=== PATIENT | female | born 1945 | race Caucasian/White ===

== ENCOUNTER 2020-01-21 12:53 | Outpatient (CLI) | payer MEDICARE, MEDICAID, SELFPAY ==
--- NOTE | ~2020-01-21 | MM_ITS ---
EXAMINATION: MM screening foster BI w jose l HISTORY: Screening mammogram TECHNIQUE: Craniocaudal and mediolateral oblique 3-D tomosynthesis images were obtained and synthetic 2-D images were generated. CAD analysis was submitted and interpreted. COMPARISON: No prior mammogram is available for comparison at this institution. BREAST PARENCHYMAL COMPOSITION: The breasts are almost entirely fatty. FINDINGS: There is no evidence of suspicious mass, calcification, or architectural distortion to sugg est malignancy in either breast. IMPRESSION: 1. No mammographic evidence of malignancy. 2. Recommend routine screening mammography in one year. BI-RADS Category 1: Negative Reviewed, dictated and finalized at location A. E LINER
== END 2020-01-21 12:54 | disposition home or self-care (01) ==
LOC: CHSIMG 13:00
PROVIDERS: PCP Nurse Practitioner Family; Visit Provider Nurse Practitioner Family
DX: Z12.31 Encounter for screening mammogram for malignant neoplasm of breast (principal)
CPT/HCPCS: 77063; 77067

== ENCOUNTER 2021-02-26 12:17 | Outpatient (NON) | payer MEDICARE, SELFPAY ==
[2021-02-26 12:47] LABS: Basophils Absolute Auto 0.03 K/mm3 (0.00-0.10); Basophils Percent Auto 0.3 % (0.0-1.0); Eosinophils Absolute Auto 0.22 K/mm3 (0.02-0.50); Eosinophils Percent Auto 2.6 % (1.0-6.0); Hematocrit 49.7 % (35.0-42.0); Hemoglobin 15.3 g/dL (11.7-13.8); Immature Granulocyte Absolute 0.03 K/mm3 (0.00-0.00); Immature Granulocyte Percent A 0.3 % (0.0-0.0); Lymphocytes Absolute Auto 2.97 K/mm3 (1.10-4.50); Lymphocytes Percent Auto 34.5 % (18.0-42.0); Mean Corpuscular HGB Conc 30.8 g/dL (32.0-36.0); Mean Corpuscular Hemoglobin 30.4 pg (27.0-31.0); Mean Corpuscular Volume 98.8 fL (78.0-102.0); Mean Platelet Volume 11.9 fl (9.2-11.8); Neutrophils Absolute Auto 4.8 K/mm3 (1.7-7.2); Neutrophils Percent Auto 55.3 % (50.0-70.0); Platelet Count Result 326 K/mm3 (150-420); Red Blood Count 5.03 M/mm3 (4.20-5.40); Red Cell Distribution Width 14.1 % (11.6-14.4); White Blood Count 8.6 K/mm3 (4.8-10.8)
[2021-02-26 12:56] LABS: Hemoglobin A1C 6.9 % (<5.7)
[2021-02-26 13:10] LABS: Alanine Aminotransferase 13 U/L (14-59); Albumin Level 3.2 g/dL (3.4-5.0); Alkaline Phosphatase 64 U/L (46-116); Anion Gap 6 mmol/L (8-16); Aspartate Amino Transferase 17 U/L (15-37); Bilirubin,Total 0.3 mg/dL (0.00-1.00); Blood Urea Nitrogen 15 mg/dL (7-18); Calcium 9.4 mg/dL (8.5-10.1); Carbon Dioxide 31 mmol/L (21-32); Chloride 104 mmol/L (98-108); Cholesterol 175 mg/dL (0-200); Estimated Glomerular Filt Rate > 60; Glucose 115 mg/dL (70-99); HDL Direct 57 mg/dL (40-60); LDL Cholesterol Calculated 81 mg/dL (<130); Osmolality Calculated 293 mOsm/kg (285-295); Sodium 141 mmol/L (136-145); Triglycerides 187 mg/dL (0-150)
== END 2021-02-26 12:18 | disposition home or self-care (01) ==
LOC: CHSHH 12:20
PROVIDERS: Visit Provider Nurse Practitioner Family
DX: S42.222D 2-part displaced fracture of surgical neck of left humerus, subsequent encounter for fracture with routine healing (principal); E11.65 Type 2 diabetes mellitus with hyperglycemia; M89.49 Other hypertrophic osteoarthropathy, multiple sites; E11.59 Type 2 diabetes mellitus with other circulatory complications
CPT/HCPCS: 36415; 80053; 80061; 83036; 85025

== ENCOUNTER 2021-04-09 08:37 | Emergency (ER) | payer MEDICARE, MEDICAID, SELFPAY ==
--- NOTE | ~2021-04-09 | XR_ITS ---
EXAMINATION: XR ankle LT min 3V EXAM DATE: 04/09/2021 09:20 INDICATION: fall, L ankle pain/ slight swelling, pt AMS/ poor historian. TECHNIQUE: Left ankle frontal, lateral and oblique projections obtained and reviewed. There is no pr ior study for comparison. FINDINGS: The left ankle mortise appears intact. Bones appear osteopenic. There are no acute fract ures or dislocations identified. There is no subcutaneous gas. The soft tissue is unremarkable. T here are no radiopaque foreign bodies. IMPRESSION: No acute osseous findings. Reviewed, dictated and finalized at location A. [facility] ADMINISTRATIVE SERVICES OFFICER IMPRESSION: No acute osseous findings.
[2021-04-09 08:37] VITALS: BP 156/65; PULSE 89; RESP 20; TEMP 36.9; O2SAT 89
--- NOTE | 2021-04-09 08:43 | ED.LOWEXIN ---
HPI - Extremity Injury (Lower) General Chief Complaint: Fall Stated Complaint: AMBULANCE Time Seen by Provider: 04/09/21 08:43 Source: patient History of Present Illness HPI Narrative: 76-year-old female with Diabetes mellitus, history of CVA with left-sided weakness fell on left lower extremity and twisted her left ankle as she was attempting to get off the commode. The patient presents with -- left ankle pain. She has a left lower extremity posterior leg brace. She denied any other injury. The patient has been having difficulty with ADLs. Her assists her with her ADLs. the patient tested positive for COVID on March 30, 2021. complaint: ankle injury Onset (ago): hour(s) ( 1 hour ago) Injury: Left: ankle Type of Injury: blunt Place: home Severity: moderate Severity scale (1-10): 4 Relieving factors: nothing Exacerbating factors: nothing Context: fall Other symptoms: none Treatments prior to arrival: cold therapy Related Data Home Medications Medication Instructions Recorded Confirmed Aspir-81 81 mg BYMOUTH DAILY 04/09/21 04/09/21 betamethasone valerate 1 applic TOPICAL BID 04/09/21 04/09/21 buspirone 7.5 mg PO BID 04/09/21 04/09/21 cholecalciferol (vitamin D3) 50 mcg PO DAILY 04/09/21 04/09/21 denosumab 60 mg SUBCUT [id number] 04/09/21 04/09/21 dicyclomine 10 mg PO PRN PRN 04/09/21 04/09/21 dulaglutide [Trulicity] 1.5 mg SUBCUT WEEKLY 04/09/21 04/09/21 duloxetine 60 mg PO DAILY 04/09/21 04/09/21 enalapril maleate 20 mg PO DAILY 04/09/21 04/09/21 hydrocodone-acetaminophen 1 tablet PO TID 04/09/21 04/09/21 insulin asp prt-insulin aspart 54 unit SUBCUT BID 04/09/21 04/09/21 [Novolog Mix 70-30FlexPen U-100] magnesium gluconate 500 mg BYMOUTH DAILY 04/09/21 04/09/21 meloxicam 7.5 mg PO DAILY 04/09/21 04/09/21 metformin 500 mg PO DAILY 04/09/21 04/09/21 omeprazole 40 mg PO DAILY 04/09/21 04/09/21 pravastatin 40 mg PO DAILY 04/09/21 04/09/21 pregabalin 150 mg PO BID 04/09/21 04/09/21 Allergies Allergy/AdvReac Type Severity Reaction Status Date / Time codeine Allergy Intermediate Verified 06/25/13 08:05 Review of Systems Review of Systems: All systems reviewed & are unremarkable except as noted in HPI and below Constitutional: Constitutional: Reports as per HPI and Reports no additional constitutional complaints Eyes: Eyes: Reports as per HPI and Reports no additional eye complaints ENT: Reports system reviewed and no additional complaints, except as documented Cardiovascular: Cardiovascular: Reports as per HPI and Reports no additional cardiovascular complaints Respiratory: Respiratory: Reports as per HPI and Reports no additional respiratory complaints Gastrointestinal: Gastrointestinal: Reports as per HPI and Reports no additional gastrointestinal complaints Genitourinary: Genitourinary: Reports no additional female genitourinary complaints Musculoskeletal: Comments: history of chronic pain Integumentary/Breasts: Comments: bruising of the right wrist. Neurologic: Comments: Flaccid left hemiplegia Psychiatric: Psychiatric: Reports no additional psychiatric complaints Endocrine: Endocrine: Reports no additional endocrine complaints Hematologic/Lymphatic: Hematologic/Lymphatic: Reports no additional hematologic/lymphatic complaints Allergic/Immunologic: Allergic/Immunologic: Reports no additional allergic/immunologic complaints [facility] Past Medical History Medical History (Updated 04/09/21 @ 14:40 by Zack Velasquez MD) Left hemiplegia Social History Social History Smoking status: Current every day smoker Exam Const: General: no acute distress Orientation/consciousness: patient oriented x3 HENMT: Head: normal to inspection and contusion Eyes: Conjunctivae: conjunctivae normal Pupils: Equal, round and reactive pupils present EOM: EOMs intact bilaterally Neck: Neck: normal visual inspection and no lymphad
[2021-04-09 09:14] LABS: Hematocrit 48.4 % (35.0-42.0); Hemoglobin 15.3 g/dL (11.7-13.8); Mean Corpuscular HGB Conc 31.6 g/dL (32.0-36.0); Mean Corpuscular Hemoglobin 29.9 pg (27.0-31.0); Mean Corpuscular Volume 94.5 fL (78.0-102.0); Mean Platelet Volume 11.1 fl (9.2-11.8); Platelet Count Result 336 K/mm3 (150-420); Red Blood Count 5.12 M/mm3 (4.20-5.40); Red Cell Distribution Width 13.7 % (11.6-14.4); White Blood Count 12.3 K/mm3 (4.8-10.8)
[2021-04-09 09:27] LABS: Partial Thromboplastin Time 26.7 SEC (23.90-30.70); Prothrombin Time 10.3 Seconds (9.50-12.10)
[2021-04-09 09:32] LABS: Alanine Aminotransferase 21 U/L (14-59); Albumin Level 2.8 g/dL (3.4-5.0); Alkaline Phosphatase 63 U/L (46-116); Anion Gap 7 mmol/L (8-16); Aspartate Amino Transferase 16 U/L (15-37); Bilirubin,Total 0.3 mg/dL (0.00-1.00); Blood Urea Nitrogen 18 mg/dL (7-18); Calcium 9.9 mg/dL (8.5-10.1); Carbon Dioxide 34 mmol/L (21-32); Chloride 100 mmol/L (98-108); Estimated Glomerular Filt Rate > 60; Glucose 147 mg/dL (70-99); Osmolality Calculated 296 mOsm/kg (285-295); Potassium 3.7 mmol/L (3.5-5.1); Sodium 141 mmol/L (136-145); Total Protein 7.2 g/dL (6.4-8.2)
[2021-04-09 09:33] LABS: Troponin I 23.3 ng/L (0.00-60.4)
[2021-04-09 10:09] LABS: Add Urine Microscopic? YES; Appearance Urine Sl Cloudy (Clear); Bilirubin Urine Negative (Negative); Blood Urine Negative (Negative); Color Urine Light Yellow (Yellow); Glucose Urine UA Negative (Negative); Ketones Urine Trace (Negative); Leukocyte Esterase Ur Trace LEU/UL (Negative); Nitrate Urine Negative (Negative); Protein Urine Negative (Negative); Specific Grav Ur 1.015 (1.010-1.020); Urobilinogen Urine 0.2 mg/dL (0.2-1.0)
[2021-04-09 10:17] LABS: RBC Urine None seen /hpf (0-2); Squamous Epithelial Cell Urine Few /hpf (Few); WBC Urine 0-3 /hpf (0-3)
[2021-04-09 10:18] LABS: Bacteria Urine 3+ /hpf
[2021-04-09 10:59] VITALS: BP 155/64; PULSE 83; RESP 20; TEMP 37.1; O2SAT 93
--- NOTE | 2021-04-09 10:59 | PC.NURSE ---
call placed to [facility] for possible admission criteria.
[2021-04-09] MEDS: LACTATED RINGERS 1,000 ML 999 ML IV CONT (11:08)
[2021-04-09 12:26] LABS: SARS-CoV-2 Ag Positive (Negative)
--- NOTE | 2021-04-09 12:32 | PCCCNOTE ---
Visited the pt Faith and in her ED room. Faith slow to answer questions. answered all questions. reports [facility] . [facility] states [facility] told her [facility] have no beds. Faxed face sheet, ED MD note and [facility]. Pt has had 2 Moderna Covid immunizations in September and October 2020 per her . She tested positive for Covid on 03/30/21 per ED notes. is agreeable to any physician on the [facility] staff to care for his
[2021-04-09 13:46] VITALS: BP 168/83; PULSE 78; RESP 20; TEMP 36.2; O2SAT 93
--- NOTE | 2021-04-09 14:19 | PC.NURSE ---
chart has been faxed to nursing facilities. awaiting response. food tray provided for pt and .
--- NOTE | 2021-04-09 14:40 | PC.NURSE ---
pt placement to [facility]. fadumo has spoken with and he is aware. awaiting bed assignment.
--- NOTE | 2021-04-09 14:43 | PCCCNOTE ---
[facility] Inform and pt. Boris to meet with Santa at shelter in 30-45 min. Santa will let hospital know of room number.
[2021-04-09 14:55] VITALS: BP 122/69; PULSE 73; RESP 20; TEMP 36.3; O2SAT 93
--- NOTE | 2021-04-09 15:43 | PC.NURSE ---
pt resting in cot. repositioned to position of comfort. call delatorre in reach. continue waiting for bed placement
--- NOTE | 2021-04-09 16:22 | PC.NURSE ---
pt to go to room 109 at [facility]. call to [facility] for transport. awaiting arrival. pt stable and alert.
--- NOTE | 2021-04-09 16:34 | PC.NURSE ---
[facility] here and report given. pt loaded to ems cot with no complaints voiced.
== END 2021-04-09 16:36 ==
PROVIDERS: Emergency Provider Internal Medicine Critical Care Medicine; PCP Nurse Practitioner Family
DX: E86.0 Dehydration (principal); M25.572 Pain in left ankle and joints of left foot; W19.XXXA Unspecified fall, initial encounter; F17.200 Nicotine dependence, unspecified, uncomplicated; Z20.822 Contact with and (suspected) exposure to COVID-19
CPT/HCPCS: 36415; 73610; 80053; 81001; 84484; 85027; 85610; 85730; 87426; 99283; 99284; C9803; J7120

== ENCOUNTER 2021-04-23 11:26 | Observation (INO) | payer MEDICARE, MEDICAID, SELFPAY ==
--- NOTE | ~2021-04-23 | US_ITS ---
EXAMINATION: US carotid duplex BI EXAM DATE: 04/23/2021 13:53 INDICATION: right side weakness TECHNIQUE: Grayscale, color and pulsed Doppler images of the cervical carotid arteries were obtained . The degree of vessel stenosis is placed in one of the following categories: normal, <50% stenosis, 50-69% stenosis, >=70% stenosis but less than near-occlusion, near-occlusion, or occlusion. Note that percent stenosis relative to normal distal artery lumen diameter is indirectly measured from velocit y measurements as described by Terry, et al. Radiology 2003; 229:340-346. There is no prior study fo r comparison. FINDINGS: RIGHT SIDE: Right common carotid artery peak systolic velocity (PSV in cm/s): 98 Right bulb/internal carotid artery peak systolic velocity (PSV in cm/s): 102 Right internal carotid artery end diastolic velocity (EDV in cm/s): 70 Right ICA/CCA peak systolic ratio: 1.0 Right external carotid artery peak systolic velocity (PSV in cm/s): 167 Right vertebral artery antegrade flow: yes There is mild carotid bulb plaque. Velocity and Doppler waveforms in the common and internal carotid arteries is normal. LEFT SIDE: Left common carotid artery peak systolic velocity (PSV in cm/s): 132 Left bulb/internal carotid artery peak systolic velocity (PSV in cm/s): 166 Left internal carotid artery end diastolic velocity (EDV in cm/s): 11 Left ICA/CCA peak systolic ratio: 1.3 Left external carotid artery peak systolic velocity (PSV in cm/s): 145 Left vertebral artery antegrade flow: yes Mildly elevated left ICA velocity with visually moderate amount of plaque present. 50-69% stenosis. IMPRESSION: 1. Less than 50 percent stenosis in the right internal carotid artery. 2. 50-69% stenosis left internal carotid artery. Reviewed, dictated and finalized at location B. H [employer]ESSIONAL [employer]LETES
--- NOTE | ~2021-04-23 | MR_ITS ---
EXAMINATION: MR brain/brain stem wo con DATE: 04/24/2021 10:57 INDICATION: Right hemiparesis. TECHNIQUE: Magnetic resonance imaging (MRI) of the brain and brainstem was performed without intraven ous contrast. Sequences included sagittal and axial T1-weighted FSE, axial diffusion-weighted FS EPI, axial T2*-weighted GRE, axial T2-weighted FLAIR Propeller, and axial T2-weighted Propeller. Apparent diffusion coefficient (ADC) maps were created. COMPARISON: Head CT 04/23/2021 FINDINGS: There is a large distribution of chronic encephalomalacia involving the right frontal, temp oral, and parietal lobes, right insula, and right basal ganglia in the expected distribution of right middle cerebral artery. There are old infarcts in the bilateral thalami. There is an old infarct inv olving left temporal parietal region and posterior left insula. There are scattered areas of nonspeci fic increased T2-weighted signal intensity in the cerebral white matter and arash. There is no intracr anial hemorrhage, acute infarction, or abnormal intracranial mass lesion. There is ex vacuo dilatatio n of right lateral ventricle. There are likely changes of ocular lens replacement surgeries. There is mild mucosal thickening in the ethmoid sinuses. IMPRESSION: 1. Old infarcts in the brain. 2. Mild nonspecific cerebral white matter disease and pontine disease, which likely represents chroni c small vessel ischemic disease. Reviewed, dictated and finalized at location E. H DOFFER IMPRESSION: 1. Old infarcts in the brain. 2. Mild nonspecific cerebral white matter disease and pontine disease, which therese ortega represents chronic small vessel ischemic disease.
--- NOTE | ~2021-04-23 | CT_ITS ---
EXAMINATION: CT brain wo con DATE: 04/23/2021 12:28 INDICATION: Right hand shaking with weakness TECHNIQUE: Computed tomography (CT) of the head was performed without intravenous contrast. Sagittal and coronal reconstructions were performed. The mA was adjusted according to patient size. Iterative reconstruction technique was employed. The dose-length product was 756.67 mGy-cm. COMPARISON: None FINDINGS: Large region of encephalomalacia in the right middle cerebral artery vascular distribution consistent with chronic infarct involving portions of the right frontal, parietal and temporal lobes as well as the insula, right thalamus and basal ganglia. Additional significant smaller region of the encephalo malacia consistent with chronic infarct involving the posterior left insula and temporal lobe. No acu te intracranial hemorrhage, acute infarction or abnormal extra axial fluid collection. Mild ex vacuo dilation of the body of the right lateral ventricle. Ventricles are otherwise normal and symmetric. N o mass/mass effect. Symmetric prominence of the sulci and subarachnoid spaces overlying the convexiti es consistent with mild age-appropriate diffuse cerebral volume loss. Changes of bilateral intraocula r lens replacement. The orbits, paranasal sinuses and mastoid air cells are normal. IMPRESSION: 1. No acute intracranial process. 2. Large old infarct involving the majority of the right middle cerebral artery vascular distribution and smaller old infarct at the posterior left temporal lobe and insula. Reviewed, dictated and finalized at location A. BALL HAND SEWER IMPRESSION: 1. No acute intracranial process. 2. Large old infarct involving the majority of the right middle cerebral artery vascular distribution and smaller old infarct at the posterior left temporal l obe and insula.
--- NOTE | 2021-04-23 11:41 | ED.WEAKNESS ---
HPI - Weakness General Chief complaint: Weakness Stated complaint: Ambulance Time Seen by Provider: 04/23/21 11:45 History of Present Illness HPI Narrative: 76-year-old female patient is brought to the ER by a local EMS after she had experienced some weakness. According to the patient she has noticed some shaking of the right hand and states that her was concerned that she might be having a stroke. Patient states that she is unable to hold a cup of coffee or loss of water with the right hand. She is a very poor historian. According to prior medical records it seems that the patient was admitted here with dehydration on April 09 and apparently was discharged to the care home where she stayed up until 2 days ago and went home. She is very dependent on her for her daily ADLs. She has no complaints of headache, chest pain or belly pain at this time. She denies any nausea or vomiting. She denies any falls since she has been discharged home. She does indicate that she has had bermudez in the past but is not sure how long ago. Her old records indicate that she had positive COVID on March 30. Patient also has a known history of old CVA with left hemiplegia. Related Data Home Medications Medication Instructions Recorded Confirmed Aspir-81 81 mg BYMOUTH DAILY 04/09/21 04/23/21 Trulicity 1.5 mg SUBCUT WEEKLY 04/09/21 04/23/21 buspirone 7.5 mg PO BID 04/09/21 04/23/21 cholecalciferol (vitamin D3) 50 mcg PO DAILY 04/09/21 04/23/21 denosumab 60 mg SUBCUT [id number] 04/09/21 04/09/21 dicyclomine 10 mg PO PRN PRN 04/09/21 04/23/21 duloxetine 60 mg PO DAILY 04/09/21 04/23/21 enalapril maleate 20 mg PO DAILY 04/09/21 04/23/21 insulin asp prt-insulin aspart 54 unit SUBCUT BID 04/09/21 04/23/21 [Novolog Mix 70-30FlexPen U-100] magnesium gluconate 500 mg BYMOUTH DAILY 04/09/21 04/09/21 meloxicam 7.5 mg PO DAILY 04/09/21 04/09/21 metformin 500 mg PO DAILY 04/09/21 04/23/21 omeprazole 40 mg PO DAILY 04/09/21 04/09/21 pravastatin 40 mg PO DAILY 04/09/21 04/23/21 Allergies Allergy/AdvReac Type Severity Reaction Status Date / Time codeine Allergy Intermediate Headache Verified 04/23/21 11:39 Review of Systems Review of Systems: As noted in history of present illness All systems reviewed & are unremarkable except as noted in HPI and below PMFSH Past Medical History Medical History Left hemiplegia none Social History Social History Smoking status: Current every day smoker Exam Const: General: no acute distress and alert Nutritional Appearance: obese Orientation/consciousness: patient oriented x3 HENMT: Head: normal to inspection Ears: Abnormal EAC present General nose exam: Normal external nose present and Normal nares present Face and sinus: sinuses nontender Mouth: Yes Normal oral and palatal mucosa present and Yes moist mucous membranes Eyes: Conjunctivae: conjunctivae normal Pupils: Equal, round and reactive pupils present EOM: EOMs intact bilaterally Neck: Neck: normal visual inspection and no lymphadenopathy Chest: Chest palpation & inspection: normal inspection of the chest Resp: Effort & Inspection: normal respiratory effort Auscultation: clear to auscultation bilaterally Cardio: Rate: regular rate Rhythm: regular rhythm GI: GI Palp: Yes Soft to palpation, No Tenderness to palpation present (GI), No Guarding due to palpation present (GI) and No Rebound tenderness present Percussion: Yes normal to percussion Auscultation: normal bowel sounds : General: Yes no CVA tenderness Skin: General skin exam: normal color Neuro: General: patient oriented x3, No moves all extremities, no meningeal signs and CN's II-XI intact bilaterally Cranial nerves: Yes Nystagmus not present Other: patient has obvious left hemiplegia with no spontaneous movement of the left arm or right arm. Her right
[2021-04-23 11:50] VITALS: BP 95/58; PULSE 92; RESP 18; TEMP 35.9; O2SAT 92
--- NOTE | 2021-04-23 12:08 | PC.NURSE ---
Unconfirmed medications were in EMR from previous visits, but not listed on pt's written medication list. Pt unable to verify if unconfirmed medications are currently being taken.
[2021-04-23 12:18] LABS: Basophils Absolute Auto 0.03 K/mm3 (0.00-0.10); Basophils Percent Auto 0.4 % (0.0-1.0); Eosinophils Absolute Auto 0.29 K/mm3 (0.02-0.50); Eosinophils Percent Auto 4.3 % (1.0-6.0); Hematocrit 47.4 % (35.0-42.0); Hemoglobin 14.6 g/dL (11.7-13.8); Immature Granulocyte Absolute 0.02 K/mm3 (0.00-0.00); Immature Granulocyte Percent A 0.3 % (0.0-0.0); Lymphocytes Absolute Auto 2.23 K/mm3 (1.10-4.50); Lymphocytes Percent Auto 32.7 % (18.0-42.0); Mean Corpuscular HGB Conc 30.8 g/dL (32.0-36.0); Mean Corpuscular Hemoglobin 29.6 pg (27.0-31.0); Mean Corpuscular Volume 96.1 fL (78.0-102.0); Monocytes Absolute Auto 0.47 K/mm3 (0.10-0.90); Monocytes Percent Auto 6.9 % (2.0-11.0); Neutrophils Absolute Auto 3.8 K/mm3 (1.7-7.2); Neutrophils Percent Auto 55.4 % (50.0-70.0); Platelet Count Result 289 K/mm3 (150-420); Red Blood Count 4.93 M/mm3 (4.20-5.40); Red Cell Distribution Width 14.2 % (11.6-14.4); White Blood Count 6.8 K/mm3 (4.8-10.8)
[2021-04-23 12:33] LABS: Alanine Aminotransferase 24 U/L (14-59); Albumin Level 3.1 g/dL (3.4-5.0); Alkaline Phosphatase 69 U/L (46-116); Anion Gap 7 mmol/L (8-16); Aspartate Amino Transferase 19 U/L (15-37); Bilirubin,Total 0.3 mg/dL (0.00-1.00); Blood Urea Nitrogen 30 mg/dL (7-18); Calcium 9.7 mg/dL (8.5-10.1); Carbon Dioxide 32 mmol/L (21-32); Chloride 102 mmol/L (98-108); Estimated CRCL calculation 59 ml/min; Estimated Glomerular Filt Rate 53; Glucose 157 mg/dL (70-99); Osmolality Calculated 301 mOsm/kg (285-295); Potassium 3.5 mmol/L (3.5-5.1); Sodium 141 mmol/L (136-145)
--- NOTE | 2021-04-23 12:33 | PC.NURSE ---
Pt's has arrived while she is in [place] and states that pt was discharged from [facility] on Monday because we both wanted to leave. I wasn't happy with what was going on there . states that he has home health come help take care of pt, but today she was unable to stand like she normally does and had to use a bhumika lift to get pt to the restroom. also states that pt was unable to hold her coffee cup. states that he thought pt may be having TIA's again . states that pt's last stroke was in February 1999. ERP present during this conversation and asks what his discharge goals for pt are. states that he would like pt sent to [facility] in [place] and says he has already talked to them and pt's PCP is sending paperwork over today. RN called [facility] to confirm pt's placement and was told by staff that they do not have a bed ready for pt at this time and they have told this multiple times since he first contacted them on 04-08-21. [facility] staff states that they have not received the required paperwork from PCP and have not been able to approve pt's insurance yet. [facility] staff states that it will be next week, at the earliest, before they will be ready to accept pt if insurance is approved.
[2021-04-23 13:00] LABS: Add Urine Microscopic? YES; Appearance Urine Cloudy (Clear); Bilirubin Urine Negative (Negative); Blood Urine Negative (Negative); Color Urine Yellow (Yellow); Glucose Urine UA Negative (Negative); Ketones Urine Negative (Negative); Leukocyte Esterase Ur Negative (Negative); Nitrate Urine Negative (Negative); Protein Urine Negative (Negative); Specific Grav Ur 1.015 (1.010-1.020); Urobilinogen Urine 0.2 mg/dL (0.2-1.0)
[2021-04-23 13:05] VITALS: BP 135/80; PULSE 88; RESP 16; O2SAT 90
[2021-04-23 13:08] LABS: Bacteria Urine 2+ /hpf; RBC Urine None seen /hpf (0-2); Squamous Epithelial Cell Urine Few /hpf (Few); WBC Urine None seen /hpf (0-3)
--- NOTE | 2021-04-23 13:18 | PC.NURSE ---
Two RN's at bedside attempting to stand pt per ERP request. states that pt has not stood in weeks and he has to use a bhumika lift to get her out of bed every day. ERP aware and says to get orthostatic vitals with pt sitting on bed, but not standing.
[2021-04-23 13:21] VITALS: BP 122/56; BP 139/69; PULSE 95; PULSE 99
--- NOTE | 2021-04-23 13:34 | PC.NURSE ---
ERP discussion admission with hospitalist. US of carotids will be obtained. US tech at bedside now.
--- NOTE | 2021-04-23 14:08 | PC.NURSE ---
O2 dropped to 88%. RN to room and finds pt asleep. Pt denies a Hx of sleep apnea. Pt does not appear to be in any distress. 2L O2 applied via NC.
[2021-04-23 14:43] VITALS: BP 119/56; PULSE 87; RESP 116; O2SAT 100
[2021-04-23 15:24] VITALS: BMI 30.2
[2021-04-23 15:40] VITALS: BP 137/72; PULSE 83; RESP 18; TEMP 36.1; O2SAT 100
--- NOTE | 2021-04-23 15:51 | ADMGEN ---
This patient, Faith Jenkins, was admitted to 2nd Floor Room 209-1. Patient/family oriented to hospital policies and general routines including ID bracelet, bed and alarms, visiting hours, pain management, procedures, bathroom and other care routines, personal items, smoking policy, room service/diet, and visiting hours. Information on how to activate the Rapid Response Team has been discussed. Patient/Family are encouraged to report perceived risks to care and to ask questions if they do not understand what they are told or what they should do.
[2021-04-23 16:39] LABS: Glucose Point of Care 46 mg/dl (65-105)
[2021-04-23] MEDS: DOCUSATE SODIUM 100 MG CAPSULE PO (16:44)
[2021-04-23 20:00] VITALS: O2SAT 96
[2021-04-23] MEDS: PREGABALIN (*CRX) 50 MG CAPSULE PO (21:12)
[2021-04-23] MEDS: busPIRone HCL 5 MG TABLET 7.5 MG PO (21:12)
[2021-04-23 21:13] LABS: Glucose Point of Care 62 mg/dl (65-105)
--- NOTE | 2021-04-23 21:21 | PC.NURSE ---
pt given oj and raymundo chauhan for bs of 64, took pills whole without difficulties, call light on lap, rails up
[2021-04-24] VITALS: BP 134/58; PULSE 74; RESP 20; TEMP 36.1; O2SAT 94
--- NOTE | 2021-04-24 00:15 | PC.NURSE ---
Pt resting in bed and watching TV. Pt given ice cream for a snack and pt doesnt voice any other concerns.
--- NOTE | 2021-04-24 02:15 | PC.NURSE ---
Pt incontinent of a large amount of urine; Pt cleaned, changed and repositioned to her side.
--- NOTE | 2021-04-24 04:04 | PC.NURSE ---
Pt turned and repositioned to her side.
[2021-04-24 05:32] LABS: Hematocrit 39.9 % (35.0-42.0); Hemoglobin 12.8 g/dL (11.7-13.8); Mean Corpuscular HGB Conc 32.1 g/dL (32.0-36.0); Mean Corpuscular Hemoglobin 30.5 pg (27.0-31.0); Mean Corpuscular Volume 95.2 fL (78.0-102.0); Mean Platelet Volume 12.1 fl (9.2-11.8); Platelet Count Result 244 K/mm3 (150-420); Red Blood Count 4.19 M/mm3 (4.20-5.40); Red Cell Distribution Width 14.1 % (11.6-14.4); White Blood Count 6.7 K/mm3 (4.8-10.8)
[2021-04-24 06:14] LABS: Alanine Aminotransferase 19 U/L (14-59); Albumin Level 2.5 g/dL (3.4-5.0); Alkaline Phosphatase 68 U/L (46-116); Anion Gap 7 mmol/L (8-16); Aspartate Amino Transferase 21 U/L (15-37); Bilirubin,Total 0.2 mg/dL (0.00-1.00); Blood Urea Nitrogen 16 mg/dL (7-18); Carbon Dioxide 30 mmol/L (21-32); Chloride 106 mmol/L (98-108); Estimated CRCL calculation 67 ml/min; Estimated Glomerular Filt Rate > 60; Glucose 170 mg/dL (70-99); Osmolality Calculated 301 mOsm/kg (285-295); Potassium 3.9 mmol/L (3.5-5.1); Sodium 143 mmol/L (136-145); Total Protein 5.9 g/dL (6.4-8.2)
--- NOTE | 2021-04-24 06:45 | PC.NURSE ---
Pt turned and repositioned to her back; Blood sugar is 110.
[2021-04-24 06:55] LABS: Glucose Point of Care 110 mg/dl (65-105)
[2021-04-24 07:45] VITALS: BP 137/62; PULSE 76; RESP 18; TEMP 36.5; O2SAT 92
[2021-04-24] MEDS: ENALAPRIL MALEATE 5 MG TABLET 20 MG PO (09:41)
[2021-04-24] MEDS: DULoxetine HCL 30 MG CAPSULE.DR 60 MG PO (09:41)
[2021-04-24] MEDS: ASPIRIN 81 MG ENTERIC TABLET PO (09:41)
[2021-04-24] MEDS: PRAVASTATIN SODIUM 20 MG TABLET 40 MG PO (09:42)
[2021-04-24] MEDS: busPIRone HCL 5 MG TABLET 7.5 MG PO (09:43)
[2021-04-24] MEDS: CHOLECALCIFEROL 1,000 UNITS TABLET 2000 UNITS PO (09:43)
[2021-04-24] MEDS: MAGNESIUM OXIDE 400 MG TABLET PO (09:43)
[2021-04-24] MEDS: PREGABALIN (*CRX) 50 MG CAPSULE PO (09:43)
[2021-04-24] MEDS: DOCUSATE SODIUM 100 MG CAPSULE PO (09:43)
[2021-04-24] MEDS: ENOXAPARIN 40 MG/0.4 ML SYRINGE SUB-Q (09:43)
[2021-04-24] MEDS: MELOXICAM 7.5 MG TABLET PO (09:55)
--- NOTE | 2021-04-24 11:33 | PM.SD2 ---
Same Day Admit/Disch: HPI History of Present Illness Chief complaint: Ambulance Narrative: Faith Jenkins is a 76 year old female that presented to our ED with complaints of right side weakness. Patient has a history of left side hemiplegia due to a CVA, diabetes, hypertension, depression and anxiety. Patient is a poor historian all information obtained from medical records .patient able to answer questions with a slow response .apparently patient started having uncontrollable shaking to her right hand afterwards her was concerned about her having a stroke. After last admission patient was discharged to a shelter in which her felt unfit for her stay . He is currently looking for placement. Patient does not appear to be in any distress at this time. The patient denies SOB, CP, palpitation, extremity numbness, lightheadedness, dizziness, constipation, diarrhea, chills, or fever. Carotid indicates Less than 50 percent stenosis in the right internal carotid artery.and 50-69% stenosis left internal carotid artery. WBC 6.8, hemoglobin 14.6, hematocrit 47.4, platelets 289, sodium 141, potassium 3.5, BUN 30, creatinine 1.01, glucose 157,, AST 19, ALT 24, UA negative, CT of the head no acute findings, MRI. According to ED doctor patient and family member do not want any extensive intervention if CVA is found. Patient currently on preventive medication. She will discharge home and is awaiting placement at a shelter. Patient has no obvious distress PMFSH Past Medical History Medical History (Updated 04/24/21 @ 11:41 by RUDDY Skinner) Hypertension Left hemiplegia none Social History Social History Smoking status: Former smoker Tobacco type: cigarettes Second hand tobacco smoke exposure: Yes Alcohol intake: never Substance use: never Substance use type: does not use Spiritual care concerns: No Same Day Admit/Disch: Med Pre-admit Medications Home Medications Medication Instructions Recorded Confirmed Type Aspir-81 81 mg BYMOUTH DAILY 04/09/21 04/23/21 History Trulicity 1.5 mg SUBCUT WEEKLY 04/09/21 04/23/21 History buspirone 7.5 mg PO BID 04/09/21 04/23/21 History cholecalciferol (vitamin D3) 50 mcg PO DAILY 04/09/21 04/23/21 History dicyclomine 10 mg PO PRN PRN 04/09/21 04/23/21 History duloxetine 60 mg PO DAILY 04/09/21 04/23/21 History enalapril maleate 20 mg PO DAILY 04/09/21 04/23/21 History hydrocodone-acetaminophen 1 tablet PO TID #60 tablet 04/09/21 04/23/21 Rx metformin 500 mg PO DAILY 04/09/21 04/23/21 History pravastatin 40 mg PO DAILY 04/09/21 04/23/21 History pregabalin 150 mg PO BID #60 cap 04/09/21 04/23/21 Rx insulin asp prt-insulin aspart 27 unit SUBCUT BID #0 ml 04/24/21 04/23/21 Rx [Novolog Mix 70-30FlexPen U-100] meloxicam [Mobic] 7.5 mg PO DAILY #30 tablet 04/24/21 Rx Exam Narrative: GENERAL: This is a well-nourished, well-developed patient, in no apparent distress. HEAD: normocephalic, atraumatic. EYES: PERRL. Sclera clear/white. Vision is grossly intact. EARS: External ears normal, auditory canals clear and without drainage, TMs normal without perforation. Hearing grossly intact. NOSE: External nose normal with no obvious nasal discharge, nares without redness, no rhinorrhea. THROAT: Mucous membranes moist, posterior pharynx clear. NECK: Neck supple, non-tender without lymphadenopathy, masses or thyromegaly. CARDIOVASCULAR: Regular rate and rhythm without murmurs, gallops, or rubs. RESPIRATORY: Clear to auscultation. Breath sounds equal bilaterally. No wheezes, rales, or rhonchi. GASTROINTESTINAL: Abdomen soft, non-tender, nondistended. Bowel sounds are active. No hepato-splenomegaly, or palpable masses. No guarding. SKIN: warm, intact with no suspicious lesions or rash, good texture and turgor. NEURO: awake, alert, and oriented to person, place and time. There were no obvious focal neurologic abnormalities.
[2021-04-24 12:09] LABS: Glucose Point of Care 114 mg/dl (65-105)
--- NOTE | 2021-04-24 13:15 | PC.NURSE ---
Patients denise notified of patient being discharged today. states there is no was for patient to be transported home safely and she will have to come by ambulance.
--- NOTE | 2021-04-24 16:30 | PC.NURSE ---
IV site removed, tip intact, dressing applied to site. All discharge instructions and education reviewed with patient and sent home with patient. All belongings gathered together and sent home with patient. Report on patient given to EMS, Patient left via stretcher with EMS, left facility via ambulance.
--- NOTE | 2021-04-26 16:12 | PC.NURSE ---
Reclamation Engineer explained discharge instructions to daughter and spouse as they were unable to be present at discharge. Both state they have no questions. Spouse has no comments regarding patients care.
== END 2021-04-24 16:30 | disposition home or self-care (01) ==
LOC: CHSED 13:42 → CHS2ND 14:17
PROVIDERS: Nurse Practitioner; Admitting Provider Emergency Medicine; Emergency Provider Emergency Medicine; PCP Nurse Practitioner Family; Visit Provider Emergency Medicine
DX: M62.81 Muscle weakness (generalized) (principal); I65.23 Occlusion and stenosis of bilateral carotid arteries; I69.354 Hemiplegia and hemiparesis following cerebral infarction affecting left non-dominant side; I10 Essential (primary) hypertension; E11.9 Type 2 diabetes mellitus without complications; F32.A Depression, unspecified; F41.9 Anxiety disorder, unspecified; Z79.82 Long term (current) use of aspirin; Z79.4 Long term (current) use of insulin
CPT/HCPCS: 36415; 70450; 70551; 80053; 81001; 82948; 85025; 85027; 93880; 96372; 97161; 99285; A9270; G0378; J1650; J1815

== ENCOUNTER 2023-11-17 10:14 | Outpatient (CLI) | payer MEDICARE, MEDICAID, SELFPAY ==
--- NOTE | ~2023-11-17 | CT_ITS ---
CT Scan of the Chest without Contrast: Clinical Indication: Lung cancer screening, nicotine dependence Technique: Contiguous sections were acquired throughout the chest without intravenous contrast. Dose reduction technique was used on this scan by utilizing automated exposure control and iterative recon struction technique. The dose-length product (DLP) was 158.97 mGy-cm. Findings: There is no evidence of any significant mediastinal, hilar or axillary lymphadenopathy. There are ext ensive atherosclerotic calcifications of the aorta and coronary arteries. There is no evidence of pleural or pericardial effusion. Small calcified granuloma noted in the right lung. There are minimal dependent atelectatic/hypoventil atory changes. Images through the upper abdomen reveal no abnormalities. Impression: Lung RADS 2: Benign appearance. 12 month follow-up screening CT advised. Reviewed, dictated and finalized at [facility]. Impression: Lung RADS 2: Benign appearance. 12 month follow-up screening CT advised.
== END 2023-11-17 10:15 | disposition home or self-care (01) ==
PROVIDERS: PCP Family Medicine; Visit Provider Family Medicine
DX: Z12.2 Encounter for screening for malignant neoplasm of respiratory organs (principal); Z87.891 Personal history of nicotine dependence
CPT/HCPCS: 71271

== ENCOUNTER 2024-02-19 09:25 | Outpatient (CLI) | payer MEDICARE, MEDICAID, SELFPAY ==
--- NOTE | ~2024-02-19 | MR_ITS ---
MR brain/brain stem wo con Ordering provider: Bertin StrongMD History: 79 years Female with . hemiparesis . Comparison: April 14, 2021 Technique: MRI brain was performed without contrast. FINDINGS: BONES: Normal. CRANIOCERVICAL JUNCTION: normal. PITUITARY: Normal. MAJOR INTRACRANIAL VESSELS: Normal flow void. OPTIC NERVES AND CRANIAL NERVES VII AND VIII COMPLEXES: Grossly normal. BRAIN PARENCHYMA AND CSF SPACES: Mild nonspecific T2 white matter hyperintensities are seen in a adry ateral periventricular and deep white matter distribution which are likely related to chronic ischemi c small vessel disease. Mild diffuse cortical atrophy. 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 The brainstem and cerebellum are normal. No acute or chronic intracranial hemorrhage. No extra axial fluid collections. Diffusion weighted and ADC mapping images reveal no recent ischemi a. No midline shift or mass effect. PARANASAL SINUSES: Bilateral maxillary and ethmoid sinus disease. MASTOIDS: Normal SUPERFICIAL/SURROUNDING SOFT TISSUES: Normal. Lymph nodes are seen in the parotid glands. IMPRESSION: 1. No acute intracranial process. 2. 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 3. Deep white matter ischemic changes with mild brain atrophy. Reviewed, dictated and finalized at location [facility]
== END 2024-02-19 09:26 | disposition home or self-care (01) ==
PROVIDERS: PCP Family Medicine; Visit Provider Family Medicine
DX: I69.359 Hemiplegia and hemiparesis following cerebral infarction affecting unspecified side (principal); R90.82 White matter disease, unspecified; G31.9 Degenerative disease of nervous system, unspecified
CPT/HCPCS: 70551

== ENCOUNTER 2024-03-14 15:51 | Inpatient (IN) | payer MEDICARE, MEDICAID, SELFPAY ==
[2024-03-14] VITALS (22 sets, daily range): BP systolic 116–170; BP diastolic 45–112; PULSE 82–96; RESP 16–41; TEMP 36.7; O2SAT 89–100; BMI 29.7
--- NOTE | ~2024-03-14 | XR_ITS ---
XR chest 1V portable Ordering provider: Lashell Demarco PA-C History: 79 years Female with . unknown > WBC source . Comparison: March 14, 2024 FINDINGS: MEDIASTINUM: The cardiac silhouette is slightly enlarged. LUNGS: No infiltrates, effusions or pneumothorax. OTHER: No free air under the diaphragm. IMPRESSION: No acute cardiopulmonary pathology. Reviewed, dictated and finalized at location A. [employer]
--- NOTE | ~2024-03-14 | CT_ITS ---
EXAMINATION: CT brain wo con DATE: 03/14/2024 16:00 INDICATION: Altered mental status. Right-sided facial droop and hemiparesis. TECHNIQUE: Computed tomography (CT) of the head was performed without intravenous contrast. Sagittal and coronal reconstructions were performed. Automated exposure control and iterative reconstruction t echnique were employed. The dose-length product was 605.33 mGy-cm. COMPARISON: head CT dated 04/23/2021 and brain MR dated 02/29/2024 FINDINGS: Unchanged large region of encephalomalacia involving the right frontal, temporal and parietal lobes, the right insula and basal ganglia consistent with chronic infarct in the vascular distribution of th e right middle cerebral artery. There is asymmetric mild expected dilation of the right lateral ventr icle relative to the left. There is an additional smaller region of encephalomalacia consistent with chronic infarct in the posterior left insula. No acute intracranial hemorrhage, acute infarction or a bnormal extra axial fluid collection. Separate from the chronic infarcts there is additional mild sca ttered white matter hypoattenuation consistent with chronic small vessel ischemic disease. Symmetric prominence of the sulci consistent with moderate age-appropriate diffuse cerebral volume loss. No mas s/mass effect. Changes of bilateral intraocular lens replacement. The orbits, paranasal sinuses and m astoid air cells are normal. IMPRESSION: 1. 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 No acute intracranial process. 2. Age-related changes including moderate diffuse volume loss and mild scattered nonspecific white ma tter hypoattenuation consistent with chronic small vessel ischemic disease. Reviewed, dictated and finalized at location B. ER/WAITRESS BAR IMPRESSION: 1. 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 No acute intracranial process. 2. Age-related changes including moderate diffuse volume loss and mild scattere d nonspecific white matter hypoattenuation consistent with chronic small vessel ischemic disease.
--- NOTE | ~2024-03-14 | XR_ITS ---
CHEST RADIOGRAPH CLINICAL HISTORY: ams, r sided deficit . COMPARISON: None available TECHNIQUE: Single portable view of the chest. FINDINGS The cardiomediastinal silhouette is unremarkable. The lungs are clear. Visualized osseous structures and soft tissues are unremarkable. IMPRESSION: No focal infiltrate or effusion. Reviewed, dictated and finalized at location A. HEALTH CARE CASE MANAGER
--- NOTE | ~2024-03-14 | MR_ITS ---
EXAMINATION: MR brain/brain stem wo/w con DATE: 03/15/2024 12:32 INDICATION: Stroke. Neurological changes. TECHNIQUE: Magnetic resonance imaging (MRI) of the brain and brainstem was performed without and with 17 mL MultiHance intravenous contrast. COMPARISON: Brain MRI 02/20/2024, head CT 03/14/2023 FINDINGS: There is an old infarct involving the right frontotemporal parietal region, right basal iftikhar glia, right internal capsule, and right thalamus with old blood products versus dystrophic calcificat ions at the medial aspect of the infarct. There is an old lacunar infarct in the left thalamus. There are scattered areas of nonspecific increased T2-weighted signal intensity in the cerebral white aaron er, which is within normal limits for the patient's age. There is no acute ischemic infarct or abnorm al mass lesion. There is expected dilatation of right lateral ventricle. The paranasal sinuses are cl ear. There are likely changes of ocular lens replacement surgeries. The mastoid air cells are normal. There is a 1.3 x 0.8 cm mass in the right parotid gland. There is a 4.1 x 2.4 cm mass in the left pa rotid gland. IMPRESSION: 1. Large old infarct in the expected distribution of right middle cerebral artery. 2. Old lacunar infarct in left thalamus. 3. Bilateral parotid masses. The differential diagnosis includes benign mixed tumor, Warthin tumor, a nd less likely stanford metastatic disease or primary malignancy. Reviewed, dictated and finalized at location A. STIC LAUNDRY WORKER IMPRESSION: 1. Large old infarct in the expected distribution of right middle cerebral chao ry. 2. Old lacunar infarct in left thalamus. 3. Bilateral parotid masses. The differential diagnosis includes benign mixed t umor, Warthin tumor, and less likely stanford metastatic disease or primary malign werner.
--- NOTE | ~2024-03-14 | US_ITS ---
EXAMINATION: US FNA w image guidance DATE: 03/19/2024 14:00 INDICATION: Right parotid mass. TECHNIQUE: The patient's provided consent. The neck was prepped and draped in the usual sterile manner. 1% lidocaine was used for local anesthesia. 7 passes were made with a 25G needle into the lesion un conrad ultrasound guidance. There were no immediate complications. FINDINGS: Grayscale ultrasound images demonstrate needles advanced into a 4.1 cm mass in the left parotid gland for biopsy. IMPRESSION: 1. Ultrasound-guided fine needle aspiration of a left parotid mass. 2. The right parotid mass FNA was canceled due to the patient's confusion and noncompliance. Reviewed, dictated and finalized at location A. DENTIAL MANAGER IMPRESSION: 1. Ultrasound-guided fine needle aspiration of a left parotid mass. 2. The right parotid mass FNA was canceled due to the patient's confusion and n oncompliance.
--- NOTE | ~2024-03-14 | CT_ITS ---
EXAMINATION: CTA BRAIN/CAROTID DATE: 03/14/2024 16:09 INDICATION: Mental status. Right-sided facial droop and right hemiparesis. TECHNIQUE: Computed tomographic angiography (CTA) of the head and neck was performed with 100 mL Omni paque-350 intravenous contrast. Multiplanar reconstructions and maximum intensity projection 3D-recon structions of the carotid arteries and of the intracranial arteries were created by the technologist on a separate workstation. Automated exposure control and iterative reconstruction technique were emp loyed.The dose-length product was 1110.65 mGy-cm. COMPARISON: Head CT dated 03/14/2024, carotid ultrasound dated 04/23/2021 FINDINGS: Carotid arteries: Aortic arch is normal in caliber with no hemodynamically significant atherosclerotic calcifications a nd no dissection. There are more prominent atherosclerotic calcification is at the origins of the art eries arising from the aortic arch however assessment is limited by motion artifact at this level. Th ere is also atherosclerotic calcifications at the origins of the codominant vertebral arteries. There is small amount of atherosclerotic plaque with 0% stenosis of the right carotid bulb relative to nor mal distal artery lumen diameter (NASCET criteria). There is 50% stenosis of the left carotid bulb re lative to normal distal artery lumen diameter. Intracranial arteries The left intracranial vertebral artery is mildly dominant. There is mild, <50% stenosis along the int racranial left vertebral artery. There is additional <50% stenosis along the basilar artery. Atherosc lerotic calcifications with <50% stenosis at the bilateral carotid siphons. There are no aneurysms id entified. Both A1 and P1 segments are patent. The left A1 segment is diminutive with likely collater al flow supplied the left anterior cerebral artery via a patent anterior to indicating artery. There is a large region of encephalomalacia involving the right middle cerebral artery vascular distributio n with asymmetric likely secondary diffuse mild attenuation of the arteries in this location relative to the arteries and the contralateral left middle cerebral artery vascular distribution. IMPRESSION: 1. Small amount of atherosclerotic plaque with 0% stenosis of the right carotid bulb relative to norm al distal artery lumen diameter (NASCET criteria). 2. 50% stenosis of the left carotid bulb relative to normal distal artery lumen diameter. 3. Mild <50% stenosis at the left vertebral and basilar arteries and at the bilateral carotid siphons . 4. Large region of encephalomalacia involving the right middle cerebral artery vascular distribution with likely secondary diffuse mild relative attenuation of the arteries in this region relative to th e contralateral left middle cerebral artery vascular distribution. 5. Atherosclerotic calcifications at the origins of the great arteries arising from the aortic arch a nd at the origins of the bilateral vertebral arteries with assessment for degree of stenosis limited by motion artifact. Reviewed, dictated and finalized at location B. LOPMENT EXECUTIVE IMPRESSION: 1. Small amount of atherosclerotic plaque with 0% stenosis of the right carotid bulb relative to normal distal artery lumen diameter (NASCET criteria). 2. 50% stenosis of the left carotid bulb relative to normal distal artery lumen diameter. 3. Mild <50% stenosis at the left vertebral and basilar arteries and at the adry ateral carotid siphons. 4. Large region of encephalomalacia involving the right middle cerebral artery vascular distribution with likely secondary diffuse mild relative attenuation o f the arteries in this region relative to the contralateral left middle cerebra l artery vascular distribution. 5. Atherosclerotic calcifications at the origins of the great arteries arising from the aortic arch and at the origins of the bilateral vertebral arteries wit h assessment for degree of stenosis limited by motion artifact.
--- NOTE | ~2024-03-14 | XR_ITS ---
EXAMINATION: XR barium swallow modified DATE: 03/15/2024 12:02 INDICATION: Dysphagia. TECHNIQUE: The patient was given barium-containing material of multiple consistencies to swallow by t he speech pathologist while I performed fluoroscopy. Fluoroscopy exposure time was 1.2 minutes. The n umber of fluoroscopy images saved to the PACS was 1. Dose-area product was 0.855 Gy-cm^2. FINDINGS: There is no laryngeal penetration or aspiration. IMPRESSION: 1. No laryngeal penetration or aspiration. 2. Please refer to the speech therapy report for recommendations. Reviewed, dictated and finalized at location A. SPRING FABRICATION SUPERVISOR
--- NOTE | 2024-03-14 15:52 | ECG_ITS ---
Test Date: 2024-03-14 16:23:40 Measurements Intervals [place] Rate: 83 P: 24 HI: 154 QRS: 1 QRSD: 93 T: 91 QT: 320 QTc: 378 Interpretive Statements SINUS RHYTHM POSSIBLE INFERIOR MYOCARDIAL INFARCTION , PROBABLY OLD [30 ms Q WAVE IN II/aVF] NONSPECIFIC ST-T WAVE CHANGES No previous ECG available for comparison Electronically Signed On 03-18-2024 14:35:41 [employer]ING [employer]ING [employer]OURER by Abhishek Reddy M.D.
[2024-03-14 16:06] LABS: Basophils Percent Auto 0.2 % (0.2-1.2); Eosinophils Absolute Auto 0.4 K/mm3 (0-0.3); Eosinophils Percent Auto 3.8 % (0-4.4); Hematocrit 38.3 % (37.0-47.0); Hemoglobin 11.8 g/dL (12.0-15.0); Immature Granulocyte Absolute 0.04 K/mm3 (0.00-0.031); Immature Granulocyte Percent A 0.4 % (0-0.5); Lymphocytes Absolute Auto 0.46 K/mm3 (0.9-3.2); Lymphocytes Percent Auto 4.8 % (18.3-44.2); Mean Corpuscular HGB Conc 30.8 g/dl (32-36); Mean Corpuscular Hemoglobin 29.6 pg (26-34); Mean Platelet Volume 12.1 fl (7.4-10.4); Monocytes Absolute Auto 0.7 K/mm3 (0.1-0.6); Monocytes Percent Auto 6.8 % (2.6-8.5); Platelet Count Result 232 k/mm3 (150-375); Red Blood Count 3.99 M/mm3 (4.2-5.4); Red Cell Distribution Width 15.2 % (11.5-14.5); White Blood Count 9.5 K/mm3 (4.5-10.0)
[2024-03-14 16:16] LABS: Alanine Aminotransferase 18 U/L (6-35); Albumin Level 3.1 g/dL (3.5-5.1); Alkaline Phosphatase 70 U/L (38-126); Anion Gap -2 mmol/L (4-12); Aspartate Amino Transferase 27 U/L (14-36); Bilirubin,Total 0.3 mg/dL (0.2-1.3); Blood Urea Nitrogen 16 mg/dL (7-17); Calcium 9.1 mg/dL (8.4-10.2); Carbon Dioxide 35 mmol/L (22-30); Chloride 102 mmol/L (98-107); Estimated Glomerular Filt Rate > 60; Glucose 131 mg/dL (65-110); Potassium 3.8 mmol/L (3.4-5.0); Sodium 135 mmol/L (137-145)
[2024-03-14 16:17] LABS: Estimated Glomerular Filt Rate > 60
[2024-03-14 16:20] LABS: INR 0.9; Prothrombin Time 13.1 Seconds (11.1-14.7)
[2024-03-14 16:22] LABS: Partial Thromboplastin Time 31.1 Seconds (22.3-36.8)
[2024-03-14 16:28] LABS: Troponin I < 0.012 ng/mL (0.000-0.034)
--- NOTE | 2024-03-14 17:11 | ED.NEUROSD ---
HPI - Neuro Symptoms/Deficit General Chief Complaint: Suspected CVA Stated Complaint: code stroke Time Seen by Provider: 03/14/24 15:58 Source: patient, family (later provides history), EMS and RN notes reviewed Mode of arrival: EMS Limitations: physical limitation and clinical condition History of Present Illness HPI Narrative: Patient presents with concern for stroke. Reported last known well initially at 1:30pm today. She has a history of previous stroke which left her with left-sided deficits. She will into the facility in 2021. She recently started Macrobid for urinary tract infection. It is reported that at 1:30 p.m. she was experiencing right-sided weakness and twitching and couldn't find her nose (by EMS report, to which patient states, what do you mean I couldn't find my nose? ) and with abnormal speech although they acknowledge that the speech seems to be improving at this time. Patient is a diabetic per review of [facility] documentation, on NovoLog. Blood glucose was 240 at the facility by report and 163 for EMS. Reportedly on Aspirin. Medication list is reviewed which does not show anticoagulation medicine. Related Data Home Medications ?Medication ?Instructions ?Recorded ?Confirmed ?Last Taken ?Type buspirone 15 mg tablet 15 mg PO .q 12 03/14/24 03/14/24 Unknown History duloxetine 30 mg capsule,delayed 30 mg PO HS 03/14/24 03/14/24 Unknown History release duloxetine 60 mg capsule,delayed 60 mg PO DAILY 03/14/24 03/14/24 Unknown History release enalapril maleate 10 mg tablet 10 mg PO Q24H 03/14/24 03/14/24 Unknown History hydrocodone 5 mg-acetaminophen 325 1 tablet PO PRN PRN pain 03/14/24 03/14/24 Unknown History mg tablet metformin 1,000 mg tablet 1,000 mg PO DAILY 03/14/24 03/14/24 Unknown History metoprolol tartrate 25 mg tablet 25 mg PO Q12H hypertension 03/14/24 03/14/24 Unknown History ondansetron 4 mg disintegrating 4 mg PO Q8H PRN nausea 03/14/24 03/14/24 Unknown History tablet pregabalin 150 mg capsule 150 mg PO Q8H 03/14/24 03/14/24 Unknown History Allergies Allergy/AdvReac Type Severity Reaction Status Date / Time codeine Allergy Intermediate Headache Verified 04/23/21 11:39 [facility] Past Medical History Medical History (Updated 03/14/24 @ 21:35 by Nedra Amato MD) Vitamin D deficiency, unspecified Unspecified fracture of lower end of left humerus, subsequent encounter for fracture with nonunion Primary generalized (osteo)arthritis Muscle weakness (generalized) Hyperlipidemia, unspecified 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 non-dominant side Gastro-esophageal reflux disease without esophagitis Encounter for immunization Constipation, unspecified Cerebral atherosclerosis Vitamin deficiency, unspecified Urinary tract infection, site not specified Type 2 diabetes mellitus without complications Polyneuropathy, unspecified Major depressive disorder, recurrent, mild Generalized anxiety disorder Cerebral infarction, unspecified 1998 Body mass index [BMI] 32.0-32.9, adult Neuropathy Hypertension Left hemiplegia none Social History Social History (Updated 03/14/24 @ 21:27 by Nedra Amato MD) Social History: DNR with comfort focused treatment per POLST signed 04/28/21 Smoking status: Former smoker Tobacco type: cigarettes Second hand tobacco smoke exposure: Yes Alcohol intake: never Substance use: never Substance use type: does not use Living arrangements: [facility] Additional living arrangements comments: [facility] Spiritual care concerns: No Exam Narrative: GENERAL: Well-appearing, well-nourished, and in no acute distress. HEAD: Normocephalic, atraumatic. EYES: Non injected, non icteric ENT: Nares clear, no rhinorrhea or epistaxis. NECK: Supple. CHEST: No respiratory distress. nasal cannula in place HEART: Regular rate and rhythm. ABDOMEN: Soft, nondistended. EXTREMITIES: Brace on left lower extremity/ankle. Left arm in sling. SKIN: Warm, dry, no rash. NEURO: Alert. At 1st somewhat interactive, asking EMS to clarify something they said. Does not know month (states December even when ask again and states not ) or age (states 78yo). Performs tasks/follows commands when possible (not limited by physical limitations). She does appear to have a partial gaze palsy with some unilateral neglect at 1st. Unable to understand directions enough to assess visual conklin. Minor facial palsy with a flat nasolabial fold and smile asymmetry on the left. No movement of left arm or left leg, flaccid. Right arm drift and hits bed. Left leg provide some effort against gravity. Unable to assess ataxia. Sensation intact to painful stimuli bilateral upper extremities. Mild aphasia. Mild dysarthria. Unable to evaluate extinction PSYCH: Congruent mood and affect. Course Vital Signs Vital signs: Vital Signs Temperature 98.1 F 03/14/24 16:40 Pulse Rate 88 03/14/24 16:40 Respiratory Rate 22 H 03/14/24 16:40 Blood Pressure 170/64 H 03/14/24 16:40 Pulse Oximetry 89 L 03/14/24 16:40 Oxygen Delivery Room Air 03/14/24 16:40 Temperature 98.1 F 03/14/24 16:40 Pulse Rate 91 03/14/24 20:30 Respiratory Rate 17 03/14/24 20:30 Blood Pressure 116/98 H 03/14/24 20:30 Pulse Oximetry 96 03/14/24 20:30 Oxygen Delivery Nasal Cannula 03/14/24 19:58 Oxygen Flow Rate 2 03/14/24 19:58 MDM - Neuro Symptoms/Deficit MDM Narrative Medical decision making narrative: This is a 79 year old female who presents to the emergency department with concern for possible stroke. Last known well is initially reported to be this afternoon at 1:30pm but later clarifies that her last known well was 6 p.m. last night as she had been having some symptoms this morning. In fact, he does note that yesterday she seemed to be hallucinating, thought she was petting a dog that didn't exist. The patient is protecting their airway which is patent. Vital signs are notable for hypertension as well as mild tachypnea. She was requiring oxygen for EMS and is trialed off of her she does desaturate to 89% on room air thus placed back on O2 during which her saturations normalized. An IV is established by nursing staff blood work sent to the lab for evaluation. An EKG will be performed. Accu-Chek was reportedly 240 at the facility by staff, 163mg/dL for EMS, and 123 upon arrival in the ED. NIHSS was evaluated per below. The patient was transported immediately to CT scan per stroke protocol for evaluation of acute intracranial bleed. NIHSS Level Of consciousness: 0 Month and age: 2 Follows commands: 0 Gaze palsy: 1 Visual conklin: unable to assess Facial palsy:1 Left arm motor drift: 4 (old) Right arm motor drift: 2 Left leg motor drift: 4 (old) Right leg motor drift: 2 Limb ataxia: unable to assess Sensation: 0 Aphasia: 2 Dysarthria: 1 Extinction: unable to assess Total: 19 CT per stroke protocol shows: old infarct as below. (Discussed with radiologist). It is reported that patient was started on nitrofurantoin/Macrobid yesterday but this is listed as an allergy per review of [facility] documentation, though unknown what reaction/side effect/allergy is. arrives and provides collateral information as follows: He states that she wears oxygen q.h.s. but not throughout the day and sometimes she even brushes the nasal cannula out of her nostrils overnight. He states that her stroke occurred in 1998 and left her with left sided deficits. She did not receive tPA at that time as he recalls a doctor coming into the room at [place] and saying that the patient had had a stroke and then walking out. They took her to [place] and there they asked if she had received a shot but he states it had not been offered at [facility] and by that time it was too late to administer it. He left at approximately 6:00 p.m. last night and other than the hallucinations she seemed relatively normal/at her baseline but then this morning he states the facility told him that she had some abdomen speech and was having difficulty moving her right leg which she normally is able to do to help with transfers. He states she has evidence of urinary tract infection primary care physician started Macrobid yesterday after another urinalysis. Today they then notified him that she was having some abnormal speech some expressive aphasia and she did not want to eat this was then followed by increasing confusion at which point EMS was called. He states in general she has had increased confusion over the past 6 months particularly with her short-term memory but no official diagnosis of dementia. Patient has comorbidities that complexity management. Namely, history of previous stroke with residual left-sided deficits. Labs: BNP only slightly elevated, under not to suggest acute heart failure especially given reference range of the assay. TSH is abnormal however T4 is normal. Her urinalysis does not show evidence of infection. There was concern that patient's blood glucose had initially been 240, lower for EMS, and even lower for us; although not reaching hypoglycemia, we will monitor for the questionable delta, especially since she is on insulin. Given patient is outside of thrombolytics, will initiate aspirin Patient is be NPO until bedside swallow evaluation can be performed. Patient will require admission with workup to possibly include echo, carotid Doppler/duplex and cardiac monitoring. Goal is to maintain normotension/permissive hypertension as well as euglycemia. Discussed patient with Dr. Farias, neurologist who agrees with admission for further stroke workup including MRI. He does clarify that there is no neurology coverage tomorrow but there will be on Monday and Monday for follow up as it results. Did discuss patient with advanced practitioner Jonas Thomson. Given that patient is not requiring any drips and is DNR (which I did confirm with patient's ), will make patient a medical surgical with telemetry rather than IMU, especially given limitations of bed space at present in hospital. Critical Care: 1 or more vital organ systems impaired with a high probability of imminent or life-threatening deterioration in the patient's condition requiring frequent personal assessment and manipulation of the patient's condition. This included time spent evaluating the patient, speaking with EMS pre-hospital personnel and family, reviewing/interpreting laboratory/imaging studies, discussing the case with consultants or admitting teams, retrieving data and reviewing charts, monitoring for decompensation, documenting the visit, and performing bundled procedures exclusive of separately billed procedures. Differential Diagnosis Differential diagnosis: Likely subarachnoid hemorrhage, cerebrovascular accident, multiple sclerosis, transient cerebral ischemia and other (Urinary tract infection, acute viral syndrome, pneumonia, medication side effect) Lab Data Attestation: I reviewed the patient's lab results. 03/14/24 16:01 03/14/24 16:01 Labs: Lab Results 03/14/24 03/14/24 03/14/24 Range/Units 15:59 16:01 17:49 WBC 9.5 (4.5-10.0) K/mm3 RBC 3.99 L (4.2-5.4) M/mm3 Hgb 11.8 L (12.0-15.0) g/dL Hct 38.3 (37.0-47.0) % MCV 96.0 (80-100) fl MCH 29.6 (26-34) pg MCHC 30.8 L (32-36) g/dl RDW 15.2 H (11.5-14.5) % Plt Count 232 (150-375) k/mm3 MPV 12.1 H (7.4-10.4) fl Immature Gran % (Auto) 0.4 (0-0.5) % Neut % (Auto) 84.0 H (45.5-73.1) % Lymph % (Auto) 4.8 L (18.3-44.2) % [place] % (Auto) 6.8 (2.6-8.5) % Eos % (Auto) 3.8 (0-4.4) % Baso % (Auto) 0.2 (0.2-1.2) % Lymph # (Auto) 0.46 L (0.9-3.2) K/mm3 [place] # (Auto) 0.7 H (0.1-0.6) K/mm3 Eos # (Auto) 0.4 H (0-0.3) K/mm3 Baso # (Auto) 0.0 (0.0-0.1) K/mm3 Abs Immat Gran (auto) 0.04 H (0.00-0.031) K/mm3 Absolute Neuts (auto) 8.0 H (1.3-6.7) K/mm3 Absolute Nucleated RBC 0.000 (0.0-0.012) K/mm3 Nucleated RBC % 0.0 (0.0-0.2) % PT 13.1 (11.1-14.7) Seconds INR 0.9 APTT 31.1 (22.3-36.8) Seconds D-Dimer (<0.48) ug/mL Sodium 135 L (137-145) mmol/L Potassium 3.8 (3.4-5.0) mmol/L Chloride 102 (98-107) mmol/L Carbon Dioxide 35 H (22-30) mmol/L Anion Gap -2 L (4-12) mmol/L BUN 16 (7-17) mg/dL Creatinine 0.70 0.50 L (0.7-1.2) mg/dL Estim Creat Clear Calc Not Reportable Not Reportable Estimated GFR > 60 > 60 (59 - ) Glucose 131 H (65-110) mg/dL POC Capillary Glucose (65-105) mg/dl Hemoglobin A1c 8.0 H (<5.7) % Lactic Acid (0.7-2.0) mmol/L Calcium 9.1 (8.4-10.2) mg/dL Total Bilirubin 0.3 (0.2-1.3) mg/dL AST 27 (14-36) U/L ALT 18 (6-35) U/L Alkaline Phosphatase 70 (38-126) U/L Ammonia (9-30) umol/L Total Creatine Kinase 20 L (30-135) U/L Troponin I < 0.012 (0.000-0.034) ng/mL NT-Pro-B Natriuret Pep 418 H (19.9-100) pg/mL Total Protein 6.0 L (6.3-8.2) g/dL Albumin 3.1 L (3.5-5.1) g/dL Triglycerides 172 H (<150) mg/dL Cholesterol 149 (0-200) mg/dL LDL Cholesterol Direct 57 mg/dL HDL Direct 44 mg/dL TSH 0.288 L (0.465-4.680) uIU/mL Free T4 0.97 (0.78-2.19) ng/dL Free T3 pg/mL Urine Color (Yellow) Urine Appearance (Clear) Urine pH (5.0-9.0) Ur Specific S[place]y (1.001-1.035) Urine Protein (Negative) mg/dL Urine Glucose (UA) (Negative) mg/dL Urine Ketones (Negative) mg/dL Ur Blood (Man) (Negative) Urine Nitrate (Negative) Urine Bilirubin (Negative) Urine Urobilinogen (<2.0) mg/dL Leukocyte Esterase Rfl (Negative) HERBERT/UL Urine RBC (0-2) /hpf Urine WBC (0-3) /hpf Ur Squamous Epith Cells (Few) /hpf Urine Bacteria /hpf Urine Casts Salicylates (2-20) mg/dL Urine Opiates Screen (Negative) Urine Methadone Screen (Negative) Acetaminophen (10-30) ug/mL Ur Barbiturates Screen (Negative) Ur Phencyclidine Scrn (Negative) Ur Amphetamine Screen (Negative) U Benzodiazepines Scrn (Negative) Urine Cocaine Screen (Negative) U Cannabinoids Screen (Negative) Ethyl Alcohol (<10) mg/dL Influenza A (RT-PCR) (Negative) Influenza B (RT-PCR) (Negative) RSV (RT-PCR) (Negative) SARS-CoV-2 RNA (RT-PCR) (Negative) 03/14/24 03/14/24 03/14/24 Range/Units 17:54 19:03 19:18 WBC (4.5-10.0) K/mm3 RBC (4.2-5.4) M/mm3 Hgb (12.0-15.0) g/dL Hct (37.0-47.0) % MCV (80-100) fl MCH (26-34) pg MCHC (32-36) g/dl RDW (11.5-14.5) % Plt Count (150-375) k/mm3 MPV (7.4-10.4) fl Immature Gran % (Auto) (0-0.5) % Neut % (Auto) (45.5-73.1) % Lymph % (Auto) (18.3-44.2) % [place] % (Auto) (2.6-8.5) % Eos % (Auto) (0-4.4) % Baso % (Auto) (0.2-1.2) % Lymph # (Auto) (0.9-3.2) K/mm3 [place] # (Auto) (0.1-0.6) K/mm3 Eos # (Auto) (0-0.3) K/mm3 Baso # (Auto) (0.0-0.1) K/mm3 Abs Immat Gran (auto) (0.00-0.031) K/mm3 Absolute Neuts (auto) (1.3-6.7) K/mm3 Absolute Nucleated RBC (0.0-0.012) K/mm3 Nucleated RBC % (0.0-0.2) % PT (11.1-14.7) Seconds INR APTT (22.3-36.8) Seconds D-Dimer 0.44 (<0.48) ug/mL Sodium (137-145) mmol/L Potassium (3.4-5.0) mmol/L Chloride (98-107) mmol/L Carbon Dioxide (22-30) mmol/L Anion Gap (4-12) mmol/L BUN (7-17) mg/dL Creatinine (0.7-1.2) mg/dL Estim Creat Clear Calc Estimated GFR (59 - ) Glucose (65-110) mg/dL POC Capillary Glucose (65-105) mg/dl Hemoglobin A1c (<5.7) % Lactic Acid 1.8 (0.7-2.0) mmol/L Calcium (8.4-10.2) mg/dL Total Bilirubin (0.2-1.3) mg/dL AST (14-36) U/L ALT (6-35) U/L Alkaline Phosphatase (38-126) U/L Ammonia < 9 L (9-30) umol/L Total Creatine Kinase (30-135) U/L Troponin I (0.000-0.034) ng/mL NT-Pro-B Natriuret Pep (19.9-100) pg/mL Total Protein (6.3-8.2) g/dL Albumin (3.5-5.1) g/dL Triglycerides (<150) mg/dL Cholesterol (0-200) mg/dL LDL Cholesterol Direct mg/dL HDL Direct mg/dL TSH (0.465-4.680) uIU/mL Free T4 (0.78-2.19) ng/dL Free T3 pg/mL Pending Urine Color Yellow (Yellow) Urine Appearance Clear (Clear) Urine pH 8.5 (5.0-9.0) Ur Specific S[place]y > 1.045 H (1.001-1.035) Urine Protein Trace (Negative) mg/dL Urine Glucose (UA) Negative (Negative) mg/dL Urine Ketones Negative (Negative) mg/dL Ur Blood (Man) Negative (Negative) Urine Nitrate Negative (Negative) Urine Bilirubin Negative (Negative) Urine Urobilinogen 0.2 (<2.0) mg/dL Leukocyte Esterase Rfl Negative (Negative) HERBERT/UL Urine RBC 0-2 (0-2) /hpf Urine WBC 0-5 (0-3) /hpf Ur Squamous Epith Cells None seen (Few) /hpf Urine Bacteria None seen /hpf Urine Casts 0-2 Salicylates < 1.0 L (2-20) mg/dL Urine Opiates Screen Positive A (Negative) Urine Methadone Screen Negative (Negative) Acetaminophen < 10 L (10-30) ug/mL Ur Barbiturates Screen Negative (Negative) Ur Phencyclidine Scrn Negative (Negative) Ur Amphetamine Screen Negative (Negative) U Benzodiazepines Scrn Negative (Negative) Urine Cocaine Screen Negative (Negative) U Cannabinoids Screen Negative (Negative) Ethyl Alcohol < 10 (<10) mg/dL Influenza A (RT-PCR) Negative (Negative) Influenza B (RT-PCR) Negative (Negative) RSV (RT-PCR) Negative (Negative) SARS-CoV-2 RNA (RT-PCR) Negative (Negative) 03/14/24 Range/Units 20:47 WBC (4.5-10.0) K/mm3 RBC (4.2-5.4) M/mm3 Hgb (12.0-15.0) g/dL Hct (37.0-47.0) % MCV (80-100) fl MCH (26-34) pg MCHC (32-36) g/dl RDW (11.5-14.5) % Plt Count (150-375) k/mm3 MPV (7.4-10.4) fl Immature Gran % (Auto) (0-0.5) % Neut % (Auto) (45.5-73.1) % Lymph % (Auto) (18.3-44.2) % [place] % (Auto) (2.6-8.5) % Eos % (Auto) (0-4.4) % Baso % (Auto) (0.2-1.2) % Lymph # (Auto) (0.9-3.2) K/mm3 [place] # (Auto) (0.1-0.6) K/mm3 Eos # (Auto) (0-0.3) K/mm3 Baso # (Auto) (0.0-0.1) K/mm3 Abs Immat Gran (auto) (0.00-0.031) K/mm3 Absolute Neuts (auto) (1.3-6.7) K/mm3 Absolute Nucleated RBC (0.0-0.012) K/mm3 Nucleated RBC % (0.0-0.2) % PT (11.1-14.7) Seconds INR APTT (22.3-36.8) Seconds D-Dimer (<0.48) ug/mL Sodium (137-145) mmol/L Potassium (3.4-5.0) mmol/L Chloride (98-107) mmol/L Carbon Dioxide (22-30) mmol/L Anion Gap (4-12) mmol/L BUN (7-17) mg/dL Creatinine (0.7-1.2) mg/dL Estim Creat Clear Calc Estimated GFR (59 - ) Glucose (65-110) mg/dL POC Capillary Glucose 95 (65-105) mg/dl Hemoglobin A1c (<5.7) % Lactic Acid (0.7-2.0) mmol/L Calcium (8.4-10.2) mg/dL Total Bilirubin (0.2-1.3) mg/dL AST (14-36) U/L ALT (6-35) U/L Alkaline Phosphatase (38-126) U/L Ammonia (9-30) umol/L Total Creatine Kinase (30-135) U/L Troponin I (0.000-0.034) ng/mL NT-Pro-B Natriuret Pep (19.9-100) pg/mL Total Protein (6.3-8.2) g/dL Albumin (3.5-5.1) g/dL Triglycerides (<150) mg/dL Cholesterol (0-200) mg/dL LDL Cholesterol Direct mg/dL HDL Direct mg/dL TSH (0.465-4.680) uIU/mL Free T4 (0.78-2.19) ng/dL Free T3 pg/mL Urine Color (Yellow) Urine Appearance (Clear) Urine pH (5.0-9.0) Ur Specific [place] (1.001-1.035) Urine Protein (Negative) mg/dL Urine Glucose (UA) (Negative) mg/dL Urine Ketones (Negative) mg/dL Ur Blood (Man) (Negative) Urine Nitrate (Negative) Urine Bilirubin (Negative) Urine Urobilinogen (<2.0) mg/dL Leukocyte Esterase Rfl (Negative) HERBERT/UL Urine RBC (0-2) /hpf Urine WBC (0-3) /hpf Ur Squamous Epith Cells (Few) /hpf Urine Bacteria /hpf Urine Casts Salicylates (2-20) mg/dL Urine Opiates Screen (Negative) Urine Methadone Screen (Negative) Acetaminophen (10-30) ug/mL Ur Barbiturates Screen (Negative) Ur Phencyclidine Scrn (Negative) Ur Amphetamine Screen (Negative) U Benzodiazepines Scrn (Negative) Urine Cocaine Screen (Negative) U Cannabinoids Screen (Negative) Ethyl Alcohol (<10) mg/dL Influenza A (RT-PCR) (Negative) Influenza B (RT-PCR) (Negative) RSV (RT-PCR) (Negative) SARS-CoV-2 RNA (RT-PCR) (Negative) ABG Data ABG results: 03/14/24 17:35 Puncture Site Right radial ABG pH 7.375 ABG pCO2 52.7 H ABG pO2 81.1 ABG PO2/FiO2 Ratio 2.90 ABG HCO3 30.1 H ABG O2 Saturation 95.6 ABG O2 Content 18.2 ABG Base Excess 3.8 A-a Gradient 56.4 Oxyhemoglobin 95.5 Total Hemoglobin 13.5 O2 Delivery Device Nasal cannula O2 Liters/Min 2.0 FiO2 28 Attestation: I personally reviewed and interpreted this ABG as follows: Interpretation: Primary respiratory acidosis, secondary metabolic alkalosis Imaging Data Radiologist's impression: Impressions Head CT 03/14/24 16:01 IMPRESSION: 1. 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 No acute intracranial process. 2. Age-related changes including moderate diffuse volume loss and mild scattered nonspecific white matter hypoattenuation consistent with chronic small vessel ischemic disease. Head/Neck CTA 03/14/24 16:14 IMPRESSION: 1. Small amount of atherosclerotic plaque with 0% stenosis of the right carotid bulb relative to normal distal artery lumen diameter (NASCET criteria). 2. 50% stenosis of the left carotid bulb relative to normal distal artery lumen diameter. 3. Mild <50% stenosis at the left vertebral and basilar arteries and at the bilateral carotid siphons. 4. Large region of encephalomalacia involving the right middle cerebral artery vascular distribution with likely secondary diffuse mild relative attenuation of the arteries in this region relative to the contralateral left middle cerebral artery vascular distribution. 5. Atherosclerotic calcifications at the origins of the great arteries arising from the aortic arch and at the origins of the bilateral vertebral arteries with assessment for degree of stenosis limited by motion artifact. Chest X-Ray 03/14/24 16:38 IMPRESSION: No focal infiltrate or effusion. ECG Data EKG #1: Attestation: I personally reviewed and interpreted this ECG as follows: ECG completion date: 03/14/24 ECG completion time: 16:23 Interpretation: Normal sinus rhythm at a rate of 83 beats per minute. LA interval 154. QRS 93. QT/QTC 320/360. Good R-wave progression across the precordial leads. No T-wave inversions. Critical Care Time Critical Care Time Critical Care Time: Yes Total Critical Care Time: 35 Discharge Plan Discharge Clinical Impression: Hypoalbuminemia, Encephalomalacia, Mental status alteration, Neurological deficit present Patient Disposition: Still a Patient Condition: Serious Patient Language: Maltese Prescriptions: No Action hydrocodone-acetaminophen 5-325 mg tablet 1 tablet PO PRN PRN (Reason: pain) pregabalin 150 mg capsule 150 mg PO Q8H ondansetron 4 mg tablet,disintegrating 4 mg PO Q8H PRN (Reason: nausea) metoprolol tartrate 25 mg tablet 25 mg PO Q12H metformin 1,000 mg tablet 1,000 mg PO DAILY enalapril maleate 10 mg tablet 10 mg PO Q24H Follow-up/Referrals: Tae,Bertin Hernandez MD [Primary Care Provider] -
[2024-03-14 17:39] LABS: Alveolar/Arterial O2 Gradient 56.4 mmHg; Base Excess ABG 3.8 mEq/l (+/-2.0); Device NASAL CANNULA; Fractional Inspired Oxygen 28 %; HCO3 ABG 30.1 mEq/l (22.0-26.0); Modified Allen's Test Pass; Oxygen Content ABG 18.2 %vol (16.0-22.0); Oxygen Saturation ABG 95.6 % (95.0-100.0); Oxyhemoglobin 95.5 % THb (90.0-100.0); PCO2 ABG 52.7 mmHg (35.0-45.0); PO2 ABG 81.1 mmHg (80.0-100.0); Site Drawn RIGHT RADIAL; Total Hemoglobin 13.5 g/dL (12.0-18.0); pH ABG 7.375 (7.350-7.450)
[2024-03-14 18:11] LABS: Creatine Kinase 20 U/L (30-135)
[2024-03-14 18:14] LABS: Acetaminophen < 10 ug/mL (10-30); Ammonia < 9 umol/L (9-30); Ethanol < 10 mg/dL (<10); Lactic Acid Reflex 1.8 mmol/L (0.7-2.0); Salicylate < 1.0 mg/dL (2-20)
[2024-03-14 18:22] LABS: NT Pro B Type Natriuretic Pept 418 pg/mL (19.9-100)
[2024-03-14 18:24] LABS: D Dimer 0.44 ug/mL (<0.48)
--- NOTE | 2024-03-14 18:40 | PC.NURSE ---
Pt had BM. Cleaned up by RN and tech, clean depends applied. Straight cath done, UA sent. Pt tolerated well. Remains on 2L NC. Pt's updated on current results and what is pending. Pt repositioned in bed for comfort. at bedside.
[2024-03-14 18:41] LABS: Influenza A QL RT-PCR Negative (Negative); Influenza B QL RT-PCR Negative (Negative); RSV RNA, RT-PCR Negative (Negative); SARS-CoV-2 RNA PCR Negative (Negative)
[2024-03-14 18:43] LABS: Thyroid Stimulating Hormone 0.288 uIU/mL (0.465-4.680)
[2024-03-14 19:12] LABS: Free T4 Free Thyroxine 0.97 ng/dL (0.78-2.19)
[2024-03-14 19:47] LABS: Add Urine Microscopic? YES; Appearance Urine Clear (Clear); Bacteria Urine None Seen /hpf; Bilirubin Urine Negative (Negative); Blood Urine Negative (Negative); Color Urine Yellow (Yellow); Glucose Urine UA Negative (Negative); Ketones Urine Negative (Negative); Leukocyte Esterase Ur Negative LEU/UL (Negative); Nitrate Urine Negative (Negative); Non Pathogenic Casts 0-2; Protein Urine Trace mg/dL (Negative); RBC Urine 0-2 /hpf (0-2); Specific Grav Ur > 1.045 (1.001-1.035); Squamous Epithelial Cell Urine None Seen /hpf (Few); Urobilinogen Urine 0.2 mg/dL (<2.0); WBC Urine 0-5 /hpf (0-3); pH Urine 8.5 (5.0-9.0)
[2024-03-14 19:50] LABS: Amphetamine Screen Urine Negative (Negative); Barbiturate Screen Urine Negative (Negative); Benzodiazepines Screen Urine Negative (Negative); Cannabinoid Screen Urine Negative (Negative); Cocaine Screen Urine Negative (Negative); Methadone Screen Urine Negative (Negative); Opiate Screen Urine Positive (Negative); Phencyclidine Screen Urine Negative (Negative)
--- NOTE | 2024-03-14 20:01 | PC.NURSE ---
This RN spoke with Angelita YANG from pt's facility for update at 1835 this evening. Angelita reports that pt has been having transient RLE weakness, and that pt has had overall general decline over the past few months with gradually worsening confusion and weakness.
[2024-03-14] MEDS: ASPIRIN 81 MG CHEWABLE TABLET 324 MG PO (20:13)
[2024-03-14 20:34] LABS: Cholesterol 149 mg/dL (0-200); HDL Direct 44 mg/dL; Triglycerides 172 mg/dL (<150)
[2024-03-14 20:45] LABS: LDL Cholesterol Direct 57 mg/dL
[2024-03-14 20:51] LABS: Glucose Point of Care 95 mg/dl (65-105)
[2024-03-14] MEDS: busPIRone HCL 5 MG TABLET 15 MG PO (22:43)
[2024-03-14] MEDS: METOPROLOL TARTRATE 25 MG TABLET PO (22:43)
[2024-03-14] MEDS: HYDROcodone/acetaminophen (*CRX) 5-325 MG TABLET 1 TAB PO (22:43)
[2024-03-14] MEDS: PREGABALIN (*CRX) 75 MG CAPSULE 150 MG PO (22:44)
[2024-03-14] MEDS: DULoxetine HCL 30 MG CAPSULE.DR PO (22:49)
--- NOTE | 2024-03-14 23:13 | ADMGEN ---
This patient, Faith Jenkins, was admitted to Medical Room 243-. Patient/family oriented to hospital policies and general routines including ID bracelet, bed and alarms, visiting hours, pain management, procedures, bathroom and other care routines, personal items, smoking policy, room service/diet, and visiting hours. Information on how to activate the Rapid Response Team has been discussed. Patient/Family are encouraged to report perceived risks to care and to ask questions if they do not understand what they are told or what they should do.
[2024-03-14 23:59] LABS: Glucose Point of Care 114 mg/dl (65-105)
[2024-03-15] VITALS (13 sets, daily range): BP systolic 122–152; BP diastolic 48–67; PULSE 60–98; RESP 16–18; TEMP 35.9–36.9; O2SAT 91–100; BMI 29.7
--- NOTE | 2024-03-15 | ECHO_ITS ---
Patient Info Name: Faith Jenkins Age: 79 years : 1945 Gender: Female Ht: 64 in Wt: 173 lbs BSA: 1.91 m2 HR: 69 bpm BP: 122 / 48 mmHg Heart Rhythm: Sinus Rhythm Technical Quality: Good Exam Date: 03/15/2024 9:42 AM Exam Location: Echo Lab Exam Room: [facility] Patient Status: Inpatient Admit Date: 03/15/2024 Staff Ordering Physician: Gilberto Thomson APRN Urologist: Chayo Saenz RDCS Attending Provider: Edith Macias APRN Referring Physician: Berto JERNIGAN; Exam Type: CA echo doppler w bubble study Summary 1. Left ventricular chamber dimension is normal. 2. Left ventricular systolic function is normal, estimated at 55-60%. 3. There is no increased left ventricular wall thickness. 4. Left ventricular wall motion is normal. 5. The left ventricular diastolic function is normal. 6. Right ventricular chamber dimension is normal. 7. Right ventricular systolic function is normal. 8. There is mild tricuspid valve regurgitation. 9. No pulmonary hypertension, estimated pulmonary arterial systolic pressure is 35 mmHg. 10. No patent ovale evident (PFO) by agitated saline imaging. Left Ventricle Left ventricular chamber dimension is normal. Left ventricular systolic function is normal, estimated at 55-60%. There is no increased left ventricular wall thickness. Left ventricular wall motion is normal. The left ventricular diastolic function is normal. Right Ventricle Right ventricular chamber dimension is normal. Right ventricular systolic function is normal. Left Atria Left atrial chamber dimension is normal. Right Atria Right atrial chamber dimension is normal. Atrial Septum No patent ovale evident (PFO) by agitated saline imaging. Aortic Valve There is mild aortic valve sclerosis. The aortic valve is trileaflet. There is no aortic valve stenosis. There is no aortic valve regurgitation. Pulmonic Valve The pulmonic valve is normal. There is no pulmonic valve stenosis. There is no pulmonic regurgitation. Mitral Valve The mitral valve has normal leaflets. There is no mitral valve stenosis. There is no mitral valve regurgitation. Tricuspid Valve There is mild tricuspid valve regurgitation. The tricuspid valve leaflets are normal. There is no significant tricuspid valve stenosis. No pulmonary hypertension, estimated pulmonary arterial systolic pressure is 35 mmHg. Pericardium/Pleural The pericardium appears normal. There is no pericardial effusion. Inferior Vena Cava Normal inferior vena cava with >50% collapse upon inspiration consistent with normal right atrial pressure, 3 mmHg. Aorta The aortic root size at the sinus of Valsalva is normal. The prox ascending aorta size is normal. Left Ventricular Outflow Tract Name Value Normal LVOT 2D LVOT Diameter 2.1 cm LVOT Doppler LVOT Peak Gradient 3 mmHg LVOT Mean Gradient 2 mmHg LVOT VTI 22 cm LVOT VTI/AV VTI Ratio 0.6 LVOT Stroke Volume 76 ml LVOT CO 4.6 l/min LVOT CI 2.4 l/min/m2 Pulmonic Valve Name Value Normal PV Doppler PV Peak Gradient 2 mmHg PV Regurgitation Doppler SC Peak End Diastolic Velocity 87 cm/s Mitral Valve Name Value Normal MV Doppler MV Peak Gradient 3 mmHg MV Mean Gradient 1 mmHg MV Decel [place] 265 cm/s2 MV PHT 72 ms MV Area (PHT) 3.1 cm2 4.0-5.0 MV Area (Cont Eq VTI) 2.7 cm2 MV Diastolic Function MV E Peak Velocity 66 cm/s MV A Peak Velocity 84 cm/s MV E/A 0.8 MV Decel Time 248 ms MV Annular TDI MV E/e' (Septal) 13.3 <=8.0 MV E/e' (Lateral) 10.2 <=8.0 MV E/e' (Average) 11.8 Tricuspid Valve Name Value Normal TV Regurgitation Doppler TR Peak Velocity 282 cm/s TR Peak Gradient 20 mmHg Estimated PAP/RSVP RA Pressure 3 mmHg <=5 PA Systolic Pressure 35 mmHg <36 RV Systolic Pressure 35 mmHg <36 Aortic Valve Name Value Normal AV Doppler AV Peak Velocity 160 cm/s AV Peak Gradient 8 mmHg AV Mean Gradient 5 mmHg AV VTI 38 cm AV Area (Cont Eq VTI) 2.0 cm2 >=3.0 AV Area (Cont Eq [place]) 1.9 cm2 AV Regurgitation 2D LVOT Area 3.4 cm2 Ventricles Name Value Normal LV Dimensions 2D/MM IVS Diastolic Thickness (2D) 0.9 cm 0.6-1.0 LVID Diastole (2D) 4.8 cm 3.8-5.2 LVIW Diastolic Thickness (2D) 0.9 cm 0.6-0.9 LVID Systole (2D) 3.7 cm 2.2-3.5 LVOT Diameter 2.1 cm LV Mass (2D Cubed) 151.78 g 67.00-162.00 LV Mass Index (2D Cubed) 80 g/m2 43-95 Relative Wall Thickness (2D) 0.38 LV Fractional Shortening/Ejection Fraction 2D/MM LV Fractional Shortening (2D) 21 % 27-45 LV EF (2D Teicholz) 43 % 54-74 LV Diastolic Volume (4C MOD) 76 ml LV EF (4C MOD) 61 % LV Diastolic Length (4C) 6.8 cm LV Systolic Length (4C) 5.7 cm LV Stroke Volume (4C MOD) 46 ml Atria Name Value Normal LA Dimensions LA Volume (4C A-L) 40 ml Report Signatures
--- NOTE | 2024-03-15 04:19 | PM.IMHP ---
H&P: HPI History of Present Illness Date/Time: 03/15/24 04:19 [facility] Past Medical History Medical History (Updated 03/14/24 @ 21:35 by Nedra Amato MD) Vitamin D deficiency, unspecified Unspecified fracture of lower end of left humerus, subsequent encounter for fracture with nonunion Primary generalized (osteo)arthritis Muscle weakness (generalized) Hyperlipidemia, unspecified 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 non-dominant side Gastro-esophageal reflux disease without esophagitis Encounter for immunization Constipation, unspecified Cerebral atherosclerosis Vitamin deficiency, unspecified Urinary tract infection, site not specified Type 2 diabetes mellitus without complications Polyneuropathy, unspecified Major depressive disorder, recurrent, mild Generalized anxiety disorder Cerebral infarction, unspecified 1998 Body mass index [BMI] 32.0-32.9, adult Neuropathy Hypertension Left hemiplegia none Family History Family History (Updated 03/14/24 @ 23:23 by Kierra Perez RN) Mother Breast cancer Diabetes mellitus Father Chronic obstructive pulmonary disease Black lung disease Social History Social History (Updated 03/14/24 @ 21:27 by Nedra Amato MD) Social History: DNR with comfort focused treatment per POLST signed 04/28/21 Smoking status: Former smoker Tobacco type: cigarettes Second hand tobacco smoke exposure: Yes Alcohol intake: never Substance use: never Substance use type: does not use Do You Feel Safe in your Home?: Yes Lack of Transportation: No Lack of Food: Never True Current Housing: I Have Housing Concerned About Future Housing: No Difficulty Paying Gas/Electric Bills: No Difficulty Paying for Meds: No Currently Unemployed: No Education: High School Diploma/GED Difficulty w/ Childcare or Family Care: No Living arrangements: long term Additional living arrangements comments: [facility] Spiritual care concerns: No Meds Home Medications and Allergies Home Medications ?Medication ?Instructions ?Recorded ?Confirmed ?Type buspirone 15 mg tablet 15 mg PO .q 12 03/14/24 03/14/24 History duloxetine 30 mg capsule,delayed 30 mg PO HS 03/14/24 03/14/24 History release duloxetine 60 mg capsule,delayed 60 mg PO DAILY 03/14/24 03/14/24 History release enalapril maleate 10 mg tablet 10 mg PO Q24H 03/14/24 03/14/24 History hydrocodone 5 mg-acetaminophen 325 1 tablet PO PRN PRN pain 03/14/24 03/14/24 History mg tablet metformin 1,000 mg tablet 1,000 mg PO DAILY 03/14/24 03/14/24 History metoprolol tartrate 25 mg tablet 25 mg PO Q12H hypertension 03/14/24 03/14/24 History ondansetron 4 mg disintegrating 4 mg PO Q8H PRN nausea 03/14/24 03/14/24 History tablet pregabalin 150 mg capsule 150 mg PO Q8H 03/14/24 03/14/24 History Allergies Allergy/AdvReac Type Severity Reaction Status Date / Time codeine Allergy Intermediate Headache Verified 04/23/21 11:39 Vital Signs Vital Signs - 24 hr 03/14/24 16:40 03/14/24 17:07 03/14/24 17:09 Temperature 36.7 C Pulse Rate 88 83 88 Respiratory Rate 22 H 21 H 22 H Blood Pressure 170/64 H 170/76 H Pulse Oximetry 89 L 93 100 Oxygen Delivery Room Air Oxygen Flow Rate 2 03/14/24 17:15 03/14/24 17:17 03/14/24 17:30 Temperature Pulse Rate 82 84 83 Respiratory Rate 17 21 H 23 H Blood Pressure 140/109 H Pulse Oximetry 100 100 100 Oxygen Delivery Oxygen Flow Rate 03/14/24 17:45 03/14/24 18:00 03/14/24 18:15 Temperature Pulse Rate 82 84 84 Respiratory Rate 26 H 29 H 41 H Blood Pressure Pulse Oximetry 100 100 100 Oxygen Delivery Oxygen Flow Rate 03/14/24 18:30 03/14/24 18:45 03/14/24 19:00 Temperature Pulse Rate 85 85 89 Respiratory Rate 20 21 H 20 Blood Pressure Pulse Oximetry 97 100 99 Oxygen Delivery Oxygen Flow Rate 03/14/24 19:15 03/14/24 19:23 03/14/24 19:30 Temperature Pulse Rate 86 86 85 Respiratory Rate 22 H 20 19 Blood Pressure 169/112 H Pulse Oximetry 100 100 Oxygen Delivery Oxygen Flow Rate 03/14/24 19:45 03/14/24 19:46 03/14/24 19:58 Temperature Pulse Rate 87 87 Respiratory Rate 22 H 22 H Blood Pressure 144/82 H Pulse Oximetry 100 100 99 Oxygen Delivery Nasal Cannula Oxygen Flow Rate 2 03/14/24 20:30 03/14/24 21:50 03/14/24 22:43 Temperature Pulse Rate 91 96 94 Respiratory Rate 17 16 Blood Pressure 116/98 H 138/60 Pulse Oximetry 96 98 Oxygen Delivery Oxygen Flow Rate 03/14/24 22:58 03/14/24 23:32 03/15/24 00:00 Temperature 36.7 C Pulse Rate 84 70 Respiratory Rate 17 Blood Pressure 120/45 L Pulse Oximetry 98 Oxygen Delivery Room Air Oxygen Flow Rate H&P: Results Labs Labs: Short CBC 03/14/24 Range/Units 16:01 WBC 9.5 (4.5-10.0) K/mm3 Hgb 11.8 L (12.0-15.0) g/dL Hct 38.3 (37.0-47.0) % Plt Count 232 (150-375) k/mm3 BMP 03/14/24 03/14/24 15:59 16:01 Sodium 135 L Potassium 3.8 Chloride 102 Carbon Dioxide 35 H BUN 16 Creatinine 0.70 0.50 L Glucose 131 H Calcium 9.1 Cardiac Enzymes 03/14/24 03/14/24 Range/Units 16:01 17:49 Total Creatine Kinase 20 L (30-135) U/L Troponin I < 0.012 (0.000-0.034) ng/mL Liver Function 03/14/24 Range/Units 16:01 Total Bilirubin 0.3 (0.2-1.3) mg/dL AST 27 (14-36) U/L ALT 18 (6-35) U/L Alkaline Phosphatase 70 (38-126) U/L Albumin 3.1 L (3.5-5.1) g/dL Urine 03/14/24 Range/Units 19:18 Urine Color Yellow (Yellow) Urine Appearance Clear (Clear) Urine pH 8.5 (5.0-9.0) Ur Specific Speed > 1.045 H (1.001-1.035) Urine Protein Trace (Negative) mg/dL Urine Glucose (UA) Negative (Negative) mg/dL
[2024-03-15] MEDS: SODIUM CHLORIDE 0.9% IV 1,000 ML 75 ML IV CONT (05:20)
[2024-03-15 05:36] LABS: Glucose Point of Care 112 mg/dl (65-105)
[2024-03-15 06:47] LABS: Basophils Percent Auto 0.2 % (0.2-1.2); Eosinophils Absolute Auto 0.5 K/mm3 (0-0.3); Eosinophils Percent Auto 6.4 % (0-4.4); Hematocrit 37.7 % (37.0-47.0); Hemoglobin 11.7 g/dL (12.0-15.0); Immature Granulocyte Absolute 0.04 K/mm3 (0.00-0.031); Immature Granulocyte Percent A 0.5 % (0-0.5); Lymphocytes Absolute Auto 1.26 K/mm3 (0.9-3.2); Lymphocytes Percent Auto 15.2 % (18.3-44.2); Mean Corpuscular Hemoglobin 29.7 pg (26-34); Mean Corpuscular Volume 95.7 fl (80-100); Mean Platelet Volume 12.3 fl (7.4-10.4); Monocytes Absolute Auto 1.3 K/mm3 (0.1-0.6); Monocytes Percent Auto 15.9 % (2.6-8.5); Neutrophils Absolute Auto 5.1 K/mm3 (1.3-6.7); Neutrophils Percent Auto 61.8 % (45.5-73.1); Platelet Count Result 213 k/mm3 (150-375); Red Blood Count 3.94 M/mm3 (4.2-5.4); Red Cell Distribution Width 15.5 % (11.5-14.5); White Blood Count 8.3 K/mm3 (4.5-10.0)
[2024-03-15 07:02] LABS: Alanine Aminotransferase 17 U/L (6-35); Albumin Level 2.8 g/dL (3.5-5.1); Alkaline Phosphatase 66 U/L (38-126); Anion Gap -1 mmol/L (4-12); Aspartate Amino Transferase 23 U/L (14-36); Bilirubin,Total 0.3 mg/dL (0.2-1.3); Blood Urea Nitrogen 15 mg/dL (7-17); Calcium 8.8 mg/dL (8.4-10.2); Carbon Dioxide 34 mmol/L (22-30); Chloride 102 mmol/L (98-107); Estimated CRCL calculation 78 ml/min; Estimated Glomerular Filt Rate > 60; Glucose 104 mg/dL (65-110); Magnesium 1.9 mg/dL (1.6-2.3); Sodium 135 mmol/L (137-145)
--- NOTE | 2024-03-15 08:20 | P.HP_ITS ---
H&P: HPI History of Present Illness Date/Time: 03/15/24 08:20 Chief Complaint: Confusion, right arm weakness Narrative: Faith Jenkins is a 79 year old female hx of CVA with left sided deficits, admitted for concern for right sided weakness. Her reports symptoms for about a week, has been lifting her right arm but then dropping it, also seemed more confused, though has confusion at baseline and is wheelchair or bedbound, has been living in a skilled nursing for the last 2 years. She was recently started on macrobid BID for a urinary tract infection 03/13. Per the ED note: Patient presented with concern for stroke. Reported last known well initially at 1:30pm 03/14.. She has a history of previous stroke which left her with left- sided deficits. She will into the facility in 2021. She recently started Macrobid for urinary tract infection. It is reported that at 1:30 p.m. she was experiencing right-sided weakness and twitching and couldn't find her nose (by EMS report, to which patient states, what do you mean I couldn't find my nose? ) and with abnormal speech although they acknowledge that the speech seems to be improving at this time. Patient is a diabetic per review of skilled nursing documentation, on NovoLog. Blood glucose was 240 at the facility by report and 163 for EMS. In the ED, a Head CT showed no acute findings, noted old infarcts. TSH 0.288. UA elevated specific gravity, no evidence of infection. MRI with bilateral parotid masses, spoke with patient's /POA and agreeable to biopsy. Spoke with oncology and US guided biopsy ordered. Her feels her mental status is improved since admission, likely back to baseline 03/[address]: 1. 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 No acute intracranial process. 2. Age-related changes including moderate diffuse volume loss and mild scattered nonspecific white matter hypoattenuation consistent with chronic small vessel ischemic disease. 03/15 CTA showed: 1. Small amount of atherosclerotic plaque with 0% stenosis of the right carotid bulb relative to normal distal artery lumen diameter (NASCET criteria). 2. 50% stenosis of the left carotid bulb relative to normal distal artery lumen diameter. 3. Mild <50% stenosis at the left vertebral and basilar arteries and at the bilateral carotid siphons. 4. Large region of encephalomalacia involving the right middle cerebral artery vascular distribution with likely secondary diffuse mild relative attenuation of the arteries in this region relative to the contralateral left middle cerebral artery vascular distribution. 5. Atherosclerotic calcifications at the origins of the great arteries arising from the aortic arch and at the origins of the bilateral vertebral arteries with assessment for degree of stenosis limited by motion artifact. 03/16 MRI showed: 1. Large old infarct in the expected distribution of right middle cerebral artery. 2. Old lacunar infarct in left thalamus. 3. Bilateral parotid masses. The differential diagnosis includes benign mixed tumor, Warthin tumor, and less likely [place] metastatic disease or primary malignancy. [facility] Past Medical History Medical History Vitamin D deficiency, unspecified Unspecified fracture of lower end of left humerus, subsequent encounter for fracture with nonunion Primary generalized (osteo)arthritis Muscle weakness (generalized) Hyperlipidemia, unspecified 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 non-dominant side Gastro-esophageal reflux disease without esophagitis Encounter for immunization Constipation, unspecified Cerebral atherosclerosis Vitamin deficiency, unspecified Urinary tract infection, site not specified Type 2 diabetes mellitus without complications Polyneuropathy, unspecified Major depressive disorder, recurrent, mild Generalized anxiety disorder Cerebral infarction, unspecified 1998 Body mass index [BMI] 32.0-32.9, adult Neuropathy Hypertension Left hemiplegia none Family History Family History Mother Breast cancer Diabetes mellitus Father Chronic obstructive pulmonary disease Black lung disease Social History Social History Social History: DNR with comfort focused treatment per POLST signed 04/28/21 Smoking status: Former smoker Tobacco type: cigarettes Second hand tobacco smoke exposure: Yes Alcohol intake: never Substance use: never Substance use type: does not use Do You Feel Safe in your Home?: Yes Lack of Transportation: No Lack of Food: Never True Current Housing: I Have Housing Concerned About Future Housing: No Difficulty Paying Gas/Electric Bills: No Difficulty Paying for Meds: No Currently Unemployed: No Education: High School Diploma/GED Difficulty w/ Childcare or Family Care: No Living arrangements: skilled nursing Additional living arrangements comments: [facility] Spiritual care concerns: No Meds Home Medications and Allergies Home Medications ?Medication ?Instructions ?Recorded ?Confirmed ?Type buspirone 15 mg tablet 15 mg PO .q 12 03/14/24 03/14/24 History duloxetine 30 mg capsule,delayed 30 mg PO HS 03/14/24 03/14/24 History release duloxetine 60 mg capsule,delayed 60 mg PO DAILY 03/14/24 03/14/24 History release enalapril maleate 10 mg tablet 10 mg PO Q24H 03/14/24 03/14/24 History hydrocodone 5 mg-acetaminophen 325 1 tablet PO PRN PRN pain 03/14/24 03/14/24 History mg tablet metformin 1,000 mg tablet 1,000 mg PO DAILY 03/14/24 03/14/24 History metoprolol tartrate 25 mg tablet 25 mg PO Q12H hypertension 03/14/24 03/14/24 History ondansetron 4 mg disintegrating 4 mg PO Q8H PRN nausea 03/14/24 03/14/24 History tablet pregabalin 150 mg capsule 150 mg PO Q8H 03/14/24 03/14/24 History Allergies Allergy/AdvReac Type Severity Reaction Status Date / Time codeine Allergy Intermediate Headache Verified 04/23/21 11:39 Vital Signs Vital Signs - 24 hr 03/14/24 16:40 03/14/24 17:07 03/14/24 17:09 Temperature 98.1 F Pulse Rate 88 83 88 Respiratory Rate 22 H 21 H 22 H Blood Pressure 170/64 H 170/76 H Pulse Oximetry 89 L 93 100 Oxygen Delivery Room Air Oxygen Flow Rate 2 03/14/24 17:15 03/14/24 17:17 03/14/24 17:30 Temperature Pulse Rate 82 84 83 Respiratory Rate 17 21 H 23 H Blood Pressure 140/109 H Pulse Oximetry 100 100 100 Oxygen Delivery Oxygen Flow Rate 03/14/24 17:45 03/14/24 18:00 03/14/24 18:15 Temperature Pulse Rate 82 84 84 Respiratory Rate 26 H 29 H 41 H Blood Pressure Pulse Oximetry 100 100 100 Oxygen Delivery Oxygen Flow Rate 03/14/24 18:30 03/14/24 18:45 03/14/24 19:00 Temperature Pulse Rate 85 85 89 Respiratory Rate 20 21 H 20 Blood Pressure Pulse Oximetry 97 100 99 Oxygen Delivery Oxygen Flow Rate 03/14/24 19:15 03/14/24 19:23 03/14/24 19:30 Temperature Pulse Rate 86 86 85 Respiratory Rate 22 H 20 19 Blood Pressure 169/112 H Pulse Oximetry 100 100 Oxygen Delivery Oxygen Flow Rate 03/14/24 19:45 03/14/24 19:46 03/14/24 19:58 Temperature Pulse Rate 87 87 Respiratory Rate 22 H 22 H Blood Pressure 144/82 H Pulse Oximetry 100 100 99 Oxygen Delivery Nasal Cannula Oxygen Flow Rate 2 03/14/24 20:30 03/14/24 21:50 03/14/24 22:43 Temperature Pulse Rate 91 96 94 Respiratory Rate 17 16 Blood Pressure 116/98 H 138/60 Pulse Oximetry 96 98 Oxygen Delivery Oxygen Flow Rate 03/14/24 22:58 03/14/24 23:32 03/15/24 00:00 Temperature 98.1 F Pulse Rate 84 70 Respiratory Rate 17 Blood Pressure 120/45 L Pulse Oximetry 98 Oxygen Delivery Room Air Oxygen Flow Rate 03/15/24 04:00 03/15/24 05:08 Temperature 98.3 F Pulse Rate 68 69 Respiratory Rate 16 Blood Pressure 122/48 L Pulse Oximetry 100 Oxygen Delivery Oxygen Flow Rate Exam Narrative: General - Awake and alert. No acute distress Eyes - PERRLA, EOM intact ENT - No thrush, No erythema Neck - No noticeable or palpable swelling Lymph Nodes - No lymphadenopathy Cardiovascular - RRR no m/r/g, no JVD Lungs: Clear to auscultation, No wheezing, use of accessory muscles, no crackles or wheezes. Skin - Skin warm and dry, no wounds or rashes Abdomen - Normal bowel sounds, abdomen soft and nontender Extremities - No edema, cyanosis or clubbing Musculoskeletal - 5/5 strength, normal range of motion, no swollen or erythematous joints. Neurological ? Alert and oriented x 1, Left side no movement to left arm, contracted left hand, unable to shrug left shoulder. Mild left facial weakness but can raise eyebrows, no dysarthria Psych: Normal mood and affect H&P: Results Labs Labs: Short CBC 03/14/24 03/15/24 Range/Units 16:01 05:28 WBC 9.5 8.3 (4.5-10.0) K/mm3 Hgb 11.8 L 11.7 L (12.0-15.0) g/dL Hct 38.3 37.7 (37.0-47.0) % Plt Count 232 213 (150-375) k/mm3 BMP 03/14/24 03/14/24 03/15/24 15:59 16:01 05:28 Sodium 135 L 135 L Potassium 3.8 4.0 Chloride 102 102 Carbon Dioxide 35 H 34 H BUN 16 15 Creatinine 0.70 0.50 L 0.50 L Glucose 131 H 104 Calcium 9.1 8.8 Cardiac Enzymes 03/14/24 03/14/24 Range/Units 16:01 17:49 Total Creatine Kinase 20 L (30-135) U/L Troponin I < 0.012 (0.000-0.034) ng/mL Liver Function 03/14/24 03/15/24 Range/Units 16:01 05:28 Total Bilirubin 0.3 0.3 (0.2-1.3) mg/dL AST 27 23 (14-36) U/L ALT 18 17 (6-35) U/L Alkaline Phosphatase 70 66 (38-126) U/L Albumin 3.1 L 2.8 L (3.5-5.1) g/dL Urine 03/14/24 Range/Units 19:18 Urine Color Yellow (Yellow) Urine Appearance Clear (Clear) Urine pH 8.5 (5.0-9.0) Ur Specific [place] > 1.045 H (1.001-1.035) Urine Protein Trace (Negative) mg/dL Urine Glucose (UA) Negative (Negative) mg/dL Assessment and Plan Assessment and plan (1) Parotid mass: Code(s): K11.8 - Other diseases of salivary glands Status: Acute Assessment and Plan: Bilateral parotid masses on MRI. Discussed with patient's and he is agreeable to a biopsy. --US guided biopsy scheduled for Monday, will need to hold ASA on Monday and NPO post midnight --Spoke with oncology about results of MRI (biopsy vs follow up imaging and recommended biopsy), formal consult if concern for malignancy (2) Acute right-sided muscle weakness: Code(s): M62.81 - Muscle weakness (generalized) Status: Acute Assessment and Plan: Acute on chronic to right arm, seems resolved --Follow (3) Mental status alteration: Code(s): R41.82 - Altered mental status, unspecified Status: Acute Assessment and Plan: Suspect 2/2 dehydration and recent UTI. No shaking or obvious seizure activity --Continue fluids and follow mental status --Continue nitrofurantoin for UTI, short course since UA nw negative --Neurology was consulted (4) Hypertension: Code(s): I10 - Essential (primary) hypertension Status: Acute Assessment and Plan: Home meds: Enalapril 10mg, Metoprolol 25mg q12, Blood pressure above goal, 176/66 this morning --Continue to monitor (5) CVA (cerebral vascular accident): Code(s): I63.9 - Cerebral infarction, unspecified Status: Acute Assessment and Plan: 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 Wheelchair or bedbound at baseline --Continue ASA, statin --Head CT and MRI no acute findings Quality VTE Prophylaxis VTE prophylaxis: pharmacologic ordered Hospitalist MIPS Advance Care Plan I have confirmed that the patient's Advanced Care Plan is present, code status is documented, or surrogate decision maker is listed in patient medical record.: Yes Medication Reconciliation I have utilized all available resources to obtain, update and review the patients current medications (includes all prescriptions, OTC, herbals, cannabis, and nutritional supplements).: Yes
[2024-03-15] MEDS: ASPIRIN 81 MG CHEWABLE TABLET PO (09:29)
[2024-03-15] MEDS: busPIRone HCL 5 MG TABLET 15 MG PO ×2 (09:31→22:12)
[2024-03-15] MEDS: METOPROLOL TARTRATE 25 MG TABLET PO ×2 (09:31→22:11)
[2024-03-15] MEDS: NITROFURANTOIN MONOHYD MACROCR 100 MG CAP PO ×2 (09:31→22:11)
[2024-03-15] MEDS: DULoxetine HCL 60 MG CAPSULE.DR PO (09:31)
[2024-03-15] MEDS: metFORMIN HCL 500 MG TABLET 1000 MG PO (09:31)
[2024-03-15] MEDS: ENALAPRIL MALEATE 10 MG TABLET PO (09:36)
[2024-03-15] MEDS: PREGABALIN (*CRX) 75 MG CAPSULE 150 MG PO ×2 (09:39→22:12)
--- NOTE | 2024-03-15 11:38 | PC.NURSE ---
pt taken down for MRI and barium swallow study
--- NOTE | 2024-03-15 12:12 | PCSTNOTE ---
Please refer to the Modified Barium Swallow Evaluation in the EMR. The above pt admitted with previous and possible new CVA was seen for a modified barium swallow evaluation. Pt is currently NPO/ice chips only. While she is alert; she does not consistently respond to questions or directions. She was seated for a lateral view and presented with thin liquids, pudding consistency, & solids in controlled amounts and thin liquids in uncontrolled amounts via a cup and a straw. All stages of the swallow were found to be within functional limits; during the oral stage, no pocketing or leakage occurred; and during the pharyngeal stage, no residual, laryngeal penetration or aspiration occurred. Impression: functional swallowing Recommendation: regular diet with regular liquids. No ST for any dysphagia tx; pt may require assist with feeding herself
--- NOTE | 2024-03-15 12:40 | PC.NURSE ---
pt returned to room from radiology
[2024-03-15 13:53] LABS: Glucose Point of Care 166 mg/dl (65-105)
[2024-03-15 17:30] LABS: Glucose Point of Care 119 mg/dl (65-105)
[2024-03-15] MEDS: HYDROcodone/acetaminophen (*CRX) 5-325 MG TABLET 1 TAB PO (22:11)
[2024-03-15] MEDS: DULoxetine HCL 30 MG CAPSULE.DR PO (22:11)
[2024-03-16] VITALS (12 sets, daily range): BP systolic 137–174; BP diastolic 53–66; PULSE 70–96; RESP 16–18; TEMP 36.5–37.4; O2SAT 93–100
[2024-03-16 00:27] LABS: Glucose Point of Care 169 mg/dl (65-105)
[2024-03-16 03:18] LABS: T3 Free 2.4 pg/mL (2.3-4.2)
[2024-03-16 06:07] LABS: Basophils Percent Auto 0.3 % (0.2-1.2); Eosinophils Absolute Auto 0.6 K/mm3 (0-0.3); Eosinophils Percent Auto 4.8 % (0-4.4); Hematocrit 45.8 % (37.0-47.0); Immature Granulocyte Absolute 0.07 K/mm3 (0.00-0.031); Immature Granulocyte Percent A 0.5 % (0-0.5); Lymphocytes Absolute Auto 1.12 K/mm3 (0.9-3.2); Lymphocytes Percent Auto 8.7 % (18.3-44.2); Mean Corpuscular HGB Conc 30.6 g/dl (32-36); Mean Corpuscular Hemoglobin 29.4 pg (26-34); Mean Platelet Volume 11.7 fl (7.4-10.4); Monocytes Absolute Auto 0.9 K/mm3 (0.1-0.6); Monocytes Percent Auto 6.7 % (2.6-8.5); Neutrophils Absolute Auto 10.1 K/mm3 (1.3-6.7); Platelet Count Result 242 k/mm3 (150-375); Red Blood Count 4.77 M/mm3 (4.2-5.4); Red Cell Distribution Width 14.9 % (11.5-14.5); White Blood Count 12.8 K/mm3 (4.5-10.0)
[2024-03-16 06:22] LABS: Alanine Aminotransferase 20 U/L (6-35); Albumin Level 3.3 g/dL (3.5-5.1); Alkaline Phosphatase 85 U/L (38-126); Anion Gap 3 mmol/L (4-12); Aspartate Amino Transferase 29 U/L (14-36); Bilirubin,Total 0.6 mg/dL (0.2-1.3); Blood Urea Nitrogen 12 mg/dL (7-17); Calcium 8.9 mg/dL (8.4-10.2); Carbon Dioxide 28 mmol/L (22-30); Chloride 100 mmol/L (98-107); Estimated CRCL calculation 78 ml/min; Estimated Glomerular Filt Rate > 60; Glucose 163 mg/dL (65-110); Magnesium 1.8 mg/dL (1.6-2.3); Potassium 4.1 mmol/L (3.4-5.0); Sodium 131 mmol/L (137-145)
[2024-03-16 06:44] LABS: Glucose Point of Care 148 mg/dl (65-105)
[2024-03-16 08:40] LABS: Glucose Point of Care 221 mg/dl (65-105)
--- NOTE | 2024-03-16 09:53 | WPDNEURCNPN ---
Assessment and Plan Assessment and plan (1) Neurological deficit present: Code(s): R29.818 - Other symptoms and signs involving the nervous system Status: Acute (2) Seizure disorder: Code(s): G40.909 - Epilepsy, unspecified, not intractable, without status epilepticus Status: Acute Plan 1. Possibility of the unwitnessed seizure is likely with documentation of previous stroke. MRI does reveal a large old infarct in the right middle cerebral artery distribution. At present she is receiving multiple medication Esteban is 150mg q.8 hours which can work as the anticonvulsants but I will prefer to start Keppra 500mg q.12 hours. In addition we can continue aspirin 81mg daily if there is no other contraindication . Consult date: 03/16/24 HPI: Faith Jenkins is a 79 year old female Admitted to the hospital through the emergency room with concern for stroke. Patient reportedly last known well at 1:30 p.m. on the day of visit to the ER. Patient does have a history of previous stroke which left her with a left-sided deficit. At around 1:30 p.m. she was noted to have right-sided weakness and twitching and complained that she could not find her nose in addition to abnormal speech though it improved by the time she came to the ER. She is also reportedly diabetic and her initial blood glucose was 2040. And 163 for EMS patient has not been on any anticoagulation treatment and has been taking multiple medications as outlined which included BuSpar 15mg twice a day, duloxetine 30mg at night and 60mg daily, enalapril 10mg Q 24hours, metformin 1000mg daily, pregabalin 150mg Q 8hours, in addition she has history of multiple medical problem otherwise as outlined particularly major depressive disorder, type 2 diabetes mellitus with neuropathy, his strokes in 1998, is a former smoker, with no history of alcohol intake. Her vital signs were with blood pressure 170/64 and respiration 22 but she was afebrile subsequent investigation included mild leukocytosis with WBC 12.8, blood sugar 221, negative serology for the common viral infections, initial CTA of the head and neck with 50% stenosis of the left carotid bulb less than 50% stenosis at the left vertebral and basilar arteries and site from in addition to large encephalomalacia involving the right middle cerebral artery vascular distribution and atherosclerotic calcification at the origin of the great arteries arising from the aortic arch. Brain MRI documented only large old infarct in the distribution right middle cerebral artery in addition to old lacunar infarct in left thalamus Review of Systems Review of Systems: All systems reviewed & are unremarkable except as noted in HPI and below [facility] Past Medical History Medical History Vitamin D deficiency, unspecified Unspecified fracture of lower end of left humerus, subsequent encounter for fracture with nonunion Primary generalized (osteo)arthritis Muscle weakness (generalized) Hyperlipidemia, unspecified 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 non-dominant side Gastro-esophageal reflux disease without esophagitis Encounter for immunization Constipation, unspecified Cerebral atherosclerosis Vitamin deficiency, unspecified Urinary tract infection, site not specified Type 2 diabetes mellitus without complications Polyneuropathy, unspecified Major depressive disorder, recurrent, mild Generalized anxiety disorder Cerebral infarction, unspecified 1998 Body mass index [BMI] 32.0-32.9, adult Neuropathy Hypertension Left hemiplegia none Family History Family History Mother Breast cancer Diabetes mellitus Father Chronic obstructive pulmonary disease Black lung disease Social History Social History Social History: DNR with comfort focused treatment per POLST signed 04/28/21 Smoking status: Former smoker Tobacco type: cigarettes Second hand tobacco smoke exposure: Yes Alcohol intake: never Substance use: never Substance use type: does not use Do You Feel Safe in your Home?: Yes Lack of Transportation: No Lack of Food: Never True Current Housing: I Have Housing Concerned About Future Housing: No Difficulty Paying Gas/Electric Bills: No Difficulty Paying for Meds: No Currently Unemployed: No Education: High School Diploma/GED Difficulty w/ Childcare or Family Care: No Living arrangements: group home Additional living arrangements comments: [facility] Spiritual care concerns: No Meds Home Medications and Allergies Home Medications ?Medication ?Instructions ?Recorded ?Confirmed ?Type buspirone 15 mg tablet 15 mg PO .q 12 03/14/24 03/14/24 History duloxetine 30 mg capsule,delayed 30 mg PO HS 03/14/24 03/14/24 History release duloxetine 60 mg capsule,delayed 60 mg PO DAILY 03/14/24 03/14/24 History release enalapril maleate 10 mg tablet 10 mg PO Q24H 03/14/24 03/14/24 History hydrocodone 5 mg-acetaminophen 325 1 tablet PO PRN PRN pain 03/14/24 03/14/24 History mg tablet metformin 1,000 mg tablet 1,000 mg PO DAILY 03/14/24 03/14/24 History metoprolol tartrate 25 mg tablet 25 mg PO Q12H hypertension 03/14/24 03/14/24 History ondansetron 4 mg disintegrating 4 mg PO Q8H PRN nausea 03/14/24 03/14/24 History tablet pregabalin 150 mg capsule 150 mg PO Q8H 03/14/24 03/14/24 History Allergies Allergy/AdvReac Type Severity Reaction Status Date / Time codeine Allergy Intermediate Headache Verified 04/23/21 11:39 Vital Signs Vital Signs - 24 hr 03/15/24 12:00 03/15/24 14:00 03/15/24 16:00 Temperature 35.9 C L Pulse Rate 60 77 73 Respiratory Rate 18 Blood Pressure 152/61 H Pulse Oximetry 100 Oxygen Delivery Fraction of Inspired Oxygen 03/15/24 20:00 03/15/24 20:00 03/15/24 20:20 Temperature 36.9 C Pulse Rate 98 90 Respiratory Rate 18 Blood Pressure 133/67 Pulse Oximetry 91 Oxygen Delivery Room Air Fraction of Inspired Oxygen 03/15/24 22:11 03/16/24 00:00 03/16/24 04:00 Temperature Pulse Rate 96 83 84 Respiratory Rate Blood Pressure Pulse Oximetry Oxygen Delivery Fraction of Inspired Oxygen 03/16/24 06:00 03/16/24 09:46 Temperature 37.4 C Pulse Rate 96 Respiratory Rate 18 Blood Pressure 174/66 H Pulse Oximetry 95 93 Oxygen Delivery Room Air Fraction of Inspired Oxygen 21 Exam Narrative: exam today revealed her to be awake alert laying supine in the bed responsive to the physician by nodding not responding to the question appropriately, head normocephalic with no bruit, ear nose throat exam normal, neck is supple with no cervical bruits, heart regular lungs clear abdomen soft neurologically she is awake alert able to respond to the communication with the responses are not appropriate all the time his speech is not dysarthric pupils round regular feels the vision are with left-sided visual field cut extraocular movements are full face mildly asymmetric tongue in the midline motor examination revealed left hemiparesis with hyperreflexia and upgoing plantar response. Results Labs 03/16/24 05:50 03/16/24 05:50 Labs: Short CBC 03/16/24 Range/Units 05:50 WBC 12.8 H (4.5-10.0) K/mm3 Hgb 14.0 (12.0-15.0) g/dL Hct 45.8 (37.0-47.0) % Plt Count 242 (150-375) k/mm3 BMP 03/16/24 05:50 Sodium 131 L Potassium 4.1 Chloride 100 Carbon Dioxide 28 BUN 12 Creatinine 0.50 L Glucose 163 H Calcium 8.9 Liver Function 03/16/24 Range/Units 05:50 Total Bilirubin 0.6 (0.2-1.3) mg/dL AST 29 (14-36) U/L ALT 20 (6-35) U/L Alkaline Phosphatase 85 (38-126) U/L Albumin 3.3 L (3.5-5.1) g/dL
[2024-03-16 10:46] LABS: Glucose Point of Care 237 mg/dl (65-105)
[2024-03-16] MEDS: ENALAPRIL MALEATE 10 MG TABLET PO (10:51)
[2024-03-16] MEDS: NITROFURANTOIN MONOHYD MACROCR 100 MG CAP PO ×2 (10:51→23:04)
[2024-03-16] MEDS: busPIRone HCL 5 MG TABLET 15 MG PO ×2 (10:51→23:05)
[2024-03-16] MEDS: METOPROLOL TARTRATE 25 MG TABLET PO ×2 (10:51→23:04)
[2024-03-16] MEDS: ASPIRIN 81 MG CHEWABLE TABLET PO (10:51)
--- NOTE | 2024-03-16 10:51 | P.PNIM_ITS ---
Progress Note: A&P Assessment and Plan (1) Parotid mass: Code(s): K11.8 - Other diseases of salivary glands Status: Acute Assessment and Plan: Bilateral parotid masses on MRI. Discussed with patient's and he is agreeable to a biopsy. --US guided biopsy scheduled for Monday, will need to hold ASA on Monday and NPO post midnight --Spoke with oncology about results of MRI (biopsy vs follow up imaging and recommended biopsy), formal consult if concern for malignancy (2) Acute right-sided muscle weakness: Code(s): M62.81 - Muscle weakness (generalized) Status: Acute Assessment and Plan: Acute on chronic to right arm, seems resolved --Follow (3) Mental status alteration: Code(s): R41.82 - Altered mental status, unspecified Status: Acute Assessment and Plan: Suspect 2/2 dehydration and recent UTI. No shaking or obvious seizure activity --Continue fluids and follow mental status --Continue nitrofurantoin for UTI, short course since UA nw negative --Neurology was consulted, starting keppra 500mg BID for possible unwitnessed seizure --Passed swallow study with Regular diet and thin liquids (4) Hypertension: Code(s): I10 - Essential (primary) hypertension Status: Acute Assessment and Plan: Home meds: Enalapril 10mg, Metoprolol 25mg q12, Blood pressure above goal, 176/66 this morning --Continue to monitor (5) CVA (cerebral vascular accident): Code(s): I63.9 - Cerebral infarction, unspecified Status: Acute Assessment and Plan: 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 Wheelchair or bedbound at baseline --Continue ASA, statin --Head CT and MRI no acute findings (6) Hyponatremia: Code(s): E87.1 - Hypo-osmolality and hyponatremia Status: Acute Assessment and Plan: Sodium 131, down from 135 --NS@125/hr x1 liter --Follow BMP, serum osmo, Urine sodium and osmo (7) Diabetes mellitus: Code(s): E11.9 - Type 2 diabetes mellitus without complications Status: Acute Assessment and Plan: Home med: Metformin 1000mg daily. --Holding metformin for now --accucheck QID & medium SSI Time Spent With Patient Time: 54 minutes Subjective Date/time seen: 03/16/24 10:51 Interval history: More confused today, but family not at bedside. Sodium low. White count slightly elevated Blood pressure more elevated this morning Exam Narrative: General - Awake and alert. No acute distress Eyes - PERRLA, EOM intact ENT - No thrush, No erythema Neck - No noticeable or palpable swelling Lymph Nodes - No lymphadenopathy Cardiovascular - RRR no m/r/g, no JVD Lungs: Clear to auscultation, No wheezing, use of accessory muscles, no crackles Skin - Skin warm and dry, no wounds or rashes Abdomen - Normal bowel sounds, abdomen soft and nontender Extremities - No edema, cyanosis or clubbing Musculoskeletal - 5/5 strength, normal range of motion, no swollen or erythematous joints. Neurological ? Alert and oriented x 1, Left side no movement to left arm, contracted left hand, unable to shrug left shoulder. Mild left facial weakness but can raise eyebrows, no dysarthria. Raises right leg minimally, able to wiggle toes. Psych: Normal mood, confused Objective Data Vital Signs Vital Signs: Vital Signs - 24 hr 03/15/24 12:00 03/15/24 14:00 03/15/24 16:00 Temperature 96.7 F L Pulse Rate 60 77 73 Respiratory Rate 18 Blood Pressure 152/61 H Pulse Oximetry 100 Oxygen Delivery Fraction of Inspired Oxygen 03/15/24 20:00 03/15/24 20:00 03/15/24 20:20 Temperature 98.4 F Pulse Rate 98 90 Respiratory Rate 18 Blood Pressure 133/67 Pulse Oximetry 91 Oxygen Delivery Room Air Fraction of Inspired Oxygen 03/15/24 22:11 03/16/24 00:00 03/16/24 04:00 Temperature Pulse Rate 96 83 84 Respiratory Rate Blood Pressure Pulse Oximetry Oxygen Delivery Fraction of Inspired Oxygen 03/16/24 06:00 03/16/24 09:46 Temperature 99.3 F Pulse Rate 96 Respiratory Rate 18 Blood Pressure 174/66 H Pulse Oximetry 95 93 Oxygen Delivery Room Air Fraction of Inspired Oxygen 21 Intake/Output Intake/Output: Intake & Output 03/13/24 03/14/24 03/15/24 03/16/24 23:59 23:59 23:59 23:59 Intake Total 887 Output Total 100 100 Balance -100 787 Meds/Results Medications: Active Medications Generic Name Dose Route Start Last Admin Trade Name Freq PRN Reason Stop Dose Admin Acetaminophen 650 mg 03/14/24 20:14 Acetaminophen 650 Mg Suppository RECTAL Q6H PRN Mild Pain (1-3) or Fever Hydrocodone Bitart/Acetaminophen 1 tab 03/14/24 21:55 03/15/24 22:11 Hydrocodone/Acetaminophen (*Crx) 5-325 Mg Tablet PO 1 tab 0900,1500,2100 JELENA Administration Aspirin 81 mg 03/15/24 08:00 03/15/24 09:29 Aspirin 81 Mg Chewable Tablet PO 81 mg DAILY@0800 JELENA Administration Buspirone HCl 15 mg 03/14/24 22:00 03/15/24 22:12 Buspirone Hcl 5 Mg Tablet PO 15 mg Q12HR JELENA Administration Dextrose 12.5 gm 03/14/24 20:14 Dextrose 50% 25 Gm/50 Ml Syringe IV PUSH PRN PRN Hypoglycemia Protocol Duloxetine HCl 30 mg 03/14/24 22:00 03/15/24 22:11 Duloxetine Hcl 30 Mg Capsule. PO 30 mg HS JELENA Administration Duloxetine HCl 60 mg 03/15/24 09:00 03/15/24 09:31 Duloxetine Hcl 60 Mg Capsule. PO 60 mg QAM JELENA Administration Enalapril Maleate 10 mg 03/15/24 09:00 03/15/24 09:36 Enalapril Maleate 10 Mg Tablet PO 10 mg QAM JELENA Administration Glucagon 1 mg 03/14/24 20:14 Glucagon For Inj 1 Mg Vial IM PRN PRN Hypoglycemia Protocol Glucose 15 gm 03/14/24 20:14 Glucose Oral Gel 15 Gm Of Glucse In 37.5 Gm Tube PO PRN PRN Hypoglycemia Protocol Dextrose 1,000 mls @ 100 mls/hr 03/14/24 20:14 Dextrose 5% 1,000 Ml IVPB PRN PRN Hypoglycemia Protocol Insulin Aspart 4 - 8 units 03/15/24 00:00 03/16/24 01:15 Insulin Aspart (*Bkc) 100 Units/Ml SUB-Q Not Given Q6HR JELENA Protocol Metformin HCl 1,000 mg 03/15/24 09:00 03/15/24 09:31 Metformin Hcl 500 Mg Tablet PO 1,000 mg DAILY JELENA Administration Metoprolol Tartrate 25 mg 03/14/24 22:00 03/15/24 22:11 Metoprolol Tartrate 25 Mg Tablet PO 25 mg Q12HR JELENA Administration Nitrofurantoin Macrocrystals 100 mg 03/15/24 09:00 03/15/24 22:11 Nitrofurantoin Monohyd Macrocr 100 Mg Cap PO 100 mg Q12HR JELENA Administration Ondansetron HCl 4 mg 03/14/24 20:14 Ondansetron Inj 4 Mg/2 Ml Vial IV PUSH Q4H PRN Nausea Perflutren Lipid Microsphere 0 ml 03/15/24 01:19 Perflutren Lipid Microspheres 1.5 Ml Vial Diluted To 10 Ml Total Volume IV PUSH 03/18/24 01:19 ONCE PRN adequate visualization Protocol Pregabalin 150 mg 03/14/24 22:00 03/15/24 22:12 Pregabalin (*Crx) 75 Mg Capsule PO 150 mg 0900,1500,2100 JELENA Administration Radiology Results: ITS Impressions Head CT 03/14/24 16:01 IMPRESSION: 1. 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 No acute intracranial process. 2. Age-related changes including moderate diffuse volume loss and mild scattered nonspecific white matter hypoattenuation consistent with chronic small vessel ischemic disease. Head/Neck CTA 03/14/24 16:14 IMPRESSION: 1. Small amount of atherosclerotic plaque with 0% stenosis of the right carotid bulb relative to normal distal artery lumen diameter (NASCET criteria). 2. 50% stenosis of the left carotid bulb relative to normal distal artery lumen diameter. 3. Mild <50% stenosis at the left vertebral and basilar arteries and at the bilateral carotid siphons. 4. Large region of encephalomalacia involving the right middle cerebral artery vascular distribution with likely secondary diffuse mild relative attenuation of the arteries in this region relative to the contralateral left middle cerebral artery vascular distribution. 5. Atherosclerotic calcifications at the origins of the great arteries arising from the aortic arch and at the origins of the bilateral vertebral arteries with assessment for degree of stenosis limited by motion artifact. Chest X-Ray 03/14/24 16:38 IMPRESSION: No focal infiltrate or effusion. Modified Barium Swallow 03/15/24 12:15 IMPRESSION: 1. No laryngeal penetration or aspiration. 2. Please refer to the speech therapy report for recommendations. Brain MRI 03/15/24 13:09 IMPRESSION: 1. Large old infarct in the expected distribution of right middle cerebral ar cadence. 2. Old lacunar infarct in left thalamus. 3. Bilateral parotid masses. The differential diagnosis includes benign mixed tumor, Warthin tumor, and less likely [place] metastatic disease or primary malignancy. Labs Labs: Laboratory Results - last 24 hr 03/14/24 03/15/24 03/15/24 19:03 13:37 17:21 WBC RBC Hgb Hct MCV MCH MCHC RDW Plt Count MPV Immature Gran % (Auto) Neut % (Auto) Lymph % (Auto) [place] % (Auto) Eos % (Auto) Baso % (Auto) Lymph # (Auto) [place] # (Auto) Eos # (Auto) Baso # (Auto) Abs Immat Gran (auto) Absolute Neuts (auto) Absolute Nucleated RBC Nucleated RBC % Sodium Potassium Chloride Carbon Dioxide Anion Gap BUN Creatinine Estim Creat Clear Calc Estimated GFR Glucose POC Capillary Glucose 166 H 119 H Calcium Magnesium Total Bilirubin AST ALT Alkaline Phosphatase Total Protein Albumin Free T3 pg/mL 2.4 03/15/24 03/16/24 03/16/24 23:54 05:50 06:41 WBC 12.8 H RBC 4.77 Hgb 14.0 Hct 45.8 MCV 96.0 MCH 29.4 MCHC 30.6 L RDW 14.9 H Plt Count 242 MPV 11.7 H Immature Gran % (Auto) 0.5 Neut % (Auto) 79.0 H Lymph % (Auto) 8.7 L [place] % (Auto) 6.7 Eos % (Auto) 4.8 H Baso % (Auto) 0.3 Lymph # (Auto) 1.12 [place] # (Auto) 0.9 H Eos # (Auto) 0.6 H Baso # (Auto) 0.0 Abs Immat Gran (auto) 0.07 H Absolute Neuts (auto) 10.1 H Absolute Nucleated RBC 0.000 Nucleated RBC % 0.0 Sodium 131 L Potassium 4.1 Chloride 100 Carbon Dioxide 28 Anion Gap 3 L BUN 12 Creatinine 0.50 L Estim Creat Clear Calc 78 Estimated GFR > 60 Glucose 163 H POC Capillary Glucose 169 H 148 H Calcium 8.9 Magnesium 1.8 Total Bilirubin 0.6 AST 29 ALT 20 Alkaline Phosphatase 85 Total Protein 6.0 L Albumin 3.3 L Free T3 pg/mL 03/16/24 03/16/24 08:15 10:44 WBC RBC Hgb Hct MCV MCH MCHC RDW Plt Count MPV Immature Gran % (Auto) Neut % (Auto) Lymph % (Auto) [place] % (Auto) Eos % (Auto) Baso % (Auto) Lymph # (Auto) [place] # (Auto) Eos # (Auto) Baso # (Auto) Abs Immat Gran (auto) Absolute Neuts (auto) Absolute Nucleated RBC Nucleated RBC % Sodium Potassium Chloride Carbon Dioxide Anion Gap BUN Creatinine Estim Creat Clear Calc Estimated GFR Glucose POC Capillary Glucose 221 H 237 H Calcium Magnesium Total Bilirubin AST ALT Alkaline Phosphatase Total Protein Albumin Free T3 pg/mL Quality VTE Prophylaxis VTE prophylaxis: pharmacologic ordered Hospitalist MIPS Advance Care Plan I have confirmed that the patient's Advanced Care Plan is present, code status is documented, or surrogate decision maker is listed in patient medical record.: Yes Medication Reconciliation I have utilized all available resources to obtain, update and review the patients current medications (includes all prescriptions, OTC, herbals, cannabis, and nutritional supplements).: Yes
[2024-03-16] MEDS: DULoxetine HCL 60 MG CAPSULE.DR PO (10:52)
[2024-03-16] MEDS: PREGABALIN (*CRX) 75 MG CAPSULE 150 MG PO ×2 (10:52→23:08)
[2024-03-16] MEDS: HYDROcodone/acetaminophen (*CRX) 5-325 MG TABLET 1 TAB PO ×2 (10:52→23:09)
[2024-03-16] MEDS: INSULIN ASPART (*BKC) 100 UNITS/ML SUB-Q ×2 (10:52→13:41)
[2024-03-16] MEDS: metFORMIN HCL 500 MG TABLET 1000 MG PO (10:52)
[2024-03-16 12:39] LABS: Glucose Point of Care 239 mg/dl (65-105)
--- NOTE | 2024-03-16 12:57 | PCSTNOTE ---
Communication Evaluation This 79 year old female was admitted on 03/14/24 d/t a possible new CVA. The pt has a history of a CVA from 2 years ago per . A communication/cognitive evaluation was completed this date d/t RN report of pts responses not making sense and ST completing an MBS with the pt noting that she does not consistently respond to directions/questions . The pt was able to accurately answer simple, moderate, and complex yes/no questions this date with wait time provided after each questions (5-10 second latency period). The pt completed 1-step directions with 100% accuracy and could name common objects when provided visuals. The pt demonstrated increased difficulty answering 2-step directions. In addition to auditory comprehension, the pt was able to locate the clock in her room and tell the time. She was able to recall her birthday, but was unable to state why she was in the hospital. When completing tasks for verbal expression, the pt completed automatic cued speech and required encouragement and a model to get started. She was able to complete open ended cued speech tasks with 100% accuracy this date. Given this assessment, it is recommended that the pt receive ST services to improve orientation, direction following, and compensatory strategies to improve word finding abilities. Dr. Macias and CELIA Hess were notified of the results and recommendations of this assessment. Thank you for this referral.
[2024-03-16] MEDS: SODIUM CHLORIDE 0.9% IV 1,000 ML 125 ML IV CONT (13:52)
[2024-03-16 17:20] LABS: Glucose Point of Care 167 mg/dl (65-105)
[2024-03-16 21:08] LABS: Glucose Point of Care 223 mg/dl (65-105)
[2024-03-16] MEDS: levETIRAcetam 500 MG TABLET PO (23:04)
[2024-03-16] MEDS: DULoxetine HCL 30 MG CAPSULE.DR PO (23:05)
[2024-03-16] MEDS: ENOXAPARIN 30 MG/0.3 ML SYRINGE SUB-Q (23:08)
[2024-03-17] VITALS (11 sets, daily range): BP systolic 112–153; BP diastolic 37–67; PULSE 67–93; RESP 16–18; TEMP 36.4–37.1; O2SAT 91–98
[2024-03-17 06:29] LABS: Basophils Percent Auto 0.4 % (0.2-1.2); Eosinophils Absolute Auto 0.8 K/mm3 (0-0.3); Eosinophils Percent Auto 10.1 % (0-4.4); Hematocrit 38.4 % (37.0-47.0); Hemoglobin 12.1 g/dL (12.0-15.0); Immature Granulocyte Absolute 0.04 K/mm3 (0.00-0.031); Immature Granulocyte Percent A 0.5 % (0-0.5); Lymphocytes Absolute Auto 1.78 K/mm3 (0.9-3.2); Lymphocytes Percent Auto 21.8 % (18.3-44.2); Mean Corpuscular HGB Conc 31.5 g/dl (32-36); Mean Corpuscular Hemoglobin 29.2 pg (26-34); Mean Corpuscular Volume 92.5 fl (80-100); Mean Platelet Volume 12.2 fl (7.4-10.4); Monocytes Percent Auto 11.7 % (2.6-8.5); Neutrophils Absolute Auto 4.5 K/mm3 (1.3-6.7); Neutrophils Percent Auto 55.5 % (45.5-73.1); Platelet Count Result 253 k/mm3 (150-375); Red Blood Count 4.15 M/mm3 (4.2-5.4); Red Cell Distribution Width 14.8 % (11.5-14.5); White Blood Count 8.2 K/mm3 (4.5-10.0)
[2024-03-17 06:42] LABS: Alanine Aminotransferase 18 U/L (6-35); Albumin Level 2.8 g/dL (3.5-5.1); Alkaline Phosphatase 76 U/L (38-126); Anion Gap -1 mmol/L (4-12); Aspartate Amino Transferase 26 U/L (14-36); Bilirubin,Total 0.5 mg/dL (0.2-1.3); Blood Urea Nitrogen 11 mg/dL (7-17); Calcium 8.7 mg/dL (8.4-10.2); Carbon Dioxide 32 mmol/L (22-30); Chloride 102 mmol/L (98-107); Estimated CRCL calculation 58 ml/min; Estimated Glomerular Filt Rate > 60; Glucose 170 mg/dL (65-110); Magnesium 1.7 mg/dL (1.6-2.3); Potassium 4.2 mmol/L (3.4-5.0); Sodium 133 mmol/L (137-145)
[2024-03-17 08:04] LABS: Glucose Point of Care 188 mg/dl (65-105)
--- NOTE | 2024-03-17 09:14 | P.PNIM_ITS ---
Progress Note: A&P Assessment and Plan (1) Parotid mass: Code(s): K11.8 - Other diseases of salivary glands Status: Acute Assessment and Plan: Bilateral parotid masses on MRI. Discussed with patient's and he is agreeable to a biopsy. --US guided biopsy scheduled for Monday, will need to hold ASA on Monday and NPO post midnight --Spoke with oncology about results of MRI (biopsy vs follow up imaging and recommended biopsy), formal consult if concern for malignancy (2) Acute right-sided muscle weakness: Code(s): M62.81 - Muscle weakness (generalized) Status: Acute Assessment and Plan: Acute on chronic to right arm, seems resolved --Follow (3) Mental status alteration: Code(s): R41.82 - Altered mental status, unspecified Status: Acute Assessment and Plan: Suspect 2/2 dehydration and recent UTI. No shaking or obvious seizure activity --Continue fluids and follow mental status --Continue nitrofurantoin for UTI, short course since UA nw negative --Neurology was consulted, starting keppra 500mg BID for possible unwitnessed seizure --Passed swallow study with Regular diet and thin liquids -neurology following (4) Hypertension: Code(s): I10 - Essential (primary) hypertension Status: Acute Assessment and Plan: Home meds: Enalapril 10mg, Metoprolol 25mg q12, Blood pressure this morning 129/56 --Continue to monitor (5) CVA (cerebral vascular accident): Code(s): I63.9 - Cerebral infarction, unspecified Status: Acute Assessment and Plan: 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 Wheelchair or bedbound at baseline --Continue ASA, statin --Head CT and MRI no acute findings (6) Hyponatremia: Code(s): E87.1 - Hypo-osmolality and hyponatremia Status: Acute Assessment and Plan: Sodium 133, down from 135 --NS@125/hr x1 liter --Follow BMP, serum osmo, Urine sodium and osmo (7) Diabetes mellitus: Code(s): E11.9 - Type 2 diabetes mellitus without complications Status: Acute Assessment and Plan: Home med: Metformin 1000mg daily. --Holding metformin for now --accucheck QID & medium SSI Time Spent With Patient Time with patient: Greater than 35 minutes Subjective Date/time seen: 03/17/24 09:14 Interval history: Faith Jenkins is a 79 year old female hx of CVA with left sided deficits, admitted for concern for right sided weakness. 1/5 Pt is seen and examined. Pt is drowsy but answers some simple questions. reports abd discomfit but was not able to elaborate on other details. abd exam unremarkable. no nausea Review of Systems Constitutional: Constitutional: Denies chills Cardiovascular: Cardiovascular: Denies chest pain Respiratory: Respiratory: Denies chest congestion Gastrointestinal: Gastrointestinal: Reports abdominal pain Exam Narrative: General - Awake and alert. No acute distress Eyes - PERRLA, EOM intact ENT - No thrush, No erythema Neck - No noticeable or palpable swelling Lymph Nodes - No lymphadenopathy Cardiovascular - RRR no m/r/g, no JVD Lungs: Clear to auscultation, No wheezing, use of accessory muscles, no crackles Skin - Skin warm and dry, no wounds or rashes Abdomen - reportes abd pain but exam is unremakable- Normal bowel sounds, abdomen soft and nontender Extremities - No edema, cyanosis or clubbing Musculoskeletal - 5/5 strength, normal range of motion, no swollen or erythematous joints. Neurological ? Alert and oriented x 1, Left side no movement to left arm, contracted left hand, unable to shrug left shoulder. Mild left facial weakness but can raise eyebrows, no dysarthria. Raises right leg minimally, able to wiggle toes. Psych: Normal mood, confused Objective Data Vital Signs Vital Signs: Vital Signs - 24 hr 03/16/24 09:46 03/16/24 10:40 03/16/24 10:51 Temperature Pulse Rate 70 Respiratory Rate Blood Pressure Pulse Oximetry 93 Oxygen Delivery Room Air Room Air Fraction of Inspired Oxygen 03/16/24 12:00 03/16/24 14:00 03/16/24 16:00 Temperature 97.8 F Pulse Rate 83 71 70 Respiratory Rate 16 Blood Pressure 137/54 L Pulse Oximetry 95 Oxygen Delivery Fraction of Inspired Oxygen 03/16/24 20:00 03/16/24 21:44 03/16/24 22:00 Temperature 97.7 F Pulse Rate 85 83 Respiratory Rate 18 Blood Pressure 151/53 H Pulse Oximetry 100 Oxygen Delivery Room Air Fraction of Inspired Oxygen 03/16/24 23:04 03/17/24 00:00 03/17/24 04:00 Temperature Pulse Rate 88 75 67 Respiratory Rate Blood Pressure Pulse Oximetry Oxygen Delivery Fraction of Inspired Oxygen 03/17/24 06:00 03/17/24 08:37 Temperature 97.6 F Pulse Rate 70 78 Respiratory Rate 18 16 Blood Pressure 115/46 L 129/56 L Pulse Oximetry 93 98 Oxygen Delivery Fraction of Inspired Oxygen Intake/Output Intake/Output: Intake & Output 03/14/24 03/15/24 03/16/24 03/17/24 23:59 23:59 23:59 23:59 Intake Total 887 240 100 Output Total 100 450 600 200 Balance -100 437 -360 -100 Meds/Results Medications: Active Medications Generic Name Dose Route Start Last Admin Trade Name Freq PRN Reason Stop Dose Admin Acetaminophen 650 mg 03/14/24 20:14 Acetaminophen 650 Mg Suppository RECTAL Q6H PRN Mild Pain (1-3) or Fever Hydrocodone Bitart/Acetaminophen 1 tab 03/14/24 21:55 03/16/24 23:09 Hydrocodone/Acetaminophen (*Crx) 5-325 Mg Tablet PO 1 tab 0900,1500,2100 JELENA Administration Aspirin 81 mg 03/15/24 08:00 03/16/24 10:51 Aspirin 81 Mg Chewable Tablet PO 81 mg DAILY@0800 JELENA Administration Buspirone HCl 15 mg 03/14/24 22:00 03/16/24 23:05 Buspirone Hcl 5 Mg Tablet PO 15 mg Q12HR JELENA Administration Dextrose 12.5 gm 03/16/24 11:14 Dextrose 50% 25 Gm/50 Ml Syringe IV PUSH PRN PRN Hypoglycemia Protocol Duloxetine HCl 30 mg 03/14/24 22:00 03/16/24 23:05 Duloxetine Hcl 30 Mg Capsule. PO 30 mg HS JELENA Administration Duloxetine HCl 60 mg 03/15/24 09:00 03/16/24 10:52 Duloxetine Hcl 60 Mg Capsule. PO 60 mg QAM JELENA Administration Enalapril Maleate 10 mg 03/15/24 09:00 03/16/24 10:51 Enalapril Maleate 10 Mg Tablet PO 10 mg QAM JELENA Administration Enoxaparin Sodium 30 mg 03/16/24 21:00 03/16/24 23:08 Enoxaparin 30 Mg/0.3 Ml Syringe SUB-Q 30 mg Q12HR JELENA Administration Glucagon 1 mg 03/16/24 11:14 Glucagon For Inj 1 Mg Vial IM PRN PRN Hypoglycemia Protocol Glucose 15 gm 03/16/24 11:14 Glucose Oral Gel 15 Gm Of Glucse In 37.5 Gm Tube PO PRN PRN Hypoglycemia Protocol Dextrose 1,000 mls @ 100 mls/hr 03/16/24 11:14 Dextrose 5% 1,000 Ml IVPB PRN PRN Hypoglycemia Protocol Insulin Aspart 3 - 6 units 03/16/24 12:00 03/17/24 08:34 Insulin Aspart (*Bkc) 100 Units/Ml SUB-Q Not Given TIDWM JELENA Protocol Levetiracetam 500 mg 03/16/24 21:00 03/16/24 23:04 Levetiracetam 500 Mg Tablet PO 500 mg Q12HR JELENA Administration Metformin HCl 1,000 mg 03/15/24 09:00 03/16/24 10:52 Metformin Hcl 500 Mg Tablet PO 1,000 mg DAILY JELENA Administration Metoprolol Tartrate 25 mg 03/14/24 22:00 03/16/24 23:04 Metoprolol Tartrate 25 Mg Tablet PO 25 mg Q12HR JELENA Administration Nitrofurantoin Macrocrystals 100 mg 03/15/24 09:00 03/16/24 23:04 Nitrofurantoin Monohyd Macrocr 100 Mg Cap PO 100 mg Q12HR JELENA Administration Ondansetron HCl 4 mg 03/14/24 20:14 Ondansetron Inj 4 Mg/2 Ml Vial IV PUSH Q4H PRN Nausea Perflutren Lipid Microsphere 0 ml 03/15/24 01:19 Perflutren Lipid Microspheres 1.5 Ml Vial Diluted To 10 Ml Total Volume IV PUSH 03/18/24 01:19 ONCE PRN adequate visualization Protocol Pregabalin 150 mg 03/14/24 22:00 03/16/24 23:08 Pregabalin (*Crx) 75 Mg Capsule PO 150 mg 0900,1500,2100 JELENA Administration Radiology Results: ITS Impressions Head CT 03/14/24 16:01 IMPRESSION: 1. 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 No acute intracranial process. 2. Age-related changes including moderate diffuse volume loss and mild scattered nonspecific white matter hypoattenuation consistent with chronic small vessel ischemic disease. Head/Neck CTA 03/14/24 16:14 IMPRESSION: 1. Small amount of atherosclerotic plaque with 0% stenosis of the right carotid bulb relative to normal distal artery lumen diameter (NASCET criteria). 2. 50% stenosis of the left carotid bulb relative to normal distal artery lumen diameter. 3. Mild <50% stenosis at the left vertebral and basilar arteries and at the bilateral carotid siphons. 4. Large region of encephalomalacia involving the right middle cerebral artery vascular distribution with likely secondary diffuse mild relative attenuation of the arteries in this region relative to the contralateral left middle cerebral artery vascular distribution. 5. Atherosclerotic calcifications at the origins of the great arteries arising from the aortic arch and at the origins of the bilateral vertebral arteries with assessment for degree of stenosis limited by motion artifact. Chest X-Ray 03/14/24 16:38 IMPRESSION: No focal infiltrate or effusion. Modified Barium Swallow 03/15/24 12:15 IMPRESSION: 1. No laryngeal penetration or aspiration. 2. Please refer to the speech therapy report for recommendations. Brain MRI 03/15/24 13:09 IMPRESSION: 1. Large old infarct in the expected distribution of right middle cerebral artery. 2. Old lacunar infarct in left thalamus. 3. Bilateral parotid masses. The differential diagnosis includes benign mixed tumor, Warthin tumor, and less likely [place] metastatic disease or primary malignancy. Labs Labs: Laboratory Results - last 24 hr 03/16/24 03/16/24 03/16/24 10:44 12:37 17:03 WBC RBC Hgb Hct MCV MCH MCHC RDW Plt Count MPV Immature Gran % (Auto) Neut % (Auto) Lymph % (Auto) [place] % (Auto) Eos % (Auto) Baso % (Auto) Lymph # (Auto) [place] # (Auto) Eos # (Auto) Baso # (Auto) Abs Immat Gran (auto) Absolute Neuts (auto) Absolute Nucleated RBC Nucleated RBC % Sodium Potassium Chloride Carbon Dioxide Anion Gap BUN Creatinine Estim Creat Clear Calc Estimated GFR Glucose POC Capillary Glucose 237 H 239 H 167 H Calcium Magnesium Total Bilirubin AST ALT Alkaline Phosphatase Total Protein Albumin 03/16/24 03/17/24 03/17/24 19:54 05:45 07:52 WBC 8.2 RBC 4.15 L Hgb 12.1 Hct 38.4 MCV 92.5 MCH 29.2 MCHC 31.5 L RDW 14.8 H Plt Count 253 MPV 12.2 H Immature Gran % (Auto) 0.5 Neut % (Auto) 55.5 Lymph % (Auto) 21.8 [place] % (Auto) 11.7 H Eos % (Auto) 10.1 H Baso % (Auto) 0.4 Lymph # (Auto) 1.78 [place] # (Auto) 1.0 H Eos # (Auto) 0.8 H Baso # (Auto) 0.0 Abs Immat Gran (auto) 0.04 H Absolute Neuts (auto) 4.5 Absolute Nucleated RBC 0.000 Nucleated RBC % 0.0 Sodium 133 L Potassium 4.2 Chloride 102 Carbon Dioxide 32 H Anion Gap -1 L BUN 11 Creatinine 0.70 Estim Creat Clear Calc 58 Estimated GFR > 60 Glucose 170 H POC Capillary Glucose 223 H 188 H Calcium 8.7 Magnesium 1.7 Total Bilirubin 0.5 AST 26 ALT 18 Alkaline Phosphatase 76 Total Protein 6.0 L Albumin 2.8 L Quality VTE Prophylaxis VTE prophylaxis: pharmacologic ordered
[2024-03-17] MEDS: busPIRone HCL 5 MG TABLET 15 MG PO (10:05)
[2024-03-17] MEDS: metFORMIN HCL 500 MG TABLET 1000 MG PO (10:05)
[2024-03-17] MEDS: ENOXAPARIN 30 MG/0.3 ML SYRINGE SUB-Q ×2 (10:05→20:46)
[2024-03-17] MEDS: DULoxetine HCL 60 MG CAPSULE.DR PO (10:05)
[2024-03-17] MEDS: METOPROLOL TARTRATE 25 MG TABLET PO (10:05)
[2024-03-17] MEDS: NITROFURANTOIN MONOHYD MACROCR 100 MG CAP PO (10:05)
[2024-03-17] MEDS: levETIRAcetam 500 MG TABLET PO (10:05)
[2024-03-17] MEDS: ENALAPRIL MALEATE 10 MG TABLET PO (10:06)
[2024-03-17 13:01] LABS: Glucose Point of Care 197 mg/dl (65-105)
[2024-03-17 17:20] LABS: Glucose Point of Care 209 mg/dl (65-105)
[2024-03-17] MEDS: INSULIN ASPART (*BKC) 100 UNITS/ML SUB-Q (18:00)
[2024-03-17 21:18] LABS: Glucose Point of Care 283 mg/dl (65-105)
[2024-03-17 21:54] LABS: Glucose Point of Care 235 mg/dl (65-105)
[2024-03-18] VITALS (12 sets, daily range): BP systolic 144–153; BP diastolic 56–85; PULSE 70–95; RESP 14–16; TEMP 36.3–36.9; O2SAT 71–96
--- NOTE | 2024-03-18 08:22 | P.PNIM_ITS ---
Progress Note: A&P Assessment and Plan (1) Parotid mass: Code(s): K11.8 - Other diseases of salivary glands Status: Acute Assessment and Plan: Bilateral parotid masses on MRI. Discussed with patient's and he is agreeable to a biopsy. --Spoke with oncology about results of MRI per previous provider (biopsy vs follow up imaging and recommended biopsy), formal consult if concern for malignancy --US guided biopsy scheduled for today, will need to hold ASA on Monday and NPO post midnight (2) Acute right-sided muscle weakness: Code(s): M62.81 - Muscle weakness (generalized) Status: Acute Assessment and Plan: Acute on chronic to right arm, seems resolved --Follow (3) Mental status alteration: Code(s): R41.82 - Altered mental status, unspecified Status: Acute Assessment and Plan: Suspect 2/2 dehydration and recent UTI. No shaking or obvious seizure activity --Continue fluids and follow mental status --Continue nitrofurantoin for UTI, short course since UA nw negative --Neurology was consulted, starting keppra 500mg BID for possible unwitnessed seizure --Passed swallow study with Regular diet and thin liquids -neurology following (4) Hypertension: Code(s): I10 - Essential (primary) hypertension Status: Acute Assessment and Plan: Home meds: Enalapril 10mg, Metoprolol 25mg q12, Blood pressure reviewed- stable --Continue to monitor (5) CVA (cerebral vascular accident): Code(s): I63.9 - Cerebral infarction, unspecified Status: Acute Assessment and Plan: 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 Wheelchair or bedbound at baseline --Continue ASA, statin --Head CT and MRI no acute findings (6) Hyponatremia: Code(s): E87.1 - Hypo-osmolality and hyponatremia Status: Acute Assessment and Plan: Sodium 133, down from 135 --NS@125/hr x1 liter --Follow BMP, serum osmo, Urine sodium and osmo (7) Diabetes mellitus: Code(s): E11.9 - Type 2 diabetes mellitus without complications Status: Acute Assessment and Plan: Home med: Metformin 1000mg daily. --Holding metformin for now --accucheck QID & medium SSI BS reviewed- had been trending up- will add 10 units of lantus and monitor Time Spent With Patient Time with patient: 25 - 35 minutes Subjective Date/time seen: 03/18/24 08:22 Interval history: Faith Jenkins is a 79 year old female hx of CVA with left sided deficits, admitted for concern for right sided weakness. 1/ Pt is seen and examined. Pt is drowsy but answers some simple questions. reports abd discomfit but was not able to elaborate on other details. abd exam unremarkable. no nausea 03/18- US guided biopsy scheduled today Review of Systems Constitutional: Constitutional: Denies chills Cardiovascular: Cardiovascular: Denies chest pain Respiratory: Respiratory: Denies chest congestion Gastrointestinal: Gastrointestinal: Denies abdominal pain Exam Narrative: General - Awake and alert. No acute distress Eyes - PERRLA, EOM intact ENT - No thrush, No erythema Neck - No noticeable or palpable swelling Lymph Nodes - No lymphadenopathy Cardiovascular - RRR no m/r/g, no JVD Lungs: Clear to auscultation, No wheezing, use of accessory muscles, no crackles Skin - Skin warm and dry, no wounds or rashes Abdomen - reportes abd pain but exam is unremakable- Normal bowel sounds, abdomen soft and nontender Extremities - No edema, cyanosis or clubbing Musculoskeletal - 5/5 strength, normal range of motion, no swollen or erythematous joints. Neurological ? Alert and oriented x 1, Left side no movement to left arm, contracted left hand, unable to shrug left shoulder. Mild left facial weakness but can raise eyebrows, no dysarthria. Raises right leg minimally, able to wiggle toes. Psych: Normal mood, confused Objective Data Vital Signs Vital Signs: Vital Signs - 24 hr 03/17/24 08:37 03/17/24 10:05 03/17/24 10:25 Temperature Pulse Rate 78 78 Respiratory Rate 16 Blood Pressure 129/56 L Pulse Oximetry 98 Oxygen Delivery Room Air 03/17/24 12:00 03/17/24 14:00 03/17/24 16:00 Temperature 98.8 F Pulse Rate 91 93 74 Respiratory Rate 18 Blood Pressure 153/67 H Pulse Oximetry 91 Oxygen Delivery 03/17/24 20:00 03/17/24 20:00 03/17/24 22:00 Temperature 98.6 F Pulse Rate 83 82 Respiratory Rate 16 Blood Pressure 112/37 L Pulse Oximetry 98 Oxygen Delivery Room Air 03/18/24 00:00 03/18/24 00:09 03/18/24 04:00 Temperature Pulse Rate 78 82 81 Respiratory Rate Blood Pressure Pulse Oximetry Oxygen Delivery 03/18/24 06:00 03/18/24 08:00 Temperature 98.4 F Pulse Rate 81 Respiratory Rate 16 Blood Pressure 153/56 H Pulse Oximetry 96 96 Oxygen Delivery Room Air Intake/Output Intake/Output: Intake & Output 03/15/24 03/16/24 03/17/24 03/18/24 23:59 23:59 23:59 23:59 Intake Total 887 240 100 Output Total 450 600 900 475 Balance 437 -360 -800 -475 Meds/Results Medications: Active Medications Generic Name Dose Route Start Last Admin Trade Name Freq PRN Reason Stop Dose Admin Acetaminophen 650 mg 03/14/24 20:14 Acetaminophen 650 Mg Suppository RECTAL Q6H PRN Mild Pain (1-3) or Fever Hydrocodone Bitart/Acetaminophen 1 tab 03/14/24 21:55 03/18/24 00:09 Hydrocodone/Acetaminophen (*Crx) 5-325 Mg Tablet PO Not Given 0900,1500,2100 JELENA Aspirin 81 mg 03/15/24 08:00 03/16/24 10:51 Aspirin 81 Mg Chewable Tablet PO 81 mg DAILY@0800 JELENA Administration Buspirone HCl 15 mg 03/14/24 22:00 03/18/24 00:08 Buspirone Hcl 5 Mg Tablet PO Not Given Q12HR JELENA Dextrose 12.5 gm 03/16/24 11:14 Dextrose 50% 25 Gm/50 Ml Syringe IV PUSH PRN PRN Hypoglycemia Protocol Duloxetine HCl 30 mg 03/14/24 22:00 03/18/24 00:08 Duloxetine Hcl 30 Mg Capsule. PO Not Given HS JELENA Duloxetine HCl 60 mg 03/15/24 09:00 03/17/24 10:05 Duloxetine Hcl 60 Mg Capsule. PO 60 mg QAM JELENA Administration Enalapril Maleate 10 mg 03/15/24 09:00 03/17/24 10:06 Enalapril Maleate 10 Mg Tablet PO 10 mg QAM JELENA Administration Enoxaparin Sodium 30 mg 03/16/24 21:00 03/17/24 20:46 Enoxaparin 30 Mg/0.3 Ml Syringe SUB-Q 30 mg Q12HR JELENA Administration Glucagon 1 mg 03/16/24 11:14 Glucagon For Inj 1 Mg Vial IM PRN PRN Hypoglycemia Protocol Glucose 15 gm 03/16/24 11:14 Glucose Oral Gel 15 Gm Of Glucse In 37.5 Gm Tube PO PRN PRN Hypoglycemia Protocol Dextrose 1,000 mls @ 100 mls/hr 03/16/24 11:14 Dextrose 5% 1,000 Ml IVPB PRN PRN Hypoglycemia Protocol Insulin Aspart 3 - 6 units 03/16/24 12:00 03/17/24 18:00 Insulin Aspart (*Bkc) 100 Units/Ml SUB-Q 3 units TIDWM JELENA Administration Protocol Levetiracetam 500 mg 03/16/24 21:00 03/18/24 00:09 Levetiracetam 500 Mg Tablet PO Not Given Q12HR [facility] Metformin HCl 1,000 mg 03/15/24 09:00 03/17/24 10:05 Metformin Hcl 500 Mg Tablet PO 1,000 mg DAILY [facility] Administration Metoprolol Tartrate 25 mg 03/14/24 22:00 03/18/24 00:09 Metoprolol Tartrate 25 Mg Tablet PO Not Given Q12HR [facility] Nitrofurantoin Macrocrystals 100 mg 03/15/24 09:00 03/18/24 00:09 Nitrofurantoin Monohyd Macrocr 100 Mg Cap PO Not Given Q12HR [facility] Ondansetron HCl 4 mg 03/14/24 20:14 Ondansetron Inj 4 Mg/2 Ml Vial IV PUSH Q4H PRN Nausea Pregabalin 150 mg 03/14/24 22:00 03/18/24 00:09 Pregabalin (*Crx) 75 Mg Capsule PO Not Given 0900,1500,2100 [facility] Radiology Results: ITS Impressions Head CT 03/14/24 16:01 IMPRESSION: 1. 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 No acute intracranial process. 2. Age-related changes including moderate diffuse volume loss and mild scattered nonspecific white matter hypoattenuation consistent with chronic small vessel ischemic disease. Head/Neck CTA 03/14/24 16:14 IMPRESSION: 1. Small amount of atherosclerotic plaque with 0% stenosis of the right carotid bulb relative to normal distal artery lumen diameter (NASCET criteria). 2. 50% stenosis of the left carotid bulb relative to normal distal artery lumen diameter. 3. Mild <50% stenosis at the left vertebral and basilar arteries and at the bilateral carotid siphons. 4. Large region of encephalomalacia involving the right middle cerebral artery vascular distribution with likely secondary diffuse mild relative attenuation of the arteries in this region relative to the contralateral left middle cerebral artery vascular distribution. 5. Atherosclerotic calcifications at the origins of the great arteries arising from the aortic arch and at the origins of the bilateral vertebral arteries with assessment for degree of stenosis limited by motion artifact. Chest X-Ray 03/14/24 16:38 IMPRESSION: No focal infiltrate or effusion. Modified Barium Swallow 03/15/24 12:15 IMPRESSION: 1. No laryngeal penetration or aspiration. 2. Please refer to the speech therapy report for recommendations. Brain MRI 03/15/24 13:09 IMPRESSION: 1. Large old infarct in the expected distribution of right middle cerebral artery. 2. Old lacunar infarct in left thalamus. 3. Bilateral parotid masses. The differential diagnosis includes benign mixed tumor, Warthin tumor, and less likely [place] metastatic disease or primary malignancy. Labs Labs: Laboratory Results - last 24 hr 03/17/24 03/17/24 03/17/24 12:50 17:07 20:23 POC Capillary Glucose 197 H 209 H 235 H 03/17/24 20:53 POC Capillary Glucose 283 H Quality VTE Prophylaxis VTE prophylaxis: pharmacologic ordered
[2024-03-18 08:30] LABS: Glucose Point of Care 220 mg/dl (65-105)
[2024-03-18 10:58] LABS: Basophils Percent Auto 0.5 % (0.2-1.2); Eosinophils Absolute Auto 0.3 K/mm3 (0-0.3); Eosinophils Percent Auto 3.9 % (0-4.4); Hematocrit 37.1 % (37.0-47.0); Hemoglobin 12.1 g/dL (12.0-15.0); Immature Granulocyte Absolute 0.08 K/mm3 (0.00-0.031); Lymphocytes Absolute Auto 2.52 K/mm3 (0.9-3.2); Lymphocytes Percent Auto 32.9 % (18.3-44.2); Mean Corpuscular HGB Conc 32.6 g/dl (32-36); Mean Corpuscular Hemoglobin 29.1 pg (26-34); Mean Corpuscular Volume 89.2 fl (80-100); Mean Platelet Volume 11.5 fl (7.4-10.4); Monocytes Absolute Auto 0.8 K/mm3 (0.1-0.6); Monocytes Percent Auto 9.8 % (2.6-8.5); Neutrophils Percent Auto 51.9 % (45.5-73.1); Platelet Count Result 260 k/mm3 (150-375); Red Blood Count 4.16 M/mm3 (4.2-5.4); Red Cell Distribution Width 14.5 % (11.5-14.5); White Blood Count 7.7 K/mm3 (4.5-10.0)
[2024-03-18 11:33] LABS: Alanine Aminotransferase 17 U/L (6-35); Albumin Level 2.9 g/dL (3.5-5.1); Alkaline Phosphatase 94 U/L (38-126); Anion Gap 7 mmol/L (4-12); Aspartate Amino Transferase 20 U/L (14-36); Bilirubin,Total 0.4 mg/dL (0.2-1.3); Blood Urea Nitrogen 6 mg/dL (7-17); Calcium 8.8 mg/dL (8.4-10.2); Carbon Dioxide 28 mmol/L (22-30); Chloride 99 mmol/L (98-107); Estimated CRCL calculation 80 ml/min; Estimated Glomerular Filt Rate > 60; Glucose 241 mg/dL (65-110); Magnesium 1.2 mg/dL (1.6-2.3); Potassium 3.1 mmol/L (3.4-5.0); Sodium 134 mmol/L (137-145)
[2024-03-18] MEDS: busPIRone HCL 5 MG TABLET 15 MG PO (11:41)
[2024-03-18] MEDS: levETIRAcetam 500 MG TABLET PO (11:42)
[2024-03-18] MEDS: DULoxetine HCL 60 MG CAPSULE.DR PO (11:43)
[2024-03-18] MEDS: PREGABALIN (*CRX) 75 MG CAPSULE 150 MG PO (11:43)
[2024-03-18] MEDS: NITROFURANTOIN MONOHYD MACROCR 100 MG CAP PO (11:44)
[2024-03-18] MEDS: ENALAPRIL MALEATE 10 MG TABLET PO (11:44)
[2024-03-18] MEDS: metFORMIN HCL 500 MG TABLET 1000 MG PO (11:44)
[2024-03-18] MEDS: METOPROLOL TARTRATE 25 MG TABLET PO (11:45)
[2024-03-18] MEDS: HYDROcodone/acetaminophen (*CRX) 5-325 MG TABLET 1 TAB PO (11:49)
[2024-03-18] MEDS: KCL 20 MEQ/SW 100 ML 100 ML 50 MEQ IVPB (11:52)
--- NOTE | 2024-03-18 11:53 | PCNFU ---
Nutrition Follow-Up Complete: Unintended weight loss as related to mental status change as evidenced by 5% (10 ibs) weight loss in 1 month. Goal: Adequate Intake of at least 75% of meals/supplements Patient has limited progress towards goal. We will continue with current goal. Pt current nutrition is NPO. Nutrition recommendation: advancing to regular diet after testing and Add Ensure Compact TID. Last recorded weight is 78.6 kg, no new weight to report. Bowel Motility:+BM reported 03/17 Labs Reviewed: BUN 6, Alb 2.9, Na 134, K 3.1 Meds Noted: Lopressor, Lovenox. Skin: WNL Additional Notes: Patient is NPO for procedure today. Diet order had been a regular diet. Intake pooe,10-50% of meals. Recommending to add diet supplements when NPO order has been discontinued. Agree with diet orders at this time. RD will monitor weight, labs, skin, oral intake, meds every 5 days.
[2024-03-18 12:00] LABS: Glucose Point of Care 231 mg/dl (65-105)
[2024-03-18] MEDS: INSULIN ASPART (*BKC) 100 UNITS/ML SUB-Q ×2 (13:45→17:32)
[2024-03-18 17:06] LABS: Glucose Point of Care 353 mg/dl (65-105)
[2024-03-18 20:10] LABS: Glucose Point of Care 369 mg/dl (65-105)
[2024-03-18] MEDS: INSULIN GLARGINE (*BKC) 100 UNITS/ML 10 UNITS SUB-Q (21:07)
[2024-03-19] VITALS (11 sets, daily range): BP systolic 130–143; BP diastolic 49–62; PULSE 72–93; RESP 16–20; TEMP 36.3–36.7; O2SAT 92–97
[2024-03-19 05:58] LABS: Basophils Absolute Auto 0.1 K/mm3 (0.0-0.1); Basophils Percent Auto 0.5 % (0.2-1.2); Eosinophils Absolute Auto 0.4 K/mm3 (0-0.3); Eosinophils Percent Auto 3.7 % (0-4.4); Hematocrit 37.5 % (37.0-47.0); Hemoglobin 11.9 g/dL (12.0-15.0); Immature Granulocyte Absolute 0.07 K/mm3 (0.00-0.031); Immature Granulocyte Percent A 0.7 % (0-0.5); Lymphocytes Absolute Auto 3.01 K/mm3 (0.9-3.2); Lymphocytes Percent Auto 28.2 % (18.3-44.2); Mean Corpuscular HGB Conc 31.7 g/dl (32-36); Mean Corpuscular Hemoglobin 28.7 pg (26-34); Mean Corpuscular Volume 90.6 fl (80-100); Mean Platelet Volume 11.7 fl (7.4-10.4); Monocytes Absolute Auto 0.9 K/mm3 (0.1-0.6); Monocytes Percent Auto 8.6 % (2.6-8.5); Neutrophils Absolute Auto 6.2 K/mm3 (1.3-6.7); Neutrophils Percent Auto 58.3 % (45.5-73.1); Platelet Count Result 291 k/mm3 (150-375); Red Blood Count 4.14 M/mm3 (4.2-5.4); Red Cell Distribution Width 14.6 % (11.5-14.5); White Blood Count 10.7 K/mm3 (4.5-10.0)
[2024-03-19 06:21] LABS: Alanine Aminotransferase 16 U/L (6-35); Albumin Level 2.7 g/dL (3.5-5.1); Alkaline Phosphatase 92 U/L (38-126); Anion Gap 4 mmol/L (4-12); Aspartate Amino Transferase 16 U/L (14-36); Bilirubin,Total 0.4 mg/dL (0.2-1.3); Blood Urea Nitrogen 7 mg/dL (7-17); Calcium 8.9 mg/dL (8.4-10.2); Carbon Dioxide 31 mmol/L (22-30); Chloride 100 mmol/L (98-107); Estimated CRCL calculation 84 ml/min; Estimated Glomerular Filt Rate > 60; Glucose 264 mg/dL (65-110); Magnesium 1.3 mg/dL (1.6-2.3); Potassium 3.1 mmol/L (3.4-5.0); Sodium 135 mmol/L (137-145)
[2024-03-19 08:20] LABS: Glucose Point of Care 264 mg/dl (65-105)
--- NOTE | 2024-03-19 10:30 | PM.IMPN ---
Progress Note: A&P Assessment and Plan (1) Parotid mass: Code(s): K11.8 - Other diseases of salivary glands Status: Acute Assessment and Plan: Bilateral parotid masses on MRI. Discussed with patient's and he is agreeable to a biopsy. --Spoke with oncology about results of MRI per previous provider (biopsy vs follow up imaging and recommended biopsy), formal consult if concern for malignancy --US guided biopsy scheduled for today, will need to hold ASA on Monday and NPO post midnight (2) Acute right-sided muscle weakness: Code(s): M62.81 - Muscle weakness (generalized) Status: Acute Assessment and Plan: Acute on chronic to right arm, seems resolved --Follow (3) Mental status alteration: Code(s): R41.82 - Altered mental status, unspecified Status: Acute Assessment and Plan: Suspect 2/2 dehydration and recent UTI. No shaking or obvious seizure activity --Continue fluids and follow mental status --Continue nitrofurantoin for UTI, short course since UA nw negative --Neurology was consulted, starting keppra 500mg BID for possible unwitnessed seizure --Passed swallow study with Regular diet and thin liquids -neurology following (4) Hypertension: Code(s): I10 - Essential (primary) hypertension Status: Acute Assessment and Plan: Home meds: Enalapril 10mg, Metoprolol 25mg q12, Blood pressure reviewed- stable --Continue to monitor (5) CVA (cerebral vascular accident): Code(s): I63.9 - Cerebral infarction, unspecified Status: Acute Assessment and Plan: 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 Wheelchair or bedbound at baseline --Continue ASA, statin --Head CT and MRI no acute findings (6) Hyponatremia: Code(s): E87.1 - Hypo-osmolality and hyponatremia Status: Acute Assessment and Plan: Sodium 133, down from 135 --NS@125/hr x1 liter --Follow BMP, serum osmo, Urine sodium and osmo (7) Diabetes mellitus: Code(s): E11.9 - Type 2 diabetes mellitus without complications Status: Acute Assessment and Plan: Home med: Metformin 1000mg daily. --Holding metformin for now --accucheck QID & medium SSI BS reviewed- had been trending up- will add 10 units of lantus and monitor Subjective Date/time seen: 03/19/24 10:30 Interval history: Faith Jenkins is a 79 year old female hx of CVA with left sided deficits, admitted for concern for right sided weakness. 03/17 Pt is seen and examined. Pt is drowsy but answers some simple questions. reports abd discomfit but was not able to elaborate on other details. abd exam unremarkable. no nausea 03/18- US guided biopsy scheduled today 03/19- could not do biopsy yesterday. Today hopefully. Had been NPO since midnight. NO acute events overnight Review of Systems Constitutional: Constitutional: Denies chills Cardiovascular: Cardiovascular: Denies chest pain Respiratory: Respiratory: Denies chest congestion Gastrointestinal: Gastrointestinal: Denies abdominal pain Exam Narrative: General - Awake and alert. No acute distress Eyes - PERRLA, EOM intact ENT - No thrush, No erythema Neck - No noticeable or palpable swelling Lymph Nodes - No lymphadenopathy Cardiovascular - RRR no m/r/g, no JVD Lungs: Clear to auscultation, No wheezing, use of accessory muscles, no crackles Skin - Skin warm and dry, no wounds or rashes Abdomen - reportes abd pain but exam is unremakable- Normal bowel sounds, abdomen soft and nontender Extremities - No edema, cyanosis or clubbing Musculoskeletal - 5/5 strength, normal range of motion, no swollen or erythematous joints. Neurological ? Alert and oriented x 1, Left side no movement to left arm, contracted left hand, unable to shrug left shoulder. Mild left facial weakness but can raise eyebrows, no dysarthria. Raises right leg minimally, able to wiggle toes. Psych: Normal mood, confused Objective Data Vital Signs Vital Signs: Vital Signs - 24 hr 03/18/24 11:45 03/18/24 12:00 03/18/24 14:00 Temperature 97.4 F L Pulse Rate 70 88 71 Respiratory Rate 14 Blood Pressure 144/61 H Pulse Oximetry 71 L Oxygen Delivery 03/18/24 16:00 03/18/24 20:00 03/18/24 20:00 Temperature Pulse Rate 81 93 Respiratory Rate Blood Pressure Pulse Oximetry Oxygen Delivery Room Air 03/18/24 21:25 03/18/24 21:48 03/19/24 00:00 Temperature 98.4 F Pulse Rate 92 95 92 Respiratory Rate 16 Blood Pressure 153/85 H Pulse Oximetry 91 Oxygen Delivery 03/19/24 04:00 03/19/24 05:14 03/19/24 08:00 Temperature 98.0 F Pulse Rate 85 88 88 Respiratory Rate 16 Blood Pressure 130/58 L Pulse Oximetry 97 Oxygen Delivery Intake/Output Intake/Output: Intake & Output 03/16/24 03/17/24 03/18/24 03/19/24 23:59 23:59 23:59 23:59 Intake Total 240 100 840 200 Output Total 600 900 775 200 Balance -360 -800 65 0 Meds/Results Medications: Active Medications Generic Name Dose Route Start Last Admin Trade Name Freq PRN Reason Stop Dose Admin Acetaminophen 650 mg 03/14/24 20:14 Acetaminophen 650 Mg Suppository RECTAL Q6H PRN Mild Pain (1-3) or Fever Hydrocodone Bitart/Acetaminophen 1 tab 03/14/24 21:55 03/19/24 09:56 Hydrocodone/Acetaminophen (*Crx) 5-325 Mg Tablet PO Not Given 0900,1500,2100 [facility] Aspirin 81 mg 03/15/24 08:00 03/18/24 11:37 Aspirin 81 Mg Chewable Tablet PO Not Given DAILY@0800 JELENA Buspirone HCl 15 mg 03/14/24 22:00 03/18/24 21:24 Buspirone Hcl 5 Mg Tablet PO Not Given Q12HR JELENA Dextrose 12.5 gm 03/16/24 11:14 Dextrose 50% 25 Gm/50 Ml Syringe IV PUSH PRN PRN Hypoglycemia Protocol Duloxetine HCl 30 mg 03/14/24 22:00 03/18/24 21:24 Duloxetine Hcl 30 Mg Capsule. PO Not Given HS JELENA Duloxetine HCl 60 mg 03/15/24 09:00 03/18/24 11:43 Duloxetine Hcl 60 Mg Capsule. PO 60 mg QAM JELENA Administration Enalapril Maleate 10 mg 03/15/24 09:00 03/18/24 11:44 Enalapril Maleate 10 Mg Tablet PO 10 mg QAM JELENA Administration Enoxaparin Sodium 30 mg 03/16/24 21:00 03/18/24 11:37 Enoxaparin 30 Mg/0.3 Ml Syringe SUB-Q Not Given Q12HR JELENA Glucagon 1 mg 03/16/24 11:14 Glucagon For Inj 1 Mg Vial IM PRN PRN Hypoglycemia Protocol Glucose 15 gm 03/16/24 11:14 Glucose Oral Gel 15 Gm Of Glucse In 37.5 Gm Tube PO PRN PRN Hypoglycemia Protocol Dextrose 1,000 mls @ 100 mls/hr 03/16/24 11:14 Dextrose 5% 1,000 Ml IVPB PRN PRN Hypoglycemia Protocol Insulin Aspart 3 - 6 units 03/16/24 12:00 03/19/24 09:55 Insulin Aspart (*Bkc) 100 Units/Ml SUB-Q Not Given TIDWM [facility] Protocol Insulin Glargine 10 units 03/18/24 21:00 03/18/24 21:07 Insulin Glargine (*Bkc) 100 Units/Ml SUB-Q 10 units HS [facility] Administration Levetiracetam 500 mg 03/16/24 21:00 03/18/24 21:24 Levetiracetam 500 Mg Tablet PO Not Given Q12HR JELENA Metformin HCl 1,000 mg 03/15/24 09:00 03/18/24 11:44 Metformin Hcl 500 Mg Tablet PO 1,000 mg DAILY [facility] Administration Metoprolol Tartrate 25 mg 03/14/24 22:00 03/18/24 21:25 Metoprolol Tartrate 25 Mg Tablet PO Not Given Q12HR [facility]ELE[facility] Nitrofurantoin Macrocrystals 100 mg 03/15/24 09:00 03/18/24 21:25 Nitrofurantoin Monohyd Macrocr 100 Mg Cap PO Not Given Q12HR [facility] Ondansetron HCl 4 mg 03/14/24 20:14 Ondansetron Inj 4 Mg/2 Ml Vial IV PUSH Q4H PRN Nausea Pregabalin 150 mg 03/14/24 22:00 03/19/24 09:56 Pregabalin (*Crx) 75 Mg Capsule PO Not Given 0900,1500,2100 [facility] Radiology Results: ITS Impressions Head CT 03/14/24 16:01 IMPRESSION: 1. 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 No acute intracranial process. 2. Age-related changes including moderate diffuse volume loss and mild scattered nonspecific white matter hypoattenuation consistent with chronic small vessel ischemic disease. Head/Neck CTA 03/14/24 16:14 IMPRESSION: 1. Small amount of atherosclerotic plaque with 0% stenosis of the right carotid bulb relative to normal distal artery lumen diameter (NASCET criteria). 2. 50% stenosis of the left carotid bulb relative to normal distal artery lumen diameter. 3. Mild <50% stenosis at the left vertebral and basilar arteries and at the bilateral carotid siphons. 4. Large region of encephalomalacia involving the right middle cerebral artery vascular distribution with likely secondary diffuse mild relative attenuation of the arteries in this region relative to the contralateral left middle cerebral artery vascular distribution. 5. Atherosclerotic calcifications at the origins of the great arteries arising from the aortic arch and at the origins of the bilateral vertebral arteries with assessment for degree of stenosis limited by motion artifact. Chest X-Ray 03/14/24 16:38 IMPRESSION: No focal infiltrate or effusion. Modified Barium Swallow 03/15/24 12:15 IMPRESSION: 1. No laryngeal penetration or aspiration. 2. Please refer to the speech therapy report for recommendations. Brain MRI 03/15/24 13:09 IMPRESSION: 1. Large old infarct in the expected distribution of right middle cerebral artery. 2. Old lacunar infarct in left thalamus. 3. Bilateral parotid masses. The differential diagnosis includes benign mixed tumor, Warthin tumor, and less likely [place] metastatic disease or primary malignancy. Labs Labs: Laboratory Results - last 24 hr 03/18/24 03/18/24 03/18/24 10:51 11:47 16:55 WBC 7.7 RBC 4.16 L Hgb 12.1 Hct 37.1 MCV 89.2 MCH 29.1 MCHC 32.6 RDW 14.5 Plt Count 260 MPV 11.5 H Immature Gran % (Auto) 1.0 H Neut % (Auto) 51.9 Lymph % (Auto) 32.9 [place] % (Auto) 9.8 H Eos % (Auto) 3.9 Baso % (Auto) 0.5 Lymph # (Auto) 2.52 [place] # (Auto) 0.8 H Eos # (Auto) 0.3 Baso # (Auto) 0.0 Abs Immat Gran (auto) 0.08 H Absolute Neuts (auto) 4.0 Absolute Nucleated RBC 0.000 Nucleated RBC % 0.0 Sodium 134 L Potassium 3.1 L Chloride 99 Carbon Dioxide 28 Anion Gap 7 BUN 6 L D Creatinine 0.49 L Estim Creat Clear Calc 80 Estimated GFR > 60 Glucose 241 H POC Capillary Glucose 231 H 353 H Calcium 8.8 Magnesium 1.2 L Total Bilirubin 0.4 AST 20 ALT 17 Alkaline Phosphatase 94 Total Protein 6.0 L Albumin 2.9 L 03/18/24 03/19/24 03/19/24 19:24 05:32 08:02 WBC 10.7 H RBC 4.14 L Hgb 11.9 L Hct 37.5 MCV 90.6 MCH 28.7 MCHC 31.7 L RDW 14.6 H Plt Count 291 MPV 11.7 H Immature Gran % (Auto) 0.7 H Neut % (Auto) 58.3 Lymph % (Auto) 28.2 [place] % (Auto) 8.6 H Eos % (Auto) 3.7 Baso % (Auto) 0.5 Lymph # (Auto) 3.01 [place] # (Auto) 0.9 H Eos # (Auto) 0.4 H Baso # (Auto) 0.1 Abs Immat Gran (auto) 0.07 H Absolute Neuts (auto) 6.2 Absolute Nucleated RBC 0.000 Nucleated RBC % 0.0 Sodium 135 L Potassium 3.1 L Chloride 100 Carbon Dioxide 31 H Anion Gap 4 BUN 7 Creatinine 0.46 L Estim Creat Clear Calc 84 Estimated GFR > 60 Glucose 264 H POC Capillary Glucose 369 H 264 H Calcium 8.9 Magnesium 1.3 L Total Bilirubin 0.4 AST 16 ALT 16 Alkaline Phosphatase 92 Total Protein 6.0 L Albumin 2.7 L Quality VTE Prophylaxis VTE prophylaxis: pharmacologic ordered
[2024-03-19 13:11] LABS: Glucose Point of Care 249 mg/dl (65-105)
[2024-03-19] MEDS: DULoxetine HCL 60 MG CAPSULE.DR PO (14:37)
[2024-03-19] MEDS: busPIRone HCL 5 MG TABLET 15 MG PO ×2 (14:37→20:53)
[2024-03-19] MEDS: metFORMIN HCL 500 MG TABLET 1000 MG PO (14:38)
[2024-03-19] MEDS: METOPROLOL TARTRATE 25 MG TABLET PO ×2 (14:38→20:53)
[2024-03-19] MEDS: levETIRAcetam 500 MG TABLET PO ×2 (14:38→20:54)
[2024-03-19] MEDS: ENALAPRIL MALEATE 10 MG TABLET PO (14:38)
[2024-03-19] MEDS: PREGABALIN (*CRX) 75 MG CAPSULE 150 MG PO ×2 (14:39→20:56)
[2024-03-19] MEDS: HYDROcodone/acetaminophen (*CRX) 5-325 MG TABLET 1 TAB PO ×2 (14:39→20:53)
[2024-03-19] MEDS: NITROFURANTOIN MONOHYD MACROCR 100 MG CAP PO ×2 (14:39→20:53)
[2024-03-19 17:34] LABS: Glucose Point of Care 221 mg/dl (65-105)
[2024-03-19] MEDS: INSULIN ASPART (*BKC) 100 UNITS/ML SUB-Q (17:54)
[2024-03-19] MEDS: INSULIN GLARGINE (*BKC) 100 UNITS/ML 10 UNITS SUB-Q (20:47)
[2024-03-19] MEDS: DULoxetine HCL 30 MG CAPSULE.DR PO (20:53)
[2024-03-19 21:35] LABS: Glucose Point of Care 137 mg/dl (65-105)
[2024-03-19 21:45] LABS: Glucose Point of Care 134 mg/dl (65-105)
[2024-03-20] VITALS (11 sets, daily range): BP systolic 105–150; BP diastolic 42–52; PULSE 77–107; RESP 18–20; TEMP 36.5–37.2; O2SAT 90–92
[2024-03-20 06:09] LABS: Basophils Percent Auto 0.3 % (0.2-1.2); Eosinophils Absolute Auto 0.4 K/mm3 (0-0.3); Eosinophils Percent Auto 3.1 % (0-4.4); Hematocrit 39.2 % (37.0-47.0); Hemoglobin 12.4 g/dL (12.0-15.0); Immature Granulocyte Absolute 0.14 K/mm3 (0.00-0.031); Lymphocytes Absolute Auto 1.62 K/mm3 (0.9-3.2); Lymphocytes Percent Auto 12.1 % (18.3-44.2); Mean Corpuscular HGB Conc 31.6 g/dl (32-36); Mean Corpuscular Hemoglobin 28.8 pg (26-34); Monocytes Absolute Auto 0.7 K/mm3 (0.1-0.6); Monocytes Percent Auto 5.5 % (2.6-8.5); Neutrophils Absolute Auto 10.4 K/mm3 (1.3-6.7); Platelet Count Result 328 k/mm3 (150-375); Red Blood Count 4.31 M/mm3 (4.2-5.4); Red Cell Distribution Width 14.7 % (11.5-14.5); White Blood Count 13.4 K/mm3 (4.5-10.0)
[2024-03-20 06:15] LABS: Glucose Point of Care 216 mg/dl (65-105)
[2024-03-20 06:17] LABS: Alanine Aminotransferase 16 U/L (6-35); Albumin Level 2.8 g/dL (3.5-5.1); Alkaline Phosphatase 81 U/L (38-126); Anion Gap 3 mmol/L (4-12); Aspartate Amino Transferase 21 U/L (14-36); Bilirubin,Total 0.4 mg/dL (0.2-1.3); Blood Urea Nitrogen 10 mg/dL (7-17); Calcium 9.1 mg/dL (8.4-10.2); Carbon Dioxide 33 mmol/L (22-30); Chloride 101 mmol/L (98-107); Estimated CRCL calculation 69 ml/min; Estimated Glomerular Filt Rate > 60; Glucose 193 mg/dL (65-110); Magnesium 1.4 mg/dL (1.6-2.3); Potassium 3.4 mmol/L (3.4-5.0); Sodium 137 mmol/L (137-145)
[2024-03-20 07:55] LABS: Glucose Point of Care 200 mg/dl (65-105)
[2024-03-20] MEDS: levETIRAcetam 500 MG TABLET PO ×2 (08:32→20:22)
[2024-03-20] MEDS: HYDROcodone/acetaminophen (*CRX) 5-325 MG TABLET 1 TAB PO ×3 (08:32→20:21)
[2024-03-20] MEDS: ENALAPRIL MALEATE 10 MG TABLET PO (08:32)
[2024-03-20] MEDS: METOPROLOL TARTRATE 25 MG TABLET PO ×2 (08:32→20:22)
[2024-03-20] MEDS: DULoxetine HCL 60 MG CAPSULE.DR PO (08:34)
[2024-03-20] MEDS: NITROFURANTOIN MONOHYD MACROCR 100 MG CAP PO (08:34)
[2024-03-20] MEDS: busPIRone HCL 5 MG TABLET 15 MG PO ×2 (08:34→20:21)
[2024-03-20] MEDS: metFORMIN HCL 500 MG TABLET 1000 MG PO (08:34)
[2024-03-20] MEDS: PREGABALIN (*CRX) 75 MG CAPSULE 150 MG PO ×3 (08:34→20:21)
[2024-03-20 12:17] LABS: Glucose Point of Care 216 mg/dl (65-105)
[2024-03-20 13:14] LABS: Glucose Point of Care 215 mg/dl (65-105)
--- NOTE | 2024-03-20 13:37 | P.PNIM_ITS ---
Progress Note: A&P Assessment and Plan (1) Mental status alteration: Code(s): R41.82 - Altered mental status, unspecified Status: Acute Assessment and Plan: Possibly 2/2 dehydration and recent UTI. Per chart review, patient was recently started on macrobid BID for a urinary tract infection 03/13. No shaking or obvious seizure activity --Continue fluids and follow mental status --Continue nitrofurantoin for UTI, short course since UA nw negative --Neurology was consulted, starting keppra 500mg BID for possible unwitnessed seizure --Passed swallow study with Regular diet and thin liquids -neurology following 03/20 patient will not answer questions at time of assessment, however will answer her stating she knows that I was trying to speak with her. Per RN patient told her to get out of her room this morning and that she did not want to talk to anyone. Vitals stable. BG stable. Discussed patient with ID pharmacy as she has been having increased WBC for the past 2 days. Will start her on rocephin and obtain a new UA and chest xr (2) Acute right-sided muscle weakness: Code(s): M62.81 - Muscle weakness (generalized) Status: Acute Assessment and Plan: Acute on chronic to right arm - Head CT: 1. 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 No acute intracranial process. 2. Age-related changes including moderate diffuse volume loss and mild scattered nonspecific white matter hypoattenuation consistent with chronic small vessel ischemic disease. - Head/neck CTA: 1. Small amount of atherosclerotic plaque with 0% stenosis of the right carotid bulb relative to normal distal artery lumen diameter 2. 50% stenosis of the left carotid bulb relative to normal distal artery lumen diameter. 3. Mild <50% stenosis at the left vertebral and basilar arteries and at the bilateral carotid siphons. 4. Large region of encephalomalacia involving the right middle cerebral artery vascular distribution with likely secondary diffuse mild relative attenuation of the arteries in this region relative to the contralateral left middle cerebral artery vascular distribution. 5. Atherosclerotic calcifications at the origins of the great arteries arising from the aortic arch and at the origins of the bilateral vertebral arteries with assessment for degree of stenosis limited by motion artifact. - Brain MRI: 1. Large old infarct in the expected distribution of right middle cerebral artery. 2. Old lacunar infarct in left thalamus. 3. Bilateral parotid masses. The differential diagnosis includes benign mixed tumor, Warthin tumor, and less likely [place] metastatic disease or primary malignancy. --Follow (3) Parotid mass: Code(s): K11.8 - Other diseases of salivary glands Status: Acute Assessment and Plan: - Brain MRI: Bilateral parotid masses. The differential diagnosis includes benign mixed tumor, Warthin tumor, and less likely [place] metastatic disease or primary malignancy. 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 (5) Hypertension: Code(s): I10 - Essential (primary) hypertension Status: Acute Assessment and Plan: Chronic, continue home medications --Home meds: Enalapril 10mg, Metoprolol 25mg q12 --Continue to monitor (6) Diabetes mellitus: Code(s): E11.9 - Type 2 diabetes mellitus without complications Status: Acute Assessment and Plan: - hypoglycemia protocol - POC blood glucose ACHS - home medication - metformin 1000 mg daily - correct regimen ordered - low dose TIDWM and lantus 10 units - A1C 8 (7) CVA (cerebral vascular accident): Code(s): I63.9 - Cerebral infarction, unspecified Status: Acute Assessment and Plan: 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 Wheelchair or bedbound at baseline --Continue ASA, statin Subjective Date/time seen: 03/20/24 13:37 Interval history: Faith Jenkins is a 79 year old female hx of CVA with left sided deficits, admitted for concern for right sided weakness. Patient is lying in bed with her at bedside. Patient will not answer questions at time of assessment, however will answer her stating she knows that I was trying to speak with her. Per RN patient told her to get out of her room this morning and that she did not want to talk to anyone. Vitals stable. BG stable. Discussed patient with ID pharmacy as she has been having increased WBC for the past 2 days. Will start her on rocephin and obtain a new UA and chest xr. Review of Systems Review of Systems: ROS unobtainable: Yes unobtainable due to mental status Exam Narrative: AF HR 77 RR 20 SPO2 90 BP 143/51 General: female in no acute respiratory distress who is nontoxic appearing, lying semi recumbent in bed. HEENT: Normocephalic. Atraumatic. Pupils equal round reactive to light. Extraocular movement intact. Sclera clear and anicteric. Chest: Lungs are clear to auscultation bilaterally. No wheezes or crackles. CV: Heart was regular rate and rhythm. S1-S2. No murmurs, gallops, or rubs. Abd: Abdomen was soft. Nontender. Nondistended. Positive bowel sounds. No organomegaly or masses. Ext: No clubbing, cyanosis, or edema. 2+ DP pulses bilaterally. Neuro: Patient is alert. Speech is clear. Skin: Warm and dry. No rashes noted. Objective Data Vital Signs Vital Signs: Vital Signs - 24 hr 03/19/24 14:00 03/19/24 14:38 03/19/24 16:00 Temperature 97.8 F Pulse Rate 84 88 72 Respiratory Rate 16 Blood Pressure 132/62 Pulse Oximetry 96 Oxygen Delivery 03/19/24 20:00 03/19/24 20:00 03/19/24 20:10 Temperature 97.4 F L Pulse Rate 87 87 Respiratory Rate 20 Blood Pressure 143/49 H Pulse Oximetry 92 Oxygen Delivery Room Air 03/19/24 20:53 03/20/24 00:00 03/20/24 04:00 Temperature Pulse Rate 87 77 82 Respiratory Rate Blood Pressure Pulse Oximetry Oxygen Delivery 03/20/24 05:58 03/20/24 08:00 03/20/24 08:32 Temperature 97.9 F Pulse Rate 84 96 96 Respiratory Rate 20 Blood Pressure 125/42 L Pulse Oximetry 92 Oxygen Delivery 03/20/24 08:42 03/20/24 12:58 Temperature 98.9 F Pulse Rate 77 Respiratory Rate Blood Pressure 143/51 H Pulse Oximetry 90 Oxygen Delivery Room Air Intake/Output Intake/Output: Intake & Output 03/17/24 03/18/24 03/19/24 03/20/24 23:59 23:59 23:59 23:59 Intake Total 100 840 200 Output Total 900 775 500 200 Balance -800 65 -300 -200 Meds/Results Medications: Active Medications Generic Name Dose Route Start Last Admin Trade Name Freq PRN Reason Stop Dose Admin Acetaminophen 650 mg 03/14/24 20:14 Acetaminophen 650 Mg Suppository RECTAL Q6H PRN Mild Pain (1-3) or Fever Hydrocodone Bitart/Acetaminophen 1 tab 03/14/24 21:55 03/20/24 08:32 Hydrocodone/Acetaminophen (*Crx) 5-325 Mg Tablet PO 1 tab 0900,1500,2100 JELENA Administration Aspirin 81 mg 03/15/24 08:00 03/18/24 11:37 Aspirin 81 Mg Chewable Tablet PO Not Given DAILY@0800 JELENA Buspirone HCl 15 mg 03/14/24 22:00 03/20/24 08:34 Buspirone Hcl 5 Mg Tablet PO 15 mg Q12HR JELENA Administration Dextrose 12.5 gm 03/16/24 11:14 Dextrose 50% 25 Gm/50 Ml Syringe IV PUSH PRN PRN Hypoglycemia Protocol Duloxetine HCl 30 mg 03/14/24 22:00 03/19/24 20:53 Duloxetine Hcl 30 Mg Capsule. PO 30 mg HS JELENA Administration Duloxetine HCl 60 mg 03/15/24 09:00 03/20/24 08:34 Duloxetine Hcl 60 Mg Capsule. PO 60 mg QAM JELENA Administration Enalapril Maleate 10 mg 03/15/24 09:00 03/20/24 08:32 Enalapril Maleate 10 Mg Tablet PO 10 mg QAM JELENA Administration Enoxaparin Sodium 30 mg 03/16/24 21:00 03/18/24 11:37 Enoxaparin 30 Mg/0.3 Ml Syringe SUB-Q Not Given Q12HR JELENA Glucagon 1 mg 03/16/24 11:14 Glucagon For Inj 1 Mg Vial IM PRN PRN Hypoglycemia Protocol Glucose 15 gm 03/16/24 11:14 Glucose Oral Gel 15 Gm Of Glucse In 37.5 Gm Tube PO PRN PRN Hypoglycemia Protocol Dextrose 1,000 mls @ 100 mls/hr 03/16/24 11:14 Dextrose 5% 1,000 Ml IVPB PRN PRN Hypoglycemia Protocol Insulin Aspart 3 - 6 units 03/16/24 12:00 03/20/24 08:31 Insulin Aspart (*Bkc) 100 Units/Ml SUB-Q Not Given TIDWM [facility] Protocol Insulin Glargine 10 units 03/18/24 21:00 03/19/24 20:47 Insulin Glargine (*Bkc) 100 Units/Ml SUB-Q 10 units HS JELENA Administration Levetiracetam 500 mg 03/16/24 21:00 03/20/24 08:32 Levetiracetam 500 Mg Tablet PO 500 mg Q12HR JELENA Administration Metformin HCl 1,000 mg 03/15/24 09:00 03/20/24 08:34 Metformin Hcl 500 Mg Tablet PO 1,000 mg DAILY JELENA Administration Metoprolol Tartrate 25 mg 03/14/24 22:00 03/20/24 08:32 Metoprolol Tartrate 25 Mg Tablet PO 25 mg Q12HR JELENA Administration Nitrofurantoin Macrocrystals 100 mg 03/15/24 09:00 03/20/24 08:34 Nitrofurantoin Monohyd Macrocr 100 Mg Cap PO 100 mg Q12HR JELENA Administration Ondansetron HCl 4 mg 03/14/24 20:14 Ondansetron Inj 4 Mg/2 Ml Vial IV PUSH Q4H PRN Nausea Pregabalin 150 mg 03/14/24 22:00 03/20/24 08:34 Pregabalin (*Crx) 75 Mg Capsule PO 150 mg 0900,1500,2100 JELENA Administration Radiology Results: ITS Impressions Head CT 03/14/24 16:01 IMPRESSION: 1. 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 No acute intracranial process. 2. Age-related changes including moderate diffuse volume loss and mild scattered nonspecific white matter hypoattenuation consistent with chronic small vessel ischemic disease. Head/Neck CTA 03/14/24 16:14 IMPRESSION: 1. Small amount of atherosclerotic plaque with 0% stenosis of the right carotid bulb relative to normal distal artery lumen diameter (NASCET criteria). 2. 50% stenosis of the left carotid bulb relative to normal distal artery lumen diameter. 3. Mild <50% stenosis at the left vertebral and basilar arteries and at the bilateral carotid siphons. 4. Large region of encephalomalacia involving the right middle cerebral artery vascular distribution with likely secondary diffuse mild relative attenuation of the arteries in this region relative to the contralateral left middle cerebral artery vascular distribution. 5. Atherosclerotic calcifications at the origins of the great arteries arising from the aortic arch and at the origins of the bilateral vertebral arteries with assessment for degree of stenosis limited by motion artifact. Chest X-Ray 03/14/24 16:38 IMPRESSION: No focal infiltrate or effusion. Modified Barium Swallow 03/15/24 12:15 IMPRESSION: 1. No laryngeal penetration or aspiration. 2. Please refer to the speech therapy report for recommendations. Brain MRI 03/15/24 13:09 IMPRESSION: 1. Large old infarct in the expected distribution of right middle cerebral artery. 2. Old lacunar infarct in left thalamus. 3. Bilateral parotid masses. The differential diagnosis includes benign mixed tumor, Warthin tumor, and less likely [place] metastatic disease or primary malignancy. Guidance Needle Placement Ultrasound 03/19/24 14:08 IMPRESSION: 1. Ultrasound-guided fine needle aspiration of a left parotid mass. 2. The right parotid mass FNA was canceled due to the patient's confusion and noncompliance. Labs Labs: Laboratory Results - last 24 hr 03/19/24 03/19/24 03/19/24 17:25 20:07 20:47 WBC RBC Hgb Hct MCV MCH MCHC RDW Plt Count MPV Immature Gran % (Auto) Neut % (Auto) Lymph % (Auto) [place] % (Auto) Eos % (Auto) Baso % (Auto) Lymph # (Auto) [place] # (Auto) Eos # (Auto) Baso # (Auto) Abs Immat Gran (auto) Absolute Neuts (auto) Absolute Nucleated RBC Nucleated RBC % Sodium Potassium Chloride Carbon Dioxide Anion Gap BUN Creatinine Estim Creat Clear Calc Estimated GFR Glucose POC Capillary Glucose 221 H 137 H 134 H Calcium Magnesium Total Bilirubin AST ALT Alkaline Phosphatase Total Protein Albumin 03/20/24 03/20/24 03/20/24 05:14 05:15 07:47 WBC 13.4 H RBC 4.31 Hgb 12.4 Hct 39.2 MCV 91.0 MCH 28.8 MCHC 31.6 L RDW 14.7 H Plt Count 328 MPV 12.0 H Immature Gran % (Auto) 1.0 H Neut % (Auto) 78.0 H Lymph % (Auto) 12.1 L [place] % (Auto) 5.5 Eos % (Auto) 3.1 Baso % (Auto) 0.3 Lymph # (Auto) 1.62 [place] # (Auto) 0.7 H Eos # (Auto) 0.4 H Baso # (Auto) 0.0 Abs Immat Gran (auto) 0.14 H Absolute Neuts (auto) 10.4 H Absolute Nucleated RBC 0.000 Nucleated RBC % 0.0 Sodium 137 Potassium 3.4 Chloride 101 Carbon Dioxide 33 H Anion Gap 3 L BUN 10 Creatinine 0.58 L Estim Creat Clear Calc 69 Estimated GFR > 60 Glucose 193 H POC Capillary Glucose 216 H 200 H Calcium 9.1 Magnesium 1.4 L Total Bilirubin 0.4 AST 21 ALT 16 Alkaline Phosphatase 81 Total Protein 6.0 L Albumin 2.8 L 03/20/24 03/20/24 11:57 13:11 WBC RBC Hgb Hct MCV MCH MCHC RDW Plt Count MPV Immature Gran % (Auto) Neut % (Auto) Lymph % (Auto) [place] % (Auto) Eos % (Auto) Baso % (Auto) Lymph # (Auto) [place] # (Auto) Eos # (Auto) Baso # (Auto) Abs Immat Gran (auto) Absolute Neuts (auto) Absolute Nucleated RBC Nucleated RBC % Sodium Potassium Chloride Carbon Dioxide Anion Gap BUN Creatinine Estim Creat Clear Calc Estimated GFR Glucose POC Capillary Glucose 216 H 215 H Calcium Magnesium Total Bilirubin AST ALT Alkaline Phosphatase Total Protein Albumin
[2024-03-20] MEDS: cefTRIAXone 2 GM/NS 100 ML 2 GM/100 ML BAG IVPB (14:56)
[2024-03-20 16:08] LABS: Add Urine Microscopic? YES; Appearance Urine Clear (Clear); Bacteria Urine None Seen /hpf; Bilirubin Urine 1+ (Negative); Blood Urine Negative (Negative); Color Urine Dark Yellow (Yellow); Glucose Urine UA 1+ mg/dL (Negative); Hyaline Casts Urine Present /lpf; Ketones Urine 3+ mg/dL (Negative); Leukocyte Esterase Ur Trace LEU/UL (Negative); Nitrate Urine Positive (Negative); Non Pathogenic Casts 0-2; Protein Urine Trace mg/dL (Negative); RBC Urine 0-2 /hpf (0-2); Specific Grav Ur 1.019 (1.001-1.035); Squamous Epithelial Cell Urine Occasional /hpf (Few); Urobilinogen Urine 0.2 mg/dL (<2.0); pH Urine 5.5 (5.0-9.0)
[2024-03-20 17:11] LABS: Glucose Point of Care 209 mg/dl (65-105)
[2024-03-20] MEDS: INSULIN ASPART (*BKC) 100 UNITS/ML SUB-Q (18:17)
[2024-03-20] MEDS: DULoxetine HCL 30 MG CAPSULE.DR PO (20:21)
[2024-03-20] MEDS: INSULIN GLARGINE (*BKC) 100 UNITS/ML 10 UNITS SUB-Q (20:32)
[2024-03-20 20:39] LABS: Glucose Point of Care 266 mg/dl (65-105)
[2024-03-21] VITALS: PULSE 72
[2024-03-21 04:00] VITALS: PULSE 73
[2024-03-21 06:00] VITALS: BP 93/40; PULSE 77; RESP 18; TEMP 36.8; O2SAT 99
[2024-03-21 06:31] LABS: Basophils Absolute Auto 0.1 K/mm3 (0.0-0.1); Basophils Percent Auto 0.5 % (0.2-1.2); Eosinophils Absolute Auto 0.6 K/mm3 (0-0.3); Eosinophils Percent Auto 4.9 % (0-4.4); Hematocrit 37.5 % (37.0-47.0); Immature Granulocyte Absolute 0.09 K/mm3 (0.00-0.031); Immature Granulocyte Percent A 0.7 % (0-0.5); Lymphocytes Absolute Auto 3.14 K/mm3 (0.9-3.2); Mean Corpuscular Hemoglobin 29.6 pg (26-34); Mean Corpuscular Volume 92.4 fl (80-100); Mean Platelet Volume 11.8 fl (7.4-10.4); Monocytes Absolute Auto 0.8 K/mm3 (0.1-0.6); Monocytes Percent Auto 6.1 % (2.6-8.5); Neutrophils Absolute Auto 7.9 K/mm3 (1.3-6.7); Neutrophils Percent Auto 62.8 % (45.5-73.1); Platelet Count Result 294 k/mm3 (150-375); Red Blood Count 4.06 M/mm3 (4.2-5.4); Red Cell Distribution Width 15.3 % (11.5-14.5); White Blood Count 12.6 K/mm3 (4.5-10.0)
[2024-03-21 06:41] LABS: Alanine Aminotransferase 14 U/L (6-35); Albumin Level 2.6 g/dL (3.5-5.1); Alkaline Phosphatase 73 U/L (38-126); Anion Gap 5 mmol/L (4-12); Aspartate Amino Transferase 22 U/L (14-36); Bilirubin,Total 0.6 mg/dL (0.2-1.3); Blood Urea Nitrogen 21 mg/dL (7-17); Calcium 8.1 mg/dL (8.4-10.2); Carbon Dioxide 30 mmol/L (22-30); Chloride 99 mmol/L (98-107); Estimated CRCL calculation 60 ml/min; Estimated Glomerular Filt Rate > 60; Glucose 135 mg/dL (65-110); Magnesium 1.6 mg/dL (1.6-2.3); Sodium 134 mmol/L (137-145)
[2024-03-21 07:38] LABS: Platelet Estimate Adequate (Adequate)
[2024-03-21 07:39] LABS: Hypochromasia 1+; Smudge Cells FEW
[2024-03-21 07:40] LABS: Anisocytosis 1+; Tear Drop Cells 1+
[2024-03-21 08:00] VITALS: PULSE 73
[2024-03-21 08:17] LABS: Glucose Point of Care 135 mg/dl (65-105)
[2024-03-21 08:27] LABS: Schistocytes None Seen
[2024-03-21] MEDS: cefTRIAXone 2 GM/NS 100 ML 2 GM/100 ML BAG IVPB (09:35)
--- NOTE | 2024-03-21 10:56 | PCNFU ---
Nutrition Follow-Up Complete: Unintended weight loss as related to mental status change as evidenced by 5% (10 ibs) weight loss in 1 month. Goal: Adequate Intake of at least 75% of meals/supplements Patient has limited progress towards goal. We will continue current goal. Pt current nutrition is Regular with Ensure Compact BID. Last recorded weight is 78.6 kg, no new weight to report. Bowel Motility: +BM reported 03/19 Labs Reviewed: Glu 135, NA 134, Alb 2.6, Cr 0.67 Meds Noted:Lopressor, Lovenox Skin: WNL Additional Notes: Patient remains on a regular diet. Diet not eat breakfast today. Oral Intake's have been poor. Diet supplements are providing an additional 220 kcal and 9 gm protein. Agree with diet orders. RD will monitor weight, labs, skin, oral intake, meds every 3 days.
[2024-03-21] MEDS: levETIRAcetam 500 MG TABLET PO (11:32)
[2024-03-21 11:34] VITALS: PULSE 81
[2024-03-21] MEDS: METOPROLOL TARTRATE 25 MG TABLET PO (11:34)
[2024-03-21] MEDS: busPIRone HCL 5 MG TABLET 15 MG PO (11:34)
[2024-03-21] MEDS: DULoxetine HCL 60 MG CAPSULE.DR PO (11:35)
[2024-03-21] MEDS: HYDROcodone/acetaminophen (*CRX) 5-325 MG TABLET 1 TAB PO (11:35)
[2024-03-21] MEDS: PREGABALIN (*CRX) 75 MG CAPSULE 150 MG PO (11:35)
[2024-03-21] MEDS: metFORMIN HCL 500 MG TABLET 1000 MG PO (11:35)
[2024-03-21] MEDS: ENALAPRIL MALEATE 10 MG TABLET PO (11:35)
[2024-03-21 11:59] LABS: Glucose Point of Care 142 mg/dl (65-105)
[2024-03-21 12:00] VITALS: PULSE 77
--- NOTE | 2024-03-21 13:03 | P.DS_ITS ---
DS: Admitting Diagnosis Discharge Date 03/21/2024 Admitting Diagnosis mental status alteration acute right sided muscle weakness Parotid mass hyponatremia hypertension diabetes mellitus cva DS: Discharge Diagnosis Discharge Diagnosis (1) Mental status alteration: Code(s): R41.82 - Altered mental status, unspecified Status: Acute (2) Acute right-sided muscle weakness: Code(s): M62.81 - Muscle weakness (generalized) Status: Acute (3) Parotid mass: Code(s): K11.8 - Other diseases of salivary glands Status: Acute (4) Hyponatremia: Code(s): E87.1 - Hypo-osmolality and hyponatremia Status: Acute (5) Hypertension: Code(s): I10 - Essential (primary) hypertension Status: Acute (6) Diabetes mellitus: Code(s): E11.9 - Type 2 diabetes mellitus without complications Status: Acute (7) CVA (cerebral vascular accident): Code(s): I63.9 - Cerebral infarction, unspecified Status: Acute DS: Summary Hospital Course Reason for hospitalization: mental status alteration acute right sided muscle weakness Parotid mass hyponatremia hypertension diabetes mellitus cva Hospital Course: Faith Jenkins is a 79 year old female hx of CVA with left sided deficits, admitted for concern for right sided weakness. Head CT showed old infarcts in the bilateral middle cerebral artery vascular distributions, small on the left and large on the right. No acute intracranial process and age-related changes including moderate diffuse volume loss and mild scattered nonspecific white matter hypoattenuation consistent with chronic small vessel ischemic disease. Head/neck CTA showed small amount of atherosclerotic plaque with 0% stenosis of the right carotid bulb and 50% stenosis of the left carotid bulb relative to normal distal artery lumen diameter, mild <50% stenosis at the left vertebral and basilar arteries and at the bilateral carotid siphons, a large region of encephalomalacia involving the right middle cerebral artery vascular distribution with likely secondary diffuse mild relative attenuation of the arteries in this region relative to the contralateral left middle cerebral artery vascular distribution, and atherosclerotic calcifications at the origins of the great arteries arising from the aortic arch and at the origins of the bilateral vertebral arteries with assessment for degree of stenosis limited by motion artifact. Brain MRI showed large old infarct in the expected distribution of right middle cerebral artery and the left thalamus as well a bilateral parotid masses. Patient was evaluated by neurology. Patient was to continue her ASA daily and started on keppra for possible unwitnessed seizure. The right sided weakness resolved during admission. Patient still remained slight confused during admission. Chest XR was again negative for acute infection. Urinalysis was non concerning for infection. Patient remained afebrile. Call made to patients facility and per patients RN at [facility] she is typically alert to self, able to communicate with you and attempts to participate in activities at the facility. At time of discharge she had returned to her baseline. On the MRI the patient was diagnosed with bilateral paratid masses. 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 Patient is to follow up with her PCP about this. At time of discharge patient has no complaints denying chest pain, shortness of breath, palpitations, nausea/vomiting and abdominal pain. Patient discharged back to her facility in a stable condition. She is to follow up with her primary care provider in 1 week and Neuro as scheduled. Status at Discharge Functional status at discharge: wheelchair bound Time Spent with Patient Time attestation: Total time spent providing and/or coordinating discharge services: Time spent: Greater than 30 minutes Exam Narrative: AF HR 77 RR 18 SpO2 99 BP 93/40 General: female in no acute respiratory distress who is nontoxic appearing, lying semi recumbent in bed. HEENT: Normocephalic. Atraumatic. Pupils equal round reactive to light. Extraocular movement intact. Sclera clear and anicteric. Chest: Lungs are clear to auscultation bilaterally. No wheezes or crackles. CV: Heart was regular rate and rhythm. S1-S2. No murmurs, gallops, or rubs. Abd: Abdomen was soft. Nontender. Nondistended. Positive bowel sounds. No organomegaly or masses. Ext: No clubbing, cyanosis, or edema. 2+ DP pulses bilaterally. Neuro: Patient is alert talking with her , speaking in sentences. Speech is clear. Skin: Warm and dry. No rashes noted. DS: Data Data Completed and Pending Completed studies during hospitalization: chest x-ray needle guided ultrasound brain MRI modified barium swallow chest x-ray head CT head neck CTA Pending studies at discharge: Pending at discharge 03/19/24 13:33 Cytology [PTH] Routine Labs on day of discharge: Labs from last 24 hours 03/21/24 03/21/24 03/21/24 11:55 08:12 05:57 WBC 12.6 H RBC 4.06 L Hgb 12.0 Hct 37.5 MCV 92.4 MCH 29.6 MCHC 32.0 RDW 15.3 H Plt Count 294 MPV 11.8 H Immature Gran % (Auto) 0.7 H Neut % (Auto) 62.8 Lymph % (Auto) 25.0 Concho % (Auto) 6.1 Eos % (Auto) 4.9 H Baso % (Auto) 0.5 Lymph # (Auto) 3.14 [place]cho # (Auto) 0.8 H Eos # (Auto) 0.6 H Baso # (Auto) 0.1 Abs Immat Gran (auto) 0.09 H Absolute Neuts (auto) 7.9 H Absolute Nucleated RBC 0.000 Nucleated RBC % 0.0 Smudge Cells Few Platelet Estimate Adequate Hypochromasia 1+ Anisocytosis 1+ Tear Drop Cells 1+ Schistocytes None seen Sodium 134 L Potassium 4.0 Chloride 99 Carbon Dioxide 30 Anion Gap 5 BUN 21 H D Creatinine 0.67 L Estim Creat Clear Calc 60 Estimated GFR > 60 Glucose 135 H POC Capillary Glucose 142 H 135 H Calcium 8.1 L Magnesium 1.6 Total Bilirubin 0.6 AST 22 ALT 14 Alkaline Phosphatase 73 Total Protein 5.0 L Albumin 2.6 L Urine Color Urine Appearance Urine pH Ur Specific Champion Urine Protein Urine Glucose (UA) Urine Ketones Ur Blood (Man) Urine Nitrate Urine Bilirubin Urine Urobilinogen Ur Leukocyte Esterase Urine RBC Urine WBC Ur Squamous Epith Cells Urine Bacteria Urine Casts Hyaline Casts 03/20/24 03/20/24 03/20/24 20:11 16:57 15:47 WBC RBC Hgb Hct MCV MCH MCHC RDW Plt Count MPV Immature Gran % (Auto) Neut % (Auto) Lymph % (Auto) Concho % (Auto) Eos % (Auto) Baso % (Auto) Lymph # (Auto) Concho # (Auto) Eos # (Auto) Baso # (Auto) Abs Immat Gran (auto) Absolute Neuts (auto) Absolute Nucleated RBC Nucleated RBC % Smudge Cells Platelet Estimate Hypochromasia Anisocytosis Tear Drop Cells Schistocytes Sodium Potassium Chloride Carbon Dioxide Anion Gap BUN Creatinine Estim Creat Clear Calc Estimated GFR Glucose POC Capillary Glucose 266 H 209 H Calcium Magnesium Total Bilirubin AST ALT Alkaline Phosphatase Total Protein Albumin Urine Color Dark yellow Urine Appearance Clear Urine pH 5.5 Ur Specific Champion 1.019 Urine Protein Trace Urine Glucose (UA) 1+ H Urine Ketones 3+ H Ur Blood (Man) Negative Urine Nitrate Positive Urine Bilirubin 1+ H Urine Urobilinogen 0.2 Ur Leukocyte Esterase Trace H Urine RBC 0-2 Urine WBC 6-10 H Ur Squamous Epith Cells Occasional Urine Bacteria None seen Urine Casts 0-2 Hyaline Casts Present 03/20/24 13:11 WBC RBC Hgb Hct MCV MCH MCHC RDW Plt Count MPV Immature Gran % (Auto) Neut % (Auto) Lymph % (Auto) Concho % (Auto) Eos % (Auto) Baso % (Auto) Lymph # (Auto) Concho # (Auto) Eos # (Auto) Baso # (Auto) Abs Immat Gran (auto) Absolute Neuts (auto) Absolute Nucleated RBC Nucleated RBC % Smudge Cells Platelet Estimate Hypochromasia Anisocytosis Tear Drop Cells Schistocytes Sodium Potassium Chloride Carbon Dioxide Anion Gap BUN Creatinine Estim Creat Clear Calc Estimated GFR Glucose POC Capillary Glucose 215 H Calcium Magnesium Total Bilirubin AST ALT Alkaline Phosphatase Total Protein Albumin Urine Color Urine Appearance Urine pH Ur Specific Champion Urine Protein Urine Glucose (UA) Urine Ketones Ur Blood (Man) Urine Nitrate Urine Bilirubin Urine Urobilinogen Ur Leukocyte Esterase Urine RBC Urine WBC Ur Squamous Epith Cells Urine Bacteria Urine Casts Hyaline Casts Discharge Plan Discharge Attending physician on discharge: Naomi Wilson Consulting providers: Joel Glez Discharging Clinician: Lashell Demarco Anticipated Discharge Date/Time: 03/21/24 12:49 Patient Disposition: PA [facility]/Asst Living Activity: as tolerated Diet: as tolerated, heart healthy and diabetic Discharge Instructions: Discharge disposition: Patient admitted to the hospital for altered mental status with right sided muscle weakness Imaging was negative for acute stroke Neurology was consulted Patient was started on a new medication for possible seizure activity Take medications as prescribed Keppra 500 mg twice a day, attached is information on this medication Aspirin daily, attached is information on this medication Follow up with neurology, call for appointment Patients mental status returned to baseline and the right sided weakness resolved prior to discharge Obtain a blood draw in 1 week to reassess white blood cell count No signs of infection noted during admission Patient was noted to have a parotid mass on imaging Underwent an US biopsy on 03/19 with pathology showing a benign Warthin tumor Follow up with your primary care provider Monitor blood pressures Take caution while standing, rising, or moving Change positions slowly taking a break between each position change If you changing positions and feel dizzy sit back down and take a break Prior to admission patient was diagnosed with a urinary tract infection Completed antibiotic course during admission Eat well balanced meals and stay hydrated Keep active to remain strong Avoid use of diapers or pads Good kolton Care every 2 hours Trend urine output Encouraged to continue with yearly vaccinations Return to the emergency department if he developed sudden shortness of breath, chest pain, nausea, vomiting, upset stomach or intractable diarrhea Return to the emergency department if you develop fever greater than 101.5 Follow-up with the primary care physician within 1-2 weeks Thank you for choosing [facility] for your healthcare needs Patient Instructions: Antibiotic Form, Aspirin (By mouth), Levetiracetam (By mouth), Dehydration (DC), Ischemic Stroke (DC) Patient Language: Azeri Stand Alone Forms: General Discharge Information Follow-up/Referrals: Tae,Bertin Hernandez MD [Primary Care Provider] - 1 Week Joel Glez MD [Physician] - Call for Appointment Discharge Medications: New levetiracetam [Keppra] 500 mg Tablet 500 mg PO Q12HR Qty: 60 0RF aspirin [Children's Aspirin] 81 mg Tablet,Chewable 81 mg PO DAILY@0800 Qty: 30 0RF Continued ondansetron 4 mg tablet,disintegrating 4 mg PO Q8H PRN (Reason: nausea) metoprolol tartrate 25 mg tablet 25 mg PO Q12H metformin 1,000 mg tablet 1,000 mg PO DAILY enalapril maleate 10 mg tablet 10 mg PO Q24H buspirone 15 mg tablet 15 mg PO .q 12 duloxetine 30 mg capsule,delayed release(DR/EC) 30 mg PO HS duloxetine 60 mg capsule,delayed release(DR/EC) 60 mg PO DAILY hydrocodone-acetaminophen 5-325 mg tablet 1 tablet PO PRN PRN (Reason: pain) Qty: 1 0RF pregabalin 150 mg capsule 150 mg PO Q8H Qty: 1 0RF Date of admission: 03/15/24 07:59 Primary Care Provider: TaeBertin Admitting Provider: Alexei Baum Attending physician on admission: Lashell Demarco Condition: Stable Hospitalist MIPS Heart Failure (Exclusion) Patient has history of Heart Transplant or Left Ventricular Assistive Device?: No IF YES, STOP HERE Heart Failure (Qualifier) Patient has current or prior documentation of LVEF less than or equal to 40%, or mod/servere depressed LVSF?: No IF NO, STOP HERE
[2024-03-21 14:02] LABS: SARS-CoV-2 RNA PCR Negative (Negative)
== END 2024-03-21 15:24 | DRG 71 ==
LOC: ANHED 21:35 → ANH2MED 22:54
PROVIDERS: Nurse Practitioner; Nurse Practitioner Acute Care; Admitting Provider General Practice; Emergency Provider Student in an Organized Health Care Education/Training Program; PCP Family Medicine; Visit Provider Student in an Organized Health Care Education/Training Program
DX: G93.41 Metabolic encephalopathy (principal); E87.1 Hypo-osmolality and hyponatremia; I69.354 Hemiplegia and hemiparesis following cerebral infarction affecting left non-dominant side; E86.0 Dehydration; M62.81 Muscle weakness (generalized); R41.82 Altered mental status, unspecified; R29.818 Other symptoms and signs involving the nervous system; I10 Essential (primary) hypertension; I67.2 Cerebral atherosclerosis; D11.0 Benign neoplasm of parotid gland; E11.42 Type 2 diabetes mellitus with diabetic polyneuropathy; E55.9 Vitamin D deficiency, unspecified; E78.5 Hyperlipidemia, unspecified; K11.8 Other diseases of salivary glands; K21.9 Gastro-esophageal reflux disease without esophagitis; M15.9 Polyosteoarthritis, unspecified; R29.719 NIHSS score 19; F41.1 Generalized anxiety disorder; F32.9 Major depressive disorder, single episode, unspecified; Z20.822 Contact with and (suspected) exposure to COVID-19; Z11.52 Encounter for screening for COVID-19; Z99.3 Dependence on wheelchair
CPT/HCPCS: 10005; 36415; 36600; 70450; 70496; 70498; 70553; 71045; 80053; 80061; 80143; 80179; 80307; 81001; 82077; 82140; 82550; 82805; 82948; 83036; 83605; 83735; 83880; 84439; 84443; 84480; 84484; 85018; 85025; 85380; 85610; 85730; 87635; 87637; 88108; 88305; 92507; 92523; 92611; 93005; 93306; 96374; 96375; 99285; A9270; A9577; G0378; J0696; J1650; J1815; J3480; J7030; Q9967

== ENCOUNTER 2024-04-06 15:36 | HOS | payer OTHER, MEDICARE, MEDICAID, SELFPAY ==
--- OUTSIDE RECORDS SUMMARY | 2024-04-06 15:52 | XMS_ITS | Referral Summary ---
Author Organization [facility] Address [address] [place] [address] Care Team Providers Care Dry Mixer Name Role Phone Unavailable Primary Care Provider Unavailabl e Source Comments [facility],non-owned Affiliates and Associated Physician Practices is amultiple site organization consisting of ambulatory clinics and hospital sitesin [place], [place], [place] and [place]. This disclosure is being madepursuant to the Care Everywhere program and may not contain all information available regarding this patient. Last updated 17.[facility] [employer] Social History Tobacco Use Types Packs/Day Years Used Date Smoking Tobacco: Never Assessed Sex and Gender Information Value Date Recorded Sex Assigned at Not on file Gender Identity Not on file Sexual Orientation Not on file Plan of Treatment Not on file Faith Jenkins Personal/Family Self 1945
--- OUTSIDE RECORDS SUMMARY | 2024-04-06 15:52 | XMS_ITS | Clinical Summary ---
Author Organization [facility] Address [address] [place] [address] Care Team Providers Care Smoke Control Supervisor Name Role Phone Unavailable Primary Care Provider Unavailabl e Source Comments [facility],non-owned Affiliates and Associated Physician Practices is amultiple site organization consisting of ambulatory clinics and hospital sitesin [place], [place], [place] and [place]. This disclosure is being madepursuant to the Care Everywhere program and may not contain all information available regarding this patient. Last updated 17.[facility] [employer] Social History Tobacco Use Types Packs/Day Years Used Date Smoking Tobacco: Never Assessed Sex and Gender Information Value Date Recorded Sex Assigned at Not on file Gender Identity Not on file Sexual Orientation Not on file Plan of Treatment Health Maintenance Due Date Last Done Comments BONE DENSITY TESTING 1945 MEDICARE AWV ? 12 MONTHS 1945 HEPATITIS C SCREENING 12/29/1963 DTAP/TDAP/TD VACCINES (1 - Tdap) 1965 PNEUMOCOCCAL VACCINE 50+ (1 of 1 - PCV) 01/03/1996 ZOSTER VACCINE (1 of 2) 01/03/1996 Respiratory Syncytial Virus (RSV) Vaccine Pt: or over 60 yrs (1 - 1-dose 75+ series) 2021 COVID-19 VACCINE ( - 2023-2 5 season) 2023 INFLUENZA VACCINE (#1) 2023 DEPRESSION SCREENING 03/13/2024 HEPATITIS B VACCINE Aged Out No longe r eligible based on patient's age to complete this topic HIB VACCINE Aged Out No longer eligi ble based on patient's age to complete this topic HPV VACCINE Aged Out No longer eligi ble based on patient's age to complete this topic MENINGOCOCCAL (Group B) VACCINE Aged Out No longer eligible based on patient's age to complete this topic MENINGOCOCCAL VACCINE Aged Out No ольга radha eligible based on patient's age to complete this topic Faith Jenkins Personal/Family Self 1945
--- OUTSIDE RECORDS SUMMARY | 2024-04-06 15:52 | XMS_ITS | Clinical Summary ---
Author Organization [facility] Address [address] [place] [address] Phone Care Team Providers Care Trommel Tender Name Role Phone Lamar Barrientos APRN, NEON SIGN WORKER Primary Care Provider Social History Tobacco Use Types Packs/Day Years Used Date Smoking Tobacco: Never Assessed Comments Unknown Sex and Gender Information Value Date Recorded Sex Assigned at Not on file Legal Sex Female 1:12 PM CDT Gender Identity Not on file Sexual Orientation Not on file Plan of Treatment Health Maintenance Due Date Last Done Comments DEXA Bone Density 1945 Hepatitis C Virus (HCV) Screening 1945 Zoster Immunization (2 of 3) 02/08/2012 12/14/2011 Respiratory Syncytial Virus (RSV) Immunization (Adult) (1 - 1-dose 75+ series) 2021 Influenza Immunization (#1) 2023 10/0 03/2020, 01/01/2020, 12/14/2018, Additional history exists SARS-COV-2 Immunization ( season) 2023 06/16/2021, 06/12/2020, 05/15/2020 DTaP/Tdap/Td Immunization Discontinued 12/14/2011 TdaP Immunization Completed 12/14/2011 Pneumococcal Immunization (50+ years) Completed 04/13/2017, 06/11/2015 Hepatitis B Immunization Aged Out No longer eligible based on patient's age to complete this topic Meningococcal Immunization (ACWY) Aged Out No longer eligible based on patient's age to complete this topic Rotavirus Immunization Aged Out No lo nger eligible based on patient's age to complete this topic Insurance MEDICARE [place]ICAID [place] Care Teams Trommel Tender Relationship Specialty Start Date End Date Lamar Barrientos, INSPECTOR PACKER GLASS CONTAINER, NEON SIGN WORKER [address] [place] [address] [address] [place] [id number] PCP - General Advanced Practice Nurse 08/30/21
--- OUTSIDE RECORDS SUMMARY | 2024-04-06 15:53 | XMS_ITS | Clinical Summary ---
Author Organization [facility] Address [address] [place] [address] Care Team Providers Care Pr Intern Name Role Phone Idalmis Wright RN Unavailable Unavailab Desi Connell PT Unavailable Unavailable Nico Hinson MD Unavailable Param Penaloza MD Unavailable [phone] Robert Vazquez OD Unavailable Bertin Strong MD Primary Care Provider Allergies Active Allergy Reactions Criticality Noted Date Comments Codeine Other (See comments) Reaction: Headache, , Nitrofurantoin Stomach upset Low 02/19/2019 Medications aspirin 81 mg tabletIndications :prevention of thrombosis Take 1 tablet (81 mg total) by mouth daily Active magnesium gluconate (MAGONATE) 500 mg (27 mg elemental) tabletIndications :hypomagnesemia Acti ve cholecalciferol (VITAMIN D-3) 2000 unit tablet Act aristeo blood glucose diagnostic (True Metrix Glucose Test Strip) strip USE FOR TESTING TWICE A DAY DX E11.65, Z79.4 200 each 3 021 Active polyethylene glycol (MIRALAX) 17 gram packetIndications :constipation Take 1 packet (17 g total) by mouth daily for 10 days 10 packet 022 Active pen needle, diabetic (TRUEplus Pen Needle) 31 gauge x 5/16 needleIndications :Type 2 diabetes mellitus with hyperglycemia, with long-term current use of insulin (HCC) Use with insulin 2x daily DX E11.65. Z79.4 200 each [address] (CYMBALTA) 30 mg capsuleIndication s:major depressive disorder Daily with morning medication 90 capsule 3 023 Active melatonin tabletIndications :Insomnia due to other mental disorder Take 1 tablet (3 mg total) by mouth nightly 100 tablet 1 023 Active omeprazole (PriLOSEC) 40 mg capsule TAKE ONE CAPSULE BY MOUTH DAILY 90 capsule 3 023 Active Additional Information Patient not taking.Reported on 02/12/2024 denosumab (PROLIA) 60 mg/mL syringeIndication s:postmenopausal osteoporosis and high fracture risk Inject 1 mL (60 mg total) under the skin once for 1 dose 1 mL 1 023 Active pravastatin (PRAVACHOL) 40 mg tabletIndications :Other hyperlipidemia Take 1 tablet (40 mg total) by mouth daily 90 tablet 3 023 Active Additional Information Patient not taking.Reported on 02/12/2024 naloxone (NARCAN) 4 mg/actuation spray,non-aerosol Indications:Opiat e-Induced Respiratory Depression,Opioid Toxicity Administer 1 spray into affected nostril(s) as needed for opioid reversal or respiratory depression 1 each [address] (CYMBALTA) 60 mg capsule TAKE ONE CAPSULE BY MOUTH EVERY EVENING WITH EVENING MEDICATION 90 capsule 3 024 Active docusate sodium (COLACE) 100 mg capsuleIndication s:constipation Take 1 capsule (100 mg total) by mouth 2 (two) times a day Active acetaminophen (TYLENOL) 325 mg tablet Take 2 tablets (650 mg total) by mouth every 6 (six) hours as needed for pain Active ipratropium-albut Luiz (DUO-NEB) 0.5-2.5 mg/3 mL nebulizer solution Inhale 3 mL every 4 (four) hours as needed Active insulin NPH-insulin regular 70/30 (HumuLIN 70/30,NovoLIN 70/30) 100 unit/mL vial for injection Inject 32 Units under the skin 2 times daily Active enalapril (VASOTEC) 10 mg tablet Take 1 tablet (10 mg total) by mouth daily 024 Active budesonide-glycop yr-formoterol (BREZTRI) 160-9-4.8 mcg/actuation inhalerIndication s:Bronchospasm Prevention with COPD Inhale 2 puffs 2 (two) times a day 5.9 g 2 Active magnesium oxide (MAG-OX) 400 mg (241.3 mg elemental magnesium) tabletIndications :hypomagnesemia Take 1 tablet (400 mg total) by mouth 2 (two) times a day Active HYDROcodone-aceta minophen (NORCO) 5-325 mg per tabletIndications :Pain Take 1 tablet by mouth 3 (three) times a day as needed for pain 90 tablet Active metoprolol tartrate (LOPRESSOR) 25 mg immediate release tablet TAKE ONE TABLET BY MOUTH TWICE A DAY 60 tablet 1 Active nystatin powder Apply topically every 8 (eight) hours as needed Active phenylephrine-elmer taminophen-GG 10-650-400 mg/20 mL liquid Take 0.5 fluid ounces by mouth every 12 (twelve) hours as needed Active phenoL (CHLORASEPTIC) 1.4 % aerosol,spray 1 mL (1 spray total) every 4 (four) hours as needed Active pregabalin (LYRICA) 150 mg capsuleIndication s:Meralgia paresthetica, unspecified laterality TAKE ONE CAPSULE BY MOUTH THREE TIMES A DAY NEEDED 90 capsule 1 Active metFORMIN XR (GLUCOPHAGE XR) 500 mg 24 hr tabletIndications :Type 2 diabetes mellitus with hyperglycemia, with long-term current use of insulin (HCC) Take 1 tablet (500 mg total) by mouth daily 90 tablet 1 Active ondansetron ODT (ZOFRAN-ODT) 4 mg disintegrating tablet Take 1 tablet (4 mg total) by mouth every 8 (eight) hours as needed for nausea or vomiting 20 tablet Active HYDROcodone-aceta minophen (NORCO) 5-325 mg per tabletIndications :Pain Take 1 tablet by mouth 3 (three) times a day as needed for pain 90 tablet 025 2024 Active busPIRone (BUSPAR) 15 mg tablet TAKE ONE TABLET BY MOUTH TWICE A DAY 200 tablet 1 Active tirzepatide (Mounjaro) 5 mg/0.5 mL pen injector injection Inject 0.25 mL (2.5 mg total) under the skin once a week 025 Active insulin aspart protamine-insulin aspart 70/30 (NovoLOG 70/30 100 unit/mL) 100 unit/mL pen for injectionIndicati ons:Type 2 diabetes mellitus with hyperglycemia, with long-term current use of insulin ([facility]) INJECT 56 UNITS EVERY MORNING AND 52 UNITS EVERY EVENING 105 mL 1 025 Active dulaglutide (Trulicity) 1.5 mg/0.5 mL pen injectorIndicatio ns:Type 2 diabetes mellitus with hyperglycemia, with long-term current use of insulin ([facility]) INJECT ONCE WEEKLY DIRECTED 6 mL 3 023 2024 Discontinued(A lternate therapy) metFORMIN XR (GLUCOPHAGE XR) 500 mg 24 hr tabletIndications :Type 2 diabetes mellitus with hyperglycemia, with long-term current use of insulin ([facility]) TAKE ONE TABLET BY MOUTH DAILY 90 tablet 1 023 2023 Discontinued(R eorder) insulin aspart protamine-insulin aspart 70/30 (NovoLOG 70/30 100 unit/mL) 100 unit/mL pen for injectionIndicati ons:Type 2 diabetes mellitus with hyperglycemia, with long-term current use of insulin ([facility]) INJECT 56 UNITS EVERY MORNING AND 52 UNITS EVERY EVENING 105 mL 1 024 2024 Discontinued HYDROcodone-aceta minophen (NORCO) 5-325 mg per tabletIndications :Pain Take 1 tablet by mouth 3 (three) times a day as needed for pain 90 tablet 024 2024 Discontinued(R eorder) busPIRone (BUSPAR) 15 mg tablet TAKE ONE TABLET BY MOUTH TWICE A DAY 60 tablet 1 024 2024 Discontinued nitrofurantoin monohydrate (MACROBID) 100 mg capsule Take 1 capsule (100 mg total) by mouth 2 (two) times a day for 10 days 20 capsule 024 2024 tirzepatide (Mounjaro) 5 mg/0.5 mL pen injector Inject 2.5 mg under the skin once a week 2 mL 025 2024 Discontinued Active Problems Problem Noted Date Diagnosed Date ESBL E. 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 Encouraged supportive care from family memebers. Hearing impaired person, left 02/05/2023 Assessment & Plan (02/05/2023 10:55 AM RADIOLOGY INTERVENTIONAL PHYSICIAN): Consider having hearing testing done and get fitted for hearing aids if needed. Acute pain of right knee 12/21/2022 Heel callus 10/26/2022 Assessment & Plan (10/26/2022 12:42 PM CDT): This is a new problem. We this is caused by leaving her foot brace on every night. Orders to remove her foot brace at night and put back on during the day.Order for lotion and skin checks every night, leg brace off at night Insomnia due to other mental disorder 07/26/2022 Assessment & Plan (07/26/2022 10:32 AM CDT): Will try melatonin first, as she has taken this in the past when she lived at home with some benefit. Will write rx for group home use. If no benefit, will consider trazodone or low dose maoi such as nortriptyline. Lives in group home 05/10/2021 Assessment & Plan (05/16/2023 2:19 PM RADIOLOGY INTERVENTIONAL PHYSICIAN): Medication list reconciled with medication list in epic. Assessment & Plan (05/10/2021 8:39 PM RADIOLOGY INTERVENTIONAL PHYSICIAN): Currently living [place]. Right now they have an AWV scheduled in August. is not sure what he is going to do at this time, whether he is going to let house doctor take over her care or continue to see me. States it is a lot of transportation to get her here. Said I understood. He is going to think about it. We will leave August appointment and see how things are at that time. 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 Lumbar radiculopathy 07/17/2019 Insomnia secondary to chronic pain 07/17/2019 Drug-induced constipation 07/04/2019 Assessment & Plan (07/04/2019 11:05 AM CDT): She was having cramping with diarrhea. I had placed her on Bentyl and she continues to take this. I talked her about how to use the Bentyl as needed and for now she can discontinue the Bentyl and then use it p.r.n. [facility] (current) use of opiate analgesic 01/11 Essential tremor 11/16/2018 Assessment & Plan (01/03/2019 1:23 PM CDT): Will refer to neurology for evaluation and treatment of tremor. Tremor of right hand is bothering her more as she cannot hold her books or a pen. Assessment & Plan (11/16/2018 10:20 AM CDT): I discussed use of medications. I would like them to monitor her blood pressure and pulse over the next month before we trial any medication. Also discussed sending her to neurology for evaluation/ treatment. Will rediscuss next month at f/u visit Chronic bilateral low back pain with left-sided sciatica 07/27/2018 Generalized anxiety disorder 03/01/2018 Assessment & Plan (05/16/2023 2:18 PM RADIOLOGY INTERVENTIONAL PHYSICIAN): Clinically improved, continue current prescription medications, duloxetine, lorazepam, BuSpar. Assessment & Plan (02/05/2023 10:53 AM RADIOLOGY INTERVENTIONAL PHYSICIAN): Waxing and waning, continue Cymbalta, buspirone. Assessment & Plan (04/26/2022 1:15 PM RADIOLOGY INTERVENTIONAL PHYSICIAN): Stable. Cont. Current prescription medications, buspirone. Assessment & Plan (12/17/2021 4:53 PM CDT): Clinically improved, continue current prescription medications. Assessment & Plan (05/07/2020 2:25 PM RADIOLOGY INTERVENTIONAL PHYSICIAN): Stable on current medication. Continue Cymbalta and BuSpar as ordered. May follow up in 6 months Assessment & Plan (10/28/2019 1:28 PM CDT): states she gets more anxious when she has company and asking about increasing her anxiety medication. Since she is doing well otherwise, will try adding buspar prn for those times. Discussed with pt and who voiced understanding and agreement. Assessment & Plan (03/01/2018 3:56 PM RADIOLOGY INTERVENTIONAL PHYSICIAN): Psychological condition is worsening. Medication changes per orders. Psychological condition will be reassessed at the next regular appointment. Increased paroxetine 20mg po qd to 30 mg qd. Moderate episode of recurrent major depressive d isorder 03/01/2018 Assessment & Plan (05/16/2023 2:18 PM RADIOLOGY INTERVENTIONAL PHYSICIAN): Stable. Cont. Current prescription medications, duloxetine. Assessment & Plan (02/05/2023 10:54 AM RADIOLOGY INTERVENTIONAL PHYSICIAN): Stable. Cont. Current prescription medications, Cymbalta. Assessment & Plan (10/26/2022 12:39 PM CDT): Stable on current medication. Continue Cymbalta and BuSpar as ordered. May follow up in 6 months Assessment & Plan (07/26/2022 10:31 AM CDT): Will increase cymbalta to 30mg in am and 60mg in pm . If insurance will not pay for increase, then will consider adding low dose ssri on top of 60mg cymbalta. She will have f/u in [address] Alonso Assessment & Plan (04/26/2022 1:15 PM RADIOLOGY INTERVENTIONAL PHYSICIAN): Stable. Cont. Current prescription medications, duloxetine. Assessment & Plan (12/17/2021 4:53 PM CDT): Stable. Cont. Current prescription medications. Assessment & Plan (03/02/2021 2:23 PM RADIOLOGY INTERVENTIONAL PHYSICIAN): Stable on current medication. Continue cymbalta as ordered. May follow up in 6 months Assessment & Plan (09/02/2020 2:08 PM CDT): Stable. However her pain management recommendation who she saw recently, asking to increase to 60 mg once daily. Will increase from 30 mg to 60 mg once daily. Call with any problems or concerns with increase in medications. She will follow-up in 6 months or as needed Assessment & Plan (05/07/2020 2:25 PM RADIOLOGY INTERVENTIONAL PHYSICIAN): Continues on Cymbalta Assessment & Plan (07/04/2019 11:04 AM CDT): Continue duloxetine Assessment & Plan (01/03/2019 1:23 PM CDT): Will increase cymbalta to 60mg daily. F/u 3 months Assessment & Plan (11/16/2018 10:12 AM CDT): Decrease paxil to 1/2 tablet x 7 days. Start cymbalta 30mg daily. F/u 1 month for recheck Assessment & Plan (03/01/2018 4:06 PM RADIOLOGY INTERVENTIONAL PHYSICIAN): Psychological condition is worsening. Medication changes per orders. Psychological condition will be reassessed at the next regular appointment. Increased paroxetine 20mg po qd to 30 mg qd. Obstructive sleep apnea 10/12/2017 Overview (10/12/2017): Managed by Dr. 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 Continue current pain medications, morphine, hydrocodone, meloxicam, Lyrica, duloxetine. Gastroesophageal reflux disease without esophagi tis 10/12/2017 Assessment & Plan (12/17/2021 4:53 PM CDT): Asymptomatic. Stable. Continue current prescription medications. Assessment & Plan (03/02/2021 2:26 PM RADIOLOGY INTERVENTIONAL PHYSICIAN): Stable on prilosec. Continue current medications. Assessment & Plan (09/02/2020 2:11 PM CDT): Stable on current medication. Continue omeprazole as ordered. May follow up in 6 months BMI 29.0-29.9,adult 10/12/2017 Assessment & Plan (10/12/2017 1:35 PM CDT): Obesity is unchanged. Discussed the patient's BMI. The BMI is above average; BMI management plan is completed. Diet interventions: diet diary indefinitely. Debility 05/17/2017 Assessment & Plan (02/05/2023 11:02 AM RADIOLOGY INTERVENTIONAL PHYSICIAN): Deconditioned, generalized weakness, secondary to stroke and hemiparesis. Osteoporosis, postmenopausal 04/21/2017 Assessment & Plan (10/26/2022 12:38 PM CDT): Stable at this time. Will continue on Prolia every 6 months Assessment & Plan (04/26/2022 1:07 PM RADIOLOGY INTERVENTIONAL PHYSICIAN): Prolia was discontinued by mistake, patient's first stated that he was no longer taking her to get infusions, but later corrected himself. Rx re-ordered. Assessment & Plan (04/11/2019 2:41 PM RADIOLOGY INTERVENTIONAL PHYSICIAN): Patient had repeat Prolia injection today. Ordered DEXA scan. Patient aware and will complete DEXA scan soon Irritable bowel syndrome with diarrhea 7 Assessment & Plan (05/17/2018 11:44 AM RADIOLOGY INTERVENTIONAL PHYSICIAN): Discussed options for prn medication prior to meals, especially going out. Try bentyl. Discussed medication, usage. Pt and voiced understanding. Mixed hyperlipidemia due to type 2 diabetes mellitus ([facility]) 11/14/2013 Overview (06/17/2016): Hyperlipidemia Assessment & Plan (05/16/2023 2:16 PM RADIOLOGY INTERVENTIONAL PHYSICIAN): LDL at goal of less than 100, continue current prescription medications, pravastatin. Assessment & Plan (04/26/2022 1:09 PM RADIOLOGY INTERVENTIONAL PHYSICIAN): LDL at goal of less than 100, continue current prescription medications, pravastatin. Assessment & Plan (12/17/2021 4:53 PM CDT): LDL at goal of less than 100, continue current prescription medications. Assessment & Plan (10/24/2021 6:39 PM CDT): Labs reviewed. Continue current statin medication. F/u [address] Alonso Assessment & Plan (10/10/2021 12:32 PM CDT): Overdue for labs. [facility] says they can order them at their facility.Continue pravastatin 40mg daily. Assessment & Plan (03/02/2021 2:22 PM RADIOLOGY INTERVENTIONAL PHYSICIAN): Lipid abnormalities are stable. reviewed Pharmacotherapy as ordered. Lipids will be reassessed in 6 months. Assessment & Plan (09/02/2020 2:10 PM CDT): Lipid panel done in May by endocrinology. Reviewed. Stable. Continue current statin therapy Assessment & Plan (05/07/2020 2:28 PM RADIOLOGY INTERVENTIONAL PHYSICIAN): Cholesterol was just checked by endocrinology on 05/04 in office. Lipids were reviewed. Continue pravastatin 40 mg once daily. Assessment & Plan (10/28/2019 1:22 PM CDT): Lipid abnormalities are stable. Pharmacotherapy as ordered. Lipids will be reassessed in 6 months. Assessment & Plan (04/11/2019 2:33 PM RADIOLOGY INTERVENTIONAL PHYSICIAN): Lipid abnormalities are unchanged. Pharmacotherapy as ordered. Lipids will be reassessed in 6 months. Assessment & Plan (05/17/2018 11:43 AM RADIOLOGY INTERVENTIONAL PHYSICIAN): Lipid abnormalities are improving with treatment. Pharmacotherapy as ordered. Lipids will be reassessed in 6 months Lipid panel done recently and reviewed and was normal. Hemiparesis following cerebr ovascular accident (CVA) ([facility]) 11/14/2013 Overview (06/17/2016): CVA, old, hemiparesis Assessment & Plan (05/16/2023 2:17 PM RADIOLOGY INTERVENTIONAL PHYSICIAN): Wheelchair-bound. Patient currently on daily aspirin, pravastatin. Assessment & Plan (02/05/2023 10:53 AM RADIOLOGY INTERVENTIONAL PHYSICIAN): In wheelchair, requires assistance from her spouse and daughter. 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 Has brace for left foot. Currently resides in intermediate school teacher care Recently group home has been putting on foot brace and leaving it on at nighttime as well. This has caused a stage 1 pressure ulcer with callus to her left heel. Order written for her to have the foot brace removed at night. Leg is to be propped, lotion applied and skin check done nightly. Assessment & Plan (10/24/2021 6:32 PM CDT): [facility] sequela. 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 Has brace for left foot. Currently resides in intermediate school teacher care Assessment & Plan (05/10/2021 8:36 PM RADIOLOGY INTERVENTIONAL PHYSICIAN): Will refer to cardiology, but since there is no change is carotid artery stenosis, will leave it up to her if they want to go through with referral. Assessment & Plan (11/16/2018 10:10 AM CDT): Wheelchair bound. Left sided paralysis. Has short leg brace on left foot covering back of leg and foot. It's over 10 years old and she could use an updated leg brace with new velcro one that fits better. Will write order. Assessment & Plan (03/01/2018 4:06 PM RADIOLOGY INTERVENTIONAL PHYSICIAN): Patient is non-ambulatory and is unable to transfer on her own. Her , whom is her primary primary care provider, has been lifting her from the bed to the wheelchair for years. He finds it more difficult now that he's older. She was evaluated extensively by PT on 10/26/2017, whom notes her difficulties with mobility. She has not ambulated since 1998. Please see EMR for details. Patient would benefit from a lift to help transfer her from a bed to her wheelchair, otherwise, she would be confined to the bed. Meralgia paresthetica 11/14/2013 Overview (06/17/2016): Meralgia paresthetica Assessment & Plan (04/26/2022 1:08 PM RADIOLOGY INTERVENTIONAL PHYSICIAN): Stable. Cont. Current prescription medications, Lyrica. Meralgia paresthetica 11/14/2013 Overview (02/12/2024): Meralgia paresthetica Last Assessment & Plan: Stable. Cont. Current prescription medications, Lyrica. Meralgia paresthetica Type 2 diabetes mellitus wit h hyperglycemia, with long-term current use of insulin 07/27/2013 Overview (06/16/2016): DMII WO CMP NT ST UNCNTR Assessment & Plan (05/16/2023 2:16 PM RADIOLOGY INTERVENTIONAL PHYSICIAN): A1c previously above goal of less than 8.0. Labs ordered. Diabetes mellitus type 2 has been followed by her music professor in the past. Encouraged continued follow-up with endocrinology. Continue Trulicity, enalapril, NovoLog 70 30, metformin XR, pravastatin. Assessment & Plan (12/23/2022 11:32 AM CDT): Diagnosed in 1993, and started insulin in 1999. With history of CVA causing left hemiparesis. Control : above target, but stable A1c 8.6% on 12/23/22 A1c 8.2% on 06/23/22 A1c 8.6% on 12/15/21 A1c 7.6% on 09/04/20 A1c 7.8% on 05/04/20 Kidney: normal GFR > 90 on 06/21/22 Plan: Continue diet plan- obtain copy of recent accuchecks. Continue insulin 56 units in am and 50 units in pm. Continue metformin 500 mg once /day Qam. Continue Trulicity once /week. Monitor sugars 2 x per day and bring records. Hypoglycemia symptoms and treatment reviewed with patient. Call if having low sugars. Ophthalmology exam on regular basis. Assessment & Plan (07/26/2022 1:41 PM CDT): Reordered urine albumin creatinine ratio. I gave lab order to her to give to the group home. I have ordered this before and I have received a urinalysis back instead of the UACR. Hopefully with the lab order will get back to kidney health labs. Assessment & Plan (06/23/2022 11:50 AM CDT): Diagnosed in 1993, and started insulin in 1999. With history of CVA causing left hemiparesis. ?? Control : improved control A1c 8.2% on 06/23/22 A1c 8.6% on 12/15/21 A1c 7.6% on 09/04/20 A1c 7.8% on 05/04/20 Kidney: normal GFR > 90 on 06/21/22 ?? Plan: ?? Continue diet plan Continue insulin ??56 units in am and 50 units in pm. Continue metformin 500 mg once /day Qam. Continue Trulicity once /week. Monitor sugars 2 x per day and bring records. Hypoglycemia symptoms and treatment reviewed with patient. Call if having low sugars. Ophthalmology exam on regular basis. Assessment & Plan (04/26/2022 1:17 PM RADIOLOGY INTERVENTIONAL PHYSICIAN): A1c above goal of < 8.0. Managed by Endocrinology. Cont current Rx meds, Trulicity, enalapril, Insulin 70/30, metformin xr. Assessment & Plan (12/23/2021 12:06 PM CDT): Diagnosed in 1993, and started insulin in 1999. With history of CVA causing left hemiparesis. ?? Control : above target affected by diet at [place] A1c 8.6% on 12/15/21 A1c 7.6% on 09/04/20 A1c 7.8% on 05/04/20 Kidney: normal GFR 98 on 12/15/21 ?? Plan: ?? Continue diet plan Continue insulin ??56 units in am and 50 units in pm. Continue metformin 500 mg once /day Qam. Continue Trulicity once /week. Monitor sugars 2 x per day and bring records. Hypoglycemia symptoms and treatment reviewed with patient. Call if having low sugars. Ophthalmology exam on regular basis. Assessment & Plan (12/17/2021 4:54 PM CDT): A1c not at goal of < 8.0. Please keep david appt with Endocrinology. Lower your sugar/carbohydrate intake. Cont current Rx meds. Assessment & Plan (10/24/2021 6:41 PM CDT): Lab Results Component Value Date HGBA1C 7.6 09/04/2020 They have not been back to see endocrinology. A1c is up to 8% on 10/08/21. Encouraged to f/u with endocrinology. Also will see Dr. Alonso at next office visit in 2 months Assessment & Plan (10/10/2021 12:33 PM CDT): Has been seeing Dr. Penaloza, endocrinology. Will order labs. Assessment & Plan (09/04/2020 1:15 PM CDT): Diagnosed in 1993, and started insulin in 1999. With history of CVA causing left hemiparesis. ?? Control : not at target A1c 7.6% on 09/04/20 A1c 7.8% on 05/04/20 A1c 7.4% on 12/16/19. A1c 8.2% on 03/11/19. Kidney: normal GFR 87 on 06/22/20 ?? Plan: ?? Watch diet and cut down on carbs. Continue insulin ??56 units in am and decrease to 50 units in pm. Continue metformin 500 mg once /day Qam. Continue Trulicity once /week. Monitor sugars 2 x per day and bring records. Hypoglycemia symptoms and treatment reviewed with patient. Call if having low sugars. Ophthalmology exam on regular basis. Assessment & Plan (05/07/2020 2:25 PM RADIOLOGY INTERVENTIONAL PHYSICIAN): Managed by endocrinology Assessment & Plan (05/04/2020 1:50 PM RADIOLOGY INTERVENTIONAL PHYSICIAN): Diagnosed in 1993, and started insulin in 1999. With history of CVA causing left hemiparesis. ?? Control : stable control without hypoglycemia A1c 7.8% on 05/04/20 A1c 7.4% on 12/16/19. A1c 8.2% on 03/11/19. A1c 8.1% on 12/07/18. A1c 8.3% on 09/06/18 A1c 7.8% on 04/27/18 A1c was 9.1%, in May 2017 Kidney: normal GFR 90 on 10/28/19 ?? Plan: ?? Watch diet and cut down on carbs. Continue insulin 56 units in am and decrease to 50 units in pm. Continue metformin 500 mg once /day Qam. Continue Trulicity once /week. Monitor sugars 2 x per day and bring records. Hypoglycemia symptoms and treatment reviewed with patient. Call if having low sugars. Ophthalmology exam on regular basis. Assessment & Plan (12/16/2019 1:59 PM CDT): Diagnosed in 1993, and started insulin in 1999. With history of CVA causing left hemiparesis. Control : improved control Mild hypoglycemia before breakfast A1c 7.4% on 12/16/19. A1c 8.2% on 03/11/19. A1c 8.1% on 12/07/18. A1c 8.3% on 09/06/18 A1c 7.8% on 04/27/18 A1c stable at 8.1% A1c was 8.1% in August 2017 A1c was 9.1%, in May 2017 Kidney: normal GFR 90 on 10/28/19 Plan: Watch diet and cut down on carbs. Continue insulin 56 units in am and decrease to 50 units in pm. Continue metformin 500 mg once /day Qam. Continue Trulicity once /week. Monitor sugars 2 x per day and bring records. Hypoglycemia symptoms and treatment reviewed with patient. Call if having low sugars. Ophthalmology exam on regular basis. Hypertension associated with diabetes 07/27/2013 Overview (06/16/2016): BENIGN HYPERTENSION Assessment & Plan (05/16/2023 2:16 PM RADIOLOGY INTERVENTIONAL PHYSICIAN): Blood pressure is at goal of less than 140/90, continue current prescription medications, enalapril. Assessment & Plan (12/23/2022 11:32 AM CDT): Controlled with medication Continue treatment plan per PCP Assessment & Plan (10/26/2022 12:38 PM CDT): Currently controlled. Will continue current medications which includes enalapril. Follow-up in [address] Alonso Assessment & Plan (06/23/2022 11:51 AM CDT): Controlled with medication Hyperkalemia detected on 06/21/22 She is having the lab repeated to day - follow up with PCP Assessment & Plan (04/26/2022 1:16 PM RADIOLOGY INTERVENTIONAL PHYSICIAN): Blood pressure at goal less than 140/90, continue current prescription medications, enalapril. Assessment & Plan (12/17/2021 4:53 PM CDT): Clinically improved, continue current prescription medications. Assessment & Plan (10/10/2021 12:33 PM CDT): Do not have blood pressure readings from today. Nurse states blood pressure was normal during episode. Continue current medication. Labs as ordered. Will have her scheduled in office for AWV soon Assessment & Plan (05/10/2021 8:36 PM RADIOLOGY INTERVENTIONAL PHYSICIAN): Stable/ Improved. Blood pressure is adequately controlled on current medication. We will not make any medication changes today. Will have her follow-up in 6 months for continued monitoring and management Assessment & Plan (03/02/2021 2:22 PM RADIOLOGY INTERVENTIONAL PHYSICIAN): Stable/ Improved. Blood pressure is adequately controlled on current medication. We will not make any medication changes today. Will have her follow-up in 6 months for continued monitoring and management Assessment & Plan (09/04/2020 1:16 PM CDT): Controlled with medication - low salt diet - continue medication per PCP Assessment & Plan (09/02/2020 2:12 PM CDT): Stable/ Improved. Blood pressure is adequately controlled on current medication. We will not make any medication changes today. Will have her follow-up in 6 months for continued monitoring and management Assessment & Plan (05/07/2020 2:24 PM RADIOLOGY INTERVENTIONAL PHYSICIAN): Stable/ Improved. Blood pressure is adequately controlled on current medication. We will not make any medication changes today. Will have her follow-up in 6 months for continued monitoring and management Assessment & Plan (05/04/2020 1:51 PM RADIOLOGY INTERVENTIONAL PHYSICIAN): Controlled with medication - low salt diet - continue medication per PCP Assessment & Plan (12/16/2019 2:00 PM CDT): Controlled with medication - low salt diet - continue medication per PCP Assessment & Plan (10/28/2019 1:19 PM CDT): Hypertension is improving with treatment. Continue current treatment regimen. Blood pressure will be reassessed 6 months. Assessment & Plan (04/11/2019 2:30 PM RADIOLOGY INTERVENTIONAL PHYSICIAN): Blood pressure is adequately controlled on current medication. We will not make any medication changes today. Will have her follow-up in 6 months for continued monitoring and management Assessment & Plan (05/17/2018 11:46 AM RADIOLOGY INTERVENTIONAL PHYSICIAN): Hypertension is improving with treatment. Continue current treatment regimen. Blood pressure will be reassessed at the next regular appointment. Vitamin D deficiency 07/27/2013 Overview (06/16/2016): VITAMIN D DEFICIENCY NOS Polyp of colon 05/30/2013 Overview (06/16/2016): Colon polyposis Primary osteoarthritis involving multiple joints 08/16/2011 Overview (06/16/2016): DJD (degenerative joint disease) of knee Assessment & Plan (01/03/2019 2:12 PM CDT): Recommended adding an NSAID like Aleve 220 mg [id number] twice daily. Take with food. Discussed possible referral to box gluer. Fiber Artist would either be in [place] or [facility]. She has no history of rheumatoid arthritis. I told him it would be up to them if they wanted to see if her box gluer would have anything to offer her. They are going to try the Aleve 1st and also possibly talk to her pain management doctor. Resolved Problems Problem Noted Date Diagnosed Date Resolved Date Respiratory failure ([facility]) 10/11/2023 11/10/2023 Dry throat 07/26/2022 10/26/2022 Assessment & Plan (07/26/2022 1:42 PM CDT): [facility] is very dry that she lives in. Exam was negative. She does keep water bedside and tries to drink frequently. Bronchitis 02/25/2022 02/01/2023 Assessment & Plan (10/26/2022 12:42 PM CDT): HPI: This is a new problem. Slight rattle With breathing, does clear some with deep cough. Denies fever. Complains of fatigue but otherwise feels okay. Plan: Will treat with doxycycline at this time. I asked her Boris to message me if condition worsens or deeper cough develops or she develops fever. Consideration will be given to getting her a nebulizer. Assessment & Plan (02/25/2022 9:26 PM RADIOLOGY INTERVENTIONAL PHYSICIAN): She has been tested for covid several times at her facility. Cough has been ongoing over the last couple of weeks. Will obtain cbc, cmp and cxr. Start doxycyline to treat for brondhitis. Confusion 10/10/2021 07/26/2022 Assessment & Plan (10/24/2021 6:37 PM CDT): Slums score 16, however, I discussed with pt and her that I do not believe it's alzheimer's but the longterm cognitive changes from her CVA and now she is being awaken to be changed at odd hours with staff Coming in and out of her room and it's causing some confusion when she wakes. Assessment & Plan (10/10/2021 12:35 PM CDT): Will check lab work including urine. She is well as current. differential includes TIA, cva, uti, fatigue Hypoxemia 03/30/2021 10/24/2021 Closed 2-part displaced frac ture of surgical neck of left humerus 01/27/2021 10/24/2021 Assessment & Plan (01/27/2021 12:55 PM RADIOLOGY INTERVENTIONAL PHYSICIAN): Will order Home health physical therapy for strengthening while recovering from left shoulder fracture. Pressure injury of right buttock, stage 2 11/11/2019 09/02/2020 Assessment & Plan (11/11/2019 8:53 PM CDT): Recommended staying off buttock as much as possible. Nystatin ointment to rash and then cover with barrier cream. duoderm to pressure ulcer. Change weekly and prn. Sinusitis, acute 04/11/2019 07/04/2019 Assessment & Plan (04/11/2019 2:37 PM RADIOLOGY INTERVENTIONAL PHYSICIAN): Take doxycycline 100 mg b.i.d. for 10 days. Nasal saline rinses as needed for congestion. Follow-up in 5-7 days - if symptoms worsen or persist Medicare annual wellness visit, subsequent 05/17/2018 02/05/2023 Assessment & Plan (09/02/2020 2:07 PM CDT): -Recommended: Healthy diet. Avoiding junk food/fast food. -30 minutes of exercise most days of the week. Increase to 45 minutes for weight loss. Immunizations: Up to date lose weight, follow low fat diet, continue present plan, routine labs ordered, call if any problems Follow-up in 6 months. Assessment & Plan (07/04/2019 11:04 AM CDT): Stable. Doing well at home with caregiver and . Medications reviewed and updated. She has refills she needs. No problems with groceries/ needs/ social needs. Will have her f/u as scheduled. Assessment & Plan (05/17/2018 11:43 AM RADIOLOGY INTERVENTIONAL PHYSICIAN): Reviewed screenings, immunizations and pt updated. Discussed care at home and she is getting adequate care for conditions at home with and [facility]. Screen for colon cancer 05/07/201807/2018 Overview (05/07/2018): Added automatically from request for surgery [id number] Chronic rhinitis 04/27/2018 05/17/2018 Assessment & Plan (04/27/2018 3:45 PM RADIOLOGY INTERVENTIONAL PHYSICIAN): Continue head of bed elevation Start Atrovent nasal spray twice daily, 2 sprays into each nostril while looking down over the sink, do not sniff in or blow nose after use Abnormality of gait followin g cerebrovascular accident (CVA) 03/01/2018 09/02/2020 Assessment & Plan (03/01/2018 3:56 PM RADIOLOGY INTERVENTIONAL PHYSICIAN): Non-ambulatory since 1998. Colicky RUQ abdominal pain 03/01/2018 0 11/15/2018 Assessment & Plan (03/01/2018 4:07 PM RADIOLOGY INTERVENTIONAL PHYSICIAN): Patient believes it's related to her IBS, would like to f/u with GI. Referral given. Hypersomnia 06/29/2017 09/02/2020 Healthcare maintenance 11/02/201609/02 Medication management 11/02/20162018 Age related osteoporosis 12/31/2014 Overview (06/17/2016): Age related osteoporosis Pain in pelvis 03/29/2012 09/02/2020 Arthralgia of hip 03/29/2012 09/02/2020 COVID 10/24/2021 Assessment & Plan (04/04/2021 7:33 PM RADIOLOGY INTERVENTIONAL PHYSICIAN): Stable. Finish decadron. Was given 4 days in hospital. Has 1 day left. May take otc cough syrup such as dextromethaphan short term. Recommended hot liquids such as tea. Call with any problems/concerns. Encounters Date Type Department Care Team Description 04/05/2024 Telephone [facility] at [address] [phone] Bertin Strong MD Medical Question/Miscellaneous 04/02/2024 Telephone [facility] at [address] [phone] Bertin Strong MD Test Results 04/02/2024 Telephone [facility] at [address] [phone] Bertin Strong MD Med Refill 04/01/2024 Telephone [facility] at [address] [phone] Bertin Strong MD Medical Question/Miscellaneous 03/28/2024 10:45 AM RADIOLOGY INTERVENTIONAL PHYSICIAN Lab [facility] at [address] [phone] 03/28/2024 8:00 AM RADIOLOGY INTERVENTIONAL PHYSICIAN - 03/28/2024 11:59 PM RADIOLOGY INTERVENTIONAL PHYSICIAN Hospital Encounter [address] [address] Urinary tract infection without hematuria, site unspecified; Altered mental status, unspecified altered mental status type Discharge Disposition: Discharge to home or self care 03/28/2024 Telephone [facility] at [address] [phone] Bertin Strong MD Biopsy results 03/26/2024 Telephone [facility] at [address] [phone] Bertin Strong MD Test Results 03/26/2024 Orders Only [facility] [address] [place] [address] [address] [place] [address] Kevin Martinez MD Lumbar radiculopathy; Meralgia paresthetica, unspecified laterality 03/22/2024 Telephone [facility] at [address] [phone] Bertin Strong MD Medical Question/Miscellaneous 03/14/2024 Telephone [facility] at [address] [phone] Tara Brooks MA 03/11/2024 Telephone [facility] at [address] [phone] Bertin Strong MD Medication Request 03/11/2024 Orders Only [facility] [address] [phone] Vivian Sánchez NP Recurrent UTI (Primary Dx); ESBL (extended spectrum beta-lactamase) producing bacteria infection 03/08/2024 2:00 PM RADIOLOGY INTERVENTIONAL PHYSICIAN Lab [facility] at [address] [phone] 03/08/2024 1:20 PM RADIOLOGY INTERVENTIONAL PHYSICIAN - 03/08/2024 11:59 PM RADIOLOGY INTERVENTIONAL PHYSICIAN Hospital Encounter [address] [address] Acute cystitis without hematuria Discharge Disposition: Discharge to home or self care 03/01/2024 Telephone [facility] at [address] [phone] Bertin Strong MD Test Results 02/19/2024 Telephone [facility] at [address] [phone] Bertin Strong MD Medication Request 02/19/2024 Telephone [facility] at [address] [phone] Bertin Strong MD Medical Records Request 02/19/2024 Orders Only [facility] at [address] [phone] Bertin Strong MD Acute cystitis without hematuria (Primary Dx); Hemiparesis following cerebrovascular accident (CVA) (CMS/HCC) (HCC) 02/14/2024 11:51 AM RADIOLOGY INTERVENTIONAL PHYSICIAN - 02/14/2024 11:59 PM RADIOLOGY INTERVENTIONAL PHYSICIAN Hospital Encounter [address] [address] Recurrent UTI Discharge Disposition: Discharge to home or self care 02/14/2024 Telephone [facility] at [address] [phone] Bertin Strong MD Urine Culture 02/14/2024 Documentation [facility] [address] [phone] Aleena Khanna 02/12/2024 5:54 PM RADIOLOGY INTERVENTIONAL PHYSICIAN - 02/12/2024 11:59 PM RADIOLOGY INTERVENTIONAL PHYSICIAN Hospital Encounter [address] [address] Vitamin D deficiency; Hypertension associated with diabetes (HCC) Discharge Disposition: Discharge to home or self care 02/12/2024 11:00 AM RADIOLOGY INTERVENTIONAL PHYSICIAN Lab [facility] at [address] [phone] Hypertension associated with diabetes (HCC) (Primary Dx); Type 2 diabetes mellitus with diabetic neuropathy, unspecified (HCC) 02/12/2024 10:30 AM RADIOLOGY INTERVENTIONAL PHYSICIAN Office Visit [facility] at [address] [phone] Bertin Strong MD Hypertension associated with diabetes (HCC) (Primary Dx); Vitamin D deficiency; Type 2 diabetes mellitus with hyperglycemia, with long-term current use of insulin (HCC) 01/31/2024 Telephone [facility] at [address] [phone] Bertin Strong MD Medical Question/Miscellaneous 01/23/2024 9:11 AM RADIOLOGY INTERVENTIONAL PHYSICIAN - 01/23/2024 11:59 PM RADIOLOGY INTERVENTIONAL PHYSICIAN Hospital Encounter [facility] [address] [place] [address] Kevin Martinez MD Central pain syndrome; Chronic bilateral low back pain with left-sided sciatica; Lumbar radiculopathy Discharge Disposition: Discharge to home or self care 01/18/2024 Telephone [facility] at [address] [phone] Bertin Strong MD Medical Question/Miscellaneous 01/11/2024 Orders Only [facility] at [address] [phone] Bertin Strong MD Central pain syndrome; Chronic bilateral low back pain with left-sided sciatica; Lumbar radiculopathy from Last 3 Months Immunizations Name Administration Dates Next Due Flucelvax Influenza Quad 01/01/2020 Influenza, Quadrivalent, Rebecca l Culture-based MDCK, Preservative Free, Antibiotic Free, Intramuscular 01/01/2020 Influenza, Quadrivalent, Hig h Dose, Preservative Free, Intrr 11/14/2022,11/19/2021 Influenza, Quadrivalent, Spl it, Preservative Free, Intramuscular 01/05/2014 Influenza, Split 11/11/2009,11/11/2008 Influenza, Trivalent, High D ose, Split, Preservative Free, Intramuscular 12/14/2015,12/31/2014 Influenza, Trivalent, IM (MDV) 12/01/2011 Influenza, Trivalent, Preser vative Free, Intramuscular 12/31/2023 Influenza, Unspecified 02/01/2023(Deferr ed: Patient Refused),12/11/2020,12/14/2018, 018,12/11/2016 Moderna SARS-CoV-2 Monovalen t Vaccination (12+ YRS) 10/25/2022,06/12/2020,05/15/2020 Moderna Sars-cov-2 Bivalent Vaccine 50 Mcg/0.5 mL (12+ YRS)-Blue/Castañeda 11/19/2021 PPD TEST 04/19/2021,04/09/2021 Pneumococcal Conjugate PCV 13 06/11/2015 Pneumococcal Polysaccharide PPV23 04/13/2017 Tdap 12/14/2011 ZOSTER LIVE 12/14/2011 ZOSTER Recombinant 07/13/2022 Surgical History Surgery Date Site/Laterality Comments TOTAL ABDOMINAL HYSTERECTOMY W/ BILATERAL SALPINGOOPHORECTOMY Hysterectomy, total abdominal, BSO APPENDECTOMY Appendectomy SECTION section KNEE ARTHROSCOPY Right Arthroscopy knee BREAST BIOPSY CATARACT EXTRACTION 03/13/2014 - 03/12/2015 L eye cataract extraction HIP ARTHROSCOPY Arthroscopy hip BUNIONECTOMY COLONOSCOPY 05/11/2013 Medical History Medical History Date Comments Cerebrovascular accident (CVA) (HCC) Stroke Hx Other Medical colonic polypos is '03, '06 Hx Other Medical OAB Diabetes mellitus (HCC) Diabetes Hx Other Medical bleeding tenden cies Osteoarthritis Osteoarthritis Peptic ulcer Peptic ulcer dis ease Anemia Anemia Hx Other Medical vein stripping tight Depression Depression Migraine Hypertension Hypertension, tr eated by PCP Pneumonia 2017 Pneumonia Gastric bypass status for obesity gastric bypass Low back pain Covid Family History Medical History Relation Name Comments Liver cancer Brother 1 Cancer -liver; Diabetes Brother 2 Diabetes mellit us; Heart disease Brother 3 Heart disease; Hypertension Brother 4 Hypertension; Hypertension Father Hypertension; Breast cancer Mother Cancer -breast ; Diabetes Mother Diabetes mellit us; Stroke Mother Stroke; Cancer Other 1 Family history of Cancer; Diabetes Other 2 Family history of Diabetes mellitus; Heart disease Other 3 Family history of Heart disease; COPD Other 4 Family history of COPD; Relation Name Status Comments Brother 1 Brother 2 Brother 3 Brother 4 Father Mother Other 1 Other 2 Other 3 Other 4 Social History Tobacco Use Types Packs/Day Years Used Date Smoking Tobacco: Former Cigarettes 1 56 0 03/13/1960 - 03/12/2016 Smokeless Tobacco: Never Tobacco Cessation:Counseling Given: Not Answered Alcohol Use Standard Drinks/Week Comments No 0 (1 standard drink = 0.6 oz pur e alcohol) PHQ-2 Answer Date Recorded PHQ-2 Total Score (If total score is 3 or more points, staff should administer the PHQ-9) 0 02/12/2024 Comments No Sex and Gender Information Value Date Recorded Sex Assigned at Not on file Legal Sex Female 11:52 PM RADIOLOGY INTERVENTIONAL PHYSICIAN Gender Identity Not on file Sexual Orientation Not on file Obstetrics History Para Term AB IAB SAB Ectopic Multiple Livin g Live Births 2 2 2 Date Outcome GA Total Labor Labor/2nd/3rd Weight Sex Type Anes PTL Yolanda A1 A5 Name Clin Term Term Last Filed Vital Signs Vital Sign Reading Time Taken Comments Blood Pressure 110/60 02/12/2024 10:30 AM RADIOLOGY INTERVENTIONAL PHYSICIAN Pulse 66 02/12/2024 10:30 AM RADIOLOGY INTERVENTIONAL PHYSICIAN Temperature 36 ??C (96.8 ??F) 02/12/2024 10:30 AM RADIOLOGY INTERVENTIONAL PHYSICIAN Respiratory Rate 18 02/12/2024 10:30 AM RADIOLOGY INTERVENTIONAL PHYSICIAN Oxygen Saturation 93% 02/12/2024 10:30 AM RADIOLOGY INTERVENTIONAL PHYSICIAN Inhaled Oxygen Concentration - - Weight 83.5 kg (184 lb) 11/10/2023 10:51 AM CDT Height 167.6 cm (5' 6 ) 11/10/2023 10:51 AM CDT Body Mass Index 29.7 11/10/2023 10:51 AM CDT Plan of Treatment Health Maintenance Due Date Last Done Comments Hepatitis B Screening 01/03/1963 Lung Cancer Screening 01/03/1996 Dilated Eye Exam 12/29/2022 12/29/2020, , 11/27/2017, Additional history exists Foot Exam 10/27/2023 10/26/2022, 04/14, 05/04/2020, Additional history exists Covid-19 Vaccine ( season) 2023 10/25/2022, 10/25/2022, 11/19/2021, Additional history exists Osteoporosis Screening-Bone Density Scan 02/02/2024 02/01/2022, 05/17/2019, 04/18/2017, Additional history exists Well Visit 65+ 02/02/2024 02/01/2023, 10/11, 09/02/2020, Additional history exists Hemoglobin A1C 08/12/2024 02/12/2024, 10/13, 05/16/2023, Additional history exists Fall Risk Assessment 11/09/2024 11/10/2023, 02/01/2023, 10/26/2022, Additional history exists Albumin Creatinine Ratio, Urine 11/13/2024 11/14/2023, 06/29/2022, 01/25/2017 Zoster Vaccine (3 of 3) 12/17/2024 07/13/2022, 12/13 Postponed from 09/07/2022 (Insurance / Financial) Depression Screening 02/11/2025 02/12/2024, 01/23/2024, 01/23/2024, Additional history exists Lipid Panel 02/11/2025 02/12/2024, 11/12, 11/10/2023, Additional history exists DTaP/Tdap/Td Vaccine (2 - Td or Tdap) 03/12/2025 12/14/2011 Postponed from 12/13/2021 (Insurance / Financial) eGFR 03/28/2025 03/28/2024, 1204/2023, 11/10/2023, Additional history exists Hepatitis C Screening Completed 05/31/1999 Pneumococcal vaccine 65+ Completed 04/13/2017, 05/13 Colon Cancer Screening-CT Colonography Discontinued 06/08/2018, 02/27/2013, 02/27/2013, Additional history exists Colon Cancer Screening-Colonoscopy Discontinued 06/08/2018, 02/27/2013, 02/27/2013, Additional history exists Colon Cancer Screening-DNA Stool Discontinued 06/08/2018, 02/27/2013, 02/27/2013, Additional history exists Colon Cancer Screening-FIT Discontinued 06/08, 02/27/2013, 02/27/2013, Additional history exists Colon Cancer Screening-FOBT Discontinued 06/08/2018, 02/27/2013, 02/27/2013, Additional history exists Colon Cancer Screening-Sigmoidoscopy Discontinued 06/08/2018, 02/27/2013, 02/27/2013, Additional history exists Colorectal Cancer Screening Discontinued Breast Cancer Screening-Mammogram Discontinued 01/21/2020, 12/14/2018, 10/30/2017, Additional history exists Influenza Vaccine Completed 12/31/2023, , 11/19/2021, Additional history exists Goals Goal Patient Goal Type Associated Problems Recent Progress Patient-Stated? Author [facility] On track( 019 1:34 PM RADIOLOGY INTERVENTIONAL PHYSICIAN) No Cass Villegas, RN Note: Patient will establish a comfort-function goal and identify the pain level that will allow the patient to perform desired activities and achieve an acceptable quality of life. Procedures Procedure Name Priority Date/Time Associated Diagnosis Comments EGFR Routine 03/28/2024 8:00 AM RADIOLOGY INTERVENTIONAL PHYSICIAN Urinary tract infection without hematuria, site unspecified Altered mental status, unspecified altered mental status type DIFFERENTIAL AUTO Routine 03/28/2024 8:0 0 AM RADIOLOGY INTERVENTIONAL PHYSICIAN Urinary tract infection without hematuria, site unspecified Altered mental status, unspecified altered mental status type CBC WITH AUTO DIFFERENTIAL Routine 03/28/2024 8:00 AM RADIOLOGY INTERVENTIONAL PHYSICIAN Urinary tract infection without hematuria, site unspecified Altered mental status, unspecified altered mental status type COMPREHENSIVE METABOLIC PANEL Routine 03/28/2024 8:00 AM RADIOLOGY INTERVENTIONAL PHYSICIAN Urinary tract infection without hematuria, site unspecified Altered mental status, unspecified altered mental status type URINALYSIS AND REFLEX TO MICROSCOPIC AND CULTURE Routine 03/28/2024 8:00 AM RADIOLOGY INTERVENTIONAL PHYSICIAN Urinary tract infection without hematuria, site unspecified Altered mental status, unspecified altered mental status type PATHOLOGY REPORT Routine 03/19/2024 URINALYSIS, MICROSCOPIC ONLY Routine 03/08/2024 2:02 PM RADIOLOGY INTERVENTIONAL PHYSICIAN Acute cystitis without hematuria URINE CULTURE Routine 03/08/2024 2:02 PM RADIOLOGY INTERVENTIONAL PHYSICIAN URINALYSIS AND REFLEX TO MICROSCOPIC AND CULTURE Routine 03/08/2024 2:02 PM RADIOLOGY INTERVENTIONAL PHYSICIAN Acute cystitis without hematuria URINE CULTURE Routine 02/14/2024 11:51 AM RADIOLOGY INTERVENTIONAL PHYSICIAN Recurrent UTI EGFR Routine 02/12/2024 10:00 AM RADIOLOGY INTERVENTIONAL PHYSICIAN Hypertension associated with diabetes (HCC) DIFFERENTIAL AUTO Routine 02/12/2024 10: 00 AM RADIOLOGY INTERVENTIONAL PHYSICIAN Hypertension associated with diabetes (HCC) CBC WITH AUTO DIFFERENTIAL Routine 02/12/2024 10:00 AM RADIOLOGY INTERVENTIONAL PHYSICIAN Hypertension associated with diabetes (HCC) COMPREHENSIVE METABOLIC PANEL Routine 02/12/2024 10:00 AM RADIOLOGY INTERVENTIONAL PHYSICIAN Hypertension associated with diabetes (HCC) HEMOGLOBIN A1C Routine 02/12/2024 10:00 AM RADIOLOGY INTERVENTIONAL PHYSICIAN Hypertension associated with diabetes (HCC) LIPID PANEL Routine 02/12/2024 10:00 AM RADIOLOGY INTERVENTIONAL PHYSICIAN Hypertension associated with diabetes (HCC) VITAMIN D 25 HYDROXY Routine 02/12/2024 10:00 AM RADIOLOGY INTERVENTIONAL PHYSICIAN Vitamin D deficiency ALBUMIN CREATININE RATIO, URINE Routine 11/14/2023 2:12 PM CDT Type 2 diabetes mellitus with hyperglycemia, with long-term current use of insulin (HCC) DEXA AXIAL SKELETON BONE DENSITY 1 OR MORE SITES Schedule Routine, Read Routine (OP Routine) 02/01/2022 11:09 AM RADIOLOGY INTERVENTIONAL PHYSICIAN Screening for osteoporosis Postmenopausal DIABETIC EYE EXAM Routine 12/29/2020 SCREENING MAMMOGRAM 2D BILATERAL Schedule Routine, Read Routine (OP Routine) 01/21/2020 DIABETES FOOT EXAM Routine 01/09/2019 COLONOSCOPY 06/08/2018 9:46 AM CDT HEPATITIS C SCREENING Routine 05/31/1999 from Last 3 Months or Most Recently Relevant to Health Maintenance Results * eGFR (03/28/2024 8:00 AM RADIOLOGY INTERVENTIONAL PHYSICIAN) eGFR >90 >=60 mL/min/1. 73 m2 Comment: Interpretive Data Reference Interval Normal ?>/= 90 mL/min/1.73m2 Mildly decreased* ? 60 - 89 mL/min/1.73m2 Mildly to moderately decreased ?45 - 59 mL/min/1.73m2 Moderately to severely decreased ??30 - 44 mL/min/1.73m2 Severely decreased ?15 - 29 mL/min/1.73m2 Kidney Failure ?< 15 ??mL/min/1.73m2 *Relative to young adult level Estimated glomerular filtration rate is determined by the 2020 CKD-EPI equation recommended by the National Kidney Foundation (A Unifying Approach to GFR Estimation: Recommendations of the NKF-ASK Task Force on Reassessing the Inclusion of Race in Diagnosing Kidney Disease, JASN 2020). The CKD-EPI equation should not be used for patients with unstable renal function and has not been validated in children and those over 70. Current interpretive data was last reviewed 2021. Blood 03/28/2024 8:00 AM RADIOLOGY INTERVENTIONAL PHYSICIAN 03/28/2024 4:06 PM RADIOLOGY INTERVENTIONAL PHYSICIAN us Bertin Strong MD LAB BLOOD ORDERABLES Final Result [facility] [id number] Department [place] [address] * (ABNORMAL) Differential, auto (03/28/2024 8:00 AM RADIOLOGY INTERVENTIONAL PHYSICIAN) Neutrophil abs 4.0 1.5 - 6.5 K/cumm Imm gran abs 0.0 0.0 - 0.1 K/cumm [facility] Lymphocyte abs 4.0(H) 0.8 - 3.3 K/cumm [facility] Monocyte abs 0.8 0.2 - 0.8 K/cumm [facility] Eosinophil abs 0.3 0.0 - 0.5 K/cumm [facility] Basophil abs 0.1 0.0 - 0.1 K/cumm [facility] Neutrophil pct 43.7 % [facility] Comment: Interpretive Data Percent cell count reference ranges are not reported, since discordance with absolute values may lead to misinterpretation of CBC data. Current Interpretive Data was last revised on 2017. Imm gran pct 0.4 % [facility] Comment: Interpretive Data Percent cell count reference ranges are not reported, since discordance with absolute values may lead to misinterpretation of CBC data. Current Interpretive Data was last revised on 2017. Lymphocyte pct 43.6 % [facility] Comment: Interpretive Data Percent cell count reference ranges are not reported, since discordance with absolute values may lead to misinterpretation of CBC data. Current Interpretive Data was last revised on 2017. Monocyte pct 8.3 % [facility] Comment: Interpretive Data Percent cell count reference ranges are not reported, since discordance with absolute values may lead to misinterpretation of CBC data. Current Interpretive Data was last revised on 2017. Eosinophil pct 3.2 % [facility] Comment: Interpretive Data Percent cell count reference ranges are not reported, since discordance with absolute values may lead to misinterpretation of CBC data. Current Interpretive Data was last revised on 2017. Basophil pct 0.8 % [facility] Comment: Interpretive Data Percent cell count reference ranges are not reported, since discordance with absolute values may lead to misinterpretation of CBC data. Current Interpretive Data was last revised on 2017. Blood 03/28/2024 8:00 AM RADIOLOGY INTERVENTIONAL PHYSICIAN 03/28/2024 4:06 PM RADIOLOGY INTERVENTIONAL PHYSICIAN us Bertin Strong MD LAB BLOOD ORDERABLES Final Result [facility] [id number] Department [place] [address] * Urinalysis reflex to microscopic and culture Urine, clean voided (03/28/2024 8:00 AM RADIOLOGY INTERVENTIONAL PHYSICIAN) Color, ur Yellow Yellow Clarity, ur Clear Clear [facility] Specific gravity, ur 1.024 1.003 - 1.030 [facility] CH pH, urine 6.0 [facility] Comment: Interpretive Data ? Urine pH is affected by diet, medications, systemic acid-base disturbances, and renal tubular function. ??pH may affect urinary stone formation. ??For example, urine pH below 6.0 may help reduce the tendency for calcium phosphate stones and pH greater than 6.0 may reduce the tendency for uric acid stone formation. Source: [facility] [employer] Current Interpretive Data was last revised on 2017 Protein, ur ql Negative Negative [facility] CH Glucose, ur ql Negative Negative [facility] Ketones, ur Negative Negative [facility] Bilirubin, ur Negative Negative [facility] Blood, ur Negative Negative [facility] Urobilinogen, ur <2.0 <2.0 mg/dL [facility] Nitrite, ur Negative Negative [facility] Leukocyte esterase, ur Negative Negative [facility] UA reflex comment Reflex conditions for microscopic UA and culture not met. [facility] Urine, clean voided 03/28/2024 8:00 AM RADIOLOGY INTERVENTIONAL PHYSICIAN 03/28/2024 4:06 PM RADIOLOGY INTERVENTIONAL PHYSICIAN Bertin Strong MD LAB MICROBIOLOGY - GENERAL ORDERABLES Final Result [facility] [id number] Department [place] [address] * (ABNORMAL) CBC with auto differential (03/28/2024 8:00 AM RADIOLOGY INTERVENTIONAL PHYSICIAN) WBC 9.3 3.8 - 9.9 K/cumm Hgb 11.0(L) 11.9 - 15.5 g/dL [facility] Hct 36.7 35.6 - 45.5 % [facility] Plt 461(H) 150 - 400 K/cumm [facility] MPV 12.0 9.1 - 12.3 fL [facility] RBC 3.85(L) 3.90 - 5.20 M/cumm [facility] MCV 95.3 81.3 - 96.4 fL [facility] MCH 28.6 27.1 - 33.3 pg [facility] MCHC 30.0(L) 32.3 - 35.7 g/dL [facility] RDW CV 15.7(H) 11.1 - 14.9 % [facility] RDW SD 55.1(H) 35.7 - 48.1 fL [facility] NRBC abs 0.00 0.00 - 0.01 K/cumm [facility] Blood 03/28/2024 8:00 AM RADIOLOGY INTERVENTIONAL PHYSICIAN 03/28/2024 4:06 PM RADIOLOGY INTERVENTIONAL PHYSICIAN us Bertin Strong MD LAB BLOOD ORDERABLES Final Result [facility] [id number] Department [place] [address] * (ABNORMAL) Comprehensive metabolic panel (03/28/2024 8:00 AM RADIOLOGY INTERVENTIONAL PHYSICIAN) Sodium 143 135 - 145 mmol/L Potassium, pl 4.4 3.3 - 4.9 mmol/L [facility] Chloride 102 97 - 110 mmol/L [facility] CO2 30 22 - 32 mmol/L [facility] Anion gap 11 2 - 15 mmol/L [facility] BUN 18 6 - 25 mg/dL [facility] Creatinine 0.51(L) 0.60 - 1.10 mg/dL [facility] Glucose 144 70 - 199 mg/dL [facility] Comment: Interpretive Data Fasting glucose >/= 126 mg/dl is diagnostic for diabetes. ?? Fasting is defined as no caloric intake for at least 8 hours. Fasting glucose between 100 mg/dl to 125 mg/dl is diagnostic of prediabetes. In a patient with classic symptoms of hyperglycemia or hyperglycemic crisis, a random glucose >/= 200 mg/dl is diagnostic for diabetes. In the absence of unequivocal hyperglycemia, results should be confirmed by repeat testing. The classification and Diagnosis of Diabetes Diabetes Care 2021; 46: S19-S40. Current interpretive data was last revised 2022. Calcium 9.2 8.5 - 10.3 mg/dL [facility] Bilirubin, total 0.2 0.1 - 1.2 mg/dL [facility] Protein, pl 5.3(L) 6.5 - 8.5 g/dL [facility] Albumin 3.0(L) 3.5 - 5.0 g/dL [facility] Alk phos 72 40 - 130 Units/L [facility] ALT 8 7 - 45 Units/L [facility] AST 16 10 - 45 Units/L [facility] Blood 03/28/2024 8:00 AM RADIOLOGY INTERVENTIONAL PHYSICIAN 03/28/2024 4:06 PM RADIOLOGY INTERVENTIONAL PHYSICIAN Bertin Strong MD LAB BLOOD ORDERABLES Final Result [facility] [id number] Department [place] [address] * Pathology Report (03/19/2024) Historical Provider LAB BLOOD ORDERABLES Leda l Result Performing Organization Address City/[facility]/ZIP Co de Phone Number EXTERNAL LAB * (ABNORMAL) Urinalysis reflex to microscopic and culture Urine (03/08/2024 2:02 PM RADIOLOGY INTERVENTIONAL PHYSICIAN) Color, ur Yellow Yellow Clarity, ur Turbid(A) Clear [facility] Specific gravity, ur 1.020 1.003 - 1.030 [facility] CH pH, urine 6.0 [facility] Comment: Interpretive Data ? Urine pH is affected by diet, medications, systemic acid-base disturbances, and renal tubular function. ??pH may affect urinary stone formation. ??For example, urine pH below 6.0 may help reduce the tendency for calcium phosphate stones and pH greater than 6.0 may reduce the tendency for uric acid stone formation. Source: [facility] Current Interpretive Data was last revised on 2017 Protein, ur ql Trace Negative [facility] Glucose, ur ql Negative Negative [facility] Ketones, ur Trace Negative [facility] Bilirubin, ur Negative Negative [facility] Blood, ur Negative Negative [facility] Urobilinogen, ur <2.0 <2.0 mg/dL [facility] Nitrite, ur Negative Negative [facility] Leukocyte esterase, ur 4+(A) Negative [facility] UA reflex comment Reflex to microscopic UA will be performed. [facility] Urine 03/08/2024 2:02 PM RADIOLOGY INTERVENTIONAL PHYSICIAN 03/08/2024 9:05 PM RADIOLOGY INTERVENTIONAL PHYSICIAN Bertin Strong MD LAB MICROBIOLOGY - GENERAL ORDERABLES Final Result Performing Organization Address [facility] Phone Number ALFRED CARRINGTON [phone] [facility] [employer] [place], [place] [id number] * (ABNORMAL) Urinalysis, microscopic only (03/08/2024 2:02 PM RADIOLOGY INTERVENTIONAL PHYSICIAN) WBC, ur >50(A) 0 - 5 /HPF RBC, ur 3-5(A) 0 - 2 /HPF [facility] Epithelial cells, squamous, ur 1-5 0 - 5 /HPF [facility] Bacteria, ur 1+(A) [facility] Mucous, ur Present(A) [facility] Calcium oxalate crystals, ur 3+(A) [facility] CH Culture Reflex Comment Reflex to urine culture will be performed. [facility] Urine 03/08/2024 2:02 PM RADIOLOGY INTERVENTIONAL PHYSICIAN 03/08/2024 9:05 PM RADIOLOGY INTERVENTIONAL PHYSICIAN Bertin Strong MD LAB URINE ORDERABLES Final Result Performing Organization Address [facility] Phone Number ALFRED CARRINGTON [id number] [facility] [place] [place] [address] * (ABNORMAL) Urine culture Urine (03/08/2024 2:02 PM RADIOLOGY INTERVENTIONAL PHYSICIAN) Report Final Report: Greater than or equal to 100,000 colonies/mL of Escherichia coli The susceptibility pattern of this Escherichia coli indicates the possible production of an extended spectrum beta lactamase (ESBL). ??Patients infected with ESBL-producing organisms require contact isolation precautions. ??For therapeutic options for this organism, please contact infectious diseases. Greater than or equal to 100,000 colonies/mL of Escherichia coli #2 The susceptibility pattern of this Escherichia coli indicates the possible production of an extended spectrum beta lactamase (ESBL). ??Patients infected with ESBL-producing organisms require contact isolation precautions. ??For therapeutic options for this organism, please contact infectious diseases. (.) Comment:Testing performed by : [facility], [address] [place]., [address] Organism ESCHERICHIA COLI ALFRED Organism ESCHERICHIA COLI ALFRED Urine 03/08/2024 2:02 PM RADIOLOGY INTERVENTIONAL PHYSICIAN 03/09/2024 12:38 AM RADIOLOGY INTERVENTIONAL PHYSICIAN Narrative ALFRED - 03/12/2024 7:40 AM RADIOLOGY INTERVENTIONAL PHYSICIAN Urine culture reflexed based upon urinalysis results. Testing performed by [facility] Laboratory ([phone]) Organism Antibiotic Method Susceptibility Escherichia coli Ampicillin INTERPRETATION Resistant Escherichia coli Cefazolin INTERPRETATION Resistant Escherichia coli Nitrofurantoin INTERPRETATION Susceptible Escherichia coli Gentamicin INTERPRETATION Susceptible Escherichia coli Trimethoprim with Sulfamethoxazole INTERPRETATION Resistant Escherichia coli Meropenem INTERPRETATION Susceptible Escherichia coli Cefepime INTERPRETATION Susceptible Dose-dependent Escherichia coli Ciprofloxacin INTERPRETATION Susceptible Escherichia coli Ceftazidime INTERPRETATION Resistant Escherichia coli Ceftriaxone INTERPRETATION Resistant Escherichia coli Cephalexin INTERPRETATION Resistant Escherichia coli Cefuroxime-axetil INTERPRETATION Resistant Escherichia coli Cefdinir INTERPRETATION Resistant Escherichia coli Amikacin INTERPRETATION Susceptible Escherichia coli Aztreonam INTERPRETATION Resistant Escherichia coli Imipenem INTERPRETATION Susceptible Escherichia coli Ertapenem INTERPRETATION Susceptible Escherichia coli Minocycline INTERPRETATION Resistant Escherichia coli Tobramycin INTERPRETATION Susceptible Escherichia coli Levofloxacin INTERPRETATION Susceptible Escherichia coli Doxycycline INTERPRETATION Resistant Escherichia coli Ampicillin with Sulbactam INTERPRETAT ION Resistant Escherichia coli Fosfomycin INTERPRETATION Susceptible Escherichia coli Ampicillin INTERPRETATION Resistant Escherichia coli Cefazolin INTERPRETATION Resistant Escherichia coli Nitrofurantoin INTERPRETATION Susceptible Escherichia coli Gentamicin INTERPRETATION Susceptible Escherichia coli Trimethoprim with Sulfamethoxazole INTERPRETATION Resistant Escherichia coli Meropenem INTERPRETATION Susceptible Escherichia coli Cefepime INTERPRETATION Resistant Escherichia coli Ciprofloxacin INTERPRETATION Resistant Escherichia coli Ceftazidime INTERPRETATION Resistant Escherichia coli Ceftriaxone INTERPRETATION Resistant Escherichia coli Cephalexin INTERPRETATION Resistant Escherichia coli Cefuroxime-axetil INTERPRETATION Resistant Escherichia coli Cefdinir INTERPRETATION Resistant Escherichia coli Amikacin INTERPRETATION Susceptible Escherichia coli Aztreonam INTERPRETATION Resistant Escherichia coli Imipenem INTERPRETATION Susceptible Escherichia coli Ertapenem INTERPRETATION Susceptible Escherichia coli Minocycline INTERPRETATION Resistant Escherichia coli Tobramycin INTERPRETATION Susceptible Escherichia coli Levofloxacin INTERPRETATION Susceptible Escherichia coli Doxycycline INTERPRETATION Resistant Escherichia coli Ampicillin with Sulbactam INTERPRETAT ION Resistant Escherichia coli Fosfomycin INTERPRETATION Susceptible us Bertin Strong MD LAB MICROBIOLOGY - GENERAL ORDERABLES Final Result ALFRED CARR[place] [address] Department [place] [address] * (ABNORMAL) Urine culture Urine, clean voided (02/14/2024 11:51 AM RADIOLOGY INTERVENTIONAL PHYSICIAN) Report Final Report: Greater than or equal to 100,000 colonies/mL of Escherichia coli The susceptibility pattern of this Escherichia coli indicates the possible production of an extended spectrum beta lactamase (ESBL). ??Patients infected with ESBL-producing organisms require contact isolation precautions. ??For therapeutic options for this organism, please contact infectious diseases. (.) Comment:Testing performed by : [facility], [address] [place]., [address] Organism ESCHERICHIA COLI ALFRED Urine, clean voided 02/14/2024 11:51 AM RADIOLOGY INTERVENTIONAL PHYSICIAN 02/15/2024 12:20 AM RADIOLOGY INTERVENTIONAL PHYSICIAN Narrative ALFRED CARRINGTON - 02/18/2024 7:31 AM RADIOLOGY INTERVENTIONAL PHYSICIAN Testing performed by [facility] ([phone]) Organism Antibiotic Method Susceptibility Escherichia coli Ampicillin INTERPRETATION Resistant Escherichia coli Cefazolin INTERPRETATION Resistant Escherichia coli Nitrofurantoin INTERPRETATION Resistant Escherichia coli Gentamicin INTERPRETATION Susceptible Escherichia coli Trimethoprim with Sulfamethoxazole IN TERPRETATION Susceptible Escherichia coli Meropenem INTERPRETATION Susceptible Escherichia coli Cefepime INTERPRETATION Resistant Escherichia coli Ciprofloxacin INTERPRETATION Resistant Escherichia coli Ceftazidime INTERPRETATION Resistant Escherichia coli Ceftriaxone INTERPRETATION Resistant Escherichia coli Cephalexin INTERPRETATION Resistant Escherichia coli Cefuroxime-axetil INTERPRETATION Resistant Escherichia coli Cefdinir INTERPRETATION Resistant Escherichia coli Amikacin INTERPRETATION Susceptible Escherichia coli Aztreonam INTERPRETATION Resistant Escherichia coli Imipenem INTERPRETATION Susceptible Escherichia coli Ertapenem INTERPRETATION Susceptible Escherichia coli Minocycline INTERPRETATION Susceptible Escherichia coli Tobramycin INTERPRETATION Susceptible Escherichia coli Levofloxacin INTERPRETATION Resistant Escherichia coli Doxycycline INTERPRETATION Susceptible Escherichia coli Ampicillin with Sulbactam INTERPRETAT ION Intermediate Escherichia coli Fosfomycin INTERPRETATION Susceptible us Bertin Strong MD LAB MICROBIOLOGY - GENERAL ORDERABLES Final Result [facility] [address] Department [place] [address] * eGFR (02/12/2024 10:00 AM RADIOLOGY INTERVENTIONAL PHYSICIAN) eGFR 90 >=60 mL/min/1. 73 m2 Comment: Interpretive Data Reference Interval Normal ?>/= 90 mL/min/1.73m2 Mildly decreased* ? 60 - 89 mL/min/1.73m2 Mildly to moderately decreased ?45 - 59 mL/min/1.73m2 Moderately to severely decreased ??30 - 44 mL/min/1.73m2 Severely decreased ?15 - 29 mL/min/1.73m2 Kidney Failure ?< 15 ??mL/min/1.73m2 *Relative to young adult level Estimated glomerular filtration rate is determined by the 2020 CKD-EPI equation recommended by the National Kidney Foundation (A Unifying Approach to GFR Estimation: Recommendations of the NKF-ASK Task Force on Reassessing the Inclusion of Race in Diagnosing Kidney Disease, JASN 2020). The CKD-EPI equation should not be used for patients with unstable renal function and has not been validated in children and those over 70. Current interpretive data was last reviewed 2021. Blood 02/12/2024 10:0 0 AM RADIOLOGY INTERVENTIONAL PHYSICIAN 02/12/2024 6:49 PM RADIOLOGY INTERVENTIONAL PHYSICIAN us Bertin Strong MD LAB BLOOD ORDERABLES Final Result Performing Organization Address City/State/[facility] Co md Phone Number ALFRED [phone] Department [place] [address] * Differential, auto (02/12/2024 10:00 AM RADIOLOGY INTERVENTIONAL PHYSICIAN) Neutrophil abs 5.2 1.5 - 6.5 K/cumm Imm gran abs 0.0 0.0 - 0.1 K/cumm [facility] Lymphocyte abs 2.8 0.8 - 3.3 K/cumm [facility] Monocyte abs 0.7 0.2 - 0.8 K/cumm [facility] Eosinophil abs 0.1 0.0 - 0.5 K/cumm [facility] CH Basophil abs 0.0 0.0 - 0.1 K/cumm [facility] Neutrophil pct 58.8 % [facility] Comment: Interpretive Data Percent cell count reference ranges are not reported, since discordance with absolute values may lead to misinterpretation of CBC data. Current Interpretive Data was last revised on 2017. Imm gran pct 0.2 % [facility] Comment: Interpretive Data Percent cell count reference ranges are not reported, since discordance with absolute values may lead to misinterpretation of CBC data. Current Interpretive Data was last revised on 2017. Lymphocyte pct 31.4 % [facility] Comment: Interpretive Data Percent cell count reference ranges are not reported, since discordance with absolute values may lead to misinterpretation of CBC data. Current Interpretive Data was last revised on 2017. Monocyte pct 8.2 % [facility] Comment: Interpretive Data Percent cell count reference ranges are not reported, since discordance with absolute values may lead to misinterpretation of CBC data. Current Interpretive Data was last revised on 2017. Eosinophil pct 1.1 % [facility] Comment: Interpretive Data Percent cell count reference ranges are not reported, since discordance with absolute values may lead to misinterpretation of CBC data. Current Interpretive Data was last revised on 2017. Basophil pct 0.3 % [facility] Comment: Interpretive Data Percent cell count reference ranges are not reported, since discordance with absolute values may lead to misinterpretation of CBC data. Current Interpretive Data was last revised on 2017. Blood 02/12/2024 10:0 0 AM RADIOLOGY INTERVENTIONAL PHYSICIAN 02/12/2024 6:39 PM RADIOLOGY INTERVENTIONAL PHYSICIAN us Bertin Strong MD LAB BLOOD ORDERABLES Final Result [facility] [id number] Department [place] [address] * (ABNORMAL) CBC with auto differential (02/12/2024 10:00 AM RADIOLOGY INTERVENTIONAL PHYSICIAN) WBC 8.9 3.8 - 9.9 K/cumm Hgb 12.6 11.9 - 15.5 g/dL [facility] Hct 42.1 35.6 - 45.5 % [facility] Plt 318 150 - 400 K/cumm [facility] MPV 12.2 9.1 - 12.3 fL [facility] RBC 4.35 3.90 - 5.20 M/cumm [facility] MCV 96.8(H) 81.3 - 96.4 fL [facility] MCH 29.0 27.1 - 33.3 pg [facility] MCHC 29.9(L) 32.3 - 35.7 g/dL [facility] RDW CV 15.2(H) 11.1 - 14.9 % [facility] RDW SD 54.6(H) 35.7 - 48.1 fL [facility] NRBC abs 0.00 0.00 - 0.01 K/cumm [facility] Blood 02/12/2024 10:0 0 AM RADIOLOGY INTERVENTIONAL PHYSICIAN 02/12/2024 6:39 PM RADIOLOGY INTERVENTIONAL PHYSICIAN Bertin Strong MD LAB BLOOD ORDERABLES Final Result Performing Organization Address [facility] de Phone Number [facility] [phone] [employer] [place], [place] [id number] * Vitamin D 25 hydroxy (02/12/2024 10:00 AM RADIOLOGY INTERVENTIONAL PHYSICIAN) Pathologist [facility] Vitamin D 25-OH 35 30 - 80 ng/mL Blood 02/12/2024 10:0 0 AM RADIOLOGY INTERVENTIONAL PHYSICIAN 02/12/2024 6:39 PM RADIOLOGY INTERVENTIONAL PHYSICIAN Bertin Strong MD LAB BLOOD ORDERABLES Final Result Performing Organization Address [facility] Co de Phone Number [facility] [phone] Department [place] [place] [address] * (ABNORMAL) Hemoglobin A1c (02/12/2024 10:00 AM RADIOLOGY INTERVENTIONAL PHYSICIAN) Pathologist [facility] Hgb A1C 8.2(H) 4.0 - 5.6 % Estimated Average Glucose 189 mg/dL [facility] Comment: The ADA recommends reporting an estimated Average Glucose (eAG) with all Hemoglobin A1c results using the equation derived from a study of 507 normal and diabetic adults. ??Minority populations were underrepresented and children were not included. ?? (Diabetes Care 31:8714-3755, 2008). ??The eAG is not equivalent to a fasting glucose. Blood 02/12/2024 10:0 0 AM RADIOLOGY INTERVENTIONAL PHYSICIAN 02/12/2024 6:39 PM RADIOLOGY INTERVENTIONAL PHYSICIAN us Bertin Strong MD LAB BLOOD ORDERABLES Final Result [facility] [id number] Department [place] [address] * (ABNORMAL) Lipid panel (02/12/2024 10:00 AM RADIOLOGY INTERVENTIONAL PHYSICIAN) Cholesterol 187 30 - 199 mg/dL Comment: Interpretive Data Ages < or = 19 years ??Acceptable: ? <170 mg/dL ??Borderline high: ??170-199 mg/dL ??High: ? >or= 200 mg/dL Ages > or = 20 years ??Desirable: ?<200 mg/dL ??Borderline high: ??200-239 mg/dL ??High: ? >or= 240 mg/dL Literature References: 1. Expert Panel on Integrated Guidelines for Cardiovascular Health and Risk Reduction in Children and Adolescents. Pediatrics 2011;128:S213 2. NCEP Expert Panel. Circulation 2004;110:227 Current Interpretive Data was last revised on 2017. Triglycerides 162(H) <=149 mg/dL ALFRED CARRINGTON Comment: Interpretive Data Ages < or = 9 years ??Acceptable: ? <75 mg/dL ??Borderline high: ??75-99 mg/dL ??High: ? >or= 100 mg/dL Ages 10 to 20 years ??Acceptable: ? <90 mg/dL ??Borderline high: ??90-129 mg/dL ??High: ? >or= 130 mg/dL Ages > or = 20 years ??Desirable: ?<150 mg/dL ??Borderline high: ??150-199 mg/dL ??High: ? 200-499 mg/dL ?Very high: ?? >or= 499 mg/dL Literature References: 1. Expert Panel on Integrated Guidelines for Cardiovascular Health and Risk Reduction in Children and Adolescents. Pediatrics 2011;128:S213 2. NCEP Expert Panel. Circulation 2004;110:227 Current Interpretive Data was last revised on 2017. HDL 47 >=40 mg/dL ALFRED Comment: Interpretive Data Ages < or = 19 years ??Acceptable: ? >45 mg/dL ??Borderline low: ?? 40-45 mg/dL ??Low: ? <40 mg/dL Ages > or = 20 years ??Desirable: ?>or= 60 mg/dL ??Low: ? <40 mg/dL Literature References: 1. Expert Panel on Integrated Guidelines for Cardiovascular Health and Risk Reduction in Children and Adolescents. Pediatrics 2011;128:S213 2. NCEP Expert Panel. Circulation 2004;110:227 Current Interpretive Data was last revised on 2017. LDL, calculated 112 <=129 mg/dL ALFRED Comment: Interpretive Data Ages < or = 19 years ??Acceptable: ? <110 mg/dL ??Borderline high: ??110-129 mg/dL ??High: ?>or= 130 mg/dL Ages > or = 20 years ??Optimal: ? <100 mg/dL ??Near optimal: ?100-129 mg/dL ??Borderline high: ?? 130-159 mg/dL ??High: ?>160 mg/dL Calculated using the Wilson LDL-C estimating equation. This equation was implemented on 2023. Prior to this date LDL-C was estimated using the Friedewald equation. Literature References: 1. Expert Panel on Integrated Guidelines for Cardiovascular Health and Risk Reduction in Children and Adolescents. Pediatrics 2011;128:S213 2. NCEP Expert Panel. Circulation 2004;110:227 3. Steve M et al. ALIZA Cardiol. 2020 July 11;5(5):540-548. doi: 10.1001/jamacardio.2020.0013 Current Interpretive Data was last revised on 2023. Non-HDL Cholesterol 140 mg/dL CERNER CH Comment: Interpretive Data Ages < or = 19 years ??Acceptable: ?<120 mg/dL ??Borderline high: ??120-144 mg/dL ??High: ?>145 mg/dL Ages > or = 20 years ??When triglycerides are >200 mg/dL, Non-HDL cholesterol is a secondary target of ? therapy with treatment goals that are 30 mg/dL greater than the LDL cholesterol target. ? Literature References: 1. Expert Panel on Integrated Guidelines for Cardiovascular Health and Risk Reduction in Children and Adolescents. Pediatrics 2011;128:S213 2. NCEP Expert Panel. Circulation 2004;110:227 Current Interpretive Data was last revised on 2017. Chol/HDL ratio 4 CERNER CH Blood 02/12/2024 10:0 0 AM RADIOLOGY INTERVENTIONAL PHYSICIAN 02/12/2024 6:39 PM RADIOLOGY INTERVENTIONAL PHYSICIAN us Bertin Strong MD LAB BLOOD ORDERABLES Final Result [facility] [address] Department [place] [address] * (ABNORMAL) Comprehensive metabolic panel (02/12/2024 10:00 AM RADIOLOGY INTERVENTIONAL PHYSICIAN) Sodium 140 135 - 145 mmol/L Potassium, pl 4.5 3.3 - 4.9 mmol/L CERN[facility] CH Chloride 102 97 - 110 mmol/L [facility] CO2 29 22 - 32 mmol/L [facility] Anion gap 9 2 - 15 mmol/L [facility] CH BUN 13 6 - 25 mg/dL [facility]ERN[facility] Creatinine 0.64 0.60 - 1.10 mg/dL C[facility] CH Glucose 162 70 - 199 mg/dL [facility]ERN[facility] CH Comment: Interpretive Data Fasting glucose >/= 126 mg/dl is diagnostic for diabetes. ?? Fasting is defined as no caloric intake for at least 8 hours. Fasting glucose between 100 mg/dl to 125 mg/dl is diagnostic of prediabetes. In a patient with classic symptoms of hyperglycemia or hyperglycemic crisis, a random glucose >/= 200 mg/dl is diagnostic for diabetes. In the absence of unequivocal hyperglycemia, results should be confirmed by repeat testing. The classification and Diagnosis of Diabetes Diabetes Care 2021; 46: S19-S40. Current interpretive data was last revised 2022. Calcium 10.0 8.5 - 10.3 mg/dL CERNER CH Bilirubin, total 0.2 0.1 - 1.2 mg/dL [facility] Protein, pl 6.5 6.5 - 8.5 g/dL [facility] Albumin 3.4(L) 3.5 - 5.0 g/dL [facility] Alk phos 69 40 - 130 Units/L [facility] ALT 10 7 - 45 Units/L [facility] AST 24 10 - 45 Units/L [facility] Blood 02/12/2024 10:0 0 AM RADIOLOGY INTERVENTIONAL PHYSICIAN 02/12/2024 6:39 PM RADIOLOGY INTERVENTIONAL PHYSICIAN Bertin Strong MD LAB BLOOD ORDERABLES Final Result ALFRED [address] Department [place] [address] * Albumin Creatinine Ratio, Urine (11/14/2023 2:12 PM CDT) Albumin Ur <12.0 mg/L Comment: Interpretive Data No reference range established. Current interpretive data was last revised 2018. Creatinine Ur 46.7 mg/dL [facility] Comment: Interpretive Data No reference range established. Current interpretive data was last revised 2018. Albumin Creatinine Ratio, Ur <26 1 - 29 mg[facility] Urine 11/14/2023 2:12 PM CDT 11/14/2023 9:29 PM CDT Bertin Strong MD LAB URINE ORDERABLES Final Result ALFRED CARRINGTON [address] Department [place] [address] * Dexa Axial Skeleton Bone Density 1 or 2 Site (02/01/2022 11:09 AM RADIOLOGY INTERVENTIONAL PHYSICIAN) Anatomical Region Laterality Modality Body N/A Other 02/01/2022 10:1 7 PM RADIOLOGY INTERVENTIONAL PHYSICIAN Narrative 02/01/2022 10:18 PM RADIOLOGY INTERVENTIONAL PHYSICIAN EXAM DESCRIPTION: ?? DEXA AXIAL SKELETON BONE DENSITY 1 OR MORE SITES REASON FOR STUDY: ?77 y/o ?? year old ?? F ??with given history of screening. ?? Postmenopausal Wire Tinner/Model: ?? [employer]ul[employer] SL (S/N [id number]) CLINICAL INFORMATION: Current height: ?? 66 ??inches ? Maximum height: 66 inches ? Weight: 179 pounds Risk factors: Adult fracture, postmenopausal COMPARISON: None available. FINDINGS: Left forearm 33% radius BMD is 0.482 g/cm2 T-score is -3.5 FRAX: FRAX not reported due to T-scores of hip, femoral neck and/or spine being at or below -2.5 (Osteoporosis). IMPRESSION: ??Based on the ??left forearm ??bone mineral density (T-score ??-3.5 ) the patient has ??osteoporosis . REFERENCE: Bone mineral density: ? Normal (T-score above or = -1.0) ? Low bone mass ??(T-score between -1.0 and -2.5) replaces the previously used term osteopenia ? Osteoporosis (T-score = or below -2.5) Medical evaluation for secondary causes of low bone mineral density may be appropriate. FRAX is a World Health Organization validated fracture risk assessment tool that calculates a person's 10 year probability of a major osteoporosis related fracture and hip fracture. ??According to the National Osteoporosis Foundation guidelines, postmenopausal women and men age 50 or older with low bone mass and a 10 year probability of a major osteoporosis related fracture = or greater than 20% or a 10 year probability of a hip fracture = or greater than 3% should be considered for treatment. For further information, including treatment recommendations, please refer to the 2013 ISCD Official Positions (http://www.iscd.org) and the NOF's Clinician's Guide to Prevention and Treatment of Osteoporosis (http://www.nof.org/professionals/clinical-guidelines) THIS IS AN ELECTRONICALLY VERIFIED FINAL REPORT 02/01/2022 10:18 PM - Electronically signed by ??Beni Stanley M.D. MF: [email or web address] D: ??02/01/2022 10:18 PM T: ??02/01/2022 10:18 PM Report ID: [id number] Reading Location: ??[id number] Procedure Note Beni Stanley MD - 02/01/2022 EXAM DESCRIPTION: DEXA AXIAL SKELETON BONE DENSITY 1 OR MORE SITES REASON FOR STUDY: 77 y/o year old F with given history ofscreening. 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 FINDINGS: Left forearm 33% radius BMD is 0.482 g/cm2 T-score is -3.5 FRAX: FRAX not reported due to T-scores of hip, femoral neck and/or spine beingat or below -2.5 (Osteoporosis). IMPRESSION: Based on the left forearm bone mineral density (T-score -3.5 ) the patient has osteoporosis . REFERENCE: Bone mineral density: Normal (T-score above or = -1.0) Low bone mass (T-score between -1.0 and -2.5) replaces thepreviously used term osteopenia Osteoporosis (T-score = or below -2.5) Medical evaluation for secondary causes of low bone mineral density may be appropriate. FRAX is a World Health Organization validated fracture risk assessmenttool that calculates a person's 10 year probability of a major osteoporosisrelated fracture and hip fracture. According to the National OsteoporosisFoundation guidelines, postmenopausal women and men age 50 or older with low bonemass and a 10 year probability of a major osteoporosis related fracture = or greater than 20% or a 10 year probability of a hip fracture = or greaterthan 3% should be considered for treatment. For further information, including treatment recommendations, please referto the 2013 ISCD Official Positions (http://www.iscd.org) and the NOF's Clinician's Guide to Prevention and Treatment of Osteoporosis (http://www.nof.org/professionals/clinical-guidelines) THIS IS AN ELECTRONICALLY VERIFIED FINAL REPORT 02/01/2022 10:18 PM - Electronically signed by Beni Stanley M.D. MF: [id number] Report ID: [id number] Reading Location: [place] [address] [address] Alonso DO IMG DXA PROCEDURES Final R esult * Diabetic Eye Exam (12/29/2020) Historical Provider HEALTH MAINTENANCE Final Result * Screening Mammogram 2D Bilateral (01/21/2020) SCRIBED BI-RADS 0 Anatomical Region Laterality Modality Breast Bilateral Mammography Lamar Barrientos RISK CONTROL CONSULTANT IMG MAMMO PROCEDURES Final Resul t * HM DIABETES FOOT EXAM (01/09/2019) Diabetic Foot Exam Unknown Param Penaloza MD HEALTH MAINTENANCE Final Resul t * COLONOSCOPY (06/08/2018 9:46 AM CDT) Anatomical Region Laterality Modality Other Narrative Procedure Note Ashley Urias MD - 06/08/2018 9:46 AM CDT [facility] Patient Name: Faith Jenkins Procedure Date: 06/08/2018 9:46 AM Date of : 1945 Admit Type: Outpatient Age: 73 Gender: Female Attending MD: Ashley Urias M.D. Room: [facility] ENDOSCOPY ROOM 1 Note Status: Finalized Patient Profile: 73 WF, h/o adenoma polyps, her grandfather and 2unvles had colon cancer. Procedure: Colonoscopy Indications: Colon cancer screening in patient at increased risk: Family history of colorectal cancer in multiple 2nd degree relatives, High risk colon cancersurveillance: Personal history of colonic polyps, Lastcolonoscopy: May 2013 Referring MD: Deepali De Los SantosNChris Providers: Ashley Urias M.D. Impression: - External Hemorrhoids found on perianal exam. - Five 3 to 5 mm polyps in the descending colon, removed with a jumbo cold forceps. Resected and retrieved. - Diverticulosis in the sigmoid colon and in the descending colon. - Internal hemorrhoids. Recommendation: - Await pathology results. - Continue present medications. - Repeat colonoscopy in 3 years for screeningpurposes. Medicines: Monitored Anesthesia Care Complications: No immediate complications. Estimated Blood Loss: Estimated blood loss: none. Procedure: Pre-Anesthesia Assessment: - Prior to the procedure, a History and Physical was performed, and patient medications and allergieswere reviewed. The patient's tolerance of previous anesthesia was also reviewed. The risks and benefitsof the procedure and the sedation options and riskswere discussed with the patient. All questions were answered, and informed consent was obtained. Prior Anticoagulants: The patient has taken no previous anticoagulant or antiplatelet agents. ASA Grade Assessment: III - A patient with severe systemic disease. After reviewing the risks and benefits, the patient was deemed in satisfactory condition toundergo the procedure. The benefits, risks and alternatives of theprocedure and sedation were discussed and informed consent was obtained. All questions were answered. Please referto the signed informed consent document in the medical record. The scope was passed under direct vision.The Pediatric Colonoscope PCF-[id number] was introduced through the anus and advanced to the the cecum, identified by appendiceal orifice andileocecal valve. The colonoscopy was performed without difficulty. The patient tolerated the procedurewell. The quality of the bowel preparation wasexcellent. Findings: Large external hemorrhoids were found on perianal exam. The cecum appeared normal. Five sessile polyps were found in the descending colon. The polypswere 3 to 5 mm in size. These polyps were removed with a jumbo coldforceps. Resection and retrieval were complete. A few small-mouthed diverticula were found in the sigmoid colon and descending colon. Internal hemorrhoids were found during retroflexion. The hemorrhoids were medium-sized. Electronically signed by Ashley Urias M.D. Ashley Urias M.D. 06/08/2018 10:39:32 AM Number of Addenda: 0 Note Initiated On: 06/08/2018 9:46 AM Procedure Code(s): --- Professional --- 57291, Colonoscopy, flexible; with biopsy, single or multiple Diagnosis Code(s): --- Professional --- Z80.0, Family history of malignant neoplasm of digestive organs Z86.010, Personal history of colonic polyps K64.8, Other hemorrhoids D12.4, Benign neoplasm of descending colon K57.30, Diverticulosis of large intestine without perforation orabscess without bleeding CPT copyright 2017 [employer] [place] [employer]. All rights reserved. The codes documented in this report are preliminary and upon statistical methods professor reviewmay be revised to meet current compliance requirements. Recognized by the [employer] [place] [employer] for promoting quality in endoscopy us Ashley Urias MD ENDOSCOPY PROCEDURES Final Result * HEPATITIS C SCREENING (05/31/1999) HEP C Normal Comment:Negative Historical Provider HEALTH MAINTENANCE Final Result from Last 3 Months or Most Recently Relevant to Health Maintenance Additional Health Concerns Infection Onset Date Last Indicated MDR gram neg/ESBL Comment:ESBL E.coli urine 02/14/2024, 03/08/2024 02/14/20242023 Insurance MEDICARE [facility] MEDICARE [facility] Address: [address] [address] [place] [address] IDPA IDPA MEDICARE Advance Directives For more information, please contact: [phone] * Full Code (Latest Code Status on File) Date Activated Date Inactivated Comments 03/30/2021 9:43 PM 03/31/2021 4:59 PM * Full Code Date Activated Date Inactivated Comments 06/08/2018 8:38 AM 06/08/2018 4:01 PM * Full Code Date Activated Date Inactivated Comments 06/08/2018 8:38 AM 06/08/2018 8:38 AM Care Teams Pr Intern Relationship Specialty Start Date End Date Bertin Strong MD [address] [address] PCP - General Family Medicine 11/10/23 Idalmis Wright, CELIA Registered Nurse Pain Management 07/04/17 Desi Mayfield, CHAPIN Physical Therapist Physical Therapy 10/13/17 Nico Hinson MD Anesthesiologist Anesthesiology 09/02/20 Param Penaloza MD [address] [place] [address] DR MTZ [address] [place] [address] Consulting Physician Endocrinology 09/02/20 Robert Vazquez OD [address] [place] [address] Optometry 11/10/23
--- OUTSIDE RECORDS SUMMARY | 2024-04-06 15:53 | XMS_ITS | Encounter Summary ---
Author Organization [facility] Healthcare Address [address] [place] [address] Care Team Providers Care Naturopathic Doctor Name Role Phone Idalmis Wright RN Unavailable Unavailab Desi Connell PT Unavailable Unavailable Nico Hinson MD Unavailable Param Penaloza MD Unavailable [phone] Robert Vazquez OD Unavailable Bertin Strong MD Primary Care Provider [phone] Reason for Visit * Reason Onset Date Comments Medical Question/Miscellaneous 04/05/2024 Encounter Details Date Type Department Care Team (Late st Contact Info) Description 04/05/2024 Telephone [facility] Medical Group Primary Care at [address] [address] Bertin Strong MD [address] [place] [address] [address] [place] [address] Medical Question/Miscellaneous Social History Tobacco Use Types Packs/Day Years Used Date Smoking Tobacco: Former Cigarettes 1 56 0 03/13/1960 - 03/12/2016 Smokeless Tobacco: Never Alcohol Use Standard Drinks/Week Comments No 0 (1 standard drink = 0.6 oz pur e alcohol) PHQ-2 Answer Date Recorded PHQ-2 Total Score (If total score is 3 or more points, staff should administer the PHQ-9) 0 02/12/2024 Comments No Sex and Gender Information Value Date Recorded Sex Assigned at Not on file Legal Sex Female 11:52 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 Strong has not had a change to review it yet. RONMENTAL AIDE * Telephone Encounter - Belle Stone - 04/05/2024 12:57 PM CST Medical Question/Miscellaneous Caller???s Concern: Sarah Nurse @ [facility] calling as she faxed information this morning for Dr Strong to review regarding pt's health and wanting to confirm if we received as she had not heard back from anyone Please call Sarah Does message need to be routed? Yes-Action Needed RONMENTAL AIDE documented in this encounter Plan of Treatment Not on file documented as of this encounter Goals Goal Patient Goal Type Associated Problems Recent Progress Patient-Stated? Author [facility] On track( 019 1:34 PM ENVIRONMENTAL AIDE) Cass Leiva, RN Note: Patient will establish a comfort-function goal and identify the pain level that will allow the patient to perform desired activities and achieve an acceptable quality of life. documented as of this encounter Visit Diagnoses Not on filedocumented in this encounter Additional Health Concerns Infection Onset Date Last Indicated Resolved Time MDR gram neg/ESBL Comment:ESBL E.coli urine 02/14/2024, 03/08/2024 02/14/2024 03/08/2024 documented as of this encounter Care Teams Naturopathic Doctor Relationship Specialty Start Date End Date Bertin Strong MD [address] [facility] [address] [place] [address] PCP - General Family Medicine 11/10/23 Idalmis Wright, RN Registered Nurse Pain Management 07/04/17 Desi Mayfield, PT Physical Therapist Physical Therapy 10/13/17 Nico Hinson MD Anesthesiologist Anesthesiology 09/02/20 Param ePnaloza MD [address] [place] [address] DR MTZ [address] [place] [address] Consulting Physician Endocrinology 09/02/20 Robert Vazquez OD [address] [place] [address] Optometry 11/10/23 documented as of this encounter
--- OUTSIDE RECORDS SUMMARY | 2024-04-06 15:53 | XMS_ITS | Patient Health Summary ---
Author Organization [facility] Address [address] [place] [address] Care Team Providers Care [employer] Name Role Phone Unavailable Primary Care Provider Unavailabl e Note from [facility],non-owned Affiliates and Associated Physician Practices is amultiple site organization consisting of ambulatory clinics and hospital sitesin [place], [place] and [place]. This disclosure is being madepursuant to the Care Everywhere program and may not contain all information available regarding this patient. Last updated 17.[facility] Social History Tobacco Use Types Packs/Day Years Used Date Smoking Tobacco: Never Assessed Sex and Gender Information Value Date Recorded Sex Assigned at Not on file Gender Identity Not on file Sexual Orientation Not on file Procedures * DERMATOPATHOLOGY(Performed 08/06/2020) Results * DERMATOPATHOLOGY (08/06/2020 3:33 AM CDT) Case Report Dermatopathology Report ? Case: [id number] ? Authorizing Provider: ??José Miguel Mohan Jr., MD ??Collected: ? 08/06/2020 03:33 AM ? Ordering Location: ? [facility] DermPath Lab ?Received: ?08/11/2020 07:07 AM ? Pathologist: ? Joanna Chase, ? MD ? Specimen: ?Skin, right axillary vault ? 5:20 PM CDT DERMATOPATHOLOGY LABORATORY Final Diagnosis Specimen A. SKIN, right axillary vault: EPIDERMOID CYST (L72.0) NOT PRESENT AT SAMPLED MARGIN (see microscopic description) 5:20 PM CDT DERMATOPATHOLOGY LABORATORY Clinical History Cyst. Check margins. . 5:20 PM CDT DERMATOPATHOLOGY LABORATORY Gross Description Specimen A: Received is one formalin filled container labeled with the patient's name and designated right axillary vault. The specimen consists of a non-oriented ellipse of skin measuring [id number], bisected.The margin is inked green. Jar 0. 5:20 PM CDT DERMATOPATHOLOGY LABORATORY Microscopic Description Specimen A. SKIN, right axillary vault: Within the dermis, there is a space lined by epithelium that resembles normal epidermis and the infundibular portion of the hair follicle. While the cyst is not present at the sampled margin of the specimen, there is fibrosis that extends to the edge of the specimen. 5:20 PM CDT DERMATOPATHOLOGY LABORATORY Disclaimer An external and internal positive and negative controls are appropriate for the histochemical, immunohistochemical and immunofluorescence stain(s) in this case (if any), except where stated explicitly. The performance characteristics of the stain(s) cited in this report were developed and its performance characteristic determined by the Dermatopathology Laboratory at [facility], directed by Dr. Jamal Dean. These tests need not be, and therefore are not, approved by the [place] Food and Drug Administration. The tests are used for clinical purposes. Billing Codes Specimen Charges Stain Charges 19984 1 1 5:20 PM CDT DERMATOPATHOLOGY LABORATORY Embedded Images 1 5:20 PM CDT DERMATOPATHOLOGY LABORATORY Pathology/Cytolo gy TISSUE SPECIMEN FROM SKIN / Unknown 08/06/2020 3:33 AM CDT 08/11/2020 7:07 AM CDT José Miguel Mohan Jr., MD LAB - PATHOLOGY /CYTOLOGY ORDERABLES DERMATOPATHOLOGY LABORATORY [facility] - Department of Dermatology [facility] Medicine [address] [place] [address], [address] Floor [address] [phone]
--- OUTSIDE RECORDS SUMMARY | 2024-04-06 15:53 | XMS_ITS | Encounter Summary ---
Author Organization [facility] Healthcare Address [address] [place] [id number] Care Team Providers Care Area Supervisor Name Role Phone Idalmis Wright RN Unavailable Unavailab Desi Connell PT Unavailable Unavailable Nico Hinson MD Unavailable Param Penaloza MD Unavailable [phone] Robert Vazquez OD Unavailable Bertin Strong MD Primary Care Provider [phone] Reason for Visit * Reason Onset Date Comments Medical Question/Miscellaneous 03/22/2024 Encounter Details Date Type Department Care Team (Late st Contact Info) Description 03/22/2024 Telephone [facility] Medical Group Primary Care at [address] [address] Bertin Strong MD [address] [place] [address] [address] [place] [address] Medical Question/Miscellaneous Social History Tobacco [...] on file Legal Sex Female 11:52 PM [employer] Gender Identity Not on file Sexual Orientation Not on file documented as of this encounter Miscellaneous Notes * Telephone Encounter - Petra Weaver - 03/22/2024 1:30 PM CST Medical Question/Miscellaneous Caller???s Concern: Sarah Nurse @[facility] called to get contact information for the underlay stitcher. Does message need to be routed? 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 Author [facility] On track( 019 1:34 PM AQUACULTURE FARM MANAGER) No Cass Villegas RN Note: Patient will establish a comfort-function [...] documented as of this encounter Care Teams Area Supervisor Relationship Specialty Start Date End Date Bertin Strong MD [address] [address] PCP - General Family Medicine 11/10/23 Idalmis Wright, CELIA Registered Nurse Pain Management 07/04/17 Desi Mayfield, CHAPIN Physical Therapist Physical Therapy 10/13/17 Nico Hinson MD Anesthesiologist Anesthesiology 09/02/20 Param Penaloza MD [address] [place] [address] DR MTZ [address] [place] [id number] Consulting Physician Endocrinology 09/02/20 Robert Vazquez OD [address] [place] [address] Optometry 11/10/23 documented as of this encounter
--- OUTSIDE RECORDS SUMMARY | 2024-04-06 15:53 | XMS_ITS | Clinical Summary ---
Author Organization [facility] Address Formerly [facility]. 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 polyethylene glycol (GLYCOLAX) packet Take 240 mLs (17 g total) by mouth daily. Dissolve powder in 240 mL water Active docusate sodium (COLACE) 100 MG capsule Take 1 capsule (100 mg total) by mouth 2 (two) times daily. Active acetaminophen (TYLENOL) 325 MG tablet Take 2 tablets (650 mg total) by mouth every 6 (six) hours as needed for Pain. Active melatonin 3 MG tablet Take 1 tablet (3 mg total) by mouth nightly at bedtime. Active dulaglutide (TRULICITY) 1.5 MG/0.5ML injectionIndica tions:Diabetes Mellitus,does on tuesdays Inject 1.5 mg into the skin once a week. Indications: Diabetes, does on tuesdays Active pregabalin (LYRICA) 150 MG capsuleIndicati ons:NEURALGIA Take 1 capsule (150 mg total) by mouth 3 (three) times daily. Indications: NEURALGIA Active busPIRone (BUSPAR) 15 MG tabletIndicatio ns:ANXIETY Take 1 tablet (15 mg total) by mouth 2 (two) times daily. Indications: ANXIETY Active DULoxetine (CYMBALTA) 60 MG capsuleIndicati ons:DEPRESSION Take 1 capsule (60 mg total) by mouth daily. Indications: DEPRESSION Active DULoxetine (CYMBALTA) 30 MG capsuleIndicati ons:DEPRESSION Take 1 capsule (30 mg total) by mouth daily. Indications: DEPRESSION 1 ORDER FOR 30 MG AND 1 ORDER FOR 60 MG A TOTAL OF 90 MG DAILY Active ipratropium-alb uterol (DUONEB) 0.5-2.5 (3) MG/3ML SolutionIndicat ions:DYSPNEA Take 3 mLs by nebulization every 4 (four) hours as needed. Indications: DYSPNEA NEEDED FOR SOB Active dicyclomine (BENTYL) 10 MG capsuleIndicati ons:ABDOMINAL PAIN Take 1 capsule (10 mg total) by mouth every 6 (six) hours as needed ( NEEDED FOR ABDOMINAL PAIN). Indications: ABDOMINAL PAIN Active enalapril (VASOTEC) 10 MG tabletIndicatio ns:HYPERTENSION Take 1 tablet (10 mg total) by mouth daily. Indications: HYPERTENSION Active insulin NPH-insulin regular (NOVOLIN/HUMULI N 70/30) (70-30) 100 UNIT/ML injectionIndica tions:DIABETES MELLITUS Inject 32 Units into the skin 2 (two) times daily before meals. Indications: DIABETES MELLITUS SUB Q IN THE MORNING AND THE EVENING FOR CONTROLLING BLOOD SUGARS HOLD IF BLOOD SUGAR BELOW [address] GARCIA Active magnesium oxide (MAG-OX) 400 (240 Mg) MG tablet Take 1 tablet (400 mg total) by mouth 2 (two) times daily. 60 tablet 3 4 Active aspirin 81 MG chewable tablet Chew 1 tablet (81 mg total) by mouth daily. Active budesonide-glyc opyrrolate-form oterol (BREZTRI AEROSPHERE) 160-9-4.8 MCG/ACT inhaler Inhale 2 puffs into the lungs 2 (two) times daily. Active Phenylephrine-A PAP-guaiFENesin (MUCINEX FAST-MAX) 10-650-400 MG/20ML Liquid Take 0.5 fluid ounces by mouth every 12 (twelve) hours as needed (for prophylaxis related to cough). Give 1 TBSP Q12H PRN Active nystatin (MYCOSTATIN) powder Apply topically every 8 (eight) hours as needed (rash related to dermatitis). Apply under breast as needed Active phenol (CHLORASEPTIC) 1.4 % Liquid Use as directed 1 spray in the mouth or throat every 4 (four) hours as needed (sore throat). Active metFORMIN (GLUCOPHAGE) 1000 MG tablet Take 1 tablet (1,000 mg total) by mouth daily. Active HYDROcodone-elmer taminophen (NORCO) 5-325 MG tablet Take 1 tablet by mouth nightly as needed for Pain. PRN throughout the night for breakthrough pain Active HYDROcodone-elmer taminophen (NORCO) 5-325 MG tablet Take 1 tablet by mouth 3 (three) times daily. Active dicyclomine (BENTYL) 10 MG capsule Take 1 capsule (10 mg total) by mouth daily. Active metoprolol tartrate (LOPRESSOR) 25 MG tablet Take 1 tablet (25 mg total) by mouth 2 (two) times daily. 60 tablet 4 Active ertapenem 280 mg/mL in lidocaine (PF) Inject 3.57 mLs (1,000 mg total) into the muscle daily. 1 Syringe 4 Active Active Problems Problem Noted Date Diagnosed Date UTI (urinary tract infection) 12/24/2023 Acute metabolic encephalopathy 12/05/2023 Respiratory failure ([facility]) 10/11/2023 Sepsis ([facility]) 10/11/2023 Hearing impaired person, left 02/05/2023 Overview (12/06/2023): Last Assessment & Plan: Consider having hearing testing done and get fitted for hearing aids if needed. Memory changes 02/05/2023 Overview (12/06/2023): Last Assessment & Plan: Worsening, patient currently resides in prison. Encouraged supportive care from family memebers. Acute pain of right knee 12/21/2022 Heel callus 10/26/2022 Overview (12/06/2023): Last Assessment & Plan: This is a new problem. We this is caused by leaving her foot brace on every night. Orders to remove her foot brace at night and put back on during the day.Order for lotion and skin checks every night, leg brace off at night Lives in prison 05/10/2021 Overview (12/06/2023): Last Assessment & Plan: Medication list reconciled with medication list in epic. Depression, unspecified 04/09/2021 Flaccid hemiplegia affecting left dominant side ([facility]) 04/09/2021 Hyperlipidemia, unspecified 04/09/2021 Muscle weakness (generalized) 04/09/2021 Pain in left ankle and joints of left foot 04/09 Personal history of COVID-19 04/09/2021 Personal history of other diseases of the digest aristeo system 04/09/2021 Sprain of unspecified ligame nt of left ankle, subsequent encounter 04/09/2021 Type 2 diabetes mellitus wit h diabetic neuropathy, unspecified ([facility]) 04/09/2021 Unspecified fall, subsequent encounter Unsteadiness on feet 04/09/2021 Eczema 09/02/2020 Overview (12/06/2023): Betamethasone to spots on arms for itching p.r.n. Insomnia, unspecified 07/17/2019 Overview (12/06/2023): Last Assessment & Plan: Will try melatonin first, as she has taken this in the past when she lived at home with some benefit. Will write rx for prison use. If no benefit, will consider trazodone or low dose maoi such as nortriptyline. Lumbar radiculopathy 07/17/2019 Drug-induced constipation 07/04/2019 Overview (12/06/2023): Last Assessment & Plan: She was having cramping with diarrhea. I had placed her on Bentyl and she continues to take this. I talked her about how to use the Bentyl as needed and for now she can discontinue the Bentyl and then use it p.r.n. senior living (current) use of opiate analgesic 01/11 Essential tremor 11/16/2018 Overview (12/06/2023): Last Assessment & Plan: Will refer to neurology for evaluation and treatment of tremor. Tremor of right hand is bothering her more as she cannot hold her books or a pen. Chronic bilateral low back pain with left-sided sciatica 07/27/2018 Generalized anxiety disorder 03/01/2018 Overview (12/06/2023): Last Assessment & Plan: Clinically improved, continue current prescription medications, duloxetine, lorazepam, BuSpar. Moderate episode of recurren t major depressive disorder ([facility]) 03/01/2018 Overview (12/06/2023): Last Assessment & Plan: Stable. Cont. Current prescription medications, duloxetine. 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 Continue current pain medications, morphine, hydrocodone, meloxicam, Lyrica, duloxetine. Gastroesophageal reflux disease without esophagi tis 10/12/2017 Overview (12/06/2023): Last Assessment & Plan: Asymptomatic. Stable. Continue current prescription medications. Obstructive sleep apnea 10/12/2017 Overview (12/06/2023): Managed by Dr. Orlando Montejo 05/17/2017 Overview (12/06/2023): Last Assessment & Plan: Deconditioned, generalized weakness, secondary to stroke and hemiparesis. Osteoporosis, postmenopausal 04/21/2017 Overview (12/06/2023): Last Assessment & Plan: Stable at this time. Will continue on Prolia every 6 months Irritable bowel syndrome with diarrhea 7 Overview (12/06/2023): Last Assessment & Plan: Discussed options for prn medication prior to meals, especially going out. Try bentyl. Discussed medication, usage. Pt and voiced understanding. 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 Patient currently on daily aspirin, pravastatin. CVA, old, hemiparesis Meralgia paresthetica 11/14/2013 Overview (12/24/2023): Meralgia paresthetica Last Assessment & Plan: Stable. Cont. Current prescription medications, Lyrica. Meralgia paresthetica Hypertension associated with diabetes ([facility]) 07/27/2013 Overview (12/24/2023): BENIGN HYPERTENSION Last Assessment & Plan: Blood pressure is at goal of less than 140/90, continue current prescription medications, enalapril. BENIGN HYPERTENSION Type 2 diabetes mellitus wit h hyperglycemia, with long-term current use of insulin ([facility]) 07/27/2013 Overview (12/24/2023): Hyperlipidemia Last Assessment & Plan: LDL at goal of less than 100, continue current prescription medications, pravastatin. DMII WO [facility] Last Assessment & Plan: A1c previously above goal of less than 8.0. Labs ordered. Diabetes mellitus type 2 has been followed by her vice president fixed income in the past. Encouraged continued follow-up with endocrinology. Continue Trulicity, enalapril, NovoLog 70 30, metformin XR, pravastatin. Hyperlipidemia DMII WO [facility] Vitamin D deficiency 07/27/2013 Overview (12/06/2023): VITAMIN D DEFICIENCY NOS Polyp of colon 05/30/2013 Overview (12/06/2023): Colon polyposis Primary osteoarthritis involving multiple joints 08/16/2011 Overview (12/24/2023): DJD (degenerative joint disease) of knee Last Assessment & Plan: Recommended adding an NSAID like Aleve 220 mg [id number] twice daily. Take with food. Discussed possible referral to computational physicist. Interchange Agent would either be in [place] or [facility]. She has no history of rheumatoid arthritis. I told him it would be up to them if they wanted to see if her computational physicist would have anything to offer her. They are going to try the Aleve 1st and also possibly talk to her pain management doctor. DJD (degenerative joint disease) of knee Encounters Date Type Department Care Team Description 01/04/2024 11:10 PM CDT - 01/05/2024 3:38 AM CDT Emergency [facility] Emergency Room [address] [place] [address] Jeffery Garcia MD Medical Problem Discharge Disposition: Retirement Care from Last 3 Months Immunizations Name Administration Dates Next Due Fluzone (IIV3, Trivalent, 0.5 ML Prefilled Syrin ge) 12/31/2023 Social History Tobacco Use Types Packs/Day Years Used Date Smoking Tobacco: Former Cigarettes Passive Smoke Exposure: Past Smokeless Tobacco: Never Tobacco Cessation:Counseling Given: No Alcohol Use Standard Drinks/Week Comments Not Currently 0 (1 standard drink = 0.6 oz pur e alcohol) B1300 Health Literacy Answer Date Recor ded How often do you need to hav e someone help you when you read instructions, pamphlets, or other written material from your doctor or pharmacy? Always 12/24/2023 [facility] Utilities Answer Date Recorded In the past 12 months has e Box Jump, gas, oil, or water [employer] threatened to shut off services in your home? No 12/24/2023 Humiliation, Afraid, Rape, a nd Kick questionnaire Answer Date Recorded Within the last year, have y ou been afraid of your partner or ex-partner? Patient unable to answer 12/24/2023 Within the last year, have y ou been humiliated or emotionally abused in other ways by your partner or ex-partner? Patient unable to answer 12/24/2023 Within the last year, have y ou been kicked, hit, slapped, or otherwise physically hurt by your partner or ex-partner? Patient unable to answer 12/24/2023 Within the last year, have y ou been raped or forced to have any kind of sexual activity by your partner or ex-partner? Patient unable to answer 12/24/2023 Social Connection and Isolat ion Panel [NHANES] Answer Date Recorded In a typical week, how many times do you talk on the phone with family, friends, or neighbors? Three times a week 12/24/2023 How often do you get togethe r with friends or relatives? Three times a week 12/24/2023 How often do you attend [facility] or anabaptist services? More than 4 times per year 12/24/2023 Do you belong to any clubs o r organizations such as episcopalian groups, unions, fraternal or athletic groups, or school groups? Patient unable to answer 12/24/2023 How often do you attend meet ings of the clubs or organizations you belong to? Patient unable to answer 12/24/2023 Are you , , di vorced, , never , or living with a partner? 12/24/2023 AUDIT-C Answer Date Recorded Q1: How often do you have a drink containing alcohol? Never 12/24/2023 Q2: How many drinks containi ng alcohol do you have on a typical day when you are drinking? Patient does not drink Q3: How often do you have si x or more drinks on one occasion? Never 12/24/2023 Overall Financial Resource Strain (CARDIA) Answe r Date Recorded How hard is it for you to pa y for the very basics like food, housing, medical care, and heating? Not hard at all 12/24/2023 [facility] - Occupational Stress Questionnaire Answer Date Recorded Do you feel stress - tense, restless, nervous, or anxious, or unable to sleep at night because your mind is troubled all the time - these days? To some extent 12/24/2023 Exercise Vital Sign Answer Date Recorde d On average, how many days pe r week do you engage in moderate to strenuous exercise (like a brisk walk)? 0 days 12/24/2023 On average, how many minutes do you engage in exercise at this level? 0 min 12/24/2023 Hunger Vital Sign Answer Date Recorded Within the past 12 months, y ou worried that your food would run out before you got the money to buy more. Never true 12/24/19 24 Within the past 12 months, t he food you bought just didn't last and you didn't have money to get more. Never true 12/24/2023 PRAPARE - Transportation Answer Date Re corded In the past 12 months, has l ack of transportation kept you from medical appointments or from getting medications? No 12/11 In the past 12 months, has l ack of transportation kept you from meetings, work, or from getting things needed for daily living? No 12/24/2023 Housing Stability Vital Sign Answer Alfonso e Recorded In the last 12 months, was t here a time when you were not able to pay the mortgage or rent on time? No 12/24/2023 In the past 12 months, how m any times have you moved where you were living? 0 12/24/2023 At any time in the past 12 m [facility], were you homeless or living in a chcf (including now)? No 12/24/2023 Comments No Sex and Gender Information Value Date Recorded Sex Assigned at Not on file Legal Sex Female 9:43 PM [employer] Gender Identity Not on file Sexual Orientation Not on file Last Filed Vital Signs Vital Sign Reading Time Taken Comments Blood Pressure 113/66 01/05/2024 3:15 AM CDT Pulse 67 01/05/2024 3:15 AM CDT Temperature 36.1 ??C (97 ??F) 01/05/2024 3:15 AM CDT Respiratory Rate 18 01/05/2024 3:15 AM CDT Oxygen Saturation 99% 01/05/2024 3:15 AM CDT Inhaled Oxygen Concentration - - Weight 86.2 kg (190 lb) 01/04/2024 11:14 PM CDT Height 165.1 cm (5' 5 ) 01/04/2024 11:14 PM CDT Body Mass Index 31.62 01/04/2024 11:14 PM CDT Plan of Treatment Health Maintenance Due Date Last Done Comments Kidney Health Evaluation 1945 Diabetes: Retinopathy Eye Exam 01/03/1964 Hepatitis C 01/03/1964 Annual Medicare Wellness Visit 2011 RSV Immunization or 60+ Years (1 - 1-dose 75+ series) 2021 DTaP, Tdap and Td Vaccines (2 - Td or Tdap) 12/13/2021 12/14/2011 Zoster Vaccines (3 of 3) 09/07/2022 07/13/2022, 05/2011 COVID-19 Vaccine ( season) 2023 10/25/2022, 11/19/2021, 06/12/2020, Additional history exists Hemoglobin A1C 02/10/2024 11/10/2023, 0307/2023, 09/21/2022, Additional history exists Lipid Panel 12/05/2024 12/06/2023, 0403/2022, 10/08/2021 Pneumococcal Vaccine: 65+ Years Completed 04/13/2017, 06/11/2015 Dexa Scan (General) Completed 02/01/2022, 02/01/2022, 05/17/2019, Additional history exists Influenza Adult Completed 12/31/2023, 1003/2020, 01/01/2020, Additional history exists Meningococcal Vaccine Aged Out No ольга radha eligible based on patient's age to complete this topic RSV Immunizations Under 20 Months Aged Out No longer eligible based on patient's age to complete this topic Procedures Procedure Name Priority Date/Time Associated Diagnosis Comments COMPREHENSIVE METABOLIC PANEL STAT 01/05/2024 2:04 AM CDT CBC W/DIFF AUTOMATED STAT 01/05/2024 2:04 AM CDT XR CHEST PORTABLE STAT 01/05/2024 12: 01 AM CDT XR HUMERUS RT MIN 2V STAT 01/05/2024 12:01 AM CDT LIPID PANEL Routine 12/06/2023 6:00 AM CDT HEMOGLOBIN, GLYCOSYLATED Routine 09/21/2022 3:00 PM CDT Diabetes mellitus ([facility]) from Last 3 Months or Most Recently Relevant to Health Maintenance Results * (ABNORMAL) COMPREHENSIVE METABOLIC PANEL (01/05/2024 2:04 AM CDT) GLUCOSE 92 70 - 99 MG/DL 01/05/2024 2:36 AM CDT [facility] BUN 15 7 - 18 MG/DL 01/05/2024 2:36 AM CDT [facility] CREATININE S/P/B 0.75 0.55 - 1.02 MG/DL 01/05/2024 2:36 AM CDT [facility] SODIUM S/P/B 144 136 - 145 MMOL/L 01/05/2024 2:36 AM CDT [facility] POTASSIUM S/P/B 3.3(L) 3.5 - 5.1 MMOL/L 01/05/2024 2:36 AM T [facility] CHLORIDE S/P/B 104 100 - 108 MMOL/L 01/05/2024 2:36 AM [facility] CO2 38.7(H) 21 - 32 MMOL/L 01/05/2024 2:36 AM [facility] CALCIUM S/P/B 9.6 8.5 - 10.1 MG/DL 01/05/2024 2:36 AM T [facility] BILIRUBIN TOTAL S/P/B 0.2 0.2 - 1.2 MG/DL 01/05/2024 2:36 AM [facility] TOTAL PROTEIN S/P/B 6.2(L) 6.4 - 8.2 G/DL 01/05/2024 2:36 AM [facility] ALBUMIN S/P/B 2.1(L) 3.4 - 5.0 G/DL 01/05/2024 2:36 AM [facility] AST 17 15 - 37 U/L 01/05/2024 2:36 AM [facility] ALT 16 14 - 55 U/L 01/05/2024 2:36 AM [facility] ALKALINE PHOSPHATASE S/P/B 89 50 - 136 U/L 01/05/2024 2:36 AM [facility] ANION GAP 1.3(L) 5 - 15 MMOL/L 01/05/2024 2:36 AM [facility] BUN CREATININE RATIO 20.0 6 - 26 01/05/2024 2:36 AM [facility] A/G RATIO 0.5(L) 1.0 - 2.0 RATIO 01/05/2024 2:36 AM CDT [facility] GFR ESTIMATE 81(L) >90 ML/MIN/1.7 3 M2 01/05/2024 2:36 AM CDT [facility] Comment: NOTE: eGFR is not calculated for patients <18 years of age. This is an estimated GFR calculation using the new CKD EPI creatinine equation without race and so does not require a correction factor for race. This estimated GFR should not be used for calculating drug doses. 01/05/2024 2:04 AM CDT Jeffery Garcia MD LABORATORY Final Result [facility] [address] [place] [address], [place] [phone] * (ABNORMAL) CBC W/DIFF AUTOMATED (01/05/2024 2:04 AM CDT) WBC 10.30 4.4 - 11.0 x10'3/uL 01/05/2024 2:13 AM CDT [facility] RBC 3.93(L) 4.50 - 5.10 x10'6/uL 01/05/2024 2:13 AM CDT [facility] HGB 11.5(L) 12.3 - 15.3 G/DL 01/05/2024 2:13 AM CDT [facility] HCT 36.9 35.9 - 44.6 % 01/05/2024 2:13 AM CDT [facility] MCV 93.9 80.0 - 96.0 FL 01/05/2024 2:13 AM CDT [facility] MCH 29.3 25.3 - 30.9 PG 01/05/2024 2:13 AM CDT [facility] MCHC 31.2 31.0 - 34.1 G/DL 01/05/2024 2:13 AM CDT [facility] RDW 15.1 12.4 - 15.1 % 01/05/2024 2:13 AM CDT [facility] PLT 552(H) 151 - 353 x10'3/uL 01/05/2024 2:13 AM CDT [facility] MPV 11.2 9.6 - 12.0 FL 01/05/2024 2:13 AM CDT [facility] RBC MORPHOLOGY NORMAL 01/05/2024 2:13 AM CDT [facility] PLT MORPH. NORMAL 01/05/2024 2:13 AM CDT [facility] WBC MORPHOLOGY NORMAL 01/05/2024 2:13 AM T [facility] LYMPHOCYTES % 39.1 15.8 - 45.0 % 01/05/2024 2:13 AM CDT [facility] NEUTROPHILS % 48.6 42.1 - 71.9 % 01/05/2024 2:13 AM CDT [facility] MONOCYTES % 7.2 5.7 - 12.5 % 01/05/2024 2:13 AM T [facility] EOSINOPHILS 4.4 0.0 - 5.6 % 01/05/2024 2:13 AM CDT [facility] BASOPHILS 0.4 0.0 - 1.3 % 01/05/2024 2:13 AM CDT [facility] ABS. NEUTROPHILS 5.01 1.40 - 6.00 x10'3/uL 01/05/2024 2:13 AM CDT [facility] IMMATURE GRANS % 0.3 0.0 - 0.5 % 01/05/2024 2:13 AM CDT [facility] ABS. LYMPHOCYTES 4.03 0.80 - 4.70 x10'3/uL 01/05/2024 2:13 AM CDT [facility] 01/05/2024 2:04 AM CDT Jeffery Garcia MD LABORATORY Final Result [facility] [address] [place] [address], * XR HUMERUS RT MIN 2V (01/05/2024 12:01 AM CDT) Anatomical Region Laterality Modality Humerus Radiographic Promise ging 01/05/2024 12:4 3 AM CDT Impressions 01/05/2024 12:46 AM CDT IMPRESSION: No evidence of retained radiopaque foreign body. Referred By: ?? Interpreted By: Hayley Chapman MD, 01/05/2024 12:43 AM Narrative 01/05/2024 12:46 AM CDT [facility] [id number] [place] [address]. [place] [address] INDICATION: Evaluation for foreign body. TECHNIQUE: Single frontal view of the chest was obtained. ??2 views of the right humerus were obtained. COMPARISON: Chest radiograph 04/30/2023.. FINDINGS: Lungs: Mild elevation of the right hemidiaphragm. ??No focal consolidation, pleural effusion or pneumothorax. Heart and Mediastinum: The cardiac silhouette is not enlarged. Calcified aortic arch. Bones: Mildly displaced left proximal humeral metaphyseal fracture, present on prior exams. Maintained alignment of the visualized shoulder and elbow. ??Advanced arthropathy the right acromioclavicular joint. Procedure Note Hayley Chapman MD - 01/05/2024 [facility] [id number] [place] [address]. [place] [address] INDICATION: Evaluation for foreign body. TECHNIQUE: Single frontal view of the chest was obtained. 2 views of theright humerus were obtained. COMPARISON: Chest radiograph 04/30/2023.. FINDINGS: Lungs: Mild elevation of the right hemidiaphragm. No focal consolidation,pleural effusion or pneumothorax. Heart and Mediastinum: The cardiac silhouette is not enlarged. Calcifiedaortic arch. Bones: Mildly displaced left proximal humeral metaphyseal fracture,present on prior exams. Maintained alignment of the visualized shoulderand elbow. Advanced arthropathy the right acromioclavicular joint. IMPRESSION: No evidence of retained radiopaque foreign body. Referred By: Interpreted By: Hayley Chapman MD, 01/05/2024 12:43 AM us Jeffery Garcia MD GENERAL IMAGING Final Result * XR CHEST PORTABLE (01/05/2024 12:01 AM CDT) Anatomical Region Laterality Modality Chest Radiographic Promise ging 01/05/2024 12:4 3 AM CDT Impressions 01/05/2024 12:46 AM CDT IMPRESSION: No evidence of retained radiopaque foreign body. Referred By: ?? Interpreted By: Hayley Chapman MD, 01/05/2024 12:43 AM Narrative 01/05/2024 12:46 AM CDT [address] [place] [address] INDICATION: Evaluation for foreign body. TECHNIQUE: Single frontal view of the chest was obtained. ??2 views of the right humerus were obtained. COMPARISON: Chest radiograph 04/30/2023.. FINDINGS: Lungs: Mild elevation of the right hemidiaphragm. ??No focal consolidation, pleural effusion or pneumothorax. Heart and Mediastinum: The cardiac silhouette is not enlarged. Calcified aortic arch. Bones: Mildly displaced left proximal humeral metaphyseal fracture, present on prior exams. Maintained alignment of the visualized shoulder and elbow. ??Advanced arthropathy the right acromioclavicular joint. Procedure Note Hayley Chapman MD - 01/05/[address] [place] [address] INDICATION: Evaluation for foreign body. TECHNIQUE: Single frontal view of the chest was obtained. 2 views of theright humerus were obtained. COMPARISON: Chest radiograph 04/30/2023.. FINDINGS: Lungs: Mild elevation of the right hemidiaphragm. No focal consolidation,pleural effusion or pneumothorax. Heart and Mediastinum: The cardiac silhouette is not enlarged. Calcifiedaortic arch. Bones: Mildly displaced left proximal humeral metaphyseal fracture,present on prior exams. Maintained alignment of the visualized shoulderand elbow. Advanced arthropathy the right acromioclavicular joint. IMPRESSION: No evidence of retained radiopaque foreign body. Referred By: Interpreted By: Hayley Chapman MD, 01/05/2024 12:43 AM Jeffery Garcia MD GENERAL IMAGING Final Result * LIPID PANEL (12/06/2023 6:00 AM CDT) CHOLESTEROL 157 <200.0 MG/DL 12/06/2023 6:44 AM T [facility] TRIGLYCERIDES 141 <150 MG/DL 12/06/2023 6:44 AM T [facility] HDL 59 >40.0 MG/DL 12/06/2023 6:44 AM T [facility] LDL (CALCULATED) 70 <100 MG/DL 12/06/19 6:44 AM [facility] NON HDL CHOLESTEROL 98 <130 MG/DL 12/05 6:44 AM T [facility] CHOL/HDL RATIO 2.7 0.0 - 4.5 12/06/2023 6:44 AM T [facility] VLDL CALCULATION 28 5 - 55 MG/DL 12/06/2023 6:44 AM [facility] LIPID INTERPRETATION 12/06/2023 6:44 AM T [facility] Comment: [facility] REPORT RECOMMENDATIONS: ?ADULT ?CHILD ??LOW RISK: ?CHOLESTEROL ? <200 ? <170 ?TRIGLYCERIDE ?<150 ?--- ?HDL ? >=60 ?--- ?LDL ? <100 ? <110 ??BORDERLINE: ?CHOLESTEROL ? 200-239 ?? 170-199 ?TRIGLYCERIDE ?150-199 ? --- ?HDL ?40-59 ?--- ?LDL ? 100-159 ?? 110-129 ??HIGH RISK: ?CHOLESTEROL ? >=240 ?>=200 ?TRIGLYCERIDE ?>=200 ? --- ?HDL ?<40 ?--- ?LDL ? >=160 ?>=130 12/06/2023 6:00 AM CDT us Yuko Shelton [facility] Final Result Performing Organization Address [facility]/State/ZIP Co de Phone Number [facility] () [facility] [address] [place] [address], * (ABNORMAL) HEMOGLOBIN, GLYCOSYLATED (09/21/2022 3:00 PM CDT) HGB A1C 8.5(H) <5.7 % 09/21/2022 7:10 PM CDT [facility] Comment: INCREASED RISK OF DIABETES <5.7% ?NON-DIABETES 5.7-6.4% INCREASED RISK FOR FUTURE DIABETES > OR = 6.5 CONSISTENT WITH DIABETES STANDARDS OF MEDICAL CARE IN DIABETES-2010 DIABETES CARE, 34(SUPP 1): S1-S61,2010 ESTIMATED AVG GLUCOSE 197 mg/dL 09/21/2022 7:10 PM CDT [facility] 09/21/2022 3:00 PM CDT us Zachariahfiath Patel MD LABORATORY Final Result [facility] [address] [place] [address], from Last 3 Months or Most Recently Relevant to Health Maintenance Additional Health Concerns Infection Onset Date Last Indicated ESBL - Extended Spectrum Bet a-lactamase Comment:12/24/23 urine (XIMENA) 12/24/2023 12/24/2023 [place] [id number] MEDICAID Advance Directives Documents on File Type Date Recorded Patient Planer Hand Expl anation Advance Directives and Living Will 12/07/2023 8:14 AM 04/28/2021 POLST Advance Directives and Living Will 12/07/2023 8:12 AM 12/13/2010 POA FOR HEALTH CARE Advance Directives and Living Will 11/02/2023 8:01 AM Advance Directives and Living Will 06/15/2021 9:35 AM POA FOR PROPERTY * DNR (Latest Code Status on File) Date Activated Date Inactivated Comments 12/24/2023 7:09 PM 12/31/2023 2:50 PM * DNR Date Activated Date Inactivated Comments 12/06/2023 12:36 PM 12/07/2023 7:00 PM * DNR Date Activated Date Inactivated Comments 10/11/2023 1:52 AM 10/13/2023 1:32 PM Healthcare Agents on File Name Relationship Healthcare Agent Soniyadc delmer Communication Boris Jenkins Spouse Health Care Agent Care Teams Video Game Engineer Relationship Specialty Start Date End Date Bertin Strong MD [address] [place] [address] [address] [place] [address] PCP - General FAMILY PRACTICE 12/05/23
--- OUTSIDE RECORDS SUMMARY | 2024-04-06 15:53 | XMS_ITS | Referral Summary ---
Author Organization [facility] Address [address] [place] [address] Care Team Providers Care Auricular Therapist Name Role Phone Idalmis Wright RN Unavailable Unavailab Desi Connell PT Unavailable Unavailable Nico Hinson MD Unavailable [phone] Param Penaloza MD Unavailable [phone] Robert Vazquez OD Unavailable Bertin Strong MD Primary Care Provider Encounters Date Type Department Care Team Description 04/05/2024 Telephone [facility] Medical [facility] Primary Care at [address] [phone] Bertin Strong MD Medical Question/Miscellaneous 04/02/2024 Telephone [facility] Primary Care at [address] [phone] Bertin Strong MD Test Results 04/02/2024 Telephone [facility] Medical [facility] Primary Care at [address] [phone] Bertin Strong MD Med Refill 04/01/2024 Telephone [facility] Medical [facility] Primary Care at [address] [phone] Bertin Strong MD Medical Question/Miscellaneous 03/28/2024 8:00 AM CLIENT HR MANAGER - 03/28/2024 11:59 PM CLIENT HR MANAGER Hospital Encounter [address] [address] Urinary tract infection without hematuria, site unspecified; Altered mental status, unspecified altered mental status type Discharge Disposition: Discharge to home or self care 03/28/2024 Telephone [facility] Primary Care at [address] [phone] Bertin Strong MD Biopsy results 03/28/2024 10:45 AM CLIENT HR MANAGER Lab [facility] Outpatient Lab at [address] [phone] 03/26/2024 Telephone [facility] Primary Care at [address] [phone] Bertin Strong MD Test Results 03/26/2024 Orders Only [facility] [address] [place] [address] A, [address] [address] Kevin Martinez MD Lumbar radiculopathy; Meralgia paresthetica, unspecified laterality 03/22/2024 Telephone [facility] Primary Care at [address] [phone] Bertin Strong MD Medical Question/Miscellaneous 03/14/2024 Telephone [facility] Primary Care at [address] [phone] Tara Brooks MA 03/11/2024 Telephone [facility] Primary Care at [address] [phone] Bertin Strong MD Medication Request 03/11/2024 Orders Only [facility] Primary Care at [address] [phone] Vivian Sánchez NP Recurrent UTI (Primary Dx); ESBL (extended spectrum beta-lactamase) producing bacteria infection 03/08/2024 1:20 PM CLIENT HR MANAGER - 03/08/2024 11:59 PM CLIENT HR MANAGER Hospital Encounter [address] [address] Acute cystitis without hematuria Discharge Disposition: Discharge to home or self care 03/08/2024 2:00 PM CLIENT HR MANAGER Lab [facility] Outpatient Lab at [address] [phone] 03/01/2024 Telephone [facility] Primary Care at [address] [phone] Bertin Strong MD Test Results 02/19/2024 Telephone [facility] Primary Care at [address] [phone] Bertin Strong MD Medication Request 02/19/2024 Telephone [facility] Primary Care at [address] [phone] Bertin Strong MD Medical Records Request 02/19/2024 Orders Only [facility] Primary Care at [address] [phone] Bertin Strong MD Acute cystitis without hematuria (Primary Dx); Hemiparesis following cerebrovascular accident (CVA) (CMS/HCC) (HCC) 02/14/2024 11:51 AM CLIENT HR MANAGER - 02/14/2024 11:59 PM CLIENT HR MANAGER Hospital Encounter [address] [address] Recurrent UTI Discharge Disposition: Discharge to home or self care 02/14/2024 Telephone [facility] Primary Care at [address] [phone] Bertin Strong MD Urine Culture 02/14/2024 Documentation [facility] [address], [place] [id number] Aleena Khanna 02/12/2024 5:54 PM CLIENT HR MANAGER - 02/12/2024 11:59 PM CLIENT HR MANAGER Hospital Encounter [address] [address] Vitamin D deficiency; Hypertension associated with diabetes (HCC) Discharge Disposition: Discharge to home or self care 02/12/2024 11:00 AM CLIENT HR MANAGER Lab [facility] Outpatient Lab at [address] [phone] Hypertension associated with diabetes (HCC) (Primary Dx); Type 2 diabetes mellitus with diabetic neuropathy, unspecified (HCC) 02/12/2024 10:30 AM CLIENT HR MANAGER Office Visit [facility] Primary Care at [address] [phone] Bertin Strong MD Hypertension associated with diabetes (HCC) (Primary Dx); Vitamin D deficiency; Type 2 diabetes mellitus with hyperglycemia, with long-term current use of insulin (HCC) 01/31/2024 Telephone [facility] Primary Care at [address] [phone] Bertin Strong MD Medical Question/Miscellaneous 01/23/2024 9:11 AM CLIENT HR MANAGER - 01/23/2024 11:59 PM CLIENT HR MANAGER Hospital Encounter [facility] [address] [place] [address] Kevin Martinez MD Central pain syndrome; Chronic bilateral low back pain with left-sided sciatica; Lumbar radiculopathy Discharge Disposition: Discharge to home or self care 01/18/2024 Telephone [facility] Primary Care at [address] [phone] Bertin Strong MD Medical Question/Miscellaneous 01/11/2024 Orders Only [facility] Primary Care at [address] [phone] Bertin Strong MD Central pain syndrome; Chronic bilateral low back pain with left-sided sciatica; Lumbar radiculopathy from Last 3 Months Allergies Active Allergy Reactions Criticality Noted Date [...] diabetic (TRUEplus Pen Needle) 31 gauge x /16 needleIndications :Type 2 diabetes mellitus with hyperglycemia, [...] tablet (10 mg total) by mouth daily Active budesonide-glycop yr-formoterol (BREZTRI) 160-9-4.8 mcg/actuation inhalerIndication [...] as needed for pain 90 tablet 024 Active metoprolol tartrate (LOPRESSOR) 25 mg immediate release tablet TAKE ONE TABLET BY MOUTH TWICE A DAY 60 tablet 1 024 Active nystatin powder Apply topically every 8 [...] TIMES A DAY NEEDED 90 capsule 1 024 Active metFORMIN XR (GLUCOPHAGE XR) 500 mg 24 hr tabletIndications :Type 2 diabetes mellitus with hyperglycemia, with long-term current use of insulin (HCC) Take 1 tablet (500 mg total) by mouth daily 90 tablet 1 024 Active ondansetron ODT (ZOFRAN-ODT) 4 mg disintegrating tablet Take 1 tablet (4 mg total) by mouth every 8 (eight) hours as needed for nausea or vomiting 20 tablet 024 Active HYDROcodone-aceta minophen (NORCO) 5-325 mg per tabletIndications :Pain Take 1 tablet by mouth 3 (three) times a day as needed for pain 90 tablet 025 2024 Active busPIRone (BUSPAR) 15 mg tablet TAKE ONE TABLET BY MOUTH TWICE A DAY 200 tablet 1 025 Active tirzepatide (Mounjaro) 5 mg/0.5 mL pen injector injection Inject 0.25 mL (2.5 mg total) under the skin once a week 025 Active insulin aspart protamine-insulin aspart 70/30 (NovoLOG 70/30 100 unit/mL) 100 unit/mL pen for injectionIndicati ons:Type 2 diabetes mellitus with hyperglycemia, with long-term current use of insulin ([facility]) INJECT 56 UNITS EVERY MORNING AND 52 UNITS EVERY EVENING 105 mL 1 025 Active dulaglutide (Trulicity) 1.5 mg/0.5 mL pen injectorIndicatio ns:Type 2 diabetes mellitus with hyperglycemia, with long-term current use of insulin ([facility]) INJECT ONCE WEEKLY DIRECTED 6 mL 3 023 2024 Discontinued(A lternate therapy) metFORMIN XR (GLUCOPHAGE XR) 500 mg 24 hr tabletIndications :Type 2 diabetes mellitus with hyperglycemia, with long-term current use of insulin ([facility]) TAKE ONE TABLET BY MOUTH DAILY 90 tablet 1 023 2023 Discontinued(R eorder) insulin aspart protamine-insulin aspart 70/30 (NovoLOG 70/30 100 unit/mL) 100 unit/mL pen for injectionIndicati ons:Type 2 diabetes mellitus with hyperglycemia, with long-term current use of insulin ([facility]) INJECT 56 UNITS EVERY MORNING AND 52 [...] a day for 10 days 20 capsule 2024 tirzepatide (Mounjaro) 5 mg/0.5 mL pen injector Inject 2.5 mg under the skin once a week 2 mL 025 2024 Discontinued Active Problems Problem Noted Date Diagnosed Date ESBL E. 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 Encouraged supportive care from family memebers. Hearing impaired person, left 02/05/2023 Assessment & Plan (02/05/2023 10:55 AM CLIENT HR MANAGER): Consider having hearing testing done and get [...] with some benefit. Will write rx for [facility] use. If no benefit, will consider trazodone or low dose maoi such as nortriptyline. Lives in [facility] 05/10/2021 Assessment & Plan (05/16/2023 2:19 PM CLIENT HR MANAGER): Medication list reconciled with medication list in epic. Assessment & Plan (05/10/2021 8:39 PM CLIENT HR MANAGER): Currently living [place]. Right now they [...] the Bentyl and then use it [facility] (current) use of opiate analgesic 01/11 Essential [...] 03/01/2018 Assessment & Plan (05/16/2023 2:18 PM CLIENT HR MANAGER): Clinically improved, continue current prescription medications, duloxetine, lorazepam, BuSpar. Assessment & Plan (02/05/2023 10:53 AM CLIENT HR MANAGER): Waxing and waning, continue Cymbalta, buspirone. Assessment & Plan (04/26/2022 1:15 PM CLIENT HR MANAGER): Stable. Cont. Current prescription medications, buspirone. Assessment & Plan (12/17/2021 4:53 PM CDT): Clinically improved, continue current prescription medications. Assessment & Plan (05/07/2020 2:25 PM CLIENT HR MANAGER): Stable on current medication. Continue Cymbalta and [...] agreement. Assessment & Plan (03/01/2018 3:56 PM CLIENT HR MANAGER): Psychological condition is worsening. Medication changes per orders. Psychological condition will be reassessed at the next regular appointment. Increased paroxetine 20mg po qd to 30 mg qd. Moderate episode of recurrent major depressive d isorder 03/01/2018 Assessment & Plan (05/16/2023 2:18 PM CLIENT HR MANAGER): Stable. Cont. Current prescription medications, duloxetine. Assessment & Plan (02/05/2023 10:54 AM CLIENT HR MANAGER): Stable. Cont. Current prescription medications, Cymbalta. Assessment [...] Alonso Assessment & Plan (04/26/2022 1:15 PM CLIENT HR MANAGER): Stable. Cont. Current prescription medications, duloxetine. Assessment & Plan (12/17/2021 4:53 PM CDT): Stable. Cont. Current prescription medications. Assessment & Plan (03/02/2021 2:23 PM CLIENT HR MANAGER): Stable on current medication. Continue cymbalta as [...] needed Assessment & Plan (05/07/2020 2:25 PM CLIENT HR MANAGER): Continues on Cymbalta Assessment & Plan (07/04/2019 11:04 AM CDT): Continue duloxetine Assessment & Plan (01/03/2019 1:23 PM CDT): Will increase cymbalta to 60mg daily. F/u 3 months Assessment & Plan (11/16/2018 10:12 AM CDT): Decrease paxil to 1/2 tablet x 7 days. Start cymbalta 30mg daily. F/u 1 month for recheck Assessment & Plan (03/01/2018 4:06 PM CLIENT HR MANAGER): Psychological condition is worsening. Medication changes per orders. Psychological condition will be reassessed at the next regular appointment. Increased paroxetine 20mg po qd to 30 mg qd. Obstructive sleep apnea 10/12/2017 Overview (10/12/2017): Managed by Dr. 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 Continue current pain medications, morphine, hydrocodone, meloxicam, Lyrica, duloxetine. Gastroesophageal reflux disease without esophagi tis 10/12/2017 Assessment & Plan (12/17/2021 4:53 PM CDT): Asymptomatic. Stable. Continue current prescription medications. Assessment & Plan (03/02/2021 2:26 PM CLIENT HR MANAGER): Stable on prilosec. Continue current medications. Assessment [...] 05/17/2017 Assessment & Plan (02/05/2023 11:02 AM CLIENT HR MANAGER): Deconditioned, generalized weakness, secondary to stroke and hemiparesis. Osteoporosis, postmenopausal 04/21/2017 Assessment & Plan (10/26/2022 12:38 PM CDT): Stable at this time. Will continue on Prolia every 6 months Assessment & Plan (04/26/2022 1:07 PM CLIENT HR MANAGER): Prolia was discontinued by mistake, patient's first stated that he was no longer taking her to get infusions, but later corrected himself. Rx re-ordered. Assessment & Plan (04/11/2019 2:41 PM CLIENT HR MANAGER): Patient had repeat Prolia injection today. Ordered DEXA scan. Patient aware and will complete DEXA scan soon Irritable bowel syndrome with diarrhea 7 Assessment & Plan (05/17/2018 11:44 AM CLIENT HR MANAGER): Discussed options for prn medication prior to meals, especially going out. Try bentyl. Discussed medication, usage. Pt and voiced understanding. Mixed hyperlipidemia due to type 2 diabetes mellitus ([facility]) 11/14/2013 Overview (06/17/2016): Hyperlipidemia Assessment & Plan (05/16/2023 2:16 PM CLIENT HR MANAGER): LDL at goal of less than 100, continue current prescription medications, pravastatin. Assessment & Plan (04/26/2022 1:09 PM CLIENT HR MANAGER): LDL at goal of less than 100, continue current prescription medications, pravastatin. Assessment & Plan (12/17/2021 4:53 PM CDT): LDL at goal of less than 100, continue current prescription medications. Assessment & Plan (10/24/2021 6:39 PM CDT): Labs reviewed. Continue current statin medication. F/u [address] Alonso Assessment & Plan (10/10/2021 12:32 PM CDT): Overdue for labs. [facility] says they can order them at their facility.Continue pravastatin 40mg daily. Assessment & Plan (03/02/2021 2:22 PM CLIENT HR MANAGER): Lipid abnormalities are stable. reviewed Pharmacotherapy as ordered. Lipids will be reassessed in 6 months. Assessment & Plan (09/02/2020 2:10 PM CDT): Lipid panel done in May by endocrinology. Reviewed. Stable. Continue current statin therapy Assessment & Plan (05/07/2020 2:28 PM CLIENT HR MANAGER): Cholesterol was just checked by endocrinology on 05/04 in office. Lipids were reviewed. Continue pravastatin 40 mg once daily. Assessment & Plan (10/28/2019 1:22 PM CDT): Lipid abnormalities are stable. Pharmacotherapy as ordered. Lipids will be reassessed in 6 months. Assessment & Plan (04/11/2019 2:33 PM CLIENT HR MANAGER): Lipid abnormalities are unchanged. Pharmacotherapy as ordered. Lipids will be reassessed in 6 months. Assessment & Plan (05/17/2018 11:43 AM CLIENT HR MANAGER): Lipid abnormalities are improving with treatment. Pharmacotherapy as ordered. Lipids will be reassessed in 6 months Lipid panel done recently and reviewed and was normal. Hemiparesis following cerebr ovascular accident (CVA) ([facility]) 11/14/2013 Overview (06/17/2016): CVA, old, hemiparesis Assessment & Plan (05/16/2023 2:17 PM CLIENT HR MANAGER): Wheelchair-bound. Patient currently on daily aspirin, pravastatin. Assessment & Plan (02/05/2023 10:53 AM CLIENT HR MANAGER): In wheelchair, requires assistance from her spouse and daughter. 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 Has brace for left foot. Currently resides [facility] Recently [facility] has been putting on foot brace and leaving it on at nighttime as well. This has caused a stage 1 pressure ulcer with callus to her left heel. Order written for her to have the foot brace removed at night. Leg is to be propped, lotion applied and skin check done nightly. Assessment & Plan (10/24/2021 6:32 PM CDT): penitentiary sequela. 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 Has brace for left foot. Currently resides in [facility] Assessment & Plan (05/10/2021 8:36 PM CLIENT HR MANAGER): Will refer to cardiology, but since there [...] order. Assessment & Plan (03/01/2018 4:06 PM CLIENT HR MANAGER): Patient is non-ambulatory and is unable to transfer on her own. Her , whom is her primary rn medicare, has been lifting her from the bed [...] paresthetica Assessment & Plan (04/26/2022 1:08 PM CLIENT HR MANAGER): Stable. Cont. Current prescription medications, Lyrica. Meralgia paresthetica 11/14/2013 Overview (02/12/2024): Meralgia paresthetica Last Assessment & Plan: Stable. Cont. Current prescription medications, Lyrica. Meralgia paresthetica Type 2 diabetes mellitus wit h hyperglycemia, with long-term current use of insulin 07/27/2013 Overview (06/16/2016): [facility] WO C[facility] Assessment & Plan (05/16/2023 2:16 PM CLIENT HR MANAGER): A1c previously above goal of less than 8.0. Labs ordered. Diabetes mellitus type 2 has been followed by her risk consulting treasury director in the past. Encouraged continued follow-up with [...] order to her to give to the [facility]. I have ordered this before and I [...] basis. Assessment & Plan (04/26/2022 1:17 PM CLIENT HR MANAGER): A1c above goal of < 8.0. Managed by Endocrinology. Cont current Rx meds, Trulicity, enalapril, Insulin 70/30, metformin xr. Assessment & Plan (12/23/2021 12:06 PM CDT): Diagnosed in 1993, and started insulin in 1999. With history of CVA causing left hemiparesis. ?? Control : above target affected by diet at [place] A1c 8.6% on 12/15/21 A1c 7.6% on [...] basis. Assessment & Plan (05/07/2020 2:25 PM CLIENT HR MANAGER): Managed by endocrinology Assessment & Plan (05/04/2020 1:50 PM CLIENT HR MANAGER): Diagnosed in 1993, and started insulin in [...] HYPERTENSION Assessment & Plan (05/16/2023 2:16 PM CLIENT HR MANAGER): Blood pressure is at goal of less [...] PCP Assessment & Plan (04/26/2022 1:16 PM CLIENT HR MANAGER): Blood pressure at goal less than 140/90, continue current prescription medications, enalapril. Assessment & Plan (12/17/2021 4:53 PM CDT): Clinically improved, continue current prescription medications. Assessment & Plan (10/10/2021 12:33 PM CDT): Do not have blood pressure readings from today. Nurse states blood pressure was normal during episode. Continue current medication. Labs as ordered. Will have her scheduled in office for AW soon Assessment & Plan (05/10/2021 8:36 PM CLIENT HR MANAGER): Stable/ Improved. Blood pressure is adequately controlled on current medication. We will not make any medication changes today. Will have her follow-up in 6 months for continued monitoring and management Assessment & Plan (03/02/2021 2:22 PM CLIENT HR MANAGER): Stable/ Improved. Blood pressure is adequately controlled [...] management Assessment & Plan (05/07/2020 2:24 PM CLIENT HR MANAGER): Stable/ Improved. Blood pressure is adequately controlled on current medication. We will not make any medication changes today. Will have her follow-up in 6 months for continued monitoring and management Assessment & Plan (05/04/2020 1:51 PM CLIENT HR MANAGER): Controlled with medication - low salt diet - continue medication per PCP Assessment & Plan (12/16/2019 2:00 PM CDT): Controlled with medication - low salt diet - continue medication per PCP Assessment & Plan (10/28/2019 1:19 PM CDT): Hypertension is improving with treatment. Continue current treatment regimen. Blood pressure will be reassessed 6 months. Assessment & Plan (04/11/2019 2:30 PM CLIENT HR MANAGER): Blood pressure is adequately controlled on current medication. We will not make any medication changes today. Will have her follow-up in 6 months for continued monitoring and management Assessment & Plan (05/17/2018 11:46 AM CLIENT HR MANAGER): Hypertension is improving with treatment. Continue current [...] adding an NSAID like Aleve 220 mg [id number] twice daily. Take with food. Discussed possible referral to shipping/receiving clerk. Employee Communications Intern would either be in [place] or [facility]. She has no history of rheumatoid arthritis. I told him it would be up to them if they wanted to see if her shipping/receiving clerk would have anything to offer her. They are going to try the Aleve 1st and also possibly talk to her pain management doctor. Resolved Problems Problem Noted Date Diagnosed Date Resolved Date Respiratory failure (CMS/HCC) 10/11/2023 11/10/2023 Dry throat 07/26/2022 10/26/2022 Assessment & Plan (07/26/2022 1:42 PM CDT): [facility] is very dry that she lives in. [...] nebulizer. Assessment & Plan (02/25/2022 9:26 PM CLIENT HR MANAGER): She has been tested for covid several times at her facility. Cough has been ongoing over the last couple of weeks. Will obtain cbc, cmp and cxr. Start doxycyline to treat for brondhitis. 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 for 10 [...] scheduled. Assessment & Plan (05/17/2018 11:43 AM CLIENT HR MANAGER): Reviewed screenings, immunizations and pt updated. Discussed care at home and she is getting adequate care for conditions at home with and [facility]. Screen for colon cancer 05/07/2018 09/0 07/2018 Overview (05/07/2018): Added automatically from request for surgery [id number] Chronic rhinitis 04/27/2018 05/17/2018 Assessment & Plan (04/27/2018 3:45 PM CLIENT HR MANAGER): Continue head of bed elevation Start Atrovent nasal spray twice daily, 2 sprays into each nostril while looking down over the sink, do not sniff in or blow nose after use Abnormality of gait followin g cerebrovascular accident (CVA) 03/01/2018 09/02/2020 Assessment & Plan (03/01/2018 3:56 PM CLIENT HR MANAGER): Non-ambulatory since 1998. Colisheryl RUQ abdominal pain 03/01/2018 0 11/15/2018 Assessment & Plan (03/01/2018 4:07 PM CLIENT HR MANAGER): Patient believes it's related to her IBS, would like to f/u with GI. Referral given. Hypersomnia 06/29/2017 09/02/2020 Healthcare maintenance 11/02/201609/02 Medication management 11/02/20162018 Age related osteoporosis 12/31/2014 Overview (06/17/2016): Age related osteoporosis Pain in pelvis 03/29/2012 09/02/2020 Arthralgia of hip 03/29/2012 09/02/2020 COVID 10/24/2021 Assessment & Plan (04/04/2021 7:33 PM CLIENT HR MANAGER): Stable. Finish decadron. Was given 4 days in hospital. Has 1 day left. May take otc cough syrup such as dextromethaphan short term. Recommended hot liquids such as tea. Call with any problems/concerns. Immunizations Name Administration Dates Next Due Flucelvax [...] 12/14/2011 ZOSTER LIVE 12/14/2011 ZOSTER Recombinant 07/13/2022 Social History Tobacco Use Types Packs/Day Years [...] on file Legal Sex Female 11:52 PM CLIENT HR MANAGER Gender Identity Not on file Sexual Orientation Not on file Last Filed Vital Signs Vital Sign Reading Time Taken Comments Blood Pressure 110/60 02/12/2024 10:30 AM CLIENT HR MANAGER Pulse 66 02/12/2024 10:30 AM CLIENT HR MANAGER Temperature 36 ??C (96.8 ??F) 02/12/2024 10:30 AM CLIENT HR MANAGER Respiratory Rate 18 02/12/2024 10:30 AM CLIENT HR MANAGER Oxygen Saturation 93% 02/12/2024 10:30 AM CLIENT HR MANAGER Inhaled Oxygen Concentration - - Weight 83.5 kg (184 lb) 11/10/2023 10:51 AM CDT Height 167.6 cm (5' 6 ) 11/10/2023 10:51 AM CDT Body Mass Index 29.7 11/10/2023 10:51 AM CDT Plan of Treatment Not on file Goals Goal Patient Goal Type Associated Problems Recent Progress Patient-Stated? Author [facility] On track( 019 1:34 PM CLIENT HR MANAGER) Cass Leiva, RN Note: Patient will establish a comfort-function goal and identify the pain level that will allow the patient to perform desired activities and achieve an acceptable quality of life. Procedures Procedure Name Priority Date/Time Associated Diagnosis Comments EGFR Routine 03/28/2024 8:00 AM CLIENT HR MANAGER Urinary tract infection without hematuria, site unspecified Altered mental status, unspecified altered mental status type DIFFERENTIAL AUTO Routine 03/28/2024 8:0 0 AM CLIENT HR MANAGER Urinary tract infection without hematuria, site unspecified Altered mental status, unspecified altered mental status type CBC WITH AUTO DIFFERENTIAL Routine 03/28/2024 8:00 AM CLIENT HR MANAGER Urinary tract infection without hematuria, site unspecified Altered mental status, unspecified altered mental status type COMPREHENSIVE METABOLIC PANEL Routine 03/28/2024 8:00 AM CLIENT HR MANAGER Urinary tract infection without hematuria, site unspecified Altered mental status, unspecified altered mental status type URINALYSIS AND REFLEX TO MICROSCOPIC AND CULTURE Routine 03/28/2024 8:00 AM CLIENT HR MANAGER Urinary tract infection without hematuria, site unspecified Altered mental status, unspecified altered mental status type PATHOLOGY REPORT Routine 03/19/2024 URINALYSIS, MICROSCOPIC ONLY Routine 03/08/2024 2:02 PM CLIENT HR MANAGER Acute cystitis without hematuria URINE CULTURE Routine 03/08/2024 2:02 PM CLIENT HR MANAGER URINALYSIS AND REFLEX TO MICROSCOPIC AND CULTURE Routine 03/08/2024 2:02 PM CLIENT HR MANAGER Acute cystitis without hematuria URINE CULTURE Routine 02/14/2024 11:51 AM CLIENT HR MANAGER Recurrent UTI EGFR Routine 02/12/2024 10:00 AM CLIENT HR MANAGER Hypertension associated with diabetes (HCC) DIFFERENTIAL AUTO Routine 02/12/2024 10: 00 AM CLIENT HR MANAGER Hypertension associated with diabetes (HCC) CBC WITH AUTO DIFFERENTIAL Routine 02/12/2024 10:00 AM CLIENT HR MANAGER Hypertension associated with diabetes (HCC) COMPREHENSIVE METABOLIC PANEL Routine 02/12/2024 10:00 AM CLIENT HR MANAGER Hypertension associated with diabetes (HCC) HEMOGLOBIN A1C Routine 02/12/2024 10:00 AM CLIENT HR MANAGER Hypertension associated with diabetes (HCC) LIPID PANEL Routine 02/12/2024 10:00 AM CLIENT HR MANAGER Hypertension associated with diabetes (HCC) VITAMIN D 25 HYDROXY Routine 02/12/2024 10:00 AM CLIENT HR MANAGER Vitamin D deficiency ALBUMIN CREATININE RATIO, URINE Routine 11/14/2023 2:12 PM CDT Type 2 diabetes mellitus with hyperglycemia, with long-term current use of insulin (HCC) DEXA AXIAL SKELETON BONE DENSITY 1 OR MORE SITES Schedule Routine, Read Routine (OP Routine) 02/01/2022 11:09 AM CLIENT HR MANAGER Screening for osteoporosis Postmenopausal DIABETIC EYE EXAM Routine 12/29/2020 SCREENING MAMMOGRAM 2D BILATERAL Schedule Routine, Read Routine (OP Routine) 01/21/2020 DIABETES FOOT EXAM Routine 01/09/2019 COLONOSCOPY 06/08/2018 9:46 AM CDT HEPATITIS C SCREENING Routine 05/31/1999 from Last 3 Months or Most Recently Relevant to Health Maintenance Results * eGFR (03/28/2024 8:00 AM CLIENT HR MANAGER) eGFR >90 >=60 mL/min/1. 73 m2 Comment: [...] last reviewed 2021. Blood 03/28/2024 8:00 AM CLIENT HR MANAGER 03/28/2024 4:06 PM CLIENT HR MANAGER us Bertin Strong MD LAB BLOOD ORDERABLES Final Result Performing Organization Address City/State/[facility] Phone Number ALFRED [phone] [address] Department [place] [address] * (ABNORMAL) Differential, auto (03/28/2024 8:00 AM CLIENT HR MANAGER) Neutrophil abs 4.0 1.5 - 6.5 K/cumm Imm gran abs 0.0 0.0 - 0.1 K/cumm [facility] Lymphocyte abs 4.0(H) 0.8 - 3.3 K/cumm [facility] Monocyte abs 0.8 0.2 - 0.8 K/cumm [facility] Eosinophil abs 0.3 0.0 - 0.5 K/cumm [facility] Basophil abs 0.1 0.0 - 0.1 K/cumm [facility] Neutrophil pct 43.7 % [facility] Comment: Interpretive Data Percent cell count reference ranges are not reported, since discordance with absolute values may lead to misinterpretation of CBC data. Current Interpretive Data was last revised on 2017. Imm gran pct 0.4 % [facility] Comment: Interpretive Data Percent cell count reference ranges are not reported, since discordance with absolute values may lead to misinterpretation of CBC data. Current Interpretive Data was last revised on 2017. Lymphocyte pct 43.6 % [facility] Comment: Interpretive Data Percent cell count reference ranges are not reported, since discordance with absolute values may lead to misinterpretation of CBC data. Current Interpretive Data was last revised on 2017. Monocyte pct 8.3 % [facility] Comment: Interpretive Data Percent cell count reference ranges are not reported, since discordance with absolute values may lead to misinterpretation of CBC data. Current Interpretive Data was last revised on 2017. Eosinophil pct 3.2 % [facility] Comment: Interpretive Data Percent cell count reference ranges are not reported, since discordance with absolute values may lead to misinterpretation of CBC data. Current Interpretive Data was last revised on 2017. Basophil pct 0.8 % [facility] Comment: Interpretive Data Percent cell count reference ranges are not reported, since discordance with absolute values may lead to misinterpretation of CBC data. Current Interpretive Data was last revised on 2017. Blood 03/28/2024 8:00 AM CLIENT HR MANAGER 03/28/2024 4:06 PM CLIENT HR MANAGER us Bertin Strong MD LAB BLOOD ORDERABLES Final Result ALFRED [id number] [address] Department [place] [address] * Urinalysis reflex to microscopic and culture Urine, clean voided (03/28/2024 8:00 AM CLIENT HR MANAGER) Color, ur Yellow Yellow Clarity, ur Clear Clear [facility] Specific gravity, ur 1.024 1.003 - 1.030 [facility] pH, urine 6.0 [facility] Comment: Interpretive Data ? Urine pH is affected by diet, medications, systemic acid-base disturbances, and renal tubular function. ??pH may affect urinary stone formation. ??For example, urine pH below 6.0 may help reduce the tendency for calcium phosphate stones and pH greater than 6.0 may reduce the tendency for uric acid stone formation. Source: [facility] Current Interpretive Data was last revised on [...] for microscopic UA and culture not met. [facility] Urine, clean voided 03/28/2024 8:00 AM CLIENT HR MANAGER 03/28/2024 4:06 PM CLIENT HR MANAGER us Bertin Strong MD LAB MICROBIOLOGY - GENERAL ORDERABLES Final Result [facility] [id number] [address] Department [place] [address] * (ABNORMAL) CBC with auto differential (03/28/2024 8:00 AM CLIENT HR MANAGER) WBC 9.3 3.8 - 9.9 K/cumm Hgb 11.0(L) 11.9 - 15.5 g/dL [facility] Hct 36.7 35.6 - 45.5 % [facility] Plt 461(H) 150 - 400 K/cumm [facility] MPV 12.0 9.1 - 12.3 fL [facility] RBC 3.85(L) 3.90 - 5.20 M/cumm [facility] MCV 95.3 81.3 - 96.4 fL [facility] MCH 28.6 27.1 - 33.3 pg [facility] MCHC 30.0(L) 32.3 - 35.7 g/dL [facility] RDW CV 15.7(H) 11.1 - 14.9 % [facility] RDW SD 55.1(H) 35.7 - 48.1 fL [facility] NRBC abs 0.00 0.00 - 0.01 K/cumm [facility] Blood 03/28/2024 8:00 AM CLIENT HR MANAGER 03/28/2024 4:06 PM CLIENT HR MANAGER Bertin Strong MD LAB [place] [address] [address] Department [place] [address] * (ABNORMAL) Comprehensive metabolic panel (03/28/2024 8:00 AM CLIENT HR MANAGER) Sodium 143 135 - 145 mmol/L Potassium, [...] classification and Diagnosis of Diabetes Diabetes Care 202; 46: S19-S40. Current interpretive data was last [...] Units/L [facility] Blood 03/28/2024 8:00 AM CLIENT HR MANAGER 03/28/2024 4:06 PM CLIENT HR MANAGER Bertin Strong MD LAB BLOOD ORDERABLES Final Result Performing Organization Address City/[facility]/ZIP Co de Phone Number [facility] [phone] [address] Department [place] [address] * Pathology Report (03/19/2024) [facility] Provider LAB BLOOD ORDERABLES Leda l Result Performing Organization Address City/[facility] Co de Phone Number EXTERNAL LAB * (ABNORMAL) Urinalysis reflex to microscopic and culture Urine (03/08/2024 2:02 PM CLIENT HR MANAGER) Color, ur Yellow Yellow Clarity, ur Turbid(A) [...] tendency for uric acid stone formation. Source: [facility] [id number] Current Interpretive Data was last revised on [...] performed. [facility] Urine 03/08/2024 2:02 PM CLIENT HR MANAGER 03/08/2024 9:05 PM CLIENT HR MANAGER Bertin Strong MD LAB MICROBIOLOGY - GENERAL ORDERABLES Final Result Performing Organization Address [facility] Co de Phone Number ALFRED [place] [phone] [address] Department of Laboratories [place], [place] [id number] * (ABNORMAL) Urinalysis, microscopic only (03/08/2024 2:02 PM CLIENT HR MANAGER) WBC, ur >50(A) 0 - 5 /HPF RBC, ur 3-5(A) 0 - 2 /HPF [facility] Epithelial cells, squamous, ur 1-5 0 - 5 /HPF [facility] Bacteria, ur 1+(A) [facility] Mucous, ur Present(A) [facility] Calcium oxalate crystals, ur 3+(A) [facility] Culture Reflex Comment Reflex to urine culture will be performed. [facility] Urine 03/08/2024 2:02 PM CLIENT HR MANAGER 03/08/2024 9:05 PM CLIENT HR MANAGER Bertin Strong MD LAB URINE ORDERABLES Final Result Performing Organization Address [facility] de Phone Number ALFRED [place] [address] Department [place] [address] * (ABNORMAL) Urine culture Urine (03/08/2024 2:02 PM CLIENT HR MANAGER) Report Final Report: Greater than or equal [...] infectious diseases. (.) Comment:Testing performed by : [facility], [address], [place]., [address] Organism ESCHERICHIA COLI [facility] Organism ESCHERICHIA COLI [facility] Urine 03/08/2024 2:02 PM CLIENT HR MANAGER 03/09/2024 12:38 AM CLIENT HR MANAGER Narrative ALFRED CHARISSA - 03/12/2024 7:40 AM CLIENT HR MANAGER Urine culture reflexed based upon urinalysis results. Testing performed by [facility] Microbiology Laboratory ([phone]) Organism Antibiotic Method Susceptibility Escherichia coli Ampicillin [...] MICROBIOLOGY - GENERAL ORDERABLES Final Result ALFRED CHARISSA [id number] [address] Department [place] [address] * (ABNORMAL) Urine culture Urine, clean voided (02/14/2024 11:51 AM CLIENT HR MANAGER) Report Final Report: Greater than or equal to 100,000 colonies/mL of Escherichia coli The susceptibility pattern of this Escherichia coli indicates the possible production of an extended spectrum beta lactamase (ESBL). ??Patients infected with ESBL-producing organisms require contact isolation precautions. ??For therapeutic options for this organism, please contact infectious diseases. (.) Comment:Testing performed by : [facility], [address] [place]., [address] Organism ESCHERICHIA COLI ALFRED Urine, clean voided 02/14/2024 11:51 AM CLIENT HR MANAGER 02/15/2024 12:20 AM CLIENT HR MANAGER Narrative ALFRED - 02/18/2024 7:31 AM CLIENT HR MANAGER Testing performed by [facility] Microbiology Laboratory ([phone]) Organism Antibiotic Method Susceptibility Escherichia coli Ampicillin [...] MICROBIOLOGY - GENERAL ORDERABLES Final Result ALFRED [id number] [address] Department of Laboratories [place], [place] [id number] * eGFR (02/12/2024 10:00 AM CLIENT HR MANAGER) eGFR 90 >=60 mL/min/1. 73 m2 Comment: [...] reviewed 2021. Blood 02/12/2024 10:0 0 AM CLIENT HR MANAGER 02/12/2024 6:49 PM CLIENT HR MANAGER us Bertin Strong MD LAB BLOOD ORDERABLES Final Result [facility] [phone] [address] Department [place] [address] * Differential, auto (02/12/2024 10:00 AM CLIENT HR MANAGER) Neutrophil abs 5.2 1.5 - 6.5 K/cumm Imm gran abs 0.0 0.0 - 0.1 K/cumm [facility] Lymphocyte abs 2.8 0.8 - 3.3 K/cumm [facility] Monocyte abs 0.7 0.2 - 0.8 K/cumm [facility] Eosinophil abs 0.1 0.0 - 0.5 K/cumm [facility] Basophil abs 0.0 0.0 - 0.1 K/cumm [facility] Neutrophil pct 58.8 % [facility] Comment: Interpretive Data Percent cell count reference ranges are not reported, since discordance with absolute values may lead to misinterpretation of CBC data. Current Interpretive Data was last revised on 2017. Imm gran pct 0.2 % [facility] Comment: Interpretive Data Percent cell count reference ranges are not reported, since discordance with absolute values may lead to misinterpretation of CBC data. Current Interpretive Data was last revised on 2017. Lymphocyte pct 31.4 % [facility] Comment: Interpretive Data Percent cell count reference ranges are not reported, since discordance with absolute values may lead to misinterpretation of CBC data. Current Interpretive Data was last revised on 2017. Monocyte pct 8.2 % [facility] Comment: Interpretive Data Percent cell count reference ranges are not reported, since discordance with absolute values may lead to misinterpretation of CBC data. Current Interpretive Data was last revised on 2017. Eosinophil pct 1.1 % [facility] Comment: Interpretive Data Percent cell count reference ranges are not reported, since discordance with absolute values may lead to misinterpretation of CBC data. Current Interpretive Data was last revised on 2017. Basophil pct 0.3 % [facility] Comment: Interpretive Data Percent cell count reference ranges are not reported, since discordance with absolute values may lead to misinterpretation of CBC data. Current Interpretive Data was last revised on 2017. Blood 02/12/2024 10:0 0 AM CLIENT HR MANAGER 02/12/2024 6:39 PM CLIENT HR MANAGER us Bertin Strong MD LAB BLOOD ORDERABLES Final Result Performing Organization Address City/State/[facility] Co de Phone Number ALFRED [phone] [address] Department [place] [address] * (ABNORMAL) CBC with auto differential (02/12/2024 10:00 AM CLIENT HR MANAGER) WBC 8.9 3.8 - 9.9 K/cumm Hgb 12.6 11.9 - 15.5 g/dL [facility] Hct 42.1 35.6 - 45.5 % [facility] Plt 318 150 - 400 K/cumm [facility] MPV 12.2 9.1 - 12.3 fL [facility] RBC 4.35 3.90 - 5.20 M/cumm [facility] MCV 96.8(H) 81.3 - 96.4 fL [facility] MCH 29.0 27.1 - 33.3 pg [facility] MCHC 29.9(L) 32.3 - 35.7 g/dL [facility] RDW CV 15.2(H) 11.1 - 14.9 % [facility] RDW SD 54.6(H) 35.7 - 48.1 fL [facility] NRBC abs 0.00 0.00 - 0.01 K/cumm [facility] Blood 02/12/2024 10:0 0 AM CLIENT HR MANAGER 02/12/2024 6:39 PM CLIENT HR MANAGER Bertin Strong MD LAB BLOOD ORDERABLES Final Result Performing Organization Address [facility] Co de Phone Number [facility] [phone] [address] [facility] [id number] [address] * Vitamin D 25 hydroxy (02/12/2024 10:00 AM CLIENT HR MANAGER) Pathologist [facility] Vitamin D 25-OH 35 30 - 80 ng/mL Blood 02/12/2024 10:0 0 AM CLIENT HR MANAGER 02/12/2024 6:39 PM CLIENT HR MANAGER Bertin Strong MD LAB BLOOD ORDERABLES Final Result Performing Organization Address [facility] de Phone Number [facility] [phone] [address] [facility] [id number] [address] * (ABNORMAL) Hemoglobin A1c (02/12/2024 10:00 AM CLIENT HR MANAGER) Hgb A1C 8.2(H) 4.0 - 5.6 % Estimated Average Glucose 189 mg/dL [facility] Comment: The ADA recommends reporting an estimated Average Glucose (eAG) with all Hemoglobin A1c results using the equation derived from a study of 507 normal and diabetic adults. ??Minority populations were underrepresented and children were not included. ?? (Diabetes Care 31:5721-7855, 2008). ??The eAG is not equivalent to a fasting glucose. Blood 02/12/2024 10:0 0 AM CLIENT HR MANAGER 02/12/2024 6:39 PM CLIENT HR MANAGER us Bertin Strong MD LAB BLOOD ORDERABLES Final Result Performing Organization Address City/State/ZIP Co sd Phone Number ALFRED [place] [address] [address] Department [place] [address] * (ABNORMAL) Lipid panel (02/12/2024 10:00 AM CLIENT HR MANAGER) Cholesterol 187 30 - 199 mg/dL Comment: [...] mg/dL ??High: ?>160 mg/dL Calculated using the Steve LDL-C estimating equation. This equation was implemented on 2023. Prior to this date LDL-C was estimated using the Friedewald equation. Literature References: 1. Expert Panel on Integrated Guidelines for Cardiovascular Health and Risk Reduction in Children and Adolescents. Pediatrics 2011;128:S213 2. NCEP Expert Panel. Circulation 2004;110:227 3. Steve Cardenas et al. ALIZA Cardiol. 2020 July 11;5(5):540-548. doi: 10.1001/jamacardio.2020.0013 Current Interpretive Data was last revised on 2023. Non-HDL Cholesterol 140 mg/dL [facility] Comment: Interpretive Data Ages < or = [...] revised on 2017. Chol/HDL ratio 4 [facility] Blood 02/12/2024 10:0 0 AM CLIENT HR MANAGER 02/12/2024 6:39 PM CLIENT HR MANAGER us Bertin Strong MD LAB BLOOD ORDERABLES Final Result [facility] [id number] [address] Department [place] [address] * (ABNORMAL) Comprehensive metabolic panel (02/12/2024 10:00 AM CLIENT HR MANAGER) Sodium 140 135 - 145 mmol/L Potassium, pl 4.5 3.3 - 4.9 mmol/L [facility] Chloride 102 97 - 110 mmol/L [facility] CO2 29 22 - 32 mmol/L [facility] Anion gap 9 2 - 15 mmol/L [facility] BUN 13 6 - 25 mg/dL [facility] Creatinine 0.64 0.60 - 1.10 mg/dL [facility] Glucose 162 70 - 199 mg/dL [facility] Comment: Interpretive Data Fasting glucose >/= 126 [...] [facility] Blood 02/12/2024 10:0 0 AM CLIENT HR MANAGER 02/12/2024 6:39 PM CLIENT HR MANAGER Result [facility] Bertin Strong MD LAB BLOOD ORDERABLES Final Result Performing Organization Address [facility] Phone Number [facility] [phone] [address] [employer] [address] * Albumin Creatinine Ratio, Urine (11/14/2023 2:12 PM CDT) Albumin Ur <12.0 mg/L Comment: Interpretive Data No reference range established. Current interpretive data was last revised 2018. Creatinine Ur 46.7 mg/dL [facility] Comment: Interpretive Data No reference range established. Current interpretive data was last revised 2018. Albumin Creatinine Ratio, Ur <26 1 - 29 mg/g [facility] Urine 11/14/2023 2:12 PM CDT 11/14/2023 9:29 PM CDT Bertin Strong MD LAB URINE ORDERABLES Final Result Performing Organization Address [facility] Phone Number [facility] [phone] [address] Department [employer] [place], [place] [id number] * Dexa Axial Skeleton Bone Density 1 or 2 Site (02/01/2022 11:09 AM CLIENT HR MANAGER) Anatomical Region Laterality Modality Body N/A Other 02/01/2022 10:1 7 PM CLIENT HR MANAGER Narrative 02/01/2022 10:18 PM CLIENT HR MANAGER EXAM DESCRIPTION: ?? DEXA AXIAL SKELETON BONE DENSITY 1 OR MORE SITES REASON FOR STUDY: ?77 y/o ?? year old ?? F ??with given history of screening. ?? Postmenopausal Configuration Management Architect/Model: ?? [employer] (S/N [id number]) CLINICAL INFORMATION: Current height: ?? 66 ??inches [...] PM T: ??02/01/2022 10:18 PM Report ID: [id number] Reading Location: ??[id number] Procedure Note Beni Stanley MD - 02/01/2022 EXAM DESCRIPTION: DEXA AXIAL SKELETON BONE DENSITY 1 OR MORE SITES REASON FOR STUDY: 77 y/o year old F with given history ofscreening. Postmenopausal Configuration Management Architect/Model: [employer] (S/N [id number]) CLINICAL INFORMATION: Current height: 66 inches Maximum [...] Beni Stanley M.D. MF: [id number] Report ID: [id number] Reading Location: [place] [address] us Sierra Rivaslara Alonso DO IMG DXA PROCEDURES Final R esult * Diabetic Eye Exam (12/29/2020) us Historical Provider HEALTH MAINTENANCE Final Result * Screening Mammogram 2D Bilateral (01/21/2020) SCRIBED BI-RADS 0 Anatomical Region Laterality Modality Breast Bilateral Mammography Lamar Barrientos SURGEON CHIEF IMG MAMMO PROCEDURES Final Resul t * HM DIABETES FOOT EXAM (01/09/2019) Diabetic Foot Exam Unknown us Param Penaloza MD HEALTH MAINTENANCE Final Resul t * COLONOSCOPY (06/08/2018 9:46 AM CDT) Anatomical Region Laterality Modality Other Narrative Procedure Note Ashley Urias MD - 06/08/2018 9:46 AM CDT [facility] Patient Name: Faith Jenkins Procedure Date: 06/08/2018 9:46 AM Date of : 1945 Admit Type: Outpatient Age: 73 Gender: Female Attending MD: Ashley Urias M.D. Room: [facility] ENDOSCOPY ROOM 1 Note Status: Finalized Patient Profile: 73 WF, h/o adenoma polyps, her grandfather and 2unvles had colon cancer. Procedure: Colonoscopy Indications: Colon cancer screening in patient at increased risk: Family history of colorectal cancer in multiple 2nd degree relatives, High risk colon cancersurveillance: Personal history of colonic polyps, Lastcolonoscopy: May 2013 Referring MD: Philip De Los Santos Providers: Ashley Urias M.D. Impression: - External [...] passed under direct vision.The Pediatric Colonoscope [id number] was introduced through the anus and advanced [...] 9:46 AM Procedure Code(s): --- Professional --- 35384, Colonoscopy, flexible; with biopsy, single or multiple Diagnosis Code(s): --- Professional --- Z80.0, Family history of malignant neoplasm of digestive organs Z86.010, Personal history of colonic polyps K64.8, Other hemorrhoids D12.4, Benign neoplasm of descending colon K57.30, Diverticulosis of large intestine without perforation orabscess without bleeding CPT copyright 2017 [employer]. All rights reserved. The codes documented in this report are preliminary and upon senior international tax manager reviewmay be revised to meet current compliance requirements. Recognized by the [employer] for promoting quality in endoscopy Ashley Urias MD ENDOSCOPY PROCEDURES Final Result * HEPATITIS C SCREENING (05/31/1999) HEP C Normal Comment:Negative Historical Provider HEALTH MAINTENANCE Final Result from Last 3 Months or Most Recently Relevant to Health Maintenance Additional Health Concerns Infection Onset Date Last Indicated MDR gram neg/ESBL Comment:ESBL E.coli urine 02/14/2024, 03/08/2024 02/14/20242023 Insurance MEDICARE IDIN MEDICARE IDPA [facility] MEDICARE Advance Directives For more information, please contact: [phone] * Full Code (Latest Code Status on File) Date Activated Date Inactivated Comments 03/30/2021 9:43 PM 03/31/2021 4:59 PM * Full Code Date Activated Date Inactivated Comments 06/08/2018 8:38 AM 06/08/2018 4:01 PM * Full Code Date Activated Date Inactivated Comments 06/08/2018 8:38 AM 06/08/2018 8:38 AM Care Teams Auricular Therapist Relationship Specialty Start Date End Date Bertin Strong MD [address] [place] [address] PCP - General Family Medicine 11/10/23 Idalmis Wright, CELIA Registered Nurse Pain Management 07/04/17 Desi Mayfield, PT Physical Therapist Physical Therapy 10/13/17 Nico Hinson MD Anesthesiologist Anesthesiology 09/02/20 Param Penaloza MD [address] [place] [address] [address] [place] [address] Consulting Physician Endocrinology 09/02/20 Robert Vazquez OD [address] [place] [address] Optometry 11/10/23
--- OUTSIDE RECORDS SUMMARY | 2024-04-06 15:53 | XMS_ITS | Encounter Summary ---
Author Organization [facility] Address [address] [place] [address] Care Team Providers Care Collection Systems Administrator Name Role Phone Unavailable Primary Care Provider Unavailabl e Encounter Details Date Type Department Care Team (Late st Contact Info) Description 08/11/2020 Lab Requisition [facility] [address] [place] [id number] José Miguel Mohan Jr., MD [address] [place] [address] Social History Tobacco Use Types Packs/Day Years Used Date Smoking Tobacco: Never Assessed Sex and Gender Information Value Date Recorded Sex Assigned at Not on file Gender Identity Not on file Sexual Orientation Not on file documented as of this encounter Plan of Treatment Not on file documented as of this encounter Procedures Procedure Name Priority Date/Time Associated Diagnosis Comments DERMATOPATHOLOGY Routine 08/06/2020 3:33 AM CDT documented in this encounter Results * DERMATOPATHOLOGY (08/06/2020 3:33 AM CDT) Case Report Dermatopathology Report ? Case: [id number] ? Authorizing Provider: ??José Miguel Mohan Jr., MD ??Collected: ? 08/06/2020 03:33 AM ? Ordering Location: ? [facility] ?Received: ?08/11/2020 07:07 AM ? Pathologist: ? Joanna Chase, ? MD ? Specimen: ?Skin, right axillary vault ? 5:20 PM CDT DERMATOPATHOLOGY LABORATORY Final Diagnosis Specimen A. SKIN, right axillary vault: EPIDERMOID CYST (L72.0) NOT PRESENT AT SAMPLED MARGIN (see microscopic description) 5:20 PM T DERMATOPATHOLOGY LABORATORY Clinical History Cyst. Check margins. . 5:20 PM T DERMATOPATHOLOGY LABORATORY Gross Description Specimen A: Received is one formalin filled container labeled with the patient's name and designated right axillary vault. The specimen consists of a non-oriented ellipse of skin measuring [id number], bisected.The margin is inked green. Jar 0. [...] extends to the edge of the specimen. 1 5:20 PM CDT DERMATOPATHOLOGY LABORATORY Disclaimer An external and internal positive and negative controls are appropriate for the histochemical, immunohistochemical and immunofluorescence stain(s) in this case (if any), except where stated explicitly. The performance characteristics of the stain(s) cited in this report were developed and its performance characteristic determined by the Dermatopathology Laboratory at [facility], directed by Dr. Jamal Dean. These tests need not be, and therefore are not, approved by the [place] Food and Drug Administration. The tests are used for clinical purposes. Billing Codes Specimen Charges Stain Charges 83207 1 1 5:20 PM CDT DERMATOPATHOLOGY LABORATORY Embedded Images 1 5:20 PM CDT DERMATOPATHOLOGY LABORATORY Pathology/Cytolo gy TISSUE SPECIMEN FROM SKIN / Unknown 08/06/2020 3:33 AM CDT 08/11/2020 7:07 AM CDT José Miguel Mohan Jr., MD LAB - PATHOLOGY /CYTOLOGY ORDERABLES DERMATOPATHOLOGY LABORATORY [facility] - Department of Dermatology [address], [address] [phone] documented in this encounter Visit Diagnoses Not on filedocumented in this encounter
--- OUTSIDE RECORDS SUMMARY | 2024-04-06 15:53 | XMS_ITS | Encounter Summary ---
Author Organization [facility] Address [address] [place] [address] Care Team Providers Care Energy Rater Name Role Phone Idalmis Wright RN Unavailable Unavailab Desi Connell PT Unavailable Unavailable Lamar Barrientos NP Primary Care Provider [phone] Nico Hinson MD Unavailable [phone] Param Penaloza MD Unavailable [phone] Sierra Alonso DO Primary Care Provider [phone] Robert Vazquez OD Unavailable Bertin Strong MD Primary Care Provider Encounter Details Date Type Department Care Team (Late st Contact Info) Description 01/31/2022 Telephone [facility] [address] [place] [address] Maeve Mendoza, RT Social History Tobacco Use Types Packs/Day Years Used Date Smoking Tobacco: Former Cigarettes 1 56 0 03/13/1960 - 03/12/2016 Smokeless Tobacco: Never Alcohol Use Standard Drinks/Week Comments No 0 (1 standard drink = 0.6 oz pur e alcohol) PHQ-2 Answer Date Recorded PHQ-2 Total Score (If total score is 3 or more points, staff should administer the PHQ-9) 5 12/27/2021 Comments No Sex and Gender Information Value Date Recorded Sex Assigned at Not on file Legal Sex Female 11:52 PM BRICK POINTER Gender Identity Not on file Sexual Orientation Not on file documented as of this encounter Plan of Treatment Not on file documented as of this encounter Goals Goal Patient Goal Type Associated Problems Recent Progress Patient-Stated? Author [facility] On track( 019 1:34 PM BRICK POINTER) Cass Leiva RN Note: Patient will establish a comfort-function goal and identify the pain level that will allow the patient to perform desired activities and achieve an acceptable quality of life. documented as of this encounter Visit Diagnoses Not on filedocumented in this encounter Additional Health Concerns Infection Onset Date Last Indicated Resolved Time COVID: Suspected 02/22/2022 02/22/2022 02/22/2022 11:33 AM BRICK POINTER MDR gram neg/ESBL Comment:ESBL E.coli urine 02/14/2024, 03/08/2024 02/14/2024 03/08/2024 documented as of this encounter Care Teams Energy Rater Relationship Specialty Start Date End Date Lamar Barrientos NP PCP - General Family Medicine 11/15/18 05/11/23 Sierra Alonso DO [address] [place] [address] PCP - General Family Medicine 05/12/23 11/09/23 Bertin Strong MD [address] [address] PCP - General Family Medicine 11/10/23 Idalmis Wright, CELIA Registered Nurse Pain Management 07/04/17 Desi Mayfield, CHAPIN Physical Therapist Physical Therapy 10/13/17 Nico Hinson MD Anesthesiologist Anesthesiology 09/02/20 Param Penaloza MD [address] [place] [address] DR [address] [place] [id number] Consulting Physician Endocrinology 09/02/20 Robert Vazquez OD [address] [place] [address] Optometry 11/10/23 documented as of this encounter
[2024-04-06] MEDS: MORPHINE SULFATE INJ (*CRX) 50 MG in SODIUM CHLORIDE 0.9% IV 95 ML IV CONT (16:34)
[2024-04-06 18:34] VITALS: BP 113/46; PULSE 127; RESP 20; TEMP 36.7; O2SAT 91
[2024-04-06 18:44] VITALS: O2SAT 92
[2024-04-06 18:48] VITALS: BMI 27.0
[2024-04-06 20:00] VITALS: O2SAT 92
[2024-04-06] MEDS: ARTIFICIAL TEARS OPHTH SOLN 15 ML BOTTLE 1 DROP EACH EYE (22:09)
[2024-04-06 23:15] VITALS: BP 139/35; PULSE 137; RESP 18; TEMP 36.8; O2SAT 91
[2024-04-07] MEDS: ARTIFICIAL TEARS OPHTH SOLN 15 ML BOTTLE 1 DROP EACH EYE ×3 (06:12→21:16)
[2024-04-07 07:42] VITALS: BP 151/56; PULSE 139; RESP 18; TEMP 36.8; O2SAT 90
[2024-04-07 08:00] VITALS: O2SAT 94
--- NOTE | 2024-04-07 08:08 | P.HP_ITS ---
H&P: HPI History of Present Illness Date/Time: 04/07/24 08:08 Chief Complaint: uncontrolled pain Narrative: 79-year-old female with dense left hemiparesis was previously on hospice due to stroke. She was discharged for extended prognosis. However yesterday she status changes and presented the emergency room by EMS. She was found to have an abnormal urinalysis with 4+ bacteria and positive nitrates although no significant pyuria. She was hypoxic and febrile with tachycardia and clinically septic. Due to her all status her family opted for readmission to inpatient hospice for control of restlessness and pain. Since initiation of morphine 1 milligram/hour she remained comfortable overnight. Review of Systems Review of Systems: ROS unobtainable: Yes unobtainable due to medical condition PMFSH Past Medical History Medical History Vitamin D deficiency, unspecified Unspecified fracture of lower end of left humerus, subsequent encounter for fracture with nonunion Primary generalized (osteo)arthritis Muscle weakness (generalized) Hyperlipidemia, unspecified 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 non-dominant side Gastro-esophageal reflux disease without esophagitis Encounter for immunization Constipation, unspecified Cerebral atherosclerosis Vitamin deficiency, unspecified Urinary tract infection, site not specified Type 2 diabetes mellitus without complications Polyneuropathy, unspecified Major depressive disorder, recurrent, mild Generalized anxiety disorder Cerebral infarction, unspecified 1998 Body mass index [BMI] 32.0-32.9, adult Neuropathy Hypertension Left hemiplegia none Family History Family History Mother Breast cancer Diabetes mellitus Father Chronic obstructive pulmonary disease Black lung disease Social History Social History Social History: DNR with comfort focused treatment per POLST signed 04/28/21 Smoking status: Former smoker Tobacco type: cigarettes Second hand tobacco smoke exposure: Yes Alcohol intake: never Substance use: never Substance use type: does not use Do You Feel Safe in your Home?: Yes Lack of Transportation: No Lack of Food: Never True Current Housing: I Have Housing Concerned About Future Housing: No Difficulty Paying Gas/Electric Bills: No Difficulty Paying for Meds: No Currently Unemployed: No Education: High School Diploma/GED Difficulty w/ Childcare or Family Care: No Living arrangements: skilled nursing Additional living arrangements comments: [facility] Spiritual care concerns: Yes Meds Home Medications and Allergies Home Medications ?Medication ?Instructions ?Recorded ?Confirmed ?Type buspirone 15 mg tablet 15 mg PO .q 12 03/14/24 04/06/24 History duloxetine 30 mg capsule,delayed 30 mg PO HS 03/14/24 04/06/24 History release duloxetine 60 mg capsule,delayed 60 mg PO DAILY 03/14/24 04/06/24 History release enalapril maleate 10 mg tablet 10 mg PO Q24H 03/14/24 04/06/24 History metformin 1,000 mg tablet 1,000 mg PO DAILY 03/14/24 04/06/24 History metoprolol tartrate 25 mg tablet 25 mg PO Q12H hypertension 03/14/24 04/06/24 History ondansetron 4 mg disintegrating 4 mg PO Q8H PRN nausea 03/14/24 04/06/24 History tablet aspirin 81 mg chewable tablet 81 mg PO DAILY@0800 #30 tabs 03/21/24 04/06/24 Rx (Children's Aspirin) hydrocodone 5 mg-acetaminophen 325 1 tablet PO PRN PRN pain #1 tablet 03/21/24 04/06/24 Rx mg tablet levetiracetam 500 mg tablet 500 mg PO Q12HR #60 tabs 03/21/24 04/06/24 Rx (Keppra) pregabalin 150 mg capsule 150 mg PO Q8H #1 cap 03/21/24 04/06/24 Rx Allergies Allergy/AdvReac Type Severity Reaction Status Date / Time codeine Allergy Intermediate Headache Verified 04/23/21 11:39 Vital Signs Vital Signs - 24 hr 04/06/24 18:34 04/06/24 18:44 04/06/24 20:00 Temperature 98.1 F Pulse Rate 127 H Respiratory Rate 20 Blood Pressure 113/46 L Pulse Oximetry 91 92 92 Oxygen Delivery Nasal Cannula Nasal Cannula Oxygen Flow Rate 4 4 04/06/24 23:15 04/07/24 07:42 Temperature 98.2 F 98.3 F Pulse Rate 137 H 139 H Respiratory Rate 18 18 Blood Pressure 139/35 L 151/56 H Pulse Oximetry 91 90 Oxygen Delivery Oxygen Flow Rate Exam Narrative: HEENT: PERRL, sclerae nonicteric, pharyngeal mucosa pink and intact NECK: No JVD CHEST: Clear to auscultation. Normal effort. HEART: NL S1/S2, regular, no murmur, mild tachycardia ABDOMEN: BS hypoactive, soft, nontender, no mass, no bruits EXTREMITIES: No cyanosis, edema, or clubbing NEUROLOGIC: CN with mild left facial droop, dense left hemiparesis, positive Babinski on left. MUSCULOSKELETAL: No gross deformity to visual inspection PSYCH: Eyes open. Unresponsive to verbal stimuli. Minimally responsive to tactile stimuli. Assessment and Plan Assessment and plan (1) Hospice care: Code(s): Z51.5 - Encounter for palliative care Status: Acute Assessment and Plan: * Meet inpatient hospice criteria due to required continuous IV morphine for control of pain and dyspnea and restlessness. * P.r.n. palliative regimen ordered. * 04/07/2024 care and prognosis with at bedside. (2) Sepsis: Code(s): A41.9 - Sepsis, unspecified organism Status: Acute Assessment and Plan: * Fever, tachycardia, tachypnea, hypoxia with probable pulmonary source of infection. (3) Pneumonia: Code(s): J18.9 - Pneumonia, unspecified organism Status: Acute Assessment and Plan: * Although chest x-ray was read as no acute cardiopulmonary hypoxia and abnormal breath sounds elevated right hemidiaphragm on single-view chest x-ray and is high risk for pneumonia due to her history of stroke with dense left hemiparesis. (4) Left hemiplegia: Code(s): G81.94 - Hemiplegia, unspecified affecting left nondominant side Status: Acute (5) Mental status alteration: Code(s): R41.82 - Altered mental status, unspecified Status: Acute (6) Diabetes mellitus: Code(s): E11.9 - Type 2 diabetes mellitus without complications Status: Acute (7) Hypertension: Code(s): I10 - Essential (primary) hypertension Status: Acute Hospitalist MIPS Advance Care Plan I have confirmed that the patient's Advanced Care Plan is present, code status is documented, or surrogate decision maker is listed in patient medical record.: Yes Medication Reconciliation I have utilized all available resources to obtain, update and review the patients current medications (includes all prescriptions, OTC, herbals, cannabis, and nutritional supplements).: Yes
[2024-04-07 16:45] VITALS: RESP 16
[2024-04-07] MEDS: MORPHINE SULFATE INJ (*CRX) 50 MG in SODIUM CHLORIDE 0.9% IV 95 ML IV CONT (16:45)
[2024-04-07] MEDS: GLYCOPYRROLATE INJ (*SP) 0.2 MG/ML VIAL 0.1 MG IV PUSH ×2 (16:55→21:23)
[2024-04-07] MEDS: LORazepam INJ (*CRX) 2 MG/ML VIAL 1 MG IV PUSH (21:15)
[2024-04-07 22:41] VITALS: BP 113/50; PULSE 135; RESP 28; TEMP 38.1; O2SAT 90
[2024-04-08] MEDS: GLYCOPYRROLATE INJ (*SP) 0.2 MG/ML VIAL 0.1 MG IV PUSH (01:42)
[2024-04-08 01:54] VITALS: TEMP 39.8
[2024-04-08] MEDS: ACETAMINOPHEN 650 MG SUPPOSITORY RECTAL ×2 (01:54→20:52)
--- NOTE | 2024-04-08 02:00 | PC.NURSE ---
Axillary temp of 103.7. Pt lying in bed with tachypnea but otherwise calm at this time. Tylenol suppository administered.Pt moaning after being moved. Called and daughter with update. PRN ativan given for continued moaning. requests call in about an hour on pt condition and reaction to tylenol.
[2024-04-08] MEDS: LORazepam INJ (*CRX) 2 MG/ML VIAL 1 MG IV PUSH (02:15)
[2024-04-08 03:35] VITALS: TEMP 38.3
--- NOTE | 2024-04-08 05:46 | PC.NURSE ---
Pt appears comfortable in bed, very shallow respirations, rate of 10. Attempted to call family with update, no answer, messages left with and daughter.
[2024-04-08 08:00] VITALS: BP 139/52; PULSE 120; RESP 20; TEMP 38; O2SAT 90; O2SAT 91
[2024-04-08] MEDS: MORPHINE SULFATE (*CRX) 2 MG/ML INJ 4 MG IV PUSH ×3 (12:44→20:46)
[2024-04-08] MEDS: MORPHINE SULFATE INJ (*CRX) 50 MG in SODIUM CHLORIDE 0.9% IV 95 ML IV CONT (16:47)
--- NOTE | 2024-04-08 16:49 | P.PNIM_ITS ---
Progress Note: A&P Assessment and Plan (1) Hospice care: Code(s): Z51.5 - Encounter for palliative care Status: Acute Assessment and Plan: * Meet inpatient hospice criteria due to required continuous IV morphine for control of pain and dyspnea and restlessness. * P.r.n. palliative regimen ordered. * 04/07/2024 care and prognosis with at bedside. * 04/08/2024 continues to meet inpatient hospice criteria due to IV medication requirements (2) Sepsis: Code(s): A41.9 - Sepsis, unspecified organism Status: Acute Assessment and Plan: * Fever, tachycardia, tachypnea, hypoxia with probable pulmonary source of infection. (3) Pneumonia: Code(s): J18.9 - Pneumonia, unspecified organism Status: Acute Assessment and Plan: * Although chest x-ray was read as no acute cardiopulmonary hypoxia and abnormal breath sounds elevated right hemidiaphragm on single-view chest x-ray and is high risk for pneumonia due to her history of stroke with dense left hemiparesis. (4) Left hemiplegia: Code(s): G81.94 - Hemiplegia, unspecified affecting left nondominant side Status: Acute (5) Mental status alteration: Code(s): R41.82 - Altered mental status, unspecified Status: Acute (6) Diabetes mellitus: Code(s): E11.9 - Type 2 diabetes mellitus without complications Status: Acute (7) Hypertension: Code(s): I10 - Essential (primary) hypertension Status: Acute Subjective Date/time seen: 04/08/24 16:49 Interval history: Comfortable on current drip rate. Review of Systems Review of Systems: ROS unobtainable: Yes unobtainable due to medical condition Exam Narrative: HEENT: PERRL, sclerae nonicteric, pharyngeal mucosa pink and intact NECK: No JVD CHEST: Clear to auscultation. Normal effort. HEART: NL S1/S2, regular, no murmur, mild tachycardia ABDOMEN: BS hypoactive, soft, nontender, no mass, no bruits EXTREMITIES: No cyanosis, edema, or clubbing NEUROLOGIC: CN with mild left facial droop, dense left hemiparesis, positive Babinski on left. MUSCULOSKELETAL: No gross deformity to visual inspection PSYCH: Eyes open. Unresponsive to verbal stimuli. Minimally responsive to tactile stimuli. Objective Data Vital Signs Vital Signs: Vital Signs - 24 hr 04/07/24 22:41 04/08/24 01:54 04/08/24 03:35 Temperature 100.6 F H 103.7 F H 100.9 F H Pulse Rate 135 H Respiratory Rate 28 H Blood Pressure 113/50 L Pulse Oximetry 90 Oxygen Delivery Oxygen Flow Rate 04/08/24 08:00 04/08/24 08:00 Temperature 100.4 F H Pulse Rate 120 H Respiratory Rate 20 Blood Pressure 139/52 L Pulse Oximetry 91 90 Oxygen Delivery Nasal Cannula Oxygen Flow Rate 2 Intake/Output Intake/Output: Intake & Output 04/05/24 04/06/24 04/07/24 04/08/24 23:59 23:59 23:59 23:59 Intake Total 96.7 96.1 Balance 96.7 96.1 Meds/Results Medications: Active Medications Generic Name Dose Route Start Last Admin Trade Name Freq PRN Reason Stop Dose Admin Acetaminophen 650 mg 04/08/24 09:54 Acetaminophen 650 Mg Suppository RECTAL Q6H PRN Mild Pain (1-3) or Fever Artificial Tears 1 drop 04/06/24 22:00 04/08/24 11:44 Artificial Tears Ophth Soln 15 Ml Bottle EACH EYE Not Given Q8HR JELENA Artificial Tears 1 drop 04/06/24 16:21 Artificial Tears Ophth Soln 15 Ml Bottle EACH EYE PRN PRN Dry Eye(s) Bisacodyl 10 mg 04/06/24 16:20 Bisacodyl 10 Mg Suppository RECTAL DAILY PRN Constipation Glycopyrrolate 0.1 mg 04/06/24 16:20 04/08/24 01:42 Glycopyrrolate Inj (*Sp) 0.2 Mg/Ml Vial IV PUSH 0.1 mg Q4H PRN Administration secretions Morphine Sulfate 50 mg/ Sodium 100 mls @ 4 mls/hr 04/06/24 16:20 04/08/24 16:47 Chloride IV CONT 2 mg/hr .Q24H JELENA 4 mls/hr Administration 2 MG/HR Lorazepam 1 mg 04/06/24 16:20 04/08/24 02:15 Lorazepam Inj (*Crx) 2 Mg/Ml Vial IV PUSH 1 mg Q4H PRN Administration SEE COMMENTS Morphine Sulfate 4 mg 04/06/24 16:20 04/08/24 16:42 Morphine Sulfate (*Crx) 2 Mg/Ml Inj IV PUSH 4 mg Q2H PRN Administration Pain Prochlorperazine Edisylate 10 mg 04/06/24 16:19 Prochlorperazine Edisylate 10 Mg/2 Ml Vial IV PUSH Q4H PRN Nausea And Vomiting
[2024-04-08 20:00] VITALS: BP 100/46; PULSE 133; RESP 30; TEMP 39.1; O2SAT 90; O2SAT 96
[2024-04-08 20:52] VITALS: TEMP 38.4
[2024-04-08] MEDS: ARTIFICIAL TEARS OPHTH SOLN 15 ML BOTTLE 1 DROP EACH EYE (20:52)
[2024-04-09] MEDS: MORPHINE SULFATE (*CRX) 2 MG/ML INJ 4 MG IV PUSH ×2 (00:16→14:19)
[2024-04-09 08:00] VITALS: BP 122/46; PULSE 116; RESP 22; TEMP 37.9; O2SAT 93
[2024-04-09 14:18] VITALS: TEMP 37.8
[2024-04-09] MEDS: ACETAMINOPHEN 650 MG SUPPOSITORY RECTAL (14:18)
[2024-04-09] MEDS: ARTIFICIAL TEARS OPHTH SOLN 15 ML BOTTLE 1 DROP EACH EYE ×2 (14:29→22:56)
[2024-04-09] MEDS: MORPHINE SULFATE INJ (*CRX) 50 MG in SODIUM CHLORIDE 0.9% IV 95 ML IV CONT (16:00)
--- NOTE | 2024-04-09 17:57 | P.PNIM_ITS ---
Progress Note: A&P Assessment and Plan (1) Hospice care: Code(s): Z51.5 - Encounter for palliative care Status: Acute Assessment and Plan: * Meet inpatient hospice criteria due to required continuous IV morphine for control of pain and dyspnea and restlessness. * P.r.n. palliative regimen ordered. * 04/07/2024 care and prognosis with at bedside. * 04/08/2024 continues to meet inpatient hospice criteria due to IV medication requirements * 04/09/2024 this was criteria due to up titration of IV medication for control of pain and restlessness (2) Sepsis: Code(s): A41.9 - Sepsis, unspecified organism Status: Acute Assessment and Plan: * Fever, tachycardia, tachypnea, hypoxia with probable pulmonary source of infection. (3) Pneumonia: Code(s): J18.9 - Pneumonia, unspecified organism Status: Acute Assessment and Plan: * Although chest x-ray was read as no acute cardiopulmonary hypoxia and abnormal breath sounds elevated right hemidiaphragm on single-view chest x-ray and is high risk for pneumonia due to her history of stroke with dense left hemiparesis. (4) Left hemiplegia: Code(s): G81.94 - Hemiplegia, unspecified affecting left nondominant side Status: Acute (5) Mental status alteration: Code(s): R41.82 - Altered mental status, unspecified Status: Acute (6) Diabetes mellitus: Code(s): E11.9 - Type 2 diabetes mellitus without complications Status: Acute (7) Hypertension: Code(s): I10 - Essential (primary) hypertension Status: Acute Subjective Date/time seen: 04/09/24 17:57 Interval history: Required increased morphine earlier today due to grimacing and restless. Comfortable since increase. Required Tylenol suppository for fever. Review of Systems Review of Systems: ROS unobtainable: Yes unobtainable due to medical condition Exam Narrative: HEENT: PERRL, sclerae nonicteric, pharyngeal mucosa pink and intact NECK: No JVD CHEST: Coarse BS. Normal effort. HEART: NL S1/S2, regular, no murmur, mild tachycardia ABDOMEN: BS hypoactive, soft, nontender, no mass, no bruits EXTREMITIES: No cyanosis, edema, or clubbing NEUROLOGIC: CN with mild left facial droop, dense left hemiparesis, positive Babinski on left. MUSCULOSKELETAL: No gross deformity to visual inspection PSYCH: Eyes open. Unresponsive to verbal stimuli. Minimally responsive to tactile stimuli. Objective Data Vital Signs Vital Signs: Vital Signs - 24 hr 04/08/24 20:00 04/08/24 20:00 04/08/24 20:52 Temperature 102.4 F H 101.2 F H Pulse Rate 133 H Respiratory Rate 30 H Blood Pressure 100/46 L Pulse Oximetry 90 96 Oxygen Delivery Nasal Cannula Oxygen Flow Rate 2 04/09/24 08:00 04/09/24 14:18 Temperature 100.2 F H 100.1 F H Pulse Rate 116 H Respiratory Rate 22 H Blood Pressure 122/46 L Pulse Oximetry 93 Oxygen Delivery Oxygen Flow Rate Intake/Output Intake/Output: Intake & Output 04/06/24 04/07/24 04/08/24 04/09/24 23:59 23:59 23:59 23:59 Intake Total 96.7 96.1 99.5 Balance 96.7 96.1 99.5 Meds/Results Medications: Active Medications Generic Name Dose Route Start Last Admin Trade Name Freq PRN Reason Stop Dose Admin Acetaminophen 650 mg 04/08/24 09:54 04/09/24 14:18 Acetaminophen 650 Mg Suppository RECTAL 650 mg Q6H PRN Administration Mild Pain (1-3) or Fever Artificial Tears 1 drop 04/06/24 22:00 04/09/24 14:29 Artificial Tears Ophth Soln 15 Ml Bottle EACH EYE 1 drop Q8HR JELENA Administration Artificial Tears 1 drop 04/06/24 16:21 Artificial Tears Ophth Soln 15 Ml Bottle EACH EYE PRN PRN Dry Eye(s) Bisacodyl 10 mg 04/06/24 16:20 Bisacodyl 10 Mg Suppository RECTAL DAILY PRN Constipation Glycopyrrolate 0.1 mg 04/06/24 16:20 04/08/24 01:42 Glycopyrrolate Inj (*Sp) 0.2 Mg/Ml Vial IV PUSH 0.1 mg Q4H PRN Administration secretions Morphine Sulfate 50 mg/ Sodium 100 mls @ 8 mls/hr 04/06/24 16:20 04/09/24 16:00 Chloride IV CONT 2 mg/hr .[id number] JELENA 4 mls/hr Administration 4 MG/HR Lorazepam 1 mg 04/06/24 16:20 04/08/24 02:15 Lorazepam Inj (*Crx) 2 Mg/Ml Vial IV PUSH 1 mg Q4H PRN Administration SEE COMMENTS Morphine Sulfate 6 mg 04/09/24 15:14 Morphine Sulfate Inj (*Crx) 10 Mg/Ml Amp IV PUSH Q2H PRN PAIN/SOB Prochlorperazine Edisylate 10 mg 04/06/24 16:19 Prochlorperazine Edisylate 10 Mg/2 Ml Vial IV PUSH Q4H PRN Nausea And Vomiting
[2024-04-09 20:00] VITALS: O2SAT 93
[2024-04-09] MEDS: GLYCOPYRROLATE INJ (*SP) 0.2 MG/ML VIAL 0.1 MG IV PUSH (20:12)
[2024-04-09] MEDS: LORazepam INJ (*CRX) 2 MG/ML VIAL 1 MG IV PUSH (23:48)
--- NOTE | 2024-04-10 01:03 | PC.NURSE ---
I went into Pt's room to check on her and give PRN medications if needed to help with secretions. Daughter at bedside when I went into the room and stated 'I think she has passed.' Pt. assessed with no heart beat or respirations noted. This was also noted by Tim Giles RN. Daughter at bedside and called her dad, who is on his way. [facility] to be notified of . Daughter informed to take their time with Pt. and let us know if there is anything we can do for them. Daughter will let us know if there is anything. Charge nurse notified.
--- NOTE | 2024-04-10 15:07 | P.DN_ITS ---
Discharge Summary Date and Time Date of : 04/10/24 Time of : 01:03 Provider Pronounced By: 2 RNs Name of First RN That Pronounced: Jazlyn Reardon Name of Second RN That Pronounced: Keshav Giles Probable Cause of Probable Cause of : Sepsis Summary Hospital Course: Admitted to inpatient hospice service. Medications were titrated to comfort. Mrs. Jenkins peacefully. Additional Data Confirmation of as documented by pronouncing clinician: Pupillary Reflex, Palpable Pulses, Response to Stimuli, Heart Tones and Breath Sounds Name of Provider Notified: Dr. Davila Time Provider Notified: 01:22 Provider Requests Autopsy: No Family Requests Autopsy: No Patient Account Specialist Notified: Yes Date [facility] Notified of : 04/10/24 Time [facility] Notified of : 01:18
== END 2024-04-10 04:00 | disposition expired | DRG 951 ==
PROVIDERS: Admitting Provider Internal Medicine; PCP Family Medicine; Visit Provider Internal Medicine
DX: Z51.5 Encounter for palliative care (principal); A41.9 Sepsis, unspecified organism; J18.9 Pneumonia, unspecified organism; I69.354 Hemiplegia and hemiparesis following cerebral infarction affecting left non-dominant side; I10 Essential (primary) hypertension; E11.9 Type 2 diabetes mellitus without complications
CPT/HCPCS: A9270; J1596; J2060; J2270